=== PATIENT | female | born 1940 | race Caucasian/White ===

== ENCOUNTER 2021-05-04 12:15 | Inpatient (IN) | payer MEDICARE, SELFPAY ==
[2021-05-04] VITALS (32 sets, daily range): BP systolic 82–143; BP diastolic 42–89; PULSE 69–92; RESP 14–25; TEMP 36.3–36.8; O2SAT 90–98
--- NOTE | ~2021-05-04 | MR_ITS ---
EXAMINATION: MR MRCP wo con/w 3D wo ind pp DATE: 05/07/2021 16:32 INDICATION: Duodenal obstruction. TECHNIQUE: Magnetic resonance imaging (MRI) of the abdomen was performed without intravenous contrast . Sequences included coronal T2-weighted FS FSE, coronal T2-weighted FSE, axial T1-weighted LAVA, cor onal FS FIESTA, axial dual-echo T1-weighted SPGR, coronal lava-FLEX, sagittal T2-weighted FSE, axial T2-weighted FSE, and axial DWI. Thick-slab T2-weighted FSE images were obtained for magnetic resonanc e cholangiopancreatography (MRCP). Maximum intensity projection 3-D reconstructions of the volumetric data were created by the technologist. COMPARISON: CT abdomen and pelvis 05/04/2021, 05/07/21 FINDINGS: ABDOMEN MRI: There is moderate intrahepatic and extrahepatic biliary duct dilatation. There is a ston e in the common bile duct. The gallbladder is distended and contains stones. There is marked distenti on of the stomach and proximal duodenum. There is a diverticulum of the second portion of the duodenu m. There is a mass in the proximal third portion of the duodenum. The small bowel is decompressed dis rona to this area. At the inferior aspect of the head of the pancreas, there is a 3.2 x 2.0 cm mass th at involves the pancreas and duodenum. The spleen and adrenal glands are normal. There are cysts in t he kidneys measuring up to 10 mm on the right. There is mild right hydronephrosis. There are no patho logically enlarged lymph nodes. There is no free intraperitoneal fluid. ABDOMEN MRCP: There is a 15 mm stone in the distal common bile duct. There is moderate intrahepatic a nd extrahepatic biliary duct dilatation. IMPRESSION: 1. 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 2. Moderate intrahepatic and extrahepatic biliary duct dilatation with 15 mm stone in the distal comm on bile duct. 3. Cholelithiasis. 4. Mild right hydronephrosis with improvement status post stent placement. Reviewed, dictated and finalized at location E. PROPELLED DREDGE OPERATOR IMPRESSION: 1. 3.2 x 2.2 cm mass involving the pancreatic head and third portion of the duo denum causing duodenal obstruction, most likely pancreatic adenocarcinoma. 2. Moderate intrahepatic and extrahepatic biliary duct dilatation with [address] one in the distal common bile duct. 3. Cholelithiasis. 4. Mild right hydronephrosis with improvement status post stent placement.
--- NOTE | ~2021-05-04 | XR_ITS ---
EXAMINATION: XR retrograde pyelo w/stent RT EXAM DATE: 05/05/2021 14:49 INDICATION: Right-sided retrograde pyelogram, stent placement, obstructive nephropathy. TECHNIQUE: Fluoroscopy used during XR retrograde pyelo w/stent RT performed by Dr. Shiraz yoder MD, urologist. The radiologist Pavel Aguayo M.D. dictating this report of the image(s) availabl e was not present for the procedure. Total fluoroscopic time of 155 seconds. The DAP for this proce dure was 1.3 mGym2. A total of 6 images sent to PACS from the exam. Correlation is made to CT abdome n pelvis from yesterday. FINDINGS: Possible identification of the sizable right mid ureteral stone on title investigator image. Right urete r was cannulated and injected. There is moderate right hydronephrosis. A double-J ureteral stent was placed. Correlate with procedure note. IMPRESSION: Moderate right hydronephrosis, stent in position. Reviewed, dictated and finalized at location B. FOLLOWER
--- NOTE | ~2021-05-04 | CT_ITS ---
EXAMINATION: CT abdomen pelvis wo con EXAM DATE: 05/07/2021 08:39 INDICATION: Surgical planning, hydronephrosis . TECHNIQUE: Spiral CT of the abdomen and pelvis was performed without contrast. Axial, coronal and sag ittal images were reviewed. The dose-length product (DLP) for this examination was 301.94 mGy-cm. T he exposure was tailored according to patient size (auto mA exposure control), and iterative reconstr uction (ASIR) was used as additional dose reduction technique. Comparison is made to prior examinatio n from 05/04/2021. FINDINGS: Significantly distended stomach with orally administered water-soluble contrast for patient 's upper GI examination. There is much smaller amount of contrast within jejunum. There is some reflu x in the esophagus, probably small sliding gastroesophageal hiatal hernia. Potentially could be SMA s yndrome causing this. Interval insertion of a right-sided double-J ureteral stent. There is a Lowery catheter. There are sev eral stone fragments identified along the mid aspect of the stent. There is improvement in hydronephr osis, now only mild. There is region of right renal cortical scarring and calcification. The uterus i s not identified and has likely been surgically resected. Some pelvic surgical clips could be lymph n ode dissection. The liver, spleen, adrenal glands and pancreas are unremarkable. There are gallstones within an othe rwise unremarkable gallbladder. There is poorly calcified 13 mm gallstone in the distal aspect of the common bile duct less well-visualized due to the dense contrast adjacent to this. There is moderate common bile and intrahepatic biliary duct dilation. There is no retroperitoneal or pelvic lymphadeno abigail. There is moderate scattered arteriosclerotic disease. There are no findings to suggest appendicitis. There is expected amount of colonic stool. No free intraperitoneal gas. The heart is normal in size. There are no pericardial or pleural effusions. The lung bases are unremarkable. There are no osteoblastic or osteolytic lesions identified. IMPRESSION: 1. Some smaller stone fragments along mid aspect of the right ureteral stent. Improvement in mild ri ght hydronephrosis. 2. Distended stomach suspicious for chronic outlet obstruction which could be SMA syndrome. Gastroes ophageal reflux. 3. Choledocholithiasis, moderate biliary distention. Reviewed, dictated and finalized at location B. DISPATCHER IMPRESSION: 1. Some smaller stone fragments along mid aspect of the right ureteral stent. Improvement in mild right hydronephrosis. 2. Distended stomach suspicious for chronic outlet obstruction which could be SMA syndrome. Gastroesophageal reflux. 3. Choledocholithiasis, moderate biliary distention.
--- NOTE | ~2021-05-04 | XR_ITS ---
EXAMINATION: XR fl guid NG/feed tube insert DATE: 05/22/2021 07:58 INDICATION: Gastric outlet obstruction. TECHNIQUE: I placed a nasogastric tube under fluoroscopic guidance. The fluoroscopy exposure time was 0.2 minutes. The number of images was 1. COMPARISON: Upper gastrointestinal series 05/21/2021 FINDINGS: The nasogastric tube tip is in the stomach. IMPRESSION: 1. Fluoroscopy guided nasogastric tube placement with tip in the stomach. Reviewed, dictated and finalized at location A.
--- NOTE | ~2021-05-04 | US_ITS ---
EXAMINATION: US renal BI DATE: 05/04/2021 16:57 INDICATION: Acute kidney injury. TECHNIQUE: Multiple ultrasound grayscale images of the kidneys were obtained. COMPARISON: None. FINDINGS: The right kidney measures 10.1 x 4.4 x 4.2 cm. The left kidney measures 10.7 x 4.3 x 4.7 cm. The righ t kidney demonstrates increased parenchymal echogenicity, consistent with nephropathy. There is sever e right hydronephrosis. There is focal wall thickening of the posterior bladder wall. IMPRESSION: 1. Severe right hydronephrosis. 2. Focal thickening of the posterior bladder wall suspicious for urothelial carcinoma or hematoma. Ab domen and pelvis CT without and with contrast (CT urogram) is recommended. Reviewed, dictated and finalized at location E. K DYER IMPRESSION: 1. Severe right hydronephrosis. 2. Focal thickening of the posterior bladder wall suspicious for urothelial car cinoma or hematoma. Abdomen and pelvis CT without and with contrast (CT urogram ) is recommended.
--- NOTE | ~2021-05-04 | XR_ITS ---
EXAMINATION: XR abdomen NG/feed tube rechec INDICATION: Nasogastric tube advancement TECHNIQUE: Portable AP KUB-NG at 1635 hours COMPARISON: 0744 hours FINDINGS: The nasogastric tube is in the stomach. A right internal ureteral stent is in expected posi tion. Contrast from recent upper GI partially opacifies the large bowel. There are surgical clips in the pelvis and midline abdomen. IMPRESSION: 1. Nasogastric tube in the stomach. Reviewed, dictated and finalized at location F. T OFFICER AND FLIGHT INSTRUCTOR
--- NOTE | ~2021-05-04 | XR_ITS ---
EXAMINATION: XR abdomen/kub 1V EXAM DATE: 05/24/2021 05:28 INDICATION: Small bowel obstruction TECHNIQUE: Frontal projection(s) of the abdomen for interpretation. Comparison is made to prior exami nation from 05/22/2021, 05/23. FINDINGS: There is still moderate amount of colonic contrast from prior water soluble small bowel ex am, now some has reached the rectum. No dilated small bowel. Nasogastric tube. Laparotomy noah. Il iac lymph node dissection clips and right ureteral stent. Lung bases unremarkable. IMPRESSION: 1. Surgical changes. 2. Colonic contrast. No dilated small bowel. 3. Right ureteral stent in position. EL AGENT Reviewed, dictated and finalized at location A.
--- NOTE | ~2021-05-04 | XR_ITS ---
EXAMINATION: XR UGI water soluble wo kub DATE: 05/21/2021 13:25 INDICATION: Vomiting. TECHNIQUE: The patient drank water-soluble contrast. Fluoroscopy of the esophagus, stomach, and proxi mal small bowel was performed. Fluoroscopy exposure time was 1.1 minutes. The total number of images was 275. Total dose-area product was 4.17 Gy-cm^2. COMPARISON: None. FINDINGS: There is no mass or stricture of the esophagus. There is decreased primary and secondary es ophageal peristalsis. No abnormal tertiary waves. There is no hiatal hernia. The stomach is markedly distended and was distended before the exam began. There is contrast in the colon from previous imagi ng. A right internal ureteral stent is noted. IMPRESSION: 1. Distended stomach. Contrast did not pass into the gastrojejunostomy during the exam. Reviewed, dictated and finalized at location A. PAN FEEDER IMPRESSION: 1. Distended stomach. Contrast did not pass into the gastrojejunostomy during t he exam.
--- NOTE | ~2021-05-04 | CT_ITS ---
EXAMINATION: CT abdomen pelvis wo con DATE: 05/04/2021 23:24 INDICATION: Right-sided hydronephrosis. TECHNIQUE: Computed tomography (CT) of the abdomen and pelvis was performed without intravenous contr ast. Automated exposure control and iterative reconstruction technique were employed. The dose-length product was 193.67 mGy-cm. COMPARISON: Ultrasound 05/04/2021 FINDINGS: The visualized portions of the lung bases demonstrate peripheral septal thickening and mild bronchiectasis, consistent with chronic interstitial lung disease. No pleural effusion. The heart si ze is normal. There are coronary artery calcifications. No pericardial effusion. There is mild intrah epatic and extrahepatic biliary duct dilatation. There are gallstones in the gallbladder, which is no rmal in size. There is a 13 mm stone in the common bile duct. The spleen, pancreas, and right adrenal gland are normal. There is thickening of left adrenal gland, likely benign. There is a 5 mm parenchy mal calcification in right kidney. There is severe right hydronephrosis. There is a 6 mm stone in rig ht ureter where it crosses the iliac vessels. Left kidney is normal. There is distention of the stoma ch and proximal duodenum. The appendix is not visualized. There are changes of pelvic lymph node diss ection. There are no pathologically enlarged lymph nodes. There is no free intraperitoneal fluid. The re is severe lumbar spondylosis. IMPRESSION: 1. Severe right hydronephrosis and hydroureter to the level of a 6 mm stone in mid right ureter. 2. 13 mm stone in the common bile duct with mild intrahepatic and extrahepatic biliary duct dilatatio n. 3. 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 Reviewed, dictated and finalized at location E. NEERING LABORATORY TECHNICIAN IMPRESSION: 1. Severe right hydronephrosis and hydroureter to the level of a 6 mm stone in mid right ureter. 2. 13 mm stone in the common bile duct with mild intrahepatic and extrahepatic biliary duct dilatation. 3. Distended stomach and proximal duodenum with transition point at the midline , which may seen with SMA syndrome.
--- NOTE | ~2021-05-04 | XR_ITS ---
EXAMINATION: XR abdomen obstructive series DATE: 05/20/2021 07:43 INDICATION: Vomiting 1 week post gastroenterostomy TECHNIQUE: Frontal supine and upright views of the abdomen were obtained. COMPARISON: None. FINDINGS: No free intraperitoneal gas. Gas and residual contrast scattered throughout the nondilated colon no d ilated gas-filled loops of bowel in the abdomen to suggest significant ileus over obstruction. Right internal ureteral stent with loops formed over the expected location of the bladder and right renal p rosalie. A couple 2 mm stones at the mid right kidney. Cholelithiasis. Chronic interstitial lung diseas e with peripheral predominant coarse reticular opacities at the left lung and right mid to lower lung . Heart size is normal. Midline abdominal skin noah. Multiple surgical clips in the left and right hemipelvis consistent with a pelvic lymph node dissection. IMPRESSION: 1. No free intraperitoneal gas or dilated gas-filled loops of bowel to suggest obstruction. 2. Cholelithiasis. 3. A couple 2 mm right renal stones with right internal ureteral stent in expected position. Reviewed, dictated and finalized at location A. STANT ACTIVITIES DIRECTOR IMPRESSION: 1. No free intraperitoneal gas or dilated gas-filled loops of bowel to suggest obstruction. 2. Cholelithiasis. 3. A couple 2 mm right renal stones with right internal ureteral stent in expec bre position.
--- NOTE | ~2021-05-04 | XR_ITS ---
EXAMINATION: XR abdomen/kub 1V EXAM DATE: 05/23/2021 05:30 INDICATION: Small bowel obstruction. TECHNIQUE: Frontal projection(s) of the abdomen for interpretation. Comparison is made to prior exami nation from 05/22/2021. FINDINGS: There is still significant amount of colonic contrast from prior water soluble small bowel exam. No dilated small bowel. Nasogastric tube. Laparotomy noah. Iliac lymph node dissection clip s and right ureteral stent. Lung bases unremarkable. IMPRESSION: 1. Surgical changes. 2. Persistent moderate amount of colonic contrast. Colonic ileus? 3. Right ureteral stent in position. Reviewed, dictated and finalized at location A. CIPAL CLERK TYPIST
--- NOTE | ~2021-05-04 | XR_ITS ---
XR abdomen/kub 1V 05/25/2021 05:24 Indication: Small bowel obstruction Procedure: KUB Comparison: Comparison to multiple prior studies sequentially, with oldest reviewed study dated 05/20. Findings: NG tube in the stomach. There is a laparotomy staple line. There is a right internal ureter al stent. There is residual contrast in the colon. No significant small bowel dilation. Lung bases un remarkable. There are extensive surgical changes in the pelvis. Impression: 1: Nonobstructive bowel gas pattern. Reviewed, dictated and finalized at location A. SHER TAILOR APPRENTICE Impression: 1: Nonobstructive bowel gas pattern.
--- NOTE | ~2021-05-04 | XR_ITS ---
EXAMINATION: XR UGI water soluble wo kub DATE: 05/07/2021 09:11 INDICATION: Duodenal obstruction. Assess for possible SMA syndrome. TECHNIQUE: The patient drank water-soluble contrast. A total of 624 fluoroscopic images of the esopha soco, stomach, and proximal small bowel were obtained. 5 overhead radiographs were also obtained, the final a 1 hour delayed image. Fluoroscopy exposure time was 1.3 minutes. COMPARISON: None. FINDINGS: The esophagus is normal without mass or stricture. Esophageal motility is normal. There is no hiatal hernia. There was no gastroesophageal reflux with provocative maneuvers. The stomach and proximal duo denum or dilated and fluid-filled with some dilution of the ingested contrast. There is obstruction a t the level of the third portion of the duodenum with no contrast passing beyond the right lateral ma rgin of the lumbar spine. Overhead radiographs demonstrates multiple gallstones in the right upper qu adrant. Right internal ureteral stent with loops formed in the region of the right renal pelvis and t he bladder. Multiple surgical clips in the pelvis consistent with bilateral pelvic lymph node dissect ions. IMPRESSION: 1. Relatively high-grade obstruction at the third portion of the duodenum. Review of prior CT demonst rates focal dilation of the peripheral contours of the superior mesenteric artery where it passes ant erior to the pancreas with loss of the intervening fat plane. This raises concern for possible infilt rating pancreatic cancer as etiology for the obstruction. Alternatively dilation of the superior mese nteric artery could represent an aneurysm. Concern for malignancy was discussed with Dr. Buitrago and con trast-enhanced MRI/MRCP has been ordered for further evaluation. 2. Cholelithiasis. Reviewed, dictated and finalized at location A. LOINER IMPRESSION: 1. Relatively high-grade obstruction at the third portion of the duodenum. Revi ew of prior CT demonstrates focal dilation of the peripheral contours of the campbell perior mesenteric artery where it passes anterior to the pancreas with loss of the intervening fat plane. This raises concern for possible infiltrating pancre atic cancer as etiology for the obstruction. Alternatively dilation of the supe rior mesenteric artery could represent an aneurysm. Concern for malignancy was discussed with Dr. Buitrago and contrast-enhanced MRI/MRCP has been ordered for fur ther evaluation. 2. Cholelithiasis.
--- NOTE | ~2021-05-04 | XR_ITS ---
EXAMINATION: XR abdomen/kub 1V EXAM DATE: 05/07/2021 07:42 INDICATION: Surgical planning N/V diarrhea. TECHNIQUE: Frontal projection(s) of the abdomen for interpretation. Correlation is made to CT abdomen pelvis same date. FINDINGS: . There is a right-sided double-J ureteral stent in position. Stone or stone fragments susp ected over the mid aspect of the stent, indicated. Pelvic surgical clips from lymph node dissection. Cholelithiasis. Expected amount of colonic stool. No small bowel dilation. Lung bases unremarkable. IMPRESSION: Stone or stone fragments along mid aspect right ureteral stent. Reviewed, dictated and finalized at location B. E PRN
[2021-05-04 12:59] LABS: Basophils Absolute Auto 0.1 K/mm3 (0.0-0.1); Basophils Percent Auto 0.4 % (0.2-1.2); Eosinophils Percent Auto 0.1 % (0-4.4); Hematocrit 50.1 % (37.0-47.0); Immature Granulocyte Absolute 0.05 K/mm3 (0.00-0.031); Immature Granulocyte Percent A 0.4 % (0-0.5); Lymphocytes Percent Auto 12.8 % (18.3-44.2); Mean Corpuscular HGB Conc 33.9 g/dl (32-36); Mean Corpuscular Hemoglobin 32.4 pg (26-34); Mean Corpuscular Volume 95.4 fl (80-100); Mean Platelet Volume 9.3 fl (7.4-10.4); Monocytes Absolute Auto 0.7 K/mm3 (0.1-0.6); Monocytes Percent Auto 5.6 % (2.6-8.5); Neutrophils Absolute Auto 10.8 K/mm3 (1.3-6.7); Neutrophils Percent Auto 80.7 % (45.5-73.1); Platelet Count Result 603 k/mm3 (150-375); Red Blood Count 5.25 M/mm3 (4.2-5.4); Red Cell Distribution Width 12.6 % (11.5-14.5); White Blood Count 13.3 K/mm3 (4.5-10.0)
[2021-05-04 13:05] LABS: Alanine Aminotransferase 71 U/L (4-35); Alkaline Phosphatase 158 U/L (38-126); Aspartate Amino Transferase 46 U/L (14-36); Bilirubin,Total 0.9 mg/dL (0.2-1.3); Blood Urea Nitrogen 88 mg/dL (7-17); Carbon Dioxide > 40 mmol/L (22-30); Chloride 66 mmol/L (98-107); Estimated CRCL calculation 6 ml/min; Estimated Glomerular Filt Rate 8; Glucose 116 mg/dL (65-110); Lipase 79 U/L (23-300); Potassium 3.8 mmol/L (3.4-5.0); Sodium 130 mmol/L (137-145)
[2021-05-04 13:37] LABS: Add Urine Microscopic? YES; Appearance Urine Cloudy (Clear); Bacteria Urine Trace /hpf; Bilirubin Urine Negative (Negative); Blood Urine 1+ (Negative); Color Urine Amber (Yellow); Glucose Urine UA Negative (Negative); Hyaline Casts Urine 20-29 /lpf; Ketones Urine Negative (Negative); Leukocyte Esterase Ur 3+ LEU/UL (Negative); Mucus Urine Rare /lpf; Nitrate Urine Negative (Negative); Protein Urine 2+ mg/dL (Negative); RBC Urine 21-50 /hpf (0-2); Specific Grav Ur 1.015 (1.001-1.035); Squamous Epithelial Cell Urine Rare /hpf (Few); Urobilinogen Urine Negative mg/dL (<2.0); WBC Urine >75 /hpf
[2021-05-04] MEDS: SODIUM CHLORIDE 0.9% IV 1,000 ML 999 ML IV CONT (14:43)
[2021-05-04] MEDS: LACTATED RINGERS 1,000 ML 999 ML IV CONT (14:45)
--- NOTE | 2021-05-04 16:07 | ED.NAVMDI ---
HPI - Nausea/Vomiting/Diarrhea General Chief complaint: Nausea/Vomiting/Diarrhea Stated complaint: constipation, abd pain, vomiting Time Seen by Provider: 05/04/21 13:31 Source: patient and family Mode of arrival: ambulatory Limitations: clinical condition History of Present Illness HPI Narrative: 80-year-old female Patient presents from her doctor's office after arriving complaining of nausea vomiting and dizziness Noted to have low blood pressure there Patient says for the last for 5 days she has had nausea and vomiting and a very bad appetite and taking in very little She does not have a fever or abdominal pain She does not describe any urinary difficulties, just says she has not been voiding very much because she has not been taking very much in She takes her blood pressure medicine but does not have any history of kidney problems that she is aware of Related Data Home Medications Medication Instructions Recorded Confirmed acetaminophen 500 mg PO PRN 05/04/21 albuterol sulfate [Ventolin HFA] 2 puff INHALATION QID PRN 05/04/21 05/04/21 amlodipine 10 mg PO DAILY 05/04/21 05/04/21 budesonide-formoterol [Symbicort] 2 puff INHALATION Q12H 05/04/21 05/04/21 theophylline 400 mg PO DAILY 05/04/21 05/04/21 Allergies Allergy/AdvReac Type Severity Reaction Status Date / Time aspirin AdvReac Nausea and Verified 05/04/21 13:52 Vomiting Opioids - Morphine Analogues AdvReac Nausea Verified 05/04/21 13:52 Opioids-Meperidine and AdvReac Nausea and Verified 05/04/21 13:52 Related Vomiting Review of Systems Review of Systems: All systems reviewed & are unremarkable except as noted in HPI and below Constitutional: Constitutional: Reports no additional constitutional complaints, Denies chills, Reports fatigue, Denies fever(s), Denies headache(s) and Reports weakness Eyes: Eyes: Reports no additional eye complaints and Denies change in vision ENT: Denies headache(s) and Denies sore throat Cardiovascular: Cardiovascular: Denies chest pain and Denies dyspnea Respiratory: Respiratory: Denies cough and Denies dyspnea Gastrointestinal: Gastrointestinal: Denies abdominal pain, Reports diarrhea, Reports nausea and Reports vomiting Genitourinary: Genitourinary: Denies urinary frequency and Denies dysuria Musculoskeletal: Musculoskeletal: Reports myalgias, Denies deformity, Denies arthralgias, Denies joint swelling and Denies numbness Integumentary/Breasts: Skin/Breast: Denies rash and Denies wounds Neurologic: Reports dizziness, Denies syncope, Denies headache(s), Denies focal weakness, Denies numbness and Reports weakness Psychiatric: Psychiatric: Reports no additional psychiatric complaints Endocrine: Endocrine: Reports no additional endocrine complaints Hematologic/Lymphatic: Hematologic/Lymphatic: Reports no additional hematologic/lymphatic complaints Allergic/Immunologic: Allergic/Immunologic: Reports no additional allergic/immunologic complaints Exam Const: General: cooperative, no acute distress and alert Nutritional Appearance: thin Orientation/consciousness: patient oriented x3 (alert) Other: Frail, elderly HENMT: Head: normal to inspection, normocephalic, atraumatic, no contusions and no hematomas Ears: external ears normal General nose exam: no epistaxis Mouth: Yes dry mucous membranes Eyes: Conjunctivae: conjunctivae normal Pupils: Equal, round and reactive pupils present EOM: EOMs intact bilaterally Neck: Neck: normal visual inspection, supple and no JVD Resp: Effort & Inspection: normal respiratory effort and not labored Auscultation: clear to auscultation bilaterally, no rales, no rhonchi, no wheezes and other (BS =) Cardio: Rate: regular rate Rhythm: regular rhythm Heart sounds: no murmurs GI: GI Palp: Yes Soft to palpation, No Tenderness to palpation present (GI), No Guarding due to palpation present (GI) and No Rebound tenderness present Skin: General skin exam: normal color and
[2021-05-04] MEDS: LACTATED RINGERS 1,000 ML 150 ML IV CONT (17:21)
--- NOTE | 2021-05-04 18:40 | PM.IMHP ---
H&P: HPI History of Present Illness Date/Time: 05/04/21 18:40 Chief Complaint: Vomiting. Narrative: This is a pleasant 80-year-old female with with hypertension and COPD who presented to the emergency department for evaluation of vomiting. She complains of multiple symptoms that have been ongoing for approximately 2 weeks including abdominal bloating, esophageal dysphagia, hiccups, occasional belching, and emesis described as dark green which occurs within approximately 30 minutes of eating or drinking. She has not been eating much because of the aforementioned symptoms and she estimates having lost 10 lb in the past 2 weeks. It is my understanding that she was seen by her primary care provider today at which time her blood pressures were low and she was referred to the ER though her blood pressures have been pretty stable here. Labs today showed several abnormalities including hemoconcentration, hyponatremia, hypochloremia, acute kidney injury with a BUN and creatinine of 88 and 5.40 respectively. Renal ultrasound demonstrated severe right hydronephrosis and focal wall thickening of the posterior bladder wall suspicious for cancer or hematoma. With further questioning she has noticed a decrease in urine output though she has not noticed darkening of the urine or blood in the urine. She has not had any recent changes in medications. She denies dysuria, urgency, hesitancy, and feelings of incomplete bladder evacuation. No known history of peptic ulcers or malignancy. Review of Systems Review of Systems: Twelve systems were reviewed. No syncope or near syncope. No recent cold or flu symptoms. No fever, chills, or sweats. Denies chest pain and shortness of breath. Occasional heartburn. Except as documented, all other systems were reviewed and are negative. [facility] Past Medical History Medical History (Updated 05/04/21 @ 21:59 by Sarah Iqbal PA-C) Chronic obstructive pulmonary disease Hypertension Surgical History Surgical History (Updated 05/04/21 @ 21:59 by Sarah Iqbal PA-C) History of appendectomy History of hysterectomy Family History Family History (Updated 05/04/21 @ 21:59 by Sarah Iqbal PA-C) Other Hypertension Social History Social History (Updated 05/04/21 @ 22:00 by Sarah Iqbal PA-C) Social History: The patient lives in [place] with her daughter. She began smoking at the age of 15 and smoked around a pack of cigarettes a day though more recently she has been smoking less than half a pack a day. No alcohol or illicit substance abuse. She designates her daughter, Asim zuñiga, as her surrogate decision maker. Code status: Full code. Meds Home Medications and Allergies Home Medications Medication Instructions Recorded Confirmed Type acetaminophen 500 mg PO PRN 05/04/21 History albuterol sulfate [Ventolin HFA] 2 puff INHALATION QID PRN 05/04/21 05/04/21 History amlodipine 10 mg PO DAILY 05/04/21 05/04/21 History budesonide-formoterol [Symbicort] 2 puff INHALATION Q12H 05/04/21 05/04/21 History theophylline 400 mg PO DAILY 05/04/21 05/04/21 History Allergies Allergy/AdvReac Type Severity Reaction Status Date / Time aspirin AdvReac Nausea and Verified 05/04/21 13:52 Vomiting Opioids - Morphine Analogues AdvReac Nausea Verified 05/04/21 13:52 Opioids-Meperidine and AdvReac Nausea and Verified 05/04/21 13:52 Related Vomiting Vital Signs Vital Signs - 24 hr 05/04/21 12:20 05/04/21 12:32 05/04/21 12:33 Temperature 98.2 F Pulse Rate 91 84 83 Respiratory Rate 17 18 16 Blood Pressure 82/42 L 139/68 Pulse Oximetry 95 93 95 05/04/21 12:45 05/04/21 12:48 05/04/21 13:00 Temperature Pulse Rate 81 86 92 Respiratory Rate 19 14 17 Blood Pressure 107/74 Pulse Oximetry 94 91 94 05/04/21 13:02 05/04/21 13:03 05/04/21 13:15 Temperature Pulse Rate 88 85 84 Respiratory Rate 19 22 H 14 Blood Pressure 95/51 L Pulse Oximetry 95 92 92
--- NOTE | 2021-05-04 19:00 | PC.NURSE ---
Assuming care of pt.
[2021-05-04 19:52] LABS: SARS-CoV-2 RNA PCR Negative
[2021-05-04 20:27] LABS: Creatine Kinase 87 U/L (30-135)
[2021-05-04 22:18] LABS: Sodium Urine Random 38 meq/L
[2021-05-04 22:25] LABS: Creatinine Urine 233.8 mg/dL
[2021-05-04 22:38] LABS: Blood Urea Nitrogen 85 mg/dL (7-17); Calcium 7.9 mg/dL (8.4-10.2); Carbon Dioxide > 40 mmol/L (22-30); Chloride 78 mmol/L (98-107); Estimated CRCL calculation 8 ml/min; Estimated Glomerular Filt Rate 12; Glucose 106 mg/dL (65-110); Magnesium 2.1 mg/dL (1.6-2.3); Phosphorus 6.9 mg/dL (2.5-4.5); Potassium 3.1 mmol/L (3.4-5.0); Sodium 129 mmol/L (137-145)
[2021-05-04 22:45] LABS: Complement C3 98 mg/dL (88-165)
[2021-05-04 22:47] LABS: CRP 1.7 mg/dL (<1.0)
[2021-05-04 23:27] LABS: Hepatitis B Surface Antigen Negative (Negative)
[2021-05-04 23:32] LABS: Hepatitis B Core IgM Result Negative (Negative)
[2021-05-04 23:45] LABS: Hepatitis B Surface Anti Res Negative; Hepatitis C Virus Antibody Negative (Negative)
[2021-05-05] VITALS (10 sets, daily range): BP systolic 91–124; BP diastolic 43–76; PULSE 60–71; RESP 12–20; TEMP 36.1–36.7; O2SAT 90–100; BMI 17.7; BMI 17.9
[2021-05-05] MEDS: ONDANSETRON INJ 4 MG/2 ML VIAL IV PUSH (00:51)
[2021-05-05] MEDS: SODIUM CHLORIDE 0.9% IV 1,000 ML 75 ML IV CONT (00:51)
[2021-05-05] MEDS: FAMOTIDINE 20 MG/2 ML VIAL IV PUSH ×3 (00:58→20:57)
--- NOTE | 2021-05-05 04:39 | PC.NURSE ---
This patient, Abby Riley, was admitted to 3 Med Surg Room 329-01. Patient/family oriented to hospital policies and general routines including ID bracelet, bed and alarms, visiting hours, pain management, procedures, bathroom and other care routines, personal items, smoking policy, room service/diet, and visiting hours. Information on how to activate the Rapid Response Team has been discussed. Patient/Family are encouraged to report perceived risks to care and to ask questions if they do not understand what they are told or what they should do.
[2021-05-05 05:17] LABS: Alveolar/Arterial O2 Gradient 38.2 mmHg; Base Excess ABG 13.2 mEq/l (+/-2.0); Carboxyhemoglobin 1.7 % THb (0-2.0); Fractional Inspired Oxygen 21 %; Methemoglobin ABG 0.3 %THb (0-1.5); Oxygen Content ABG 15.4 %vol (16.0-22.0); PCO2 ABG 54.1 mmHg (35.0-45.0); PO2 FiO2 Ratio Arterial Blood 2.22 %; Reduced Hemoglobin 17.8 %THb (0-5.0); Total Hemoglobin 13.7 g/dL (12.0-18.0); pH ABG 7.476 (7.350-7.450)
[2021-05-05 05:18] LABS: PO2 ABG 46.7 mmHg (80.0-100.0)
[2021-05-05 05:19] LABS: Device ROOM AIR; Modified Allen's Test Pass; Oxygen Saturation ABG 84.5 % (95.0-100.0); Oxyhemoglobin 80.2 % THb (90.0-100.0); Site Drawn RIGHT RADIAL
[2021-05-05 05:19] LABS: Creatinine Urine 58.4 mg/dL; Total Protein Urine Random 40 mg/dL; Ur Ttl Prot Creatinine Ratio 0.68 mg/mg (0-0.20)
[2021-05-05 06:09] LABS: Sodium Urine Random 55 meq/L
[2021-05-05 06:25] LABS: Eosinophil Urine Rare % (None Seen)
[2021-05-05 08:51] LABS: Hematocrit 39.6 % (37.0-47.0); Hemoglobin 13.1 g/dL (12.0-15.0); Mean Corpuscular HGB Conc 33.1 g/dl (32-36); Mean Corpuscular Hemoglobin 31.9 pg (26-34); Mean Corpuscular Volume 96.4 fl (80-100); Mean Platelet Volume 9.6 fl (7.4-10.4); Platelet Count Result 464 k/mm3 (150-375); Red Blood Count 4.11 M/mm3 (4.2-5.4); Red Cell Distribution Width 12.4 % (11.5-14.5); White Blood Count 12.9 K/mm3 (4.5-10.0)
[2021-05-05 09:03] LABS: Alanine Aminotransferase 42 U/L (4-35); Albumin Level 3.6 g/dL (3.5-5.1); Alkaline Phosphatase 94 U/L (38-126); Anion Gap 10 mmol/L (8-16); Aspartate Amino Transferase 35 U/L (14-36); Bilirubin,Total 0.6 mg/dL (0.2-1.3); Blood Urea Nitrogen 75 mg/dL (7-17); Calcium 7.6 mg/dL (8.4-10.2); Carbon Dioxide 37 mmol/L (22-30); Chloride 84 mmol/L (98-107); Creatine Kinase 126 U/L (30-135); Estimated CRCL calculation 10 ml/min; Estimated Glomerular Filt Rate 15; Glucose 89 mg/dL (65-110); Magnesium 2.2 mg/dL (1.6-2.3); Potassium 3.2 mmol/L (3.4-5.0); Sodium 131 mmol/L (137-145)
[2021-05-05] MEDS: amLODIPine BESYLATE 5 MG TABLET 10 MG PO (09:37)
--- NOTE | 2021-05-05 10:56 | PM.CNNEP ---
Assessment and Plan Assessment and plan (1) Acute kidney failure: Code(s): N17.9 - Acute kidney failure, unspecified Status: Acute Assessment and Plan: multifactorial etiology: volume depletion/dehydration relative hypotension (precipitated by ongoing use of BP medications) obstruction (although only present on the right) evaluation to date: renal ultrasound/CT of abd/pelvis with severe hydronephrosis and mid right ureter stone urine electrolytes are prerenal rare urine eosinophils but suspect due to urinalysis with inflamation CPK normal significant improvement in renal function with IVF hydration follow trend of repeat labs and UOP (2) Hydronephrosis of right kidney: Code(s): N13.30 - Unspecified hydronephrosis Status: Acute Assessment and Plan: unclear how much this is contributing to #1 (left kidney was normal) CT of A/P with severe right hydronephrosis and hydroureter to the level of a 6 mm stone in mid right ureter unclear how acute or chronic this issues is Urology consulted (3) Nausea & vomiting: Code(s): R11.2 - Nausea with vomiting, unspecified Status: Acute Assessment and Plan: unclear if this precipitated #1 or is a result of #1 IV antiemetics PRN supportive therapy (4) Hypertension: Code(s): I10 - Essential (primary) hypertension Status: Acute Assessment and Plan: hypotensive prior to admission and noted in ER better s/p IVF resuscitation hold BP medications follow hemodynamics Will continue to follow. History of Present Illness Reason for Consult Consult date: 05/05/21 Reason for consult: acute renal failure Chief Complaint Chief complaint: Acute renal failure, UTI History of Present Illness Narrative: The patient is a 80-year-old female with a past medical history as outlined below who presented to [facility] Emergency room for further evaluation of her current nausea and vomiting. The patient states that for the last 2 weeks she has had multiple issues including nausea, vomiting, abdominal bloating, belching, and dark green emesis that approximately occurs 30 minutes after eating or drinking. Because the symptoms have been persistent she has limited her oral intake for fear that she will exacerbate these problems if she eats and drinks too much. Because of these symptoms, she has apparently lost approximately 10 lb. Because of the recurrent nature of these symptoms she presented to her primary care physician's office for further evaluation. By report, her blood pressure was apparently quite low at her PCPs office and she was referred to the ER for further evaluation. Workup and evaluation emergency room did demonstrate the patient be quite hypotensive but she did respond to aggressive IV fluid boluses. Routine blood tests were done which demonstrated multiple abnormalities including hyponatremia, hypochloremia, and acute kidney injury/ acute renal failure with a BUN of 88 and a creatinine of 5.4. She also reports a decrease in urine output but just assumed this was secondary to the fact that he was not eat and drinking very much. A renal ultrasound was done in the emergency room this demonstrated severe right hydronephrosis and fecal focal wall thickening of the posterior bladder wall displaced just for cancer or hematoma. Subsequently, CT scan of the abdomen pelvis demonstrated the severe right hydro for Ronks but with a evidence of a right ureteral stone as the etiology. Given her constellation of symptoms, laboratory abnormalities, and imaging findings, she was subsequent admitted to the hospital for further evaluation and therapy. Renal consultation was requested due to her acute kidney injury/acute renal failure. According to the patient, she does not recall ever being told that she had any kidney issues or kidney problems to speak of. However, with aggressive IV fluid resuscit
--- NOTE | 2021-05-05 11:40 | WPDANESEPPF ---
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 - Shiraz Newsome MD Date/Time: 05/05/21 11:40 Surgeon: Trupti Arnold PA-C Pre Op Diagnosis: Acute renal failure, UTI Patient Data Age: 80 Gender: F Height: 1.57 m Weight: 44.5 kg Last Vital Signs Temp 36.2 C L 05/05/21 06:00 Pulse 60 05/05/21 06:00 Resp 18 05/05/21 06:00 BP 108/58 L 05/05/21 06:00 Pulse Ox 94 05/05/21 08:00 Allergies Allergy/AdvReac Type Severity Reaction Status Date / Time aspirin AdvReac Nausea and Verified 05/04/21 13:52 Vomiting Opioids - Morphine Analogues AdvReac Nausea Verified 05/04/21 13:52 Opioids-Meperidine and AdvReac Nausea and Verified 05/04/21 13:52 Related Vomiting Home Medications Medication Instructions Recorded Confirmed Type acetaminophen 500 mg PO PRN PRN 05/04/21 05/05/21 History albuterol sulfate [Ventolin HFA] 2 puff INHALATION QID PRN 05/04/21 05/04/21 History amlodipine 10 mg PO DAILY 05/04/21 05/04/21 History budesonide-formoterol [Symbicort] 2 puff INHALATION Q12H 05/04/21 05/04/21 History theophylline 400 mg PO DAILY 05/04/21 05/04/21 History Laboratory Tests 05/04/21 05/04/21 05/04/21 12:43 12:43 13:01 WBC 13.3 K/mm3 H K/mm3 (4.5-10.0) RBC 5.25 M/mm3 M/mm3 (4.2-5.4) Hgb 17.0 g/dL H g/dL (12.0-15.0) Hct 50.1 % H % (37.0-47.0) MCV 95.4 fl fl (80-100) MCH 32.4 pg pg (26-34) MCHC 33.9 g/dl g/dl (32-36) RDW 12.6 % % (11.5-14.5) Plt Count 603 k/mm3 H k/mm3 (150-375) MPV 9.3 fl fl (7.4-10.4) Immature Gran % (Auto) 0.4 % % (0-0.5) Neut % (Auto) 80.7 % H % (45.5-73.1) Lymph % (Auto) 12.8 % L % (18.3-44.2) [place] % (Auto) 5.6 % % (2.6-8.5) Eos % (Auto) 0.1 % % (0-4.4) Baso % (Auto) 0.4 % % (0.2-1.2) Lymph # (Auto) 1.70 K/mm3 K/mm3 (0.9-3.2) [place] # (Auto) 0.7 K/mm3 H K/mm3 (0.1-0.6) Eos # (Auto) 0.0 K/mm3 K/mm3 (0-0.3) Baso # (Auto) 0.1 K/mm3 K/mm3 (0.0-0.1) Abs Immat Gran (auto) 0.05 K/mm3 H K/mm3 (0.00-0.031) Absolute Neuts (auto) 10.8 K/mm3 H K/mm3 (1.3-6.7) Absolute Nucleated RBC 0.0 K/mm3 K/mm3 (0.0-0.012) Nucleated RBC % 0.0 % % (0.0-0.2) Puncture Site ABG pH ABG pCO2 ABG pO2 ABG PO2/FiO2 Ratio ABG HCO3 ABG O2 Saturation ABG O2 Content ABG Base Excess A-a Gradient Oxyhemoglobin Carboxyhemoglobin Methemoglobin Reduced Hemoglobin Total Hemoglobin O2 Delivery Device O2 Liters/Min FiO2 Sodium 130 mmol/L L mmol/L (137-145) Potassium 3.8 mmol/L mmol/L (3.4-5.0) Chloride 66 mmol/L L mmol/L (98-107) Carbon Dioxide > 40 mmol/L H mmol/L (22-30) Anion Gap mmol/L mmol/L (8-16) BUN 88 mg/dL H mg/dL (7-17) Creatinine 5.40 mg/dL H mg/dL (0.7-1.0) Estim Creat Clear Calc 6 ml/min ml/min Estimated GFR 8 L (59 - ) Glucose 116 mg/dL H mg/dL (65-110) Calcium 9.0 mg/dL mg/dL (8.4-10.2) Phosphorus Magnesium Total Bilirubin 0.9 mg/dL mg/dL (0.2-1.3) AST 46 U/L H U/L (14-36) ALT 71 U/L H U/L (4-35) Alkaline Phosphatase 158 U/L H U/L (38-126) Total Creatine Kinase C-Reactive Protein Total Protein 9.0 g/dL H g/dL (6.3-8.2) Albumin 5.0 g/dL g/dL (3.5-5.1) Lipase 7
--- NOTE | 2021-05-05 12:00 | WPDURCON ---
Assessment and Plan Assessment and plan (1) Nausea & vomiting: Code(s): R11.2 - Nausea with vomiting, unspecified Status: Acute Assessment and Plan: Secondary to Common Bile Duct Stone versus Ureteral stone. (2) Acute UTI: Code(s): N39.0 - Urinary tract infection, site not specified Status: Acute Assessment and Plan: Culture pending. A dose of Rocephin was given in the ER, I would recommend starting IV antibiotics and tailoring antibiotics until culture sensitivity is resulted. (3) Hydronephrosis of right kidney: Code(s): N13.30 - Unspecified hydronephrosis Status: Acute Assessment and Plan: Secondary to obstructing stone, unlikely from retention of urine as retention typically causes bilateral hydronephrosis. (4) Right ureteral stone: Code(s): N20.1 - Calculus of ureter Status: Acute Assessment and Plan: Keep NPO. The patient will plan to go to the OR today with Dr. Newsome for Cystoscopy, right retrograde pyelogram, right ureteral stent placement, possible TURBT. I spoke with the patient and her daughter Asim to explain the surgery in it's entirety, and answered any questions they had. Will plan to get a KUB after surgery tomorrow to determine definitive stone treatment. (5) Abnormal ultrasound of bladder: Code(s): R93.41 - Abnormal radiologic findings on diagnostic imaging of renal pelvis, ureter, or bladder Status: Acute Assessment and Plan: Posterior bladder wall thickening noted on US concerning for carcinoma, not noted on CT. Will evaluate further during cystoscopy. Urology Consult Note HPI Date Seen: 05/05/21 Requesting Physician: Trupti Arnold PA-C Primary Care Provider: Sergey TaylorMD Consult Narrative Narrative: Abby Riley is a 80 year old female who presented to the ER yesterday with ongoing nausea, vomiting, dizziness and bloating. These symptoms have been present x2 weeks. She denies frequency, urgency, incontinence, hematuria, dysuria, straining or hesitancy. Her WBC today is 12.9 and creatinine 3.10. Creatinine upon arrival yesterday was 5.40 and WBC at that time was 13.3. UA is suspicious of a UTI, urine culture is pending. She also denies flank pain or pelvic pain. She was found to have severe right hydronephrosis and posterior bladder wall thickness concerning for possible carcinoma. A CT without contrast was then obtained on 05/04/2021 noting a 6mm mid right ureteral stone with severe right hydronephrosis and a 13mm common bile duct stone. She denies any history of previous kidney stones or chronic UTI's. She had a velasco catheter placed in the ER d/t urinary retention that was found incidentally as she had no symptoms, it is unclear as to how much the residual was, but the patient states 600ml was removed via catheter. Review of Systems Cardiovascular: Cardiovascular: Reports no additional cardiovascular complaints and Denies chest pain Respiratory: Respiratory: Reports no additional respiratory complaints Gastrointestinal: Gastrointestinal: Reports bloating, Reports nausea and Reports vomiting Genitourinary: Genitourinary: Denies hematuria, Denies dysuria, Denies pelvic pain, Denies flank pain, Denies urinary incontinence, Denies urinary hesitancy and Denies urinary urgency PMFSH Past Medical History Medical History Chronic obstructive pulmonary disease Hypertension Surgical History Surgical History History of appendectomy History of hysterectomy Family History Family History Other Hypertension Social History Social History Social History: The patient lives in [place] with her daughter. She began smoking at the age of 15 and smoked around a pack of ciga
--- NOTE | 2021-05-05 12:44 | PM.IMPN ---
Progress Note: A&P Assessment and Plan (1) Acute kidney failure: Code(s): N17.9 - Acute kidney failure, unspecified Status: Acute Assessment and Plan: -Likely multifactorial in etiology including dehydration, hypotension (per patient report), and obstruction as renal ultrasound showed severe right hydronephrosis and findings concerning for urothelial carcinoma or hematoma of the posterior bladder wall. -Velasco catheter has been inserted for strict I/O. -CT abd shows 1. Severe right hydronephrosis and hydroureter to the level of a 6 mm stone in mid right ureter. 2. 13 mm stone in the common bile duct with mild intrahepatic and extrahepatic biliary duct dilatation. 3. 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 -She appears quite dry on exam thus she will be cautiously hydrated with close monitoring of volume status. -Urology consulted, going to OR today for cystoscopy, right retrograde pyelogram, right ureteral stent placement, possible TURBT. -Nephrology consulted -urine electrolytes are pre renal, significant improvement with IVF hydration -continue monitoring (2) Right ureteral stone: Code(s): N20.1 - Calculus of ureter Status: Acute Assessment and Plan: -see above (3) Abnormal urinalysis: Code(s): R82.90 - Unspecified abnormal findings in urine Status: Acute Assessment and Plan: -abnormal UA, per urology abx were started pending urine culture (4) Electrolyte abnormality: Code(s): E87.8 - Other disorders of electrolyte and fluid balance, not elsewhere classified Status: Acute Assessment and Plan: -Including sodium 130, chloride 66, and serum carbon dioxide greater than 40. -She has been started on judicious IV fluid rehydration with normal saline. -Repeat BMP and ABG (5) Hydronephrosis of right kidney: Code(s): N13.30 - Unspecified hydronephrosis Status: Acute Assessment and Plan: -see above -urology consulted (6) Esophageal dysphagia: Code(s): R13.19 - Other dysphagia Status: Acute Assessment and Plan: Patient's vomiting could be related to her renal failure and uremia though with reports of esophageal dysphagia, I think it would be prudent to have Dr. Iverson see her in consultation as well. (7) Hypertension: Code(s): I10 - Essential (primary) hypertension Status: Acute Assessment and Plan: Blood pressures have reportedly been running low at home and her doctor's office today though they are stable here. Hold amlodipine for now and monitor closely. (8) Chronic obstructive pulmonary disease: Code(s): J44.9 - Chronic obstructive pulmonary disease, unspecified Status: Acute Assessment and Plan: No acute issues. Continue maintenance inhalers. Subjective Date/time seen: 05/05/21 12:44 Interval history: 80-year-old female with with hypertension and COPD admitted for renal failure. Pt was getting prepped to move down to surgery when I examined her today. She was feeling very anxious about the procedure. Has a full sensation in her abdomen but no pain. No nausea or vomiting. Good urine output in her velasco. Review of Systems Review of Systems: All systems reviewed & are unremarkable except as noted in HPI and below Exam Narrative: General: No acute distress, non toxic appearing, elderly Eyes: PERRL, no scleral icterus HEENT: NCAT, external ears normal, MMM Respiratory: No respiratory distress, Lungs CTA bilaterally, no wheezing Cardiovascular: RRR, no murmur Abdominal: Soft, nontender, non distended, no rebound or guarding Musculoskeletal: Moves all 4 extremities, no edema Neurological: A/Ox3, speech normal, no facial asymmetry Skin: Warm, dry, no rashes Psychiatric: Normal affect, normal mood Objective Data Vital Signs Vital S
--- NOTE | 2021-05-05 13:05 | WPDHPUPDATE1 ---
History and Physical Update Update Date/Time: 05/05/21 13:05 History and Physical has been reviewed, including an updated exam of the patient. There are NO changes in the patient's condition. Risks, benefits, and alternatives have been discussed and questions answered. Patient agrees to proceed with procedure. Proceed with cystoscopy, right retrograde pyelogram, right ureteral stent placement, possible ureteroscopy with holmium laser and stone extraction
--- NOTE | 2021-05-05 13:06 | WPDHPUPDATE1 ---
History and Physical Update Update Date/Time: 05/05/21 13:06 History and Physical has been reviewed, including an updated exam of the patient. There are NO changes in the patient's condition. Risks, benefits, and alternatives have been discussed and questions answered. Patient agrees to proceed with procedure. Will add possible TURBT
[2021-05-05] MEDS: LIDOCAINE HCL 2% GEL UROJET 10 ML PKG MUCOUS MEM (13:43)
--- NOTE | 2021-05-05 14:45 | P.OP_ITS ---
Procedure Note - Detailed Date of Procedure 05/05/21 Pre-op Diagnosis Acute renal failure, UTI Obstructing 9 x 6 mm as well as 4 mm calculus in right ureter Post-op Diagnosis same (Impacted stone) Procedure Performed Cystoscopy, right retrograde pyelogram, right ureteroscopy with holmium laser, right ureteral stent placement 6 [place] contour Surgeon Shiraz Newsome MD Anesthesia general Description of Procedure Patient is taken the operative suite correctly identified. Once anesthesia was obtained she was placed in dorsal lithotomy position and prepped and draped usual sterile fashion. Twenty-two [place] scope inserted the bladder there are no tumors noted. The right ureteral orifice was visualized. We attempted to pass both a Bentson wire as well as a angled Glidewire in. This was unsuccessful as it was running into an obstructed infected stone. We placed the rigid ureteral scope could not manipulate the tortuosity of the ureter at the iliac vessels. We thus placed a ureteral access sheath in and attempted to pass a angled Glidewire alongside the stone. Again it was so impacted that this was not even possible. Surprisingly though contrast did make it past the stone. At this point we decided to laser the the stone. It again was in a very difficult location we were able to lasered into numerous small pieces. Most of those were small enough to pass. We were able to work our way past the stone. This point a pyelogram was performed confirm placement of the stent. There was no significant large stone burden left. At this point time the access sheath was removed. A 6 [place] contour stent was then placed with the proximal end coiled in the renal pelvis and the distal in the bladder. Sixteen [place] scope was inserted into the bladder and inflated with 10 cc balloon. Plan will be to obtained a renal CT in approximately 2-3 days to see if there is any residual stones present. If there are then she will need ureteroscopy at a later point time. If not then will plan on removing the stent in 2 weeks. Patient is taken recovery room stable condition. Drains Yes Packing No Pathology none sent Complications No immediate complications Condition stable Disposition PACU
[2021-05-05] MEDS: LACTATED RINGERS 1,000 ML 30 ML IV CONT (14:49)
[2021-05-05] MEDS: ACETAMINOPHEN 325 MG TABLET 650 MG PO (16:06)
[2021-05-05] MEDS: FLUTICASONE/SALMETEROL 115-21 MCG INHALER 1 PUFF 2 PUFF INHALATION (22:15)
[2021-05-06] VITALS (9 sets, daily range): BP systolic 92–119; BP diastolic 45–67; PULSE 61–120; RESP 16–20; TEMP 36.1–36.5; O2SAT 90–99
[2021-05-06 07:20] LABS: Basophils Absolute Auto 0.1 K/mm3 (0.0-0.1); Basophils Percent Auto 0.5 % (0.2-1.2); Eosinophils Absolute Auto 0.2 K/mm3 (0-0.3); Eosinophils Percent Auto 1.9 % (0-4.4); Hematocrit 40.4 % (37.0-47.0); Hemoglobin 13.1 g/dL (12.0-15.0); Immature Granulocyte Absolute 0.04 K/mm3 (0.00-0.031); Immature Granulocyte Percent A 0.4 % (0-0.5); Lymphocytes Absolute Auto 2.59 K/mm3 (0.9-3.2); Lymphocytes Percent Auto 25.5 % (18.3-44.2); Mean Corpuscular HGB Conc 32.4 g/dl (32-36); Mean Corpuscular Hemoglobin 32.6 pg (26-34); Mean Corpuscular Volume 100.5 fl (80-100); Mean Platelet Volume 9.6 fl (7.4-10.4); Monocytes Absolute Auto 0.8 K/mm3 (0.1-0.6); Monocytes Percent Auto 7.9 % (2.6-8.5); Neutrophils Absolute Auto 6.5 K/mm3 (1.3-6.7); Neutrophils Percent Auto 63.8 % (45.5-73.1); Platelet Count Result 406 k/mm3 (150-375); Red Blood Count 4.02 M/mm3 (4.2-5.4); Red Cell Distribution Width 12.2 % (11.5-14.5); White Blood Count 10.2 K/mm3 (4.5-10.0)
[2021-05-06 07:37] LABS: Alanine Aminotransferase 32 U/L (4-35); Albumin Level 3.5 g/dL (3.5-5.1); Alkaline Phosphatase 86 U/L (38-126); Anion Gap 5 mmol/L (8-16); Aspartate Amino Transferase 41 U/L (14-36); Bilirubin,Total 0.6 mg/dL (0.2-1.3); Blood Urea Nitrogen 54 mg/dL (7-17); Calcium 7.2 mg/dL (8.4-10.2); Carbon Dioxide 35 mmol/L (22-30); Chloride 91 mmol/L (98-107); Estimated CRCL calculation 16 ml/min; Estimated Glomerular Filt Rate 27; Glucose 94 mg/dL (65-110); Potassium 3.7 mmol/L (3.4-5.0); Sodium 131 mmol/L (137-145)
[2021-05-06] MEDS: FLUTICASONE/SALMETEROL 115-21 MCG INHALER 1 PUFF 2 PUFF INHALATION ×2 (08:10→21:31)
[2021-05-06] MEDS: SODIUM CHLORIDE 0.9% IV 1,000 ML 75 ML IV CONT ×2 (09:03→22:49)
[2021-05-06] MEDS: ONDANSETRON INJ 4 MG/2 ML VIAL IV PUSH ×3 (09:03→18:20)
[2021-05-06] MEDS: FAMOTIDINE 20 MG/2 ML VIAL IV PUSH ×2 (09:17→22:49)
[2021-05-06] MEDS: amLODIPine BESYLATE 5 MG TABLET 10 MG PO (09:30)
[2021-05-06] MEDS: THEOPHYLLINE ANHYDROUS 200 MG ER 24 HR CAPSULE 400 MG PO (09:40)
--- NOTE | 2021-05-06 12:42 | PM.PNNEP ---
Progress Note: A&P Assessment and Plan (1) Acute kidney failure: Code(s): N17.9 - Acute kidney failure, unspecified Status: Acute Assessment and Plan: multifactorial etiology: volume depletion/dehydration relative hypotension (precipitated by ongoing use of BP medications) obstruction (although only present on the right) evaluation to date: renal ultrasound/CT of abd/pelvis with severe hydronephrosis and mid right ureter stone urine electrolytes are prerenal rare urine eosinophils but suspect due to urinalysis with inflamation CPK normal significant improvement in renal function with IVF hydration follow trend of repeat labs and UOP (2) Hydronephrosis of right kidney: Code(s): N13.30 - Unspecified hydronephrosis Status: Acute Assessment and Plan: unclear how much this is contributing to #1 (left kidney was normal) CT of A/P with severe right hydronephrosis and hydroureter to the level of a 6 mm stone in mid right ureter unclear how acute or chronic this issues is Urology following s/p cystoscopy, right retrograde pyelogram, right ureteroscopy with holmium laser and right ureteral stent placement (3) Nausea & vomiting: Code(s): R11.2 - Nausea with vomiting, unspecified Status: Acute Assessment and Plan: unclear if this precipitated #1 or is a result of #1 IV antiemetics PRN supportive therapy (4) Hypertension: Code(s): I10 - Essential (primary) hypertension Status: Acute Assessment and Plan: hypotensive prior to admission and noted in ER better s/p IVF resuscitation hold BP medications follow hemodynamics Will continue to follow. Subjective Date/time seen: 05/06/21 12:42 Patient is s/p cystoscopy with right stent placement per Urology yesterday; she appears to have tolerated the procedure reasonably well; renal function continues to improve with current interventions; appears to be tolerating oral intake; no other issues/events overnight or earlier this AM. Exam Narrative: General: elderly female in NAD Heart: normal S1 and S2; no rub Lungs: clear to auscultation Abdomen: soft, nontender, nondistended, positive bowel sounds Extremities: no cyanosis or clubbing; no edema Skin: warm and dry Objective Data Vital Signs Vital Signs: Vital Signs Temp Pulse Resp BP Pulse Ox 05/06/21 08:20 36.1 C L 63 20 116/65 98 05/06/21 08:00 94 05/06/21 06:00 36.5 C 61 20 100/45 L 99 05/05/21 22:00 36.1 C L 60 20 111/64 92 Intake/Output Intake/Output: Intake & Output 05/03/21 05/04/21 05/05/21 05/06/21 23:59 23:59 23:59 23:59 Intake Total 2050 830 2022 Output Total 1280 1150 Balance 2050 -450 872 Meds/Results Medications: Active Medications Generic Name Dose Route Start Last Admin Trade Name Freq PRN Reason Stop Dose Admin Acetaminophen 650 mg 05/04/21 16:02 05/05/21 16:06 Acetaminophen 325 Mg Tablet PO 650 mg Q4H PRN Administration Mild Pain (1-3) or Fever Albuterol 2 puff 05/05/21 09:16 Albuterol Sulfate (*Sp) Aerosol 1 Puff INHALATION QID PRN Pain Amlodipine Besylate 10 mg 05/05/21 09:20 05/06/21 09:30 Amlodipine Besylate 5 Mg Tablet PO 10 mg DAILY CATERINA Administration Famotidine 20 mg 05/04/21 21:00 05/06/21 09:17 Famotidine 20 Mg/2 Ml Vial IV PUSH 20 mg Q12HR CATERINA Administration Sodium Chloride 1,000 mls @ 75 mls/hr 05/04/21 22:15 05/06/21 09:03 Normal Saline Iv IV CONT 75 mls/hr .[id number] CATERINA Administration Ondansetron HCl 4 mg 05/04/21 16:02 05/06/21 13:41 Ondansetron Inj 4 Mg/2 Ml Vial IV PUSH 4 mg Q4H PRN Administration Nausea Fluticasone/Salmeterol 2 puff 05/05/21 20:00 05/06/21 08:10 Fluticasone/Salmeterol 115-21 Mcg Inhaler 1 Puff INHALATION 2 puff Q12HRT CATERINA Administration Theophylline 400 mg 05/06/21 09:00 05/06/21 09:40 Theophylline An
--- NOTE | 2021-05-06 12:42 | P.PNNP_ITS ---
Progress Note: A&P Assessment and Plan (1) Acute kidney failure: Code(s): N17.9 - Acute kidney failure, unspecified Status: Acute Assessment and Plan: * multifactorial etiology: * volume depletion/dehydration * relative hypotension (precipitated by ongoing use of BP medications) * obstruction (although only present on the right) * evaluation to date: * renal ultrasound/CT of abd/pelvis with severe hydronephrosis and mid right ureter stone * urine electrolytes are prerenal * rare urine eosinophils but suspect due to urinalysis with inflamation * CPK normal * significant improvement in renal function with IVF hydration * follow trend of repeat labs and UOP (2) Hydronephrosis of right kidney: Code(s): N13.30 - Unspecified hydronephrosis Status: Acute Assessment and Plan: * unclear how much this is contributing to #1 (left kidney was normal) * CT of A/P with severe right hydronephrosis and hydroureter to the level of a 6 mm stone in mid right ureter * unclear how acute or chronic this issues is * Urology following * s/p cystoscopy, right retrograde pyelogram, right ureteroscopy with holmium laser and right ureteral stent placement (3) Nausea & vomiting: Code(s): R11.2 - Nausea with vomiting, unspecified Status: Acute Assessment and Plan: * unclear if this precipitated #1 or is a result of #1 * IV antiemetics PRN * supportive therapy (4) Hypertension: Code(s): I10 - Essential (primary) hypertension Status: Acute Assessment and Plan: * hypotensive prior to admission and noted in ER * better s/p IVF resuscitation * hold BP medications * follow hemodynamics Will continue to follow. Subjective Date/time seen: 05/06/21 12:42 Patient is s/p cystoscopy with right stent placement per Urology yesterday; she appears to have tolerated the procedure reasonably well; renal function continues to improve with current interventions; appears to be tolerating oral intake; no other issues/events overnight or earlier this AM. Exam Narrative: General: elderly female in NAD Heart: normal S1 and S2; no rub Lungs: clear to auscultation Abdomen: soft, nontender, nondistended, positive bowel sounds Extremities: no cyanosis or clubbing; no edema Skin: warm and dry Objective Data Vital Signs Vital Signs: Vital Signs Temp Pulse Resp BP Pulse Ox 05/06/21 08:20 36.1 C L 63 20 116/65 98 05/06/21 08:00 94 05/06/21 06:00 36.5 C 61 20 100/45 L 99 05/05/21 22:00 36.1 C L 60 20 111/64 92 Intake/Output Intake/Output: Intake & Output 05/03/21 05/04/21 05/05/21 05/06/21 23:59 23:59 23:59 23:59 Intake Total 2049 830 2021 Output Total 1280 1150 Balance 0 -450 872 Meds/Results Medications: Active Medications Generic Name Dose Route Start Last Admin Trade Name Freq PRN Reason Stop Dose Admin Acetaminophen 650 mg 05/04/21 16:02 05/05/21 16:06 Acetaminophen 325 Mg Tablet PO 650 mg Q4H PRN Administration Mild Pain (1-3) or Fever Albuterol 2 puff 05/05/21 09:16 Albuterol Sulfate (*Sp) Aerosol 1 Puff INHALATION QID PRN Pain Amlodipine Besylate 10 mg 05/05/21 0
--- NOTE | 2021-05-06 13:05 | PM.IMPN ---
Progress Note: A&P Assessment and Plan (1) Acute kidney failure: Code(s): N17.9 - Acute kidney failure, unspecified <Trupti Loomis KHANH Arnold - Last Filed: 05/06/21 13:45> Status: Acute <Trupti Loomis KHANH Arnold - Last Filed: 05/06/21 13:45> Assessment and Plan: -Likely multifactorial in etiology including dehydration, hypotension (per patient report), and obstruction as renal ultrasound showed severe right hydronephrosis and findings concerning for urothelial carcinoma or hematoma of the posterior bladder wall. -Lowery catheter has been inserted for strict I/O. -CT abd shows 1. Severe right hydronephrosis and hydroureter to the level of a 6 mm stone in mid right ureter. 2. 13 mm stone in the common bile duct with mild intrahepatic and extrahepatic biliary duct dilatation. 3. 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 -She appears quite dry on exam thus she will be cautiously hydrated with close monitoring of volume status. -Urology consulted, went to [place] 05/05/21 for cystoscopy, right retrograde pyelogram, right ureteroscopy with holmium laser, right ureteral stent placement 6 [place] contour -Nephrology consulted -urine electrolytes are pre renal, significant improvement with IVF hydration -continue monitoring <Trupti Loomis KHANH Arnold - Last Filed: 05/06/21 13:45> (2) Right ureteral stone: Code(s): N20.1 - Calculus of ureter <Trupti Ebonie KHANH Arnold - Last Filed: 05/06/21 13:45> Status: Acute <Trupti Loomis KHANH Arnold - Last Filed: 05/06/21 13:45> Assessment and Plan: -see above <Trupti KarliKHANH Negrete Last Filed: 05/06/21 13:45> (3) Abnormal urinalysis: Code(s): R82.90 - Unspecified abnormal findings in urine <Trupti Ebonie KHANH Arnold - Last Filed: 05/06/21 13:45> Status: Acute <Trupti Loomis KHANH Arnold - Last Filed: 05/06/21 13:45> Assessment and Plan: -abnormal UA, per urology abx were started pending urine culture <Trupti Arnold PA-C - Last Filed: 05/06/21 13:45> (4) Electrolyte abnormality: Code(s): E87.8 - Other disorders of electrolyte and fluid balance, not elsewhere classified <Trupti Loomis KHANH Arnold - Last Filed: 05/06/21 13:45> Status: Acute <Trupti Loomis KHANH Arnold - Last Filed: 05/06/21 13:45> Assessment and Plan: -Including sodium 130, chloride 66, and serum carbon dioxide greater than 40. -She has been started on judicious IV fluid rehydration with normal saline. -Repeat BMP and ABG <Trupti Ebonie KHANH Arnold Last Filed: 05/06/21 13:45> (5) Hydronephrosis of right kidney: Code(s): N13.30 - Unspecified hydronephrosis <Trupti KarliKHANH Negrete Last Filed: 05/06/21 13:45> Status: Acute <Trupti KarliKHANH Negrete Last Filed: 05/06/21 13:45> Assessment and Plan: -see above -urology consulted <KHANH Wagner Last Filed: 05/06/21 13:45> (6) Esophageal dysphagia: Code(s): R13.19 - Other dysphagia <KHANH Wagner Last Filed: 05/06/21 13:45> Status: Acute <Trupti KarliKHANH Negrete Last Filed: 05/06/21 13:45> Assessment and Plan: Patient's vomiting could be related to her renal failure and uremia though with reports of esophageal dysphagia, I think it would be prudent to have Dr. Iverson see her in consultation as well. <KHANH Wagner Last Filed: 05/06/21 13:45> (7) Hypertension: Code(s): I10 - Essential (primary) hypertension <Trupti Arnold PA-C - Last Filed: 05/06/21 13:45> Status: Acute <Trupti Arnold PA-C - Last Filed: 05/06/21 13:45> Assessment and Plan: Blood pressures have reportedly been running low at home and her doctor's office today though they are stable here. Hold amlodipine for now a
--- NOTE | 2021-05-06 14:33 | PC.NURSE ---
On 05/06/21, the student, Alyssa Keenan, provided care and completed [employer] documentation on this patient. I have reviewed the student's documentation and agree with the findings.
[2021-05-06 14:34] LABS: Alveolar/Arterial O2 Gradient 41.4 mmHg; Base Excess ABG 7.7 mEq/l (+/-2.0); Fractional Inspired Oxygen 21 %; HCO3 ABG 31.1 mEq/l (22.0-26.0); Oxygen Content ABG 17.1 %vol (16.0-22.0); Oxygen Saturation ABG 93.8 % (95.0-100.0); Oxyhemoglobin 92.1 % THb (90.0-100.0); PO2 ABG 61.6 mmHg (80.0-100.0); PO2 FiO2 Ratio Arterial Blood 2.93 %; Total Hemoglobin 13.2 g/dL (12.0-18.0)
[2021-05-06 14:35] LABS: Device ROOM AIR; Modified Allen's Test Pass; Site Drawn LEFT RADIAL; pH ABG 7.519 (7.350-7.450)
--- NOTE | 2021-05-06 15:12 | WPDGICN ---
Assessment and Plan Assessment and plan (1) Nausea & vomiting: Code(s): R11.2 - Nausea with vomiting, unspecified Status: Acute Assessment and Plan: on presentation and improved after medical treatment and treatment of kidney stone, also her renal function is better also noted stone in bile duct that probably could explain part of symptoms but noted that she has almost normal liver enzymes (2) Choledocholithiasis: Code(s): K80.50 - Calculus of bile duct without cholangitis or cholecystitis without obstruction Status: Acute Assessment and Plan: noted large stone in bile duct ~ 13mm will need ERCP to assess bile duct, in case we can not remove stone using balloon then will need also Spyglass (cholangioscopy) with EHL she also has cholelithiasis and will need evaluation for possible cholecystectomy based on clinical course (3) Acute kidney failure: Code(s): N17.9 - Acute kidney failure, unspecified Status: Acute Assessment and Plan: improving after ureteral stent and medical treatment (4) Hydronephrosis of right kidney: Code(s): N13.30 - Unspecified hydronephrosis Status: Acute Assessment and Plan: by urology, s/p stent (5) Acute uremia: Code(s): N19 - Unspecified kidney failure Status: Acute Assessment and Plan: on admission and improving, nausea is better (6) Dehydration: Code(s): E86.0 - Dehydration Status: Acute Assessment and Plan: resolved, on fluids (7) Hypertension: Code(s): I10 - Essential (primary) hypertension Status: Acute GI Consult Note Consult date/time: 05/06/21 15:12 Reason for consult: N/V, GERD and choledocholithiasis HPI: Abby Riley is a 80 year old female with history of hypertension and COPD who came to ER 2 days ago after several episodes of nausea and vomiting for almost 2 weeks with decrease oral intake, she says that for over a month also has been having reflux symptoms. Labs showed dehydration with hemoconcentration, hyponatremia, renal failure with BUN and creatinine of 88 and 5.40 respectively. Renal ultrasound demonstrated severe right hydronephrosis and found to have stone. She was admitted and evaluated by urology who performed cystoscopy, right retrograde pyelogram, right ureteroscopy with holmium laser, right ureteral stent placement. CT scan on admission reviewed and showed severe right hydronephrosis and hydroureter to the level of a 6 mm stone in mid right ureter, 13 mm stone in the common bile duct with mild intrahepatic and extrahepatic biliary duct dilatation and distended stomach. Creatinine down to 1.8 and nausea improved, she is feeling better today. She had normal bilirubin, transaminases 40's. Review of Systems Constitutional: Constitutional: Denies chills Eyes: Eyes: Denies blurry vision ENT: Reports Normal hearing present Cardiovascular: Cardiovascular: Denies chest pain Respiratory: Respiratory: Denies dyspnea Gastrointestinal: Gastrointestinal: Reports nausea and Reports vomiting Genitourinary: Comments: kidney stone Musculoskeletal: Musculoskeletal: Denies neck pain Integumentary/Breasts: Skin/Breast: Denies dry skin Neurologic: Denies headache(s) Psychiatric: Psychiatric: Denies behavioral changes [facility] Past Medical History Medical History (Updated 05/06/21 @ 15:19 by Andrei Rasmussen MD) Choledocholithiasis Chronic obstructive pulmonary disease Hypertension Surgical History Surgical History History of appendectomy History of hysterectomy Family History Family History Other Hypertension Social History Social History Social History: The patient lives in [place] with her daughter. She began smoking at the age of 15 and smoked aroun
--- NOTE | 2021-05-06 16:18 | WPDUROPN2 ---
Progress Note: A&P Assessment and Plan (1) Right ureteral stone: Code(s): N20.1 - Calculus of ureter Status: Acute Assessment and Plan: Urine Culture is negative, will plan to get CT/KUB tomorrow to determine stone placement after stent placed. Will need definitive stone treatment pending stone placement. Will see patient tomorrow to update her with CT/KUB results and surgical plans for the future. OK to stop IV antibiotics. Subjective Subjective Date/Time Seen: 05/06/21 16:18 POD #1 Cystoscopy with right stent placement, right retrograde pyelogram. Urine culture negative Patient doing well today, tolerating her diet, urine is clear in the velasco, tolerating her stent. Review of Systems Cardiovascular: Cardiovascular: Denies chest pain Respiratory: Respiratory: Reports no additional respiratory complaints Gastrointestinal: Gastrointestinal: Denies abdominal pain, Denies nausea and Denies vomiting Genitourinary: Genitourinary: Denies hematuria, Denies dysuria and Denies flank pain Exam Resp: Effort & Inspection: normal respiratory effort Cardio: Rate: regular rate GI: GI Palp: Yes Soft to palpation and No Tenderness to palpation present (GI) : General: Yes no CVA tenderness Urinary Catheter: Urinary Catheter: patent and draining and urine clear Extrem: General: no edema Objective Data Vital Signs Vital Signs: Vital Signs - 24 hr 05/05/21 22:00 05/06/21 06:00 05/06/21 08:00 Temperature 97 F L 97.7 F Pulse Rate 60 61 Respiratory Rate 20 20 Blood Pressure 111/64 100/45 L Pulse Oximetry 92 99 94 05/06/21 08:20 05/06/21 14:26 Temperature 97.0 F L 97.4 F L Pulse Rate 63 61 Respiratory Rate 20 19 Blood Pressure 116/65 103/67 Pulse Oximetry 98 92 Intake/Output Intake/Output: Intake & Output 05/03/21 05/04/21 05/05/21 05/06/21 23:59 23:59 23:59 23:59 Intake Total 2049 830 2021 Output Total 1280 1150 Balance 0 -450 872 Meds/Results Medications: Active Medications Generic Name Dose Route Start Last Admin Trade Name Freq PRN Reason Stop Dose Admin Acetaminophen 650 mg 05/04/21 16:02 05/05/21 16:06 Acetaminophen 325 Mg Tablet PO 650 mg Q4H PRN Administration Mild Pain (1-3) or Fever Albuterol 2 puff 05/05/21 09:16 Albuterol Sulfate (*Sp) Aerosol 1 Puff INHALATION QID PRN Pain Amlodipine Besylate 10 mg 05/05/21 09:20 05/06/21 09:30 Amlodipine Besylate 5 Mg Tablet PO 10 mg DAILY CATERINA Administration Famotidine 20 mg 05/04/21 21:00 05/06/21 09:17 Famotidine 20 Mg/2 Ml Vial IV PUSH 20 mg Q12HR CATERINA Administration Sodium Chloride 1,000 mls @ 75 mls/hr 05/04/21 22:15 05/06/21 09:03 Normal Saline Iv IV CONT 75 mls/hr .[id number] CATERINA Administration Ondansetron HCl 4 mg 05/04/21 16:02 05/06/21 13:41 Ondansetron Inj 4 Mg/2 Ml Vial IV PUSH 4 mg Q4H PRN Administration Nausea Fluticasone/Salmeterol 2 puff 05/05/21 20:00 05/06/21 08:10 Fluticasone/Salmeterol 115-21 Mcg Inhaler 1 Puff INHALATION 2 puff Q12HRT CATERINA Administration Theophylline 400 mg 05/06/21 09:00 05/06/21 09:40 Theophylline Anhydrous 200 Mg Er 24 Hr Capsule PO 400 mg DAILY CATERINA Administration Radiology Results: ITS Impressions Renal Ultrasound 05/04/21 17:01 IMPRESSION: 1. Severe right hydronephrosis. 2. Focal thickening of the posterior bladder wall suspicious for urothelial carcinoma or hematoma. Abdomen and pelvis CT without and with contrast (CT urogram) is recommended. Abdomen/Pelvis CT 05/04/21 23:29 IMPRESSION: 1. Severe right hydronephrosis and hydroureter to the level of a 6 mm stone in mid right ureter. 2. 13 mm stone in the common bile duct with mild intrahepatic and extrahepatic biliary duct dilatation. 3. 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 Retrograde Pyelogram 05/05/21 15:55 IMPRESSION:
--- NOTE | 2021-05-06 18:00 | PM.CNGS ---
Assessment and Plan Assessment and plan (1) Nausea & vomiting: Qualifiers: Vomiting type: bilious vomiting Qualified Code(s): R11.14 - Bilious vomiting Code(s): R11.2 - Nausea with vomiting, unspecified Status: Acute Assessment and Plan: patient's complaints are dizziness with nausea with movement. She also reported nausea and vomiting within 30 minutes of eating. The vomiting is bilious suggesting no gastric obstruction. CT suggestion of SMA syndrome is certainly a potential reason for this. Will get upper GI to better evaluate. If this is present, can be treated with gastroenterostomy. (2) Choledocholithiasis: Code(s): K80.50 - Calculus of bile duct without cholangitis or cholecystitis without obstruction Status: Acute Assessment and Plan: Despite lack of abdominal pain or elevated liver enzymes, CT shows gallstones as well as a large stone in the common bile duct. Dr. Iverson has seen the patient and will proceed as indicated. Eventually will probably need cholecystectomy. (3) Right ureteral stone: Code(s): N20.1 - Calculus of ureter Status: Acute Assessment and Plan: Large impacted ureteral stone that was lasered into fragments and a ureteral stent has been placed yesterday. Renal function improving. Urine culture was negative. (4) Acute kidney failure: Qualifiers: Acute renal failure type: unspecified Qualified Code(s): N17.9 - Acute kidney failure, unspecified Code(s): N17.9 - Acute kidney failure, unspecified Status: Acute Assessment and Plan: Improving with hydration and right ureteral stent placement. History of Present Illness Consult details Consult date: 05/06/21 Reason for consult: gallstones Requesting physician: Andrei Rasmussen MD Narrative: patient is a 80-year-old woman who came the emergency room 2 days ago with approximately 2 weeks of dizziness nausea and vomiting. She described emesis of dark green within 30 minutes of eating or drinking. When she came to the emergency room, she was quite uremic with an elevated creatinine. She was admitted and given IV fluids. Subsequent evaluation showed several different problems. The most pressing abnormality, in specially in lieu of her uremia and acute kidney injury, was massive right hydronephrosis. Yesterday, Dr. Newsome, lasered a right ureteral stone and was able to pass a stent from the kidney into the urinary bladder. Her creatinine has been improving since admission and creatinine today is 1.8. BUN has been decreasing as well. CT scan has shown gallstones as well as a 13 mm gallstone in the common bile duct. Interestingly, liver enzymes are normal. Dr. Iverson saw the patient in consultation and plans to evaluate with ERCP. Also noted on the CT scan was a very distended stomach and proximal duodenum suggesting SMA syndrome. Patient is seen in consultation at this time regarding potential need for cholecystectomy and evaluation of SMA syndrome. Review of Systems Review of Systems: All systems reviewed & are unremarkable except as noted in HPI and below ( HPI and those items noted below) Constitutional: Constitutional: Reports as per HPI, Reports anorexia, Reports poor appetite and Reports weakness Gastrointestinal: Gastrointestinal: Reports as per HPI, Denies abdominal pain, Reports dyspepsia, Reports heartburn, Reports nausea and Reports vomiting Neurologic: Reports dizziness ( worse with movement) PMF Past Medical History Medical History Choledocholithiasis Chronic obstructive pulmonary disease Hypertension Surgical History Surgical History History of appendectomy History of hysterectomy Family History Family History Other Hypertension Social History Soc
[2021-05-07 06:00] VITALS: BP 115/52; PULSE 67; RESP 16; TEMP 36.6; O2SAT 92
[2021-05-07 06:59] LABS: Basophils Absolute Auto 0.1 K/mm3 (0.0-0.1); Basophils Percent Auto 0.5 % (0.2-1.2); Eosinophils Absolute Auto 0.3 K/mm3 (0-0.3); Eosinophils Percent Auto 2.8 % (0-4.4); Hematocrit 38.5 % (37.0-47.0); Hemoglobin 12.4 g/dL (12.0-15.0); Immature Granulocyte Absolute 0.03 K/mm3 (0.00-0.031); Immature Granulocyte Percent A 0.3 % (0-0.5); Lymphocytes Absolute Auto 2.34 K/mm3 (0.9-3.2); Mean Corpuscular HGB Conc 32.2 g/dl (32-36); Mean Corpuscular Volume 99.2 fl (80-100); Mean Platelet Volume 9.6 fl (7.4-10.4); Monocytes Absolute Auto 0.8 K/mm3 (0.1-0.6); Monocytes Percent Auto 7.8 % (2.6-8.5); Neutrophils Absolute Auto 6.7 K/mm3 (1.3-6.7); Neutrophils Percent Auto 65.6 % (45.5-73.1); Platelet Count Result 397 k/mm3 (150-375); Red Blood Count 3.88 M/mm3 (4.2-5.4); Red Cell Distribution Width 11.9 % (11.5-14.5); White Blood Count 10.2 K/mm3 (4.5-10.0)
[2021-05-07 07:04] LABS: Alanine Aminotransferase 26 U/L (4-35); Albumin Level 3.4 g/dL (3.5-5.1); Alkaline Phosphatase 83 U/L (38-126); Anion Gap 8 mmol/L (8-16); Aspartate Amino Transferase 30 U/L (14-36); Bilirubin,Total 0.3 mg/dL (0.2-1.3); Blood Urea Nitrogen 26 mg/dL (7-17); Calcium 7.5 mg/dL (8.4-10.2); Carbon Dioxide 25 mmol/L (22-30); Chloride 99 mmol/L (98-107); Estimated CRCL calculation 20 ml/min; Estimated Glomerular Filt Rate 34; Glucose 100 mg/dL (65-110); Potassium 3.2 mmol/L (3.4-5.0); Sodium 132 mmol/L (137-145)
[2021-05-07 08:00] VITALS: PULSE 67; RESP 16; O2SAT 93
[2021-05-07 09:04] LABS: Myoglobin, Urine <27 mcg/L (<28)
[2021-05-07] MEDS: FLUTICASONE/SALMETEROL 115-21 MCG INHALER 1 PUFF 2 PUFF INHALATION ×2 (09:10→21:03)
[2021-05-07 09:11] VITALS: O2SAT 93
[2021-05-07] MEDS: ONDANSETRON INJ 4 MG/2 ML VIAL IV PUSH ×2 (09:13→23:41)
[2021-05-07] MEDS: FAMOTIDINE 20 MG/2 ML VIAL IV PUSH ×2 (09:13→20:26)
--- NOTE | 2021-05-07 10:00 | PCOTNOTE ---
Attempted to evaluation pt. for occupational therapy. Pt. preparing to be taken away from room for procedure.
--- NOTE | 2021-05-07 10:02 | PM.PNGS ---
Progress Note: A&P Assessment and Plan (1) Nausea & vomiting: Qualifiers: Vomiting type: bilious vomiting Qualified Code(s): R11.14 - Bilious vomiting Code(s): R11.2 - Nausea with vomiting, unspecified Status: Acute Assessment and Plan: Gastrografin UGI this morning showed a high-grade obstruction at the third portion of the duodenum past the area of the SMA, more concerning for an infiltrating pancreatic cancer as the etiology. Dr. Buitrago reviewed the results with the Radiologist. Will order a stat MRCP to further evaluate. Keep her NPO with IV fluids. May need to consider NG tube placement if patient has more vomiting. (2) Choledocholithiasis: Code(s): K80.50 - Calculus of bile duct without cholangitis or cholecystitis without obstruction Status: Acute Assessment and Plan: CT suggested gallstones with large stone in the CBD. Radiologist feels there is an abnormal appearance of what was initially read as a gallstone on the CT. Will get MRCP today, see plan above. GI following as well. (3) Right ureteral stone: Code(s): N20.1 - Calculus of ureter Status: Acute (4) Acute kidney failure: Qualifiers: Acute renal failure type: unspecified Qualified Code(s): N17.9 - Acute kidney failure, unspecified Code(s): N17.9 - Acute kidney failure, unspecified Status: Acute Assessment and Plan: Improving with hydration and right ureteral stent placement. Additional Plan I have discussed the patient's case and plan of care with Dr. Buitrago. Subjective Subjective Date/Time Seen: 05/07/21 09:32 Patient reports: no new complaints, flatus, nausea, vomiting (x1 earlier this morning before having the gastrografin contrast) and afebrile Interval history: Patient seen and examined this morning. She is still feeling nauseous and vomited this morning before drinking the contrast for her gastrografin study. Also reports bloating. She denies any abdominal pain. Review of Systems Gastrointestinal: Gastrointestinal: Reports as per HPI and Reports no additional gastrointestinal complaints Exam Const: General: no acute distress and awake Resp: Effort & Inspection: normal respiratory effort Auscultation: clear to auscultation bilaterally Cardio: Rate: regular rate Rhythm: regular rhythm GI: Inspection: non-distended GI Palp: Yes Soft to palpation, No Tenderness to palpation present (GI), No Guarding due to palpation present (GI) and No Rebound tenderness present Auscultation: Hypoactive bowel sounds present Neuro: General: moves all extremities and no focal motor deficits Extrem: General: no edema Psych: Insight: Good insight present (Psych) Judgement: Good judgement present (Psych) Objective Data Vital Signs Vital Signs: Vital Signs - 24 hr 05/06/21 14:26 05/06/21 17:00 05/06/21 17:03 Temperature 97.4 F L Pulse Rate 61 64 120 H Respiratory Rate 19 Blood Pressure 103/67 108/60 92/58 L Pulse Oximetry 92 05/06/21 17:06 05/06/21 21:27 05/06/21 22:00 Temperature 97.6 F Pulse Rate 70 86 66 Respiratory Rate 16 Blood Pressure 108/57 L 119/54 L Pulse Oximetry 91 90 05/07/21 06:00 05/07/21 09:11 Temperature 97.9 F Pulse Rate 67 Respiratory Rate 16 Blood Pressure 115/52 L Pulse Oximetry 92 93 Intake/Output Intake/Output: Intake & Output 05/04/21 05/05/21 05/06/21 05/07/21 23:59 23:59 23:59 23:59 Intake Total 2050 830 3612 400 Output Total 1280 1750 Balance 2050 -450 1862 400 Meds/Results Medications: Active Medications Generic Name Dose Route Start Last Admin Trade Name Freq PRN Reason Stop Dose Admin Acetaminophen 650 mg 05/04/21 16:02 05/05/21 16:06 Acetaminophen 325 Mg Tablet PO 650 mg Q4H PRN Administration Mild Pain (1-3) or Fever Albuterol 2 puff 05/05/21 09:16 Albuterol Sulfate (*Sp) Aerosol 1 Puff INHALATION QID PRN Pain Amlodipine Besylate 10 mg
[2021-05-07] MEDS: SODIUM CHLORIDE 0.9% IV 500 ML IV CONT (10:40)
--- NOTE | 2021-05-07 10:42 | PM.IMPN ---
Progress Note: A&P Assessment and Plan (1) Nausea & vomiting: Qualifiers: Vomiting type: bilious vomiting Qualified Code(s): R11.14 - Bilious vomiting Code(s): R11.2 - Nausea with vomiting, unspecified Status: Acute Assessment and Plan: -likely multifactorial in origin based on findings below -Gastrografin UGI this morning showed a high-grade obstruction at the third portion of the duodenum past the area of the SMA, more concerning for an infiltrating pancreatic cancer as the etiology. These results reviewed by general surgery and radiologist. -stat MRCP ordered to further evaluate this mass -still NPO with IVF, consider NG tube if continued vomiting (2) Right ureteral stone: Code(s): N20.1 - Calculus of ureter Status: Acute Assessment and Plan: -CT with severe right hydronephrosis and hydroureter to the level of a 6 mm stone in mid right ureter. -UA abnormal but urine culture negative -Urology consulted, went to OR 05/05/21 for cystoscopy, right retrograde pyelogram, right ureteroscopy with holmium laser, right ureteral stent placement 6 [place] contour -Urology is planning KUB/CT today to determine stone placement s/p stent and to determine definitive treatment (3) Choledocholithiasis: Code(s): K80.50 - Calculus of bile duct without cholangitis or cholecystitis without obstruction Status: Acute Assessment and Plan: -CT suggested gallstones with large stone in the CBD. -Radiologist feels there is an abnormal appearance of what was initially read as a gallstone on the CT. -Will get MRCP today, see plan above. -GI following as well. Was originally planning ERCP tomorrow however this plan may change pending results of MRCP today. -liver enzymes close to normal (4) Acute kidney failure: Qualifiers: Acute renal failure type: unspecified Qualified Code(s): N17.9 - Acute kidney failure, unspecified Code(s): N17.9 - Acute kidney failure, unspecified Status: Acute Assessment and Plan: -Likely multifactorial in etiology including dehydration, hypotension (per patient report), and obstruction nephrolithiasis -Lowery catheter has been inserted for strict I/O. -Urology consulted, went to OR 05/05/21 for cystoscopy, right retrograde pyelogram, right ureteroscopy with holmium laser, right ureteral stent placement 6 [place] contour -Nephrology also consulted -urine electrolytes are pre renal, significant improvement with IVF hydration (creat 5.4 to 1.5) -continue monitoring (5) Abnormal urinalysis: Code(s): R82.90 - Unspecified abnormal findings in urine Status: Acute Assessment and Plan: -abnormal UA, rocephin started -urine culture negative, abx stopped (6) Electrolyte abnormality: Code(s): E87.8 - Other disorders of electrolyte and fluid balance, not elsewhere classified Status: Acute Assessment and Plan: -Including sodium 130, chloride 66, and serum carbon dioxide greater than 40. -She has been started on judicious IV fluid rehydration with normal saline. -Improving (7) Chronic obstructive pulmonary disease: Code(s): J44.9 - Chronic obstructive pulmonary disease, unspecified Status: Acute Assessment and Plan: -No acute issues. -Continue maintenance inhalers. Additional Plan spoke w/ daughter Asim and provided update Subjective Date/time seen: 05/07/21 10:42 Interval history: 80-year-old female with with hypertension and COPD admitted for renal failure. Pt c/o dizziness and nausea. She last vomited around 0400 this morning but otherwise she has been doing okay with the zofran. She admits to a bloated uncomfortable feeling in her abdomen but denies significant pain. No back pain. She has not had a BM since being admitted. No fevers. No cp/sob/LE edema. Review of Systems Review of Systems: All systems reviewed
--- NOTE | 2021-05-07 12:28 | PM.PNNEP ---
Progress Note: A&P Assessment and Plan (1) Acute kidney failure: Qualifiers: Acute renal failure type: unspecified Qualified Code(s): N17.9 - Acute kidney failure, unspecified Code(s): N17.9 - Acute kidney failure, unspecified Status: Acute Assessment and Plan: multifactorial etiology: volume depletion/dehydration relative hypotension (precipitated by ongoing use of BP medications) obstruction (although only present on the right) evaluation to date: renal ultrasound/CT of abd/pelvis with severe hydronephrosis and mid right ureter stone urine electrolytes are prerenal rare urine eosinophils but suspect due to urinalysis with inflamation CPK normal significant improvement in renal function with IVF hydration follow trend of repeat labs and UOP (2) Hydronephrosis of right kidney: Code(s): N13.30 - Unspecified hydronephrosis Status: Acute Assessment and Plan: unclear how much this is contributing to #1 (left kidney was normal) CT of A/P with severe right hydronephrosis and hydroureter to the level of a 6 mm stone in mid right ureter unclear how acute or chronic this issues is Urology following - s/p cystoscopy, right retrograde pyelogram, right ureteroscopy with holmium laser and right ureteral stent placement (3) Nausea & vomiting: Qualifiers: Vomiting type: bilious vomiting Qualified Code(s): R11.14 - Bilious vomiting Code(s): R11.2 - Nausea with vomiting, unspecified Status: Acute Assessment and Plan: unclear if this precipitated #1 or is a result of #1 IV antiemetics PRN GI and Surgery recommendations noted given admission CT scan results upper GI series this AM with a high-grade obstruction at the third portion of the duodenum past the area of the SMA, more concerning for an infiltrating pancreatic cancer as the etiology - MRI/MRCP ordered to further evaluation later today (4) Hypertension: Code(s): I10 - Essential (primary) hypertension Status: Acute Assessment and Plan: hypotensive prior to admission and noted in ER better s/p IVF resuscitation hold BP medications follow hemodynamics Will continue to follow. Subjective Date/time seen: 05/07/21 12:28 Issues with nausea and dizziness noted - doing better with administration of IV antiemetics; major complaint is that of a bloated sensation in her abdomen that feels uncomfortable; seen by Surgery and GI yesterday with recommendations noted; results of upper GI series reviewed Exam Narrative: General: elderly female in NAD Heart: normal S1 and S2; no rub Lungs: clear to auscultation Abdomen: soft, nontender, nondistended, positive bowel sounds Extremities: no cyanosis or clubbing; no edema Skin: warm and intact Objective Data Vital Signs Vital Signs: Vital Signs Temp Pulse Resp BP Pulse Ox 05/07/21 09:11 93 05/07/21 08:00 67 16 93 05/07/21 06:00 36.6 C 67 16 115/52 L 92 05/06/21 22:00 36.4 C 66 16 119/54 L 90 05/06/21 21:27 86 91 Intake/Output Intake/Output: Intake & Output 05/04/21 05/05/21 05/06/21 05/07/21 23:59 23:59 23:59 23:59 Intake Total 2050 830 3612 850 Output Total 1280 1750 2350 Balance 2050 -450 1862 -1500 Meds/Results Medications: Active Medications Generic Name Dose Route Start Last Admin Trade Name Freq PRN Reason Stop Dose Admin Acetaminophen 650 mg 05/04/21 16:02 05/05/21 16:06 Acetaminophen 325 Mg Tablet PO 650 mg Q4H PRN Administration Mild Pain (1-3) or Fever Albuterol 2 puff 05/05/21 09:16 Albuterol Sulfate (*Sp) Aerosol 1 Puff INHALATION QID PRN Pain Amlodipine Besylate 10 mg 05/05/21 09:20 05/07/21 17:28 Amlodipine Besylate 5 Mg Tablet PO 10 mg DAILY CATERINA Administration Famotidine 20 mg 05/04/21 21:00 05/07/21 09:13 Famotidine 20 Mg/2 Ml Vial IV PUSH 20 mg Q12HR CATERINA Admini
--- NOTE | 2021-05-07 12:28 | P.PNNP_ITS ---
Progress Note: A&P Assessment and Plan (1) Acute kidney failure: Qualifiers: Acute renal failure type: unspecified Qualified Code(s): N17.9 - Acute kidney failure, unspecified Code(s): N17.9 - Acute kidney failure, unspecified Status: Acute Assessment and Plan: * multifactorial etiology: * volume depletion/dehydration * relative hypotension (precipitated by ongoing use of BP medications) * obstruction (although only present on the right) * evaluation to date: * renal ultrasound/CT of abd/pelvis with severe hydronephrosis and mid right ureter stone * urine electrolytes are prerenal * rare urine eosinophils but suspect due to urinalysis with inflamation * CPK normal * significant improvement in renal function with IVF hydration * follow trend of repeat labs and UOP (2) Hydronephrosis of right kidney: Code(s): N13.30 - Unspecified hydronephrosis Status: Acute Assessment and Plan: * unclear how much this is contributing to #1 (left kidney was normal) * CT of A/P with severe right hydronephrosis and hydroureter to the level of a 6 mm stone in mid right ureter * unclear how acute or chronic this issues is * Urology following - s/p cystoscopy, right retrograde pyelogram, right ureteroscopy with holmium laser and right ureteral stent placement (3) Nausea & vomiting: Qualifiers: Vomiting type: bilious vomiting Qualified Code(s): R11.14 - Bilious vomiting Code(s): R11.2 - Nausea with vomiting, unspecified Status: Acute Assessment and Plan: * unclear if this precipitated #1 or is a result of #1 * IV antiemetics PRN * GI and Surgery recommendations noted given admission CT scan results * upper GI series this AM with a high-grade obstruction at the third portion of the duodenum past the area of the SMA, more concerning for an infiltrating pancreatic cancer as the etiology - MRI/MRCP ordered to further evaluation later today (4) Hypertension: Code(s): I10 - Essential (primary) hypertension Status: Acute Assessment and Plan: * hypotensive prior to admission and noted in ER * better s/p IVF resuscitation * hold BP medications * follow hemodynamics Will continue to follow. Subjective Date/time seen: 05/07/21 12:28 Issues with nausea and dizziness noted - doing better with administration of IV antiemetics; major complaint is that of a bloated sensation in her abdomen that feels uncomfortable; seen by Surgery and GI yesterday with recommendations noted; results of upper GI series reviewed Exam Narrative: General: elderly female in NAD Heart: normal S1 and S2; no rub Lungs: clear to auscultation Abdomen: soft, nontender, nondistended, positive bowel sounds Extremities: no cyanosis or clubbing; no edema Skin: warm and intact Objective Data Vital Signs Vital Signs: Vital Signs Temp Pulse Resp BP Pulse Ox 05/07/21 09:11 93 05/07/21 08:00 67 16 93 05/07/21 06:00 36.6 C 67 16 115/52 L 92 05/06/21 22:00 36.4 C 66 16 119/54 L 90 05/06/21 21:27 86 91 Intake/Output Intake/Output: Intake & Output 05/04/21 05/05/21 05/06/21 05/07/21 23:59 23:59 23:59 23:59 Intake Total 2049 830 3612 850 Output Total 1280 1750 2350 Balance 2050 -450 1862 -1500
[2021-05-07 13:34] LABS: Complement Total CH50 >60 U/mL (31-60)
[2021-05-07 14:00] VITALS: BP 114/63; PULSE 75; RESP 19; TEMP 36.6; O2SAT 96
[2021-05-07 14:27] LABS: Sodium 136 mmol/L (137-145)
[2021-05-07 14:50] LABS: Anion Gap 8 mmol/L (8-16); Blood Urea Nitrogen 22 mg/dL (7-17); Calcium 8.1 mg/dL (8.4-10.2); Carbon Dioxide 27 mmol/L (22-30); Chloride 101 mmol/L (98-107); Estimated CRCL calculation 21 ml/min; Estimated Glomerular Filt Rate 36; Glucose 93 mg/dL (65-110); Potassium 3.4 mmol/L (3.4-5.0)
--- NOTE | 2021-05-07 15:04 | WPDGIPROGNO ---
Progress Note: A&P Assessment and Plan (1) Gastric outlet obstruction: Code(s): K31.1 - Adult hypertrophic pyloric stenosis Status: Acute Assessment and Plan: UGI series reviewed and concerning for high grade obstruction in third portion duodenum ? malignancy, SMA syndrome, etc pending MRCP to get a better picture, probably I can do EGD tomorrow for biopsies and assess duodenal lumen, I do not know if I will be able to advance ERCP scope if indeed she has obstructive lesion in duodenum- may need transfer to tertiary hospital if unsuccessful scope. Surgery on board will get ca 19-9 and ca 125 liver enzymes actually almost normal range (2) Nausea & vomiting: Qualifiers: Vomiting type: bilious vomiting Qualified Code(s): R11.14 - Bilious vomiting Code(s): R11.2 - Nausea with vomiting, unspecified Status: Acute Assessment and Plan: antiemetics egd with possible ercp tomorrow (3) Choledocholithiasis: Code(s): K80.50 - Calculus of bile duct without cholangitis or cholecystitis without obstruction Status: Acute Assessment and Plan: pending mrcp, will see if can complete ercp (4) Right ureteral stone: Code(s): N20.1 - Calculus of ureter Status: Acute Assessment and Plan: s/p stent (5) Acute kidney failure: Qualifiers: Acute renal failure type: unspecified Qualified Code(s): N17.9 - Acute kidney failure, unspecified Code(s): N17.9 - Acute kidney failure, unspecified Status: Acute Subjective Date/time seen: 05/07/21 15:04 Interval history: earlier today had another episode of emesis. She completed UGI series that showed relatively high-grade obstruction at the third portion of the duodenum, can not exclude malignancy. Review of Systems Review of Systems: All systems reviewed & are unremarkable except as noted in HPI and below Exam Const: General: no acute distress and awake HENMT: General nose exam: Normal nares present Eyes: Sclera: sclerae normal Neck: Neck: supple Resp: Effort & Inspection: normal respiratory effort Auscultation: clear to auscultation bilaterally Cardio: Rate: regular rate Rhythm: regular rhythm GI: Inspection: non-distended GI Palp: Yes Soft to palpation, No Tenderness to palpation present (GI), No Guarding due to palpation present (GI) and No Rebound tenderness present Auscultation: normal bowel sounds and Hypoactive bowel sounds present Skin: General skin exam: no rashes or lesions noted Neuro: General: moves all extremities and no focal motor deficits Speech: normal speech Motor exam (neuro): Normal motor muscle tone present throughout Extrem: General: no edema Psych: Mental Status: mental status grossly normal Insight: Good insight present (Psych) Judgement: Good judgement present (Psych) Objective Data Vital Signs Vital Signs: Vital Signs - 24 hr 05/06/21 17:00 05/06/21 17:03 05/06/21 17:06 Temperature Pulse Rate 64 120 H 70 Respiratory Rate Blood Pressure 108/60 92/58 L 108/57 L Pulse Oximetry 05/06/21 21:27 05/06/21 22:00 05/07/21 06:00 Temperature 97.6 F 97.9 F Pulse Rate 86 66 67 Respiratory Rate 16 16 Blood Pressure 119/54 L 115/52 L Pulse Oximetry 91 90 92 05/07/21 08:00 05/07/21 09:11 05/07/21 14:00 Temperature 97.8 F Pulse Rate 67 75 Respiratory Rate 16 19 Blood Pressure 114/63 Pulse Oximetry 93 93 96 Intake/Output Intake/Output: Intake & Output 05/04/21 05/05/21 05/06/21 05/07/21 23:59 23:59 23:59 23:59 Intake Total 2050 830 3612 400 Output Total 1280 1750 Balance 2050 -450 1862 400 Meds/Results Medications: Active Medications Generic Name Dose Route Start Last Admin Trade Name Freq PRN Reason Stop Dose Admin Acetaminophen 650 mg 05/04/21 16:02 05/05/21 16:06 Acetaminophen 325 Mg Tablet PO 650 mg Q4H PRN Administration Mild Pain (1-3) or Fever Albuterol 2 puff
--- NOTE | 2021-05-07 15:10 | WPDUROPN2 ---
Progress Note: A&P Assessment and Plan (1) Right ureteral stone: Code(s): N20.1 - Calculus of ureter Status: Acute Assessment and Plan: CT/KUB today shows stone particles adjacent to the right stent. DR. Newsome would like to do a Cystoscopy, right ureteroscopy with stone extraction, right stent exchange, right retrograde pyelogram, possible holmium laser in 3 weeks. Her stent will stay in until then. We will call to blanca this as an outpatient. I have notified her daughter Asim of the plan. (2) Urinary retention: Code(s): R33.9 - Retention of urine, unspecified Status: Acute Assessment and Plan: 400cc PVR was noted by the patient, ok to do a voiding trial prior to discharge and remove velasco. If unable to urinate, re-place velasco and she will f/u with us in the office before her next surgery. If she fails her voiding trial, ok to start Tamsulosin. Subjective Subjective Date/Time Seen: 05/07/21 15:10 POD #2 Cystoscopy with right stent placement, right retrograde pyelogram. Urine culture negative Patient tolerating her stent, but is vomiting and feeling weak and fatigued today. Urine Clear in velasco. CT/KUB reveal stone particles surrounding the right stent. Review of Systems Cardiovascular: Cardiovascular: Denies chest pain Respiratory: Respiratory: Reports no additional respiratory complaints Gastrointestinal: Gastrointestinal: Denies abdominal pain, Reports nausea and Reports vomiting Genitourinary: Genitourinary: Denies hematuria and Denies pelvic pain Exam Resp: Effort & Inspection: normal respiratory effort Cardio: Rate: regular rate GI: GI Palp: Yes Soft to palpation and Yes Tenderness to palpation present (GI) : General: Yes no CVA tenderness Urinary Catheter: Urinary Catheter: patent and draining and urine clear Extrem: General: no edema Objective Data Vital Signs Vital Signs: Vital Signs - 24 hr 05/06/21 17:00 05/06/21 17:03 05/06/21 17:06 Temperature Pulse Rate 64 120 H 70 Respiratory Rate Blood Pressure 108/60 92/58 L 108/57 L Pulse Oximetry 05/06/21 21:27 05/06/21 22:00 05/07/21 06:00 Temperature 97.6 F 97.9 F Pulse Rate 86 66 67 Respiratory Rate 16 16 Blood Pressure 119/54 L 115/52 L Pulse Oximetry 91 90 92 05/07/21 08:00 05/07/21 09:11 05/07/21 14:00 Temperature 97.8 F Pulse Rate 67 75 Respiratory Rate 16 19 Blood Pressure 114/63 Pulse Oximetry 93 93 96 Intake/Output Intake/Output: Intake & Output 05/04/21 05/05/21 05/06/21 05/07/21 23:59 23:59 23:59 23:59 Intake Total 2050 830 3612 400 Output Total 1280 1750 Balance 2050 -450 1862 400 Meds/Results Medications: Active Medications Generic Name Dose Route Start Last Admin Trade Name Freq PRN Reason Stop Dose Admin Acetaminophen 650 mg 05/04/21 16:02 05/05/21 16:06 Acetaminophen 325 Mg Tablet PO 650 mg Q4H PRN Administration Mild Pain (1-3) or Fever Albuterol 2 puff 05/05/21 09:16 Albuterol Sulfate (*Sp) Aerosol 1 Puff INHALATION QID PRN Pain Amlodipine Besylate 10 mg 05/05/21 09:20 05/06/21 09:30 Amlodipine Besylate 5 Mg Tablet PO 10 mg DAILY CATERINA Administration Famotidine 20 mg 05/04/21 21:00 05/07/21 09:13 Famotidine 20 Mg/2 Ml Vial IV PUSH 20 mg Q12HR CATERINA Administration Sodium Chloride 1,000 mls @ 100 mls/hr 05/04/21 22:15 05/07/21 10:29 Normal Saline Iv IV CONT 100 mls/hr .Q10H CATERINA Infusion Ondansetron HCl 4 mg 05/04/21 16:02 05/07/21 09:13 Ondansetron Inj 4 Mg/2 Ml Vial IV PUSH 4 mg Q4H PRN Administration Nausea Fluticasone/Salmeterol 2 puff 05/05/21 20:00 05/07/21 09:10 Fluticasone/Salmeterol 115-21 Mcg Inhaler 1 Puff INHALATION 2 puff Q12HRT CATERINA Administration Theophylline 400 mg 05/06/21 09:00 05/06/21 09:40 Theophylline Anhydrous 200 Mg Er 24 Hr Capsule PO 400 mg DAILY CATERINA Administration Radiology Results: ITS Impress
[2021-05-07] MEDS: amLODIPine BESYLATE 5 MG TABLET 10 MG PO (17:28)
[2021-05-07] MEDS: THEOPHYLLINE ANHYDROUS 200 MG ER 24 HR CAPSULE 400 MG PO (17:28)
[2021-05-07] MEDS: POTASSIUM CHLORIDE 20 MEQ TABLET 40 MEQ PO (17:36)
[2021-05-07 21:38] LABS: Theophylline < 2.5 mg/L (10.0-20.0)
[2021-05-07 21:56] VITALS: BP 129/71; PULSE 79; RESP 18; TEMP 36.9; O2SAT 96
[2021-05-07] MEDS: SODIUM CHLORIDE 0.9% IV 1,000 ML 100 ML IV CONT (23:41)
[2021-05-08 05:49] VITALS: BP 129/59; PULSE 79; RESP 18; TEMP 36.8; O2SAT 97
[2021-05-08 08:12] LABS: Basophils Absolute Auto 0.1 K/mm3 (0.0-0.1); Basophils Percent Auto 0.4 % (0.2-1.2); Eosinophils Absolute Auto 0.2 K/mm3 (0-0.3); Eosinophils Percent Auto 2.1 % (0-4.4); Hematocrit 39.8 % (37.0-47.0); Hemoglobin 12.7 g/dL (12.0-15.0); Immature Granulocyte Absolute 0.04 K/mm3 (0.00-0.031); Immature Granulocyte Percent A 0.3 % (0-0.5); Lymphocytes Absolute Auto 2.61 K/mm3 (0.9-3.2); Lymphocytes Percent Auto 22.6 % (18.3-44.2); Mean Corpuscular HGB Conc 31.9 g/dl (32-36); Mean Corpuscular Hemoglobin 31.6 pg (26-34); Mean Platelet Volume 9.8 fl (7.4-10.4); Monocytes Absolute Auto 0.8 K/mm3 (0.1-0.6); Neutrophils Absolute Auto 7.8 K/mm3 (1.3-6.7); Neutrophils Percent Auto 67.6 % (45.5-73.1); Platelet Count Result 412 k/mm3 (150-375); Red Blood Count 4.02 M/mm3 (4.2-5.4); Red Cell Distribution Width 11.9 % (11.5-14.5); White Blood Count 11.6 K/mm3 (4.5-10.0)
[2021-05-08 08:23] LABS: Alanine Aminotransferase 25 U/L (4-35); Albumin Level 3.6 g/dL (3.5-5.1); Alkaline Phosphatase 87 U/L (38-126); Anion Gap 5 mmol/L (8-16); Aspartate Amino Transferase 27 U/L (14-36); Bilirubin,Total 0.5 mg/dL (0.2-1.3); Blood Urea Nitrogen 17 mg/dL (7-17); Carbon Dioxide 25 mmol/L (22-30); Chloride 105 mmol/L (98-107); Estimated CRCL calculation 26 ml/min; Estimated Glomerular Filt Rate 43; Glucose 80 mg/dL (65-110); Lipase 86 U/L (23-300); Magnesium 1.6 mg/dL (1.6-2.3); Potassium 3.4 mmol/L (3.4-5.0); Sodium 135 mmol/L (137-145)
[2021-05-08 08:26] VITALS: O2SAT 97
[2021-05-08] MEDS: FLUTICASONE/SALMETEROL 115-21 MCG INHALER 1 PUFF 2 PUFF INHALATION ×2 (08:26→20:14)
--- NOTE | 2021-05-08 08:52 | PM.IMPN ---
Progress Note: A&P Assessment and Plan (1) Nausea & vomiting: Qualifiers: Vomiting type: bilious vomiting Qualified Code(s): R11.14 - Bilious vomiting Code(s): R11.2 - Nausea with vomiting, unspecified Status: Acute Assessment and Plan: -likely multifactorial in origin based on findings below -Gastrografin UGI showed a high-grade obstruction at the third portion of the duodenum past the area of the SMA, more concerning for an infiltrating pancreatic cancer as the etiology. These results reviewed by general surgery and radiologist. 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 Also moderate intrahepatic and extrahepatic biliary duct dilatation with 15 mm stone in the distal common bile duct. -spoke w/ general surgery Dr. Buitrago and GI Dr. Iverson regarding MRCP results. Plan is to transfer patient to biliary specialists at [place] or [facility]. -spoke w/ transfer lines for [facility] who are at capacity and not doing waitlists. Spoke w/ [facility] transfer center who does not have beds but placed her on the waitlist. Discussed case with [facility] biliary fellow Dr. Randy Zazueta and hospitalist Dr. Sammy Glass. -pending transfer to [facility] -may consider NG tube if she continues vomiting. Will try to allow clear liquids per patient request and monitor closely. (2) Pancreatic mass: Code(s): K86.89 - Other specified diseases of pancreas Status: Chronic Assessment and Plan: -see above -pending transfer to hopefully [facility] -discussed plan of care and probable diagnosis of pancreatic cancer with both patient and daughter Asim (3) Right ureteral stone: Code(s): N20.1 - Calculus of ureter Status: Acute Assessment and Plan: -CT with severe right hydronephrosis and hydroureter to the level of a 6 mm stone in mid right ureter. -UA abnormal but urine culture negative -Urology consulted, went to OR 05/05/21 for cystoscopy, right retrograde pyelogram, right ureteroscopy with holmium laser, right ureteral stent placement 6 Greek contour -Repeat imaging shows stone particles adjacent to R stent. Plan is cystoscopy, right ureteroscopy with stone extraction, right stent exchange, right retrograde pyelogram, possible holmium laser in 3 weeks. Her stent will stay in until then. Urology will call to schedule this as an outpatient. 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 -Radiologist feels there is an abnormal appearance of what was initially read as a gallstone on the CT. -See findings of MRCP and plan above -liver enzymes close to normal (5) Acute kidney failure: Qualifiers: Acute renal failure type: unspecified Qualified Code(s): N17.9 - Acute kidney failure, unspecified Code(s): N17.9 - Acute kidney failure, unspecified Status: Acute Assessment and Plan: -Likely multifactorial in etiology including dehydration, hypotension (per patient report), and obstruction nephrolithiasis -Lowery catheter has been inserted for strict I/O. -Urology consulted, went to OR 05/05/21 for cystoscopy, right retrograde pyelogram, right ureteroscopy with holmium laser, right ureteral stent placement 6 Greek contour -Nephrology also consulted -urine electrolytes are pre renal, significant improvement with IVF hydration (creat 5.4 to 1.5) -continue monitoring (6) Abnormal urinalysis: Code(s): R82.90 - Unspecified abnormal findings in urine Status: Acute Assessment and Plan: -abnormal UA, rocephin started -urine culture negative, abx stopped (7) Electrolyte abnormality: Code(s): E87.8 - Other disorders o
--- NOTE | 2021-05-08 08:56 | PM.PNGS ---
Progress Note: A&P Assessment and Plan (1) Duodenal obstruction: Code(s): K31.5 - Obstruction of duodenum Status: Acute Assessment and Plan: most likely due to pancreatic neoplasm as noted on yesterday's MRCP. Obstruction seems to be just proximal to the SMA takeoff making SMA syndrome unlikely. Patient continues to have episodes of emesis. May need NG tube. Discussed with hospitalist, Trupti Arnold PA-C, and recommended patient be transferred to tertiary care facility for further treatment. Gastroenterostomy could be performed to treat this surgically here at [place] if transfer is not able to be obtained in any reasonable time frame. If patient continues to have emesis, would place NG tube. (2) Pancreatic mass: Code(s): K86.89 - Other specified diseases of pancreas Status: Chronic Assessment and Plan: 3.2 cm mass pancreatic head most likely adenocarcinoma noted on MRCP yesterday. Most treatment modalities for suspected pancreatic cancer including enteric stenting, biliary stenting, endoscopic ultrasound, pancreatic resection are not available at our facility. Hospitalist attempting to facilitate transfer but so far neighboring tertiary care facilities are full due to pandemic patient volumes. I discussed the MRCP findings of a pancreatic abnormality or mass that may be the cause of her vomiting and may be pancreatic cancer. Discussed with hospitalist as above. (3) Choledocholithiasis: Code(s): K80.50 - Calculus of bile duct without cholangitis or cholecystitis without obstruction Status: Chronic Assessment and Plan: Common bile duct stone is just proximal to area of pancreatic mass, may have been facilitated by partial common bile duct obstruction from pancreatic neoplasm. (4) Right ureteral stone: Code(s): N20.1 - Calculus of ureter Status: Acute Assessment and Plan: Lasered and stented by Dr. Newsome. Small fragments remain as evidenced by CT scan yesterday. (5) Acute kidney failure: Qualifiers: Acute renal failure type: unspecified Qualified Code(s): N17.9 - Acute kidney failure, unspecified Code(s): N17.9 - Acute kidney failure, unspecified Status: Acute Assessment and Plan: Continues to make rapid improvement after stenting of right ureter. Subjective Subjective Date/Time Seen: 05/08/21 08:56 Patient reports: pain is less ( denies abdominal pain), nausea ( Better when lying flat), vomiting ( Multiple episodes of emesis last night.) and afebrile Review of Systems Review of Systems: All systems reviewed & are unremarkable except as noted in HPI and below ( HPI and those items noted below) Constitutional: Constitutional: Denies chills, Denies fever(s), Reports lethargy, Reports poor appetite and Reports weight loss Gastrointestinal: Gastrointestinal: Denies abdominal pain, Reports early satiety, Reports nausea and Reports vomiting Exam Const: General: comfortable and no acute distress; No confusion Orientation/consciousness: patient oriented x3 and No confusion GI: GI Palp: Yes Soft to palpation, Yes Tenderness to palpation present (GI), No Guarding due to palpation present (GI) and No Rebound tenderness present Auscultation: normal bowel sounds Neuro: General: patient oriented x3, no focal motor deficits and No confusion Extrem: General: no calf tenderness and no edema Psych: Appearance: grossly normal Speech and movement: Clear speech present Affect: Anxious affect present Attitude: cooperative Thought process: Normal thought process present Insight: Good insight present (Psych) Judgement: Good judgement present (Psych) Objective Data Vital Signs Vital Signs: Vital Signs - 24 hr 05/07/21 09:11 05/07/21 14:00 05/07/21 21:56 Temperature 36.6 C 36.9 C Pulse Rate 75 79 Respiratory Rate 19 18 Blood Pressure 114/63 129/71 Pulse Oximetry 93 96 96 05/08/21 05:49 05/08/21 0
[2021-05-08] MEDS: FAMOTIDINE 20 MG/2 ML VIAL IV PUSH ×2 (09:32→20:52)
[2021-05-08] MEDS: amLODIPine BESYLATE 5 MG TABLET 10 MG PO (09:35)
[2021-05-08] MEDS: SODIUM CHLORIDE 0.9% IV 1,000 ML 100 ML IV CONT ×2 (09:40→20:52)
--- NOTE | 2021-05-08 12:30 | P.PNNP_ITS ---
Progress Note: A&P Assessment and Plan (1) Acute kidney failure: Qualifiers: Acute renal failure type: unspecified Qualified Code(s): N17.9 - Acute kidney failure, unspecified Code(s): N17.9 - Acute kidney failure, unspecified Status: Acute Assessment and Plan: * multifactorial etiology: * volume depletion/dehydration * relative hypotension (precipitated by ongoing use of BP medications) * obstruction (although only present on the right) * evaluation to date: * renal ultrasound/CT of abd/pelvis with severe hydronephrosis and mid right ureter stone * urine electrolytes are prerenal * rare urine eosinophils but suspect due to urinalysis with inflamation * CPK normal * significant improvement in renal function with IVF hydration * follow trend of repeat labs and UOP (2) Hydronephrosis of right kidney: Code(s): N13.30 - Unspecified hydronephrosis Status: Acute Assessment and Plan: * unclear how much this is contributing to #1 (left kidney was normal) * CT of A/P with severe right hydronephrosis and hydroureter to the level of a 6 mm stone in mid right ureter * unclear how acute or chronic this issues is * Urology following - s/p cystoscopy, right retrograde pyelogram, right ureteroscopy with holmium laser and right ureteral stent placement (3) Nausea & vomiting: Qualifiers: Vomiting type: bilious vomiting Qualified Code(s): R11.14 - Bilious vomiting Code(s): R11.2 - Nausea with vomiting, unspecified Status: Acute Assessment and Plan: * unclear if this precipitated #1 or is a result of #1 * IV antiemetics PRN * GI and Surgery recommendations noted given admission CT scan results * upper GI series this AM with a high-grade obstruction at the third portion of the duodenum past the area of the SMA, more concerning for an infiltrating pancreatic cancer as the etiology - MRI/MRCP results noted as well with 3.2 x 2.2 cm mass involving the pancreatic head and third portion of the duodenum causing duodenal obstruction, 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 * would continue IVFs for now since continues to have nausea/vomitin (4) Hypertension: Code(s): I10 - Essential (primary) hypertension Status: Acute Assessment and Plan: * hypotensive prior to admission and noted in ER * better s/p IVF resuscitation * hold BP medications * follow hemodynamics Not much else to offer at this time - kidney function improving with current therapy -- will continue to follow from a distance. Subjective Date/time seen: 05/08/21 12:30 MRI/MRCP done yesterday afternoon with findings noted - tentative plan is for possible transfer to a facility with biliary specialist; she is otherwise feeling okay but extremely thirsty; continues to have on/off emesis with several episode overnight; no acute distress noted. Exam Narrative: General: elderly female in NAD Heart: normal S1 and S2; no rub Lungs: clear to auscultation Abdomen: soft, nontender, nondistended, positive bowel sounds Extremities: no cyanosis or clubbing; no edema Skin: no rash Objective Data Vital Signs Vital Signs: Vital Signs Temp Pulse Resp BP Pulse Ox 05/08/21 08:26 97 05/08/21 05:49 36.8 C 79 18 129/59 L 97 05/07/21 21:56 36.9 C 79 18 129/71 96 Intak
--- NOTE | 2021-05-08 12:30 | PM.PNNEP ---
Progress Note: A&P Assessment and Plan (1) Acute kidney failure: Qualifiers: Acute renal failure type: unspecified Qualified Code(s): N17.9 - Acute kidney failure, unspecified Code(s): N17.9 - Acute kidney failure, unspecified Status: Acute Assessment and Plan: multifactorial etiology: volume depletion/dehydration relative hypotension (precipitated by ongoing use of BP medications) obstruction (although only present on the right) evaluation to date: renal ultrasound/CT of abd/pelvis with severe hydronephrosis and mid right ureter stone urine electrolytes are prerenal rare urine eosinophils but suspect due to urinalysis with inflamation CPK normal significant improvement in renal function with IVF hydration follow trend of repeat labs and UOP (2) Hydronephrosis of right kidney: Code(s): N13.30 - Unspecified hydronephrosis Status: Acute Assessment and Plan: unclear how much this is contributing to #1 (left kidney was normal) CT of A/P with severe right hydronephrosis and hydroureter to the level of a 6 mm stone in mid right ureter unclear how acute or chronic this issues is Urology following - s/p cystoscopy, right retrograde pyelogram, right ureteroscopy with holmium laser and right ureteral stent placement (3) Nausea & vomiting: Qualifiers: Vomiting type: bilious vomiting Qualified Code(s): R11.14 - Bilious vomiting Code(s): R11.2 - Nausea with vomiting, unspecified Status: Acute Assessment and Plan: unclear if this precipitated #1 or is a result of #1 IV antiemetics PRN GI and Surgery recommendations noted given admission CT scan results upper GI series this AM with a high-grade obstruction at the third portion of the duodenum past the area of the SMA, more concerning for an infiltrating pancreatic cancer as the etiology - MRI/MRCP results noted as well with 3.2 x 2.2 cm mass involving the pancreatic head and third portion of the duodenum causing duodenal obstruction, 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 would continue IVFs for now since continues to have nausea/vomitin (4) Hypertension: Code(s): I10 - Essential (primary) hypertension Status: Acute Assessment and Plan: hypotensive prior to admission and noted in ER better s/p IVF resuscitation hold BP medications follow hemodynamics Not much else to offer at this time - kidney function improving with current therapy -- will continue to follow from a distance. Subjective Date/time seen: 05/08/21 12:30 MRI/MRCP done yesterday afternoon with findings noted - tentative plan is for possible transfer to a facility with biliary specialist; she is otherwise feeling okay but extremely thirsty; continues to have on/off emesis with several episode overnight; no acute distress noted. Exam Narrative: General: elderly female in NAD Heart: normal S1 and S2; no rub Lungs: clear to auscultation Abdomen: soft, nontender, nondistended, positive bowel sounds Extremities: no cyanosis or clubbing; no edema Skin: no rash Objective Data Vital Signs Vital Signs: Vital Signs Temp Pulse Resp BP Pulse Ox 05/08/21 08:26 97 05/08/21 05:49 36.8 C 79 18 129/59 L 97 05/07/21 21:56 36.9 C 79 18 129/71 96 Intake/Output Intake/Output: Intake & Output 05/05/21 05/06/21 05/07/21 05/08/21 23:59 23:59 23:59 23:59 Intake Total 830 3612 1850 1560 Output Total 1280 1750 2350 Balance -450 1862 -500 1560 Meds/Results Medications: Active Medications Generic Name Dose Route Start Last Admin Trade Name Freq PRN Reason Stop Dose Admin Acetaminophen 650 mg 05/04/21 16:02 05/05/21 16:06 Acetaminophen 325 Mg Tablet PO 650 mg Q4H PRN Administration Mild Pain (1-3) or Fever Albuterol 2 puff 05/05/21 09:16 Albuterol Sulfate (*Sp)
[2021-05-08] MEDS: THEOPHYLLINE ANHYDROUS 200 MG ER 24 HR CAPSULE 400 MG PO (12:41)
[2021-05-08 14:00] VITALS: BP 116/52; PULSE 81; RESP 16; TEMP 36.8; O2SAT 96
[2021-05-08 14:06] VITALS: O2SAT 95
--- NOTE | 2021-05-08 15:09 | PCNFU ---
Nutrition Follow-Up Complete: Inadequate oral intake related to frequent emesis as evidenced by pt. reported weight loss of 10 lbs. in two week and BMI of 17.9 Goal: Patient to meet estimated nutritional needs. Pt is slowly progressing towards goal Pt current nutrition is Clear liquid diet Last recorded weight is 48.1 kg, up 3.5kg last reported weight on 05/06/21. Bowel Motility: No new BM reported Labs Reviewed: Na 135, BUN 43, Cr 1.2, Ca 8.0 Meds Noted: norvasc, pepcid, theophylline Skin: No new skin breakdown at this time, WNL Additional Notes: Current nutrition is a clear liquid diet with reported intake of 20% and 75%. Per physician notes, pt had episodes of emesis last night (05/07/21). Pt may be considered for NG tube placement if emesis continues. Pending transfer to [facility] for further treatment. Agree with diet orders at this time. Will continue to follow if pt is not transferred. Monitor patient labs, medications, weight and oral intake every 3 days.
--- NOTE | 2021-05-08 15:57 | WPDGIPROGNO ---
Progress Note: A&P Assessment and Plan (1) Duodenal obstruction: Code(s): K31.5 - Obstruction of duodenum Status: Acute Assessment and Plan: mrcp and ugi reviewed, she has large mass probably originating from pancreas with subsequent duodenal obstruction. We won't able to proceed with ERCP and reach ampulla because duodenal obstruction that is causing gastric outlet picture. Agree to transfer to tertiary hospital, she will need hepatobiliary evaluation with +/- enteral stenting, EUS, etc which we do not offer here. Prognosis is guarded based on these new findings CL diet for now, may need NGT if still vomiting tumor markers pending (2) Pancreatic mass: Code(s): K86.89 - Other specified diseases of pancreas Status: Chronic Assessment and Plan: new finding (3) Nausea & vomiting: Qualifiers: Vomiting type: bilious vomiting Qualified Code(s): R11.14 - Bilious vomiting Code(s): R11.2 - Nausea with vomiting, unspecified Status: Acute Assessment and Plan: due to obstruction in duodenum, most likely malignancy (4) Choledocholithiasis: Code(s): K80.50 - Calculus of bile duct without cholangitis or cholecystitis without obstruction Status: Chronic Assessment and Plan: it can be addressed also at another facility (5) Right ureteral stone: Code(s): N20.1 - Calculus of ureter Status: Acute Assessment and Plan: s/p stent by urology Subjective Date/time seen: 05/08/21 15:57 Interval history: results of UGI and MRCP discussed with patient, surgery and primary team. She had emesis last night. Review of Systems Review of Systems: All systems reviewed & are unremarkable except as noted in HPI and below Exam Const: General: comfortable and no acute distress; No confusion Orientation/consciousness: patient oriented x3 and No confusion HENMT: General nose exam: Normal nares present Eyes: Sclera: sclerae normal Neck: Neck: supple Resp: Effort & Inspection: normal respiratory effort Cardio: Rate: regular rate GI: GI Palp: Yes Soft to palpation, Yes Tenderness to palpation present (GI), No Guarding due to palpation present (GI) and No Rebound tenderness present Auscultation: normal bowel sounds Neuro: General: patient oriented x3, no focal motor deficits and No confusion Speech: normal speech Extrem: General: no calf tenderness and no edema Psych: Appearance: grossly normal Speech and movement: Clear speech present Affect: Anxious affect present Attitude: cooperative Thought process: Normal thought process present Insight: Good insight present (Psych) Judgement: Good judgement present (Psych) Objective Data Vital Signs Vital Signs: Vital Signs - 24 hr 05/07/21 21:56 05/08/21 05:49 05/08/21 08:26 Temperature 98.4 F 98.2 F Pulse Rate 79 79 Respiratory Rate 18 18 Blood Pressure 129/71 129/59 L Pulse Oximetry 96 97 97 05/08/21 14:06 Temperature Pulse Rate Respiratory Rate Blood Pressure Pulse Oximetry 95 Intake/Output Intake/Output: Intake & Output 05/05/21 05/06/21 05/07/21 05/08/21 23:59 23:59 23:59 23:59 Intake Total 830 3612 1850 1560 Output Total 1280 1750 2350 Balance -450 1862 -500 1560 Meds/Results Medications: Active Medications Generic Name Dose Route Start Last Admin Trade Name Freq PRN Reason Stop Dose Admin Acetaminophen 650 mg 05/04/21 16:02 05/05/21 16:06 Acetaminophen 325 Mg Tablet PO 650 mg Q4H PRN Administration Mild Pain (1-3) or Fever Albuterol 2 puff 05/05/21 09:16 Albuterol Sulfate (*Sp) Aerosol 1 Puff INHALATION QID PRN Pain Amlodipine Besylate 10 mg 05/05/21 09:20 05/08/21 09:35 Amlodipine Besylate 5 Mg Tablet PO 10 mg DAILY CATERINA Administration Famotidine 20 mg 05/04/21 21:00 05/08/21 09:32 Famotidine 20 Mg/2 Ml Vial IV PUSH 20 mg Q12HR CATERINA Administration Sodium Chloride 1,000 mls @ 100
[2021-05-08 17:55] LABS: Chloride Rand Ur <20 mmol/L (32-290); Creatinine Random Urine 148 mg/dL (20-275)
[2021-05-08 22:00] VITALS: BP 110/58; PULSE 75; RESP 16; TEMP 36.6; O2SAT 97
[2021-05-09] MEDS: ONDANSETRON INJ 4 MG/2 ML VIAL IV PUSH ×2 (05:20→21:16)
[2021-05-09] MEDS: SODIUM CHLORIDE 0.9% IV 1,000 ML 100 ML IV CONT ×2 (05:20→15:20)
[2021-05-09 06:00] VITALS: BP 163/71; PULSE 77; RESP 18; TEMP 36.4; O2SAT 98
[2021-05-09 06:40] LABS: Basophils Absolute Auto 0.1 K/mm3 (0.0-0.1); Basophils Percent Auto 0.6 % (0.2-1.2); Eosinophils Absolute Auto 0.2 K/mm3 (0-0.3); Eosinophils Percent Auto 2.2 % (0-4.4); Hematocrit 39.3 % (37.0-47.0); Hemoglobin 12.9 g/dL (12.0-15.0); Immature Granulocyte Absolute 0.04 K/mm3 (0.00-0.031); Immature Granulocyte Percent A 0.4 % (0-0.5); Lymphocytes Absolute Auto 2.11 K/mm3 (0.9-3.2); Lymphocytes Percent Auto 19.8 % (18.3-44.2); Mean Corpuscular HGB Conc 32.8 g/dl (32-36); Mean Corpuscular Hemoglobin 32.4 pg (26-34); Mean Corpuscular Volume 98.7 fl (80-100); Mean Platelet Volume 9.6 fl (7.4-10.4); Monocytes Absolute Auto 0.7 K/mm3 (0.1-0.6); Monocytes Percent Auto 6.5 % (2.6-8.5); Neutrophils Absolute Auto 7.5 K/mm3 (1.3-6.7); Neutrophils Percent Auto 70.5 % (45.5-73.1); Platelet Count Result 383 k/mm3 (150-375); Red Blood Count 3.98 M/mm3 (4.2-5.4); Red Cell Distribution Width 11.9 % (11.5-14.5); White Blood Count 10.7 K/mm3 (4.5-10.0)
[2021-05-09 06:54] LABS: Alanine Aminotransferase 23 U/L (4-35); Albumin Level 3.6 g/dL (3.5-5.1); Alkaline Phosphatase 80 U/L (38-126); Anion Gap 10 mmol/L (8-16); Aspartate Amino Transferase 24 U/L (14-36); Bilirubin,Total 0.6 mg/dL (0.2-1.3); Blood Urea Nitrogen 11 mg/dL (7-17); Carbon Dioxide 25 mmol/L (22-30); Chloride 100 mmol/L (98-107); Estimated CRCL calculation 30 ml/min; Estimated Glomerular Filt Rate 54; Glucose 96 mg/dL (65-110); Potassium 3.1 mmol/L (3.4-5.0); Sodium 135 mmol/L (137-145)
[2021-05-09] MEDS: amLODIPine BESYLATE 5 MG TABLET 10 MG PO (07:59)
[2021-05-09] MEDS: FAMOTIDINE 20 MG/2 ML VIAL IV PUSH ×2 (07:59→21:06)
[2021-05-09] MEDS: THEOPHYLLINE ANHYDROUS 200 MG ER 24 HR CAPSULE 400 MG PO (07:59)
[2021-05-09] MEDS: POTASSIUM CHLORIDE 20 MEQ TABLET 40 MEQ PO (08:41)
[2021-05-09] MEDS: FLUTICASONE/SALMETEROL 115-21 MCG INHALER 1 PUFF 2 PUFF INHALATION ×2 (09:00→20:49)
--- NOTE | 2021-05-09 11:09 | PM.PNGS ---
Progress Note: A&P Assessment and Plan (1) Pancreatic mass: Code(s): K86.89 - Other specified diseases of pancreas Status: Chronic Assessment and Plan: awaiting transfer to tertiary care facility for further workup and treatment (2) Duodenal obstruction: Code(s): K31.5 - Obstruction of duodenum Status: Acute Assessment and Plan: secondary to above, refusing NG at this time, possible gastrojejunostomy next wk if no transfer available Subjective Subjective Date/Time Seen: 05/09/21 11:09 feels ok, reports some bilious emesis overnight, still refusing NG Review of Systems Review of Systems: All systems reviewed & are unremarkable except as noted in HPI and below Exam Const: General: cooperative, alert, awake, Physically active, acute distress mild and ill appearing Nutritional Appearance: cachectic Orientation/consciousness: patient oriented x3 Limitations: no limitations Resp: Effort & Inspection: normal respiratory effort Auscultation: clear to auscultation bilaterally Cardio: Rate: regular rate Rhythm: regular rhythm GI: Inspection: normal to inspection and distended GI Palp: Yes Soft to palpation, No Tenderness to palpation present (GI), No Guarding due to palpation present (GI) and No Rigid due to palpation Objective Data Vital Signs Vital Signs: Vital Signs - 24 hr 05/08/21 14:00 05/08/21 14:06 05/08/21 22:00 Temperature 36.8 C 36.6 C Pulse Rate 81 75 Respiratory Rate 16 16 Blood Pressure 116/52 L 110/58 L Pulse Oximetry 96 95 97 05/09/21 06:00 Temperature 36.4 C Pulse Rate 77 Respiratory Rate 18 Blood Pressure 163/71 H Pulse Oximetry 98 Intake/Output Intake/Output: Intake & Output 05/06/21 05/07/21 05/08/21 05/09/21 23:59 23:59 23:59 23:59 Intake Total 3612 1850 2880 1075 Output Total 1750 2350 1650 2400 Balance 1862 -500 1230 -1325 Meds/Results Medications: Active Medications Generic Name Dose Route Start Last Admin Trade Name Freq PRN Reason Stop Dose Admin Acetaminophen 650 mg 05/04/21 16:02 05/05/21 16:06 Acetaminophen 325 Mg Tablet PO 650 mg Q4H PRN Administration Mild Pain (1-3) or Fever Albuterol 2 puff 05/05/21 09:16 Albuterol Sulfate (*Sp) Aerosol 1 Puff INHALATION QID PRN Pain Amlodipine Besylate 10 mg 05/05/21 09:20 05/09/21 07:59 Amlodipine Besylate 5 Mg Tablet PO 10 mg DAILY CATERINA Administration Famotidine 20 mg 05/04/21 21:00 05/09/21 07:59 Famotidine 20 Mg/2 Ml Vial IV PUSH 20 mg Q12HR CATERINA Administration Sodium Chloride 1,000 mls @ 100 mls/hr 05/04/21 22:15 05/09/21 05:20 Normal Saline Iv IV CONT 100 mls/hr .Q10H CATERINA Administration Ondansetron HCl 4 mg 05/04/21 16:02 05/09/21 05:20 Ondansetron Inj 4 Mg/2 Ml Vial IV PUSH 4 mg Q4H PRN Administration Nausea Potassium Chloride 20 meq 05/10/21 08:00 Potassium Chloride 20 Meq Tablet.Er PO DAILY@0800 CATERINA Fluticasone/Salmeterol 2 puff 05/05/21 20:00 05/09/21 09:00 Fluticasone/Salmeterol 115-21 Mcg Inhaler 1 Puff INHALATION 2 puff Q12HRT CATERINA Administration Theophylline 400 mg 05/06/21 09:00 05/09/21 07:59 Theophylline Anhydrous 200 Mg Er 24 Hr Capsule PO 400 mg DAILY CATERINA Administration Radiology Results: ITS Impressions Renal Ultrasound 05/04/21 17:01 IMPRESSION: 1. Severe right hydronephrosis. 2. Focal thickening of the posterior bladder wall suspicious for urothelial carcinoma or hematoma. Abdomen and pelvis CT without and with contrast (CT urogram) is recommended. Retrograde Pyelogram 05/05/21 15:55 IMPRESSION: Moderate right hydronephrosis, stent in position. Abdomen X-Ray 05/07/21 08:44 IMPRESSION: Stone or stone fragments along mid aspect right ureteral stent. Abdomen/Pelvis CT 05/07/21 08:44 IMPRESSION: 1. Some smaller stone fragments along mid aspect of the right ureteral stent. Improvement in mild right hydronep
--- NOTE | 2021-05-09 11:15 | WPDGIPROGNO ---
Progress Note: A&P Assessment and Plan (1) Duodenal obstruction: Code(s): K31.5 - Obstruction of duodenum Status: Acute Assessment and Plan: new diagnosis of large mass probably originating from pancreas with subsequent duodenal obstruction causing gastric outlet obstruction. Awaiting to transfer to tertiary hospital, she will need hepatobiliary evaluation with +/- enteral stenting, EUS, etc which we do not offer here. 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 (4) Choledocholithiasis: Code(s): K80.50 - Calculus of bile duct without cholangitis or cholecystitis without obstruction Status: Chronic Assessment and Plan: it can be addressed also at another facility (5) Right ureteral stone: Code(s): N20.1 - Calculus of ureter Status: Acute Assessment and Plan: s/p stent by urology (6) Acute kidney failure: Qualifiers: Acute renal failure type: unspecified Qualified Code(s): N17.9 - Acute kidney failure, unspecified Code(s): N17.9 - Acute kidney failure, unspecified Status: Acute Assessment and Plan: this resolved, creatinine is back to normal Subjective Date/time seen: 05/09/21 11:15 Interval history: yesterday again with nausea and vomiting, today she is more comfortable Review of Systems Review of Systems: All systems reviewed & are unremarkable except as noted in HPI and below Exam Const: General: comfortable and no acute distress; No confusion Orientation/consciousness: patient oriented x3 and No confusion Other: thin HENMT: General nose exam: Normal nares present Eyes: Sclera: sclerae normal Neck: Neck: supple Resp: Effort & Inspection: normal respiratory effort Cardio: Rate: regular rate GI: GI Palp: Yes Soft to palpation, Yes Tenderness to palpation present (GI), No Guarding due to palpation present (GI) and No Rebound tenderness present Auscultation: normal bowel sounds Neuro: General: patient oriented x3, no focal motor deficits and No confusion Speech: normal speech Extrem: General: no calf tenderness and no edema Psych: Appearance: grossly normal Speech and movement: Clear speech present Affect: Anxious affect present Attitude: cooperative Thought process: Normal thought process present Insight: Good insight present (Psych) Judgement: Good judgement present (Psych) Objective Data Vital Signs Vital Signs: Vital Signs - 24 hr 05/08/21 14:00 05/08/21 14:06 05/08/21 22:00 Temperature 98.3 F 97.8 F Pulse Rate 81 75 Respiratory Rate 16 16 Blood Pressure 116/52 L 110/58 L Pulse Oximetry 96 95 97 05/09/21 06:00 Temperature 97.6 F Pulse Rate 77 Respiratory Rate 18 Blood Pressure 163/71 H Pulse Oximetry 98 Intake/Output Intake/Output: Intake & Output 05/06/21 05/07/21 05/08/21 05/09/21 23:59 23:59 23:59 23:59 Intake Total 3612 1850 2880 1075 Output Total 1750 2350 1650 2400 Balance 1862 -500 1230 -1325 Meds/Results Medications: Active Medications Generic Name Dose Route Start Last Admin Trade Name Freq PRN Reason Stop Dose Admin Acetaminophen 650 mg 05/04/21 16:02 05/05/21 16:06 Acetaminophen 325 Mg Tablet PO 650 mg Q4H PRN Administration Mild Pain (1-3) or Fever Albuterol 2 puff 05/05/21 09:16 Albuterol Sulfate (*Sp) Aerosol 1 Puff INHALATION QID PRN Pain Amlodipine B
--- NOTE | 2021-05-09 11:40 | PCPTNOTE ---
Pt declined treatment at this time due to not feeling well. Pt states that she has been up and down all day. Will continue with PT plan of care.
--- NOTE | 2021-05-09 12:24 | PM.IMPN ---
Progress Note: A&P Assessment and Plan (1) Nausea & vomiting: Qualifiers: Vomiting type: bilious vomiting Qualified Code(s): R11.14 - Bilious vomiting Code(s): R11.2 - Nausea with vomiting, unspecified Status: Acute Assessment and Plan: -likely multifactorial in origin based on findings below -Gastrografin UGI showed a high-grade obstruction at the third portion of the duodenum past the area of the SMA, more concerning for an infiltrating pancreatic cancer as the etiology. These results reviewed by general surgery and radiologist. 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 Also moderate intrahepatic and extrahepatic biliary duct dilatation with 15 mm stone in the distal common bile duct. -spoke w/ general surgery Dr. Buitrago and GI Dr. Iverson regarding MRCP results. Plan is to transfer patient to biliary specialists at [place] or [facility]. -spoke w/ transfer lines for [facility] who are at capacity and not doing waitlists. Spoke w/ [facility] transfer center who does not have beds but placed her on the waitlist. Discussed case with [facility] biliary fellow Dr. Randy Zazueta and hospitalist Dr. Sammy Glass. -pending transfer to [facility] -Recommended NG tube but pt refusing at this time. Will try to allow clear liquids per patient request and monitor closely. (2) Pancreatic mass: Code(s): K86.89 - Other specified diseases of pancreas Status: Chronic Assessment and Plan: -see above -pending transfer to hopefully [facility] -discussed plan of care and probable diagnosis of pancreatic cancer with both patient and daughter Asim (3) Right ureteral stone: Code(s): N20.1 - Calculus of ureter Status: Acute Assessment and Plan: -CT with severe right hydronephrosis and hydroureter to the level of a 6 mm stone in mid right ureter. -UA abnormal but urine culture negative -Urology consulted, went to [place] 05/05/21 for cystoscopy, right retrograde pyelogram, right ureteroscopy with holmium laser, right ureteral stent placement 6 [place] contour -Repeat imaging shows stone particles adjacent to R stent. Plan is cystoscopy, right ureteroscopy with stone extraction, right stent exchange, right retrograde pyelogram, possible holmium laser in 3 weeks. Her stent will stay in until then. Urology will call to schedule this as an outpatient. 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 -Radiologist feels there is an abnormal appearance of what was initially read as a gallstone on the CT. -See findings of MRCP and plan above -liver enzymes close to normal (5) Acute kidney failure: Qualifiers: Acute renal failure type: unspecified Qualified Code(s): N17.9 - Acute kidney failure, unspecified Code(s): N17.9 - Acute kidney failure, unspecified Status: Acute Assessment and Plan: -Likely multifactorial in etiology including dehydration, hypotension (per patient report), and obstruction nephrolithiasis -Lowery catheter has been inserted for strict I/O. -Urology consulted, went to [place] 05/05/21 for cystoscopy, right retrograde pyelogram, right ureteroscopy with holmium laser, right ureteral stent placement 6 [place] contour -Nephrology also consulted -urine electrolytes are pre renal, significant improvement with IVF hydration (creat 5.4 to 1.0) -continue monitoring (6) Abnormal urinalysis: Code(s): R82.90 - Unspecified abnormal findings in urine Status: Acute Assessment and Plan: -abnormal UA, rocephin started -urine culture negative, abx stopped (7) Electrolyte abnormality: Code(s): E87.8 - Other disorders
[2021-05-09 13:59] VITALS: BP 114/52; PULSE 71; RESP 16; TEMP 36.6; O2SAT 98
[2021-05-09 20:49] VITALS: PULSE 72
[2021-05-09 21:46] VITALS: BP 144/65; PULSE 82; RESP 16; TEMP 36.7; O2SAT 97
[2021-05-10] MEDS: SODIUM CHLORIDE 0.9% IV 1,000 ML 100 ML IV CONT ×2 (02:42→15:25)
[2021-05-10 06:00] VITALS: BP 123/57; PULSE 68; RESP 16; TEMP 36.6; O2SAT 97
[2021-05-10 06:03] LABS: Basophils Absolute Auto 0.1 K/mm3 (0.0-0.1); Basophils Percent Auto 0.6 % (0.2-1.2); Eosinophils Absolute Auto 0.3 K/mm3 (0-0.3); Hematocrit 38.3 % (37.0-47.0); Hemoglobin 12.7 g/dL (12.0-15.0); Immature Granulocyte Absolute 0.04 K/mm3 (0.00-0.031); Immature Granulocyte Percent A 0.4 % (0-0.5); Lymphocytes Absolute Auto 2.54 K/mm3 (0.9-3.2); Lymphocytes Percent Auto 25.4 % (18.3-44.2); Mean Corpuscular HGB Conc 33.2 g/dl (32-36); Mean Corpuscular Hemoglobin 32.3 pg (26-34); Mean Corpuscular Volume 97.5 fl (80-100); Mean Platelet Volume 9.4 fl (7.4-10.4); Monocytes Absolute Auto 0.8 K/mm3 (0.1-0.6); Monocytes Percent Auto 7.5 % (2.6-8.5); Neutrophils Absolute Auto 6.3 K/mm3 (1.3-6.7); Neutrophils Percent Auto 63.1 % (45.5-73.1); Platelet Count Result 421 k/mm3 (150-375); Red Blood Count 3.93 M/mm3 (4.2-5.4)
[2021-05-10 06:21] LABS: Alanine Aminotransferase 22 U/L (4-35); Albumin Level 3.6 g/dL (3.5-5.1); Alkaline Phosphatase 78 U/L (38-126); Anion Gap 10 mmol/L (8-16); Aspartate Amino Transferase 26 U/L (14-36); Bilirubin,Total 0.7 mg/dL (0.2-1.3); Blood Urea Nitrogen 12 mg/dL (7-17); Carbon Dioxide 25 mmol/L (22-30); Chloride 102 mmol/L (98-107); Estimated CRCL calculation 33 ml/min; Estimated Glomerular Filt Rate > 60; Glucose 72 mg/dL (65-110); Potassium 3.3 mmol/L (3.4-5.0); Sodium 137 mmol/L (137-145)
[2021-05-10] MEDS: POTASSIUM CHLORIDE 20 MEQ TABLET.ER 40 MEQ PO (08:12)
[2021-05-10] MEDS: THEOPHYLLINE ANHYDROUS 200 MG ER 24 HR CAPSULE 400 MG PO (08:13)
[2021-05-10] MEDS: amLODIPine BESYLATE 5 MG TABLET 10 MG PO (08:13)
[2021-05-10] MEDS: FAMOTIDINE 20 MG/2 ML VIAL IV PUSH ×2 (08:13→21:07)
[2021-05-10] MEDS: FLUTICASONE/SALMETEROL 115-21 MCG INHALER 1 PUFF 2 PUFF INHALATION ×2 (08:41→19:31)
--- NOTE | 2021-05-10 10:50 | WPDGIPROGNO ---
Progress Note: A&P Assessment and Plan (1) Duodenal obstruction: Code(s): K31.5 - Obstruction of duodenum Status: Acute Assessment and Plan: new diagnosis of large mass probably originating from pancreas with subsequent duodenal obstruction causing gastric outlet obstruction. she is in [facility] waiting list, she will need hepatobiliary evaluation with +/- enteral stenting, EUS, etc which we do not offer here. 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 (4) Choledocholithiasis: Code(s): K80.50 - Calculus of bile duct without cholangitis or cholecystitis without obstruction Status: Chronic Assessment and Plan: it can be addressed also at another facility (5) Right ureteral stone: Code(s): N20.1 - Calculus of ureter Status: Acute Assessment and Plan: s/p stent by urology (6) Acute kidney failure: Qualifiers: Acute renal failure type: unspecified Qualified Code(s): N17.9 - Acute kidney failure, unspecified Code(s): N17.9 - Acute kidney failure, unspecified Status: Acute Assessment and Plan: this resolved after dehydration was treated and also had stent Subjective Date/time seen: 05/10/21 10:50 Interval history: yesterday had another episode of emesis but feeling better since. Review of Systems Review of Systems: All systems reviewed & are unremarkable except as noted in HPI and below Exam Const: General: comfortable and no acute distress; No confusion Orientation/consciousness: patient oriented x3 and No confusion Other: thin HENMT: General nose exam: Normal nares present Eyes: Sclera: sclerae normal Neck: Neck: supple Resp: Effort & Inspection: normal respiratory effort Cardio: Rate: regular rate GI: GI Palp: Yes Soft to palpation, No Guarding due to palpation present (GI) and No Rebound tenderness present Auscultation: normal bowel sounds Neuro: General: patient oriented x3, no focal motor deficits and No confusion Speech: normal speech Extrem: General: no calf tenderness and no edema Psych: Appearance: grossly normal Speech and movement: Clear speech present Affect: Anxious affect present Attitude: cooperative Thought process: Normal thought process present Insight: Good insight present (Psych) Judgement: Good judgement present (Psych) Objective Data Vital Signs Vital Signs: Vital Signs - 24 hr 05/09/21 13:59 05/09/21 20:49 05/09/21 21:46 Temperature 97.9 F 98.1 F Pulse Rate 71 72 82 Respiratory Rate 16 16 Blood Pressure 114/52 L 144/65 H Pulse Oximetry 98 97 05/10/21 06:00 Temperature 98 F Pulse Rate 68 Respiratory Rate 16 Blood Pressure 123/57 L Pulse Oximetry 97 Intake/Output Intake/Output: Intake & Output 05/07/21 05/08/21 05/09/21 05/10/21 23:59 23:59 23:59 23:59 Intake Total 1850 2880 2675 1100 Output Total 2350 1650 3250 400 Balance -500 1230 -575 700 Meds/Results Medications: Active Medications Generic Name Dose Route Start Last Admin Trade Name Freq PRN Reason Stop Dose Admin Acetaminophen 650 mg 05/04/21 16:02 05/05/21 16:06 Acetaminophen 325 Mg Tablet PO 650 mg Q4H PRN Administration Mild Pain (1-3) or Fever Albuterol 2 puff 05/05/21 09:16 Albuterol Sulfate (*Sp) Aerosol 1 Puff INHALATION QID PRN Pain Amlodipine Besylate 10 mg 05/05/21 09:20
--- NOTE | 2021-05-10 12:11 | PM.IMPN ---
Progress Note: A&P Assessment and Plan (1) Nausea & vomiting: Qualifiers: Vomiting type: bilious vomiting Qualified Code(s): R11.14 - Bilious vomiting Code(s): R11.2 - Nausea with vomiting, unspecified Status: Acute Assessment and Plan: -likely multifactorial in origin based on findings below -Gastrografin UGI showed a high-grade obstruction at the third portion of the duodenum past the area of the SMA, more concerning for an infiltrating pancreatic cancer as the etiology. These results reviewed by general surgery and radiologist. 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 Also moderate intrahepatic and extrahepatic biliary duct dilatation with 15 mm stone in the distal common bile duct. -spoke w/ general surgery Dr. Buitrago and GI Dr. Iverson regarding MRCP results. Plan is to transfer patient to biliary specialists at [place] or [facility]. -spoke w/ transfer lines [facility] who are at capacity and not doing waitlists. Spoke w/ [facility] transfer center who does not have beds but placed her on the waitlist. Discussed case with [facility] biliary fellow Dr. Randy Zazueta and hospitalist Dr. Sammy Glass. -pending transfer to [facility] -Recommended NG tube but pt refusing at this time. Will try to allow clear liquids per patient request and monitor closely. (2) Pancreatic mass: Code(s): K86.89 - Other specified diseases of pancreas Status: Chronic Assessment and Plan: -see above -pending transfer to hopefully [facility] -discussed plan of care and probable diagnosis of pancreatic cancer with both patient and daughter Asim (3) Right ureteral stone: Code(s): N20.1 - Calculus of ureter Status: Acute Assessment and Plan: -CT with severe right hydronephrosis and hydroureter to the level of a 6 mm stone in mid right ureter. -UA abnormal but urine culture negative -Urology consulted, went to [place] 05/05/21 for cystoscopy, right retrograde pyelogram, right ureteroscopy with holmium laser, right ureteral stent placement 6 [place] contour -Repeat imaging shows stone particles adjacent to R stent. Plan is cystoscopy, right ureteroscopy with stone extraction, right stent exchange, right retrograde pyelogram, possible holmium laser in 3 weeks. Her stent will stay in until then. Urology will call to schedule this as an outpatient. 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 -Radiologist feels there is an abnormal appearance of what was initially read as a gallstone on the CT. -See findings of MRCP and plan above -liver enzymes close to normal (5) Acute kidney failure: Qualifiers: Acute renal failure type: unspecified Qualified Code(s): N17.9 - Acute kidney failure, unspecified Code(s): N17.9 - Acute kidney failure, unspecified Status: Acute Assessment and Plan: -Likely multifactorial in etiology including dehydration, hypotension (per patient report), and obstruction nephrolithiasis -Lowery catheter has been inserted for strict I/O. -Urology consulted, went to [place] 05/05/21 for cystoscopy, right retrograde pyelogram, right ureteroscopy with holmium laser, right ureteral stent placement 6 [place] contour -Nephrology also consulted -urine electrolytes are pre renal, significant improvement with IVF hydration (creat 5.4 to 1.0) -continue monitoring (6) Abnormal urinalysis: Code(s): R82.90 - Unspecified abnormal findings in urine Status: Acute Assessment and Plan: -abnormal UA, rocephin started -urine culture negative, abx stopped (7) Electrolyte abnormality: Code(s): E87.8 - Other disorders
--- NOTE | 2021-05-10 13:41 | PM.PNGS ---
Progress Note: A&P Assessment and Plan (1) Pancreatic mass: Code(s): K86.89 - Other specified diseases of pancreas Status: Chronic Assessment and Plan: causing duodenal and biliary obstruction, awaiting transfer to [facility], may need gastrojejunostomy for palliation if transfer not available Subjective Subjective Date/Time Seen: 05/10/21 13:41 no acute issues, feels ok during daytime but has significant N/V at night Review of Systems Review of Systems: All systems reviewed & are unremarkable except as noted in HPI and below Exam Const: General: cooperative, comfortable, no acute distress and ill appearing Orientation/consciousness: patient oriented x3 Resp: Effort & Inspection: normal respiratory effort Auscultation: clear to auscultation bilaterally Cardio: Rate: regular rate Rhythm: regular rhythm GI: Inspection: normal to inspection and distended GI Palp: Yes Soft to palpation, No Tenderness to palpation present (GI), No Guarding due to palpation present (GI) and No Rigid due to palpation Objective Data Vital Signs Vital Signs: Vital Signs - 24 hr 05/09/21 13:59 05/09/21 20:49 05/09/21 21:46 Temperature 36.6 C 36.7 C Pulse Rate 71 72 82 Respiratory Rate 16 16 Blood Pressure 114/52 L 144/65 H Pulse Oximetry 98 97 05/10/21 06:00 Temperature 36.6 C Pulse Rate 68 Respiratory Rate 16 Blood Pressure 123/57 L Pulse Oximetry 97 Intake/Output Intake/Output: Intake & Output 05/07/21 05/08/21 05/09/21 05/10/21 23:59 23:59 23:59 23:59 Intake Total 1850 2880 2675 1300 Output Total 2350 1650 3250 400 Balance -500 1230 -575 900 Meds/Results Medications: Active Medications Generic Name Dose Route Start Last Admin Trade Name Freq PRN Reason Stop Dose Admin Acetaminophen 650 mg 05/04/21 16:02 05/05/21 16:06 Acetaminophen 325 Mg Tablet PO 650 mg Q4H PRN Administration Mild Pain (1-3) or Fever Albuterol 2 puff 05/05/21 09:16 Albuterol Sulfate (*Sp) Aerosol 1 Puff INHALATION QID PRN Pain Amlodipine Besylate 10 mg 05/05/21 09:20 05/10/21 08:13 Amlodipine Besylate 5 Mg Tablet PO 10 mg DAILY CATERINA Administration Famotidine 20 mg 05/04/21 21:00 05/10/21 08:13 Famotidine 20 Mg/2 Ml Vial IV PUSH 20 mg Q12HR CATERINA Administration Sodium Chloride 1,000 mls @ 100 mls/hr 05/04/21 22:15 05/10/21 02:42 Normal Saline Iv IV CONT 100 mls/hr .Q10H CATERINA Administration Ondansetron HCl 4 mg 05/04/21 16:02 05/09/21 21:16 Ondansetron Inj 4 Mg/2 Ml Vial IV PUSH 4 mg Q4H PRN Administration Nausea Potassium Chloride 40 meq 05/10/21 08:00 05/10/21 08:12 Potassium Chloride 20 Meq Tablet.Er PO 40 meq DAILY@0800 CATERINA Administration Fluticasone/Salmeterol 2 puff 05/05/21 20:00 05/10/21 08:41 Fluticasone/Salmeterol 115-21 Mcg Inhaler 1 Puff INHALATION 2 puff Q12HRT CATERINA Administration Theophylline 400 mg 05/06/21 09:00 05/10/21 08:13 Theophylline Anhydrous 200 Mg Er 24 Hr Capsule PO 400 mg DAILY CATERINA Administration Radiology Results: ITS Impressions Renal Ultrasound 05/04/21 17:01 IMPRESSION: 1. Severe right hydronephrosis. 2. Focal thickening of the posterior bladder wall suspicious for urothelial carcinoma or hematoma. Abdomen and pelvis CT without and with contrast (CT urogram) is recommended. Retrograde Pyelogram 05/05/21 15:55 IMPRESSION: Moderate right hydronephrosis, stent in position. Abdomen X-Ray 05/07/21 08:44 IMPRESSION: Stone or stone fragments along mid aspect right ureteral stent. Abdomen/Pelvis CT 05/07/21 08:44 IMPRESSION: 1. Some smaller stone fragments along mid aspect of the right ureteral stent. Improvement in mild right hydronephrosis. 2. Distended stomach suspicious for chronic outlet obstruction which could be SMA syndrome. Gastroesophageal reflux. 3. Choledocholithiasis, moderate biliary distention. Upper GI Series 05/07/21 0
[2021-05-10 14:00] VITALS: BP 125/67; PULSE 78; RESP 20; TEMP 36.9; O2SAT 97
[2021-05-10 19:30] VITALS: PULSE 77
[2021-05-10 20:00] VITALS: PULSE 86; RESP 20; O2SAT 93
[2021-05-10] MEDS: ONDANSETRON INJ 4 MG/2 ML VIAL IV PUSH (21:07)
[2021-05-10 22:00] VITALS: BP 150/73; PULSE 86; RESP 20; TEMP 36.5; O2SAT 93
[2021-05-11 01:09] LABS: CA-125 14 U/mL (<35)
[2021-05-11 06:00] VITALS: BP 132/63; PULSE 72; RESP 16; TEMP 36.4; O2SAT 96
[2021-05-11] MEDS: SODIUM CHLORIDE 0.9% IV 1,000 ML 100 ML IV CONT ×2 (06:16)
[2021-05-11 07:30] LABS: Basophils Absolute Auto 0.1 K/mm3 (0.0-0.1); Basophils Percent Auto 0.7 % (0.2-1.2); Eosinophils Absolute Auto 0.3 K/mm3 (0-0.3); Hematocrit 40.9 % (37.0-47.0); Hemoglobin 13.4 g/dL (12.0-15.0); Immature Granulocyte Absolute 0.14 K/mm3 (0.00-0.031); Immature Granulocyte Percent A 1.4 % (0-0.5); Lymphocytes Absolute Auto 2.13 K/mm3 (0.9-3.2); Lymphocytes Percent Auto 21.5 % (18.3-44.2); Mean Corpuscular HGB Conc 32.8 g/dl (32-36); Mean Corpuscular Hemoglobin 31.8 pg (26-34); Mean Corpuscular Volume 96.9 fl (80-100); Mean Platelet Volume 9.9 fl (7.4-10.4); Monocytes Absolute Auto 0.8 K/mm3 (0.1-0.6); Monocytes Percent Auto 7.6 % (2.6-8.5); Neutrophils Absolute Auto 6.5 K/mm3 (1.3-6.7); Neutrophils Percent Auto 65.8 % (45.5-73.1); Platelet Count Result 448 k/mm3 (150-375); Red Blood Count 4.22 M/mm3 (4.2-5.4); Red Cell Distribution Width 12.1 % (11.5-14.5); White Blood Count 9.9 K/mm3 (4.5-10.0)
[2021-05-11 07:42] LABS: Alanine Aminotransferase 22 U/L (4-35); Albumin Level 3.8 g/dL (3.5-5.1); Alkaline Phosphatase 86 U/L (38-126); Anion Gap 10 mmol/L (8-16); Aspartate Amino Transferase 29 U/L (14-36); Bilirubin,Total 0.8 mg/dL (0.2-1.3); Blood Urea Nitrogen 13 mg/dL (7-17); Calcium 8.1 mg/dL (8.4-10.2); Carbon Dioxide 26 mmol/L (22-30); Chloride 105 mmol/L (98-107); Estimated CRCL calculation 33 ml/min; Estimated Glomerular Filt Rate > 60; Glucose 70 mg/dL (65-110); Potassium 3.3 mmol/L (3.4-5.0); Sodium 141 mmol/L (137-145)
[2021-05-11] MEDS: FAMOTIDINE 20 MG/2 ML VIAL IV PUSH ×2 (07:44→21:17)
[2021-05-11] MEDS: amLODIPine BESYLATE 5 MG TABLET 10 MG PO (07:44)
[2021-05-11] MEDS: THEOPHYLLINE ANHYDROUS 200 MG ER 24 HR CAPSULE 400 MG PO (07:44)
[2021-05-11] MEDS: POTASSIUM CHLORIDE 20 MEQ TABLET.ER 40 MEQ PO (07:44)
[2021-05-11] MEDS: ONDANSETRON INJ 4 MG/2 ML VIAL IV PUSH ×3 (07:47→17:58)
[2021-05-11 08:00] VITALS: PULSE 72; RESP 16; O2SAT 96
[2021-05-11] MEDS: FLUTICASONE/SALMETEROL 115-21 MCG INHALER 1 PUFF 2 PUFF INHALATION ×2 (08:34→20:52)
--- NOTE | 2021-05-11 10:30 | PCPTNOTE ---
The patient treatment was not able to be completed this A.M. due to patient nauseated and vomiting. Will plan to continue treatment per plan of care.
--- NOTE | 2021-05-11 12:56 | PM.IMPN ---
Progress Note: A&P Assessment and Plan (1) Nausea & vomiting: Qualifiers: Vomiting type: bilious vomiting Qualified Code(s): R11.14 - Bilious vomiting Code(s): R11.2 - Nausea with vomiting, unspecified Status: Acute Assessment and Plan: -likely multifactorial in origin based on findings below -Gastrografin UGI showed a high-grade obstruction at the third portion of the duodenum past the area of the SMA, more concerning for an infiltrating pancreatic cancer as the etiology. These results reviewed by general surgery and radiologist. 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 Also moderate intrahepatic and extrahepatic biliary duct dilatation with 15 mm stone in the distal common bile duct. -spoke w/ general surgery Dr. Buitrago and GI Dr. Iverson regarding MRCP results. Plan is to transfer patient to biliary specialists at [place] or [facility]. -[facility] and not doing waitlists. Spoke w/ [facility] transfer center who does not have beds but placed her on the waitlist. Discussed case with [facility] biliary fellow Dr. Randy Zazueta and hospitalist Dr. Sammy Glass. -pending transfer to [facility] -Recommended NG tube but pt refusing at this time. Will try to allow clear liquids per patient request and monitor closely. (2) Pancreatic mass: Code(s): K86.89 - Other specified diseases of pancreas Status: Chronic Assessment and Plan: -see above -pending transfer to hopefully [facility] -discussed plan of care and probable diagnosis of pancreatic cancer with both patient and daughter Asim (3) Right ureteral stone: Code(s): N20.1 - Calculus of ureter Status: Acute Assessment and Plan: -CT with severe right hydronephrosis and hydroureter to the level of a 6 mm stone in mid right ureter. -UA abnormal but urine culture negative -Urology consulted, went to [place] 05/05/21 for cystoscopy, right retrograde pyelogram, right ureteroscopy with holmium laser, right ureteral stent placement 6 [place] contour -Repeat imaging shows stone particles adjacent to R stent. Plan is cystoscopy, right ureteroscopy with stone extraction, right stent exchange, right retrograde pyelogram, possible holmium laser in 3 weeks. Her stent will stay in until then. Urology will call to schedule this as an outpatient. 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 -Radiologist feels there is an abnormal appearance of what was initially read as a gallstone on the CT. -See findings of MRCP and plan above -liver enzymes close to normal (5) Acute kidney failure: Qualifiers: Acute renal failure type: unspecified Qualified Code(s): N17.9 - Acute kidney failure, unspecified Code(s): N17.9 - Acute kidney failure, unspecified Status: Acute Assessment and Plan: -Likely multifactorial in etiology including dehydration, hypotension (per patient report), and obstruction nephrolithiasis -Lowery catheter has been inserted for strict I/O. -Urology consulted, went to [place] 05/05/21 for cystoscopy, right retrograde pyelogram, right ureteroscopy with holmium laser, right ureteral stent placement 6 [place] contour -Nephrology also consulted -urine electrolytes are pre renal, significant improvement with IVF hydration (creat 5.4 to 1.0) -continue monitoring (6) Abnormal urinalysis: Code(s): R82.90 - Unspecified abnormal findings in urine Status: Acute Assessment and Plan: -abnormal UA, rocephin started -urine culture negative, abx stopped (7) Chronic obstructive pulmonary disease: Code(s): J44.9 - C
[2021-05-11 14:00] VITALS: BP 149/62; PULSE 83; RESP 20; TEMP 36.6; O2SAT 97
--- NOTE | 2021-05-11 14:30 | PCNFU ---
Nutrition Follow-Up Complete: Inadequate oral intake related to frequent emesis as evidenced by pt. reported weight loss of 10 lbs. in two week and BMI of 17.9 Goal: Patient to meet estimated nutritional needs. Pt is making little progress towards goal Pt current nutrition is clear liquid diet Last recorded weight is 46.3 kg, stable. Bowel Motility: No new BM reported Labs Reviewed: Ca 8.1, K 3.3 Meds Noted: norvasc, pepcid, zofran, theophylline Skin: No new skin breakdown at this time, WNL Additional Notes: Current nutrition is a clear liquid diet with reported intake of 5% x3 and 25% x2. Intake remains poor. Per EMR, pt had episodes of nausea and vomiting over night. RDN consulted for TPN. Per physician notes, pt does not want an NG tube placed and PPN is to be initiated. Recommend initiating PPN at a rate of 70mL/hr over 24 hours with lipids to provide 1071kcal and 71g of protein to meet 73% of estimated kcal needs and 117% of estimated protein needs. Pt is still pending transfer to [facility]. Agree with diet order at this time. Will continue to follow until pt is transferred. Monitor patient labs, medications, weight and oral intake every T/F
--- NOTE | 2021-05-11 14:40 | PC.NURSE ---
Pt still on waiting list for [facility], pending discharges from [facility], possible bed available later this evening, or tomorrow.
[2021-05-11 14:44] LABS: Basophils Absolute Auto 0.1 K/mm3 (0.0-0.1); Basophils Percent Auto 0.7 % (0.2-1.2); Eosinophils Absolute Auto 0.1 K/mm3 (0-0.3); Eosinophils Percent Auto 0.8 % (0-4.4); Hemoglobin 13.2 g/dL (12.0-15.0); Immature Granulocyte Absolute 0.04 K/mm3 (0.00-0.031); Immature Granulocyte Percent A 0.5 % (0-0.5); Lymphocytes Absolute Auto 1.73 K/mm3 (0.9-3.2); Lymphocytes Percent Auto 20.4 % (18.3-44.2); Mean Corpuscular Hemoglobin 32.4 pg (26-34); Mean Corpuscular Volume 98.3 fl (80-100); Mean Platelet Volume 9.6 fl (7.4-10.4); Monocytes Absolute Auto 0.5 K/mm3 (0.1-0.6); Monocytes Percent Auto 5.4 % (2.6-8.5); Neutrophils Absolute Auto 6.1 K/mm3 (1.3-6.7); Neutrophils Percent Auto 72.2 % (45.5-73.1); Platelet Count Result 428 k/mm3 (150-375); Red Blood Count 4.07 M/mm3 (4.2-5.4); Red Cell Distribution Width 12.5 % (11.5-14.5); White Blood Count 8.5 K/mm3 (4.5-10.0)
[2021-05-11 14:51] LABS: CA 19-9 58 U/mL (<34)
[2021-05-11 14:56] LABS: Partial Thromboplastin Time 27.7 SECONDS (22.3-36.8)
[2021-05-11 15:09] LABS: Alanine Aminotransferase 21 U/L (4-35); Albumin Level 3.5 g/dL (3.5-5.1); Alkaline Phosphatase 82 U/L (38-126); Anion Gap 10 mmol/L (8-16); Aspartate Amino Transferase 25 U/L (14-36); Bilirubin,Total 0.8 mg/dL (0.2-1.3); Blood Urea Nitrogen 14 mg/dL (7-17); Calcium 7.6 mg/dL (8.4-10.2); Carbon Dioxide 20 mmol/L (22-30); Chloride 110 mmol/L (98-107); Estimated CRCL calculation 37 ml/min; Estimated Glomerular Filt Rate > 60; Glucose 55 mg/dL (65-110); Magnesium 1.2 mg/dL (1.6-2.3); Potassium 2.7 mmol/L (3.4-5.0); Sodium 140 mmol/L (137-145)
[2021-05-11 15:10] LABS: Transferrin 180 mg/dL (206-381)
[2021-05-11] MEDS: AMINO ACIDS 4.25%/D5W/LYTES/CA 2,000 ML 80 ML IV CONT (15:23)
[2021-05-11] MEDS: FAT EMULSIONS IV 20% 250 ML 20.83 ML IVPB (15:26)
--- NOTE | 2021-05-11 15:29 | PC.NURSE ---
Reported glucose 55 and potassium 2.7 to Tammi Arnold CLIENT SERVICE PROFESSIONAL, pt started on PPN already, PPN infusing now. Will monitor
--- NOTE | 2021-05-11 15:41 | PC.NURSE ---
PPN infusing now.
--- NOTE | 2021-05-11 16:11 | WPDGIPROGNO ---
Progress Note: A&P Assessment and Plan (1) Duodenal obstruction: Code(s): K31.5 - Obstruction of duodenum Status: Acute Assessment and Plan: new diagnosis of large mass probably originating from pancreas with subsequent duodenal obstruction causing gastric outlet obstruction. she is in [facility] waiting list, she will need hepatobiliary evaluation with +/- enteral stenting, EUS, etc which we do not offer here. 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 of bile duct without cholangitis or cholecystitis without obstruction Status: Chronic Assessment and Plan: it can be addressed also at another facility (5) Right ureteral stone: Code(s): N20.1 - Calculus of ureter Status: Acute Assessment and Plan: s/p stent by urology Subjective Date/time seen: 05/11/21 16:11 Interval history: no changes, still emesis after eating, this afternoon feeling better Review of Systems Review of Systems: All systems reviewed & are unremarkable except as noted in HPI and below Exam Const: General: comfortable and no acute distress; No confusion Orientation/consciousness: patient oriented x3 and No confusion Other: thin HENMT: General nose exam: Normal nares present Eyes: Sclera: sclerae normal Neck: Neck: supple Resp: Effort & Inspection: normal respiratory effort Cardio: Rate: regular rate GI: GI Palp: Yes Soft to palpation, No Guarding due to palpation present (GI) and No Rebound tenderness present Auscultation: normal bowel sounds Urinary Catheter: Urinary Catheter: patent and draining Skin: General skin exam: no rashes or lesions noted Neuro: General: patient oriented x3, no focal motor deficits and No confusion Speech: normal speech Extrem: General: no calf tenderness and no edema Psych: Appearance: grossly normal Speech and movement: Clear speech present Affect: Anxious affect present Attitude: cooperative Thought process: Normal thought process present Insight: Good insight present (Psych) Judgement: Good judgement present (Psych) Objective Data Vital Signs Vital Signs: Vital Signs - 24 hr 05/10/21 19:30 05/10/21 20:00 05/10/21 22:00 Temperature 97.7 F Pulse Rate 77 86 86 Respiratory Rate 20 20 Blood Pressure 150/73 H Pulse Oximetry 93 93 05/11/21 06:00 05/11/21 08:00 05/11/21 14:00 Temperature 97.5 F L 97.9 F Pulse Rate 72 72 83 Respiratory Rate 16 16 20 Blood Pressure 132/63 149/62 H Pulse Oximetry 96 96 97 Intake/Output Intake/Output: Intake & Output 05/08/21 05/09/21 05/10/21 05/11/21 23:59 23:59 23:59 23:59 Intake Total 2880 2675 2900 3220 Output Total 1650 3250 1200 700 Balance 1230 -575 1700 2520 Meds/Results Medications: Active Medications Generic Name Dose Route Start Last Admin Trade Name Freq PRN Reason Stop Dose Admin Acetaminophen 650 mg 05/04/21 16:02 05/05/21 16:06 Acetaminophen 325 Mg Tablet PO 650 mg Q4H PRN Administration Mild Pain (1-3) or Fever Albuterol 2 puff 05/05/21 09:16 Albuterol Sulfate (*Sp) Aerosol 1 Puff INHALATION QID PRN Pain Amlodipine Besylate 10 mg 05/05/21 09:20 05/11/21 07:44 Amlodipine Besylate 5 Mg Tablet PO 10 mg DAILY CATERINA Administration Famotidine 20 mg 05/04/21 21:00 05/11/21 07:44
[2021-05-11] MEDS: CALCIUM CARBONATE (TUMS) 500 MG (200 MG ELEMENTAL) PO (16:21)
--- NOTE | 2021-05-11 16:49 | PM.PNGS ---
Progress Note: A&P Assessment and Plan (1) Pancreatic mass: Code(s): K86.89 - Other specified diseases of pancreas Status: Chronic Assessment and Plan: I called the physician line to [facility] and spoke with hepatobiliary surgeon Dr. Kel Coburn. I discussed the patient's care with him. [facility] continues to be at capacity and unable to take any transfers. Open gastro jejunostomy would probably set the patient's treatment of her pancreatic tumor back [address] Coburn, if stenting can be done to a relieve the duodenal obstruction, preoperative chemotherapy can proceed soon after the procedure. If open surgery was performed, i.e. gastro jejunostomy, chemotherapy would have to wait at least 6 weeks. Since we can not transfer the patient this may have to take place despite the disadvantages. He agrees that while not optimal, in our current circumstances gastrojejunostomy may be necessary. (2) Duodenal obstruction: Code(s): K31.5 - Obstruction of duodenum Status: Acute Assessment and Plan: As above, will give a couple more days and discuss with others caring for the patient but may need to proceed with gastro jejunostomy tube I passed the duodenal obstruction. Explained to the patient that she should be carefully eating liquids as vomiting could result in aspiration pneumonia. Also cautioned her not to take any food in within a couple of hours of going to sleep at night. 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 (4) Right ureteral stone: Code(s): N20.1 - Calculus of ureter Status: Acute Assessment and Plan: Doing well after laser therapy and ureteral stenting. (5) Acute kidney failure: Qualifiers: Acute renal failure type: unspecified Qualified Code(s): N17.9 - Acute kidney failure, unspecified Code(s): N17.9 - Acute kidney failure, unspecified Status: Acute Assessment and Plan: Much improved. Subjective Subjective Date/Time Seen: 05/11/21 16:49 Patient reports: no new complaints, nausea, vomiting and afebrile Review of Systems Review of Systems: All systems reviewed & are unremarkable except as noted in HPI and below ( HPI and those items noted below) Constitutional: Constitutional: Denies body ache(s), Denies chills, Reports fatigue, Denies fever(s) and Denies poor appetite Respiratory: Respiratory: Denies cough, Denies dyspnea and Denies wheezing Gastrointestinal: Gastrointestinal: Denies abdominal pain, Denies heartburn, Reports nausea and Reports vomiting Comments: refuses NG tube Exam Const: General: comfortable, no acute distress, alert and awake Nutritional Appearance: thin Orientation/consciousness: patient oriented x3 GI: Inspection: non-distended and scaphoid GI Palp: Yes Soft to palpation, No Tenderness to palpation present (GI), No Guarding due to palpation present (GI) and No Palpable mass present Objective Data Vital Signs Vital Signs: Vital Signs - 24 hr 05/10/21 19:30 05/10/21 20:00 05/10/21 22:00 Temperature 36.5 C Pulse Rate 77 86 86 Respiratory Rate 20 20 Blood Pressure 150/73 H Pulse Oximetry 93 93 05/11/21 06:00 05/11/21 08:00 05/11/21 14:00 Temperature 36.4 C L 36.6 C Pulse Rate 72 72 83 Respiratory Rate 16 16 20 Blood Pressure 132/63 149/62 H Pulse Oximetry 96 96 97 Intake/Output Intake/Output: Intake & Output 05/08/21 05/09/21 05/10/21 05/11/21 23:59 23:59 23:59 23:59 Intake Total 2880 2675 2900 3220 Output Total 1650 3250 1200 700 Balance 1230 -575 1700 2520 Meds/Results Medications: Active Medications Generic Name Dose Route Start Last Admin Trade Name Freq PRN Reason Stop D
[2021-05-11 18:00] LABS: Glucose Point of Care 86 mg/dl (65-105)
[2021-05-11] MEDS: PROMETHAZINE HCL 25 MG/ML AMPUL IM (19:00)
[2021-05-11 21:56] VITALS: BP 133/52; PULSE 80; RESP 16; TEMP 36.7; O2SAT 97
[2021-05-12 00:30] LABS: Glucose Point of Care 64 mg/dl (65-105)
[2021-05-12 05:46] VITALS: BP 134/65; PULSE 84; RESP 16; TEMP 37.2; O2SAT 97
[2021-05-12 05:54] LABS: Glucose Point of Care 69 mg/dl (65-105)
[2021-05-12 07:16] LABS: Anion Gap 16 mmol/L (8-16); Blood Urea Nitrogen 22 mg/dL (7-17); Calcium 9.1 mg/dL (8.4-10.2); Carbon Dioxide 27 mmol/L (22-30); Chloride 100 mmol/L (98-107); Estimated CRCL calculation 27 ml/min; Estimated Glomerular Filt Rate 48; Glucose 72 mg/dL (65-110); Phosphorus 4.1 mg/dL (2.5-4.5); Potassium 3.3 mmol/L (3.4-5.0); Sodium 143 mmol/L (137-145)
[2021-05-12] MEDS: FAMOTIDINE 20 MG/2 ML VIAL IV PUSH ×2 (08:14→20:36)
[2021-05-12] MEDS: amLODIPine BESYLATE 5 MG TABLET 10 MG PO (08:14)
[2021-05-12] MEDS: THEOPHYLLINE ANHYDROUS 200 MG ER 24 HR CAPSULE 400 MG PO (08:14)
--- NOTE | 2021-05-12 09:19 | PM.IMPN ---
Progress Note: A&P Assessment and Plan (1) Nausea & vomiting: Qualifiers: Vomiting type: bilious vomiting Qualified Code(s): R11.14 - Bilious vomiting Code(s): R11.2 - Nausea with vomiting, unspecified Status: Acute Assessment and Plan: -likely multifactorial in origin based on findings below -Gastrografin UGI showed a high-grade obstruction at the third portion of the duodenum past the area of the SMA, more concerning for an infiltrating pancreatic cancer as the etiology. These results reviewed by general surgery and radiologist. 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 Also moderate intrahepatic and extrahepatic biliary duct dilatation with 15 mm stone in the distal common bile duct. -spoke w/ general surgery Dr. Buitrago, tried for multiple days to transfer patient to biliary specialists at [place] or [facility] and unable to, need to proceed with gastro jejunostomy tube for tomorrow planned. -spoke w/ transfer lines for [facility] who are at capacity and not doing waitlists. Spoke w/ [facility] transfer center who does not have beds but placed her on the waitlist. Discussed case with [facility] biliary fellow Dr. Randy Zazueta and hospitalist Dr. Sammy Glass. -unable to secure transfer to higher level of care/hospital -Recommended NG tube but pt refusing at this time. Allowed clear liquids per patient request and Gen. Surg orders - but not able to get enough in. 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 Moderate intrahepatic and extrahepatic biliary duct dilatation with 15 mm stone in the distal common bile duct. Mild right hydronephrosis with improvement status post stent placement. -Open gastro jejunostomy would probably set the patient's treatment of her pancreatic tumor back 6 weeks or more. Per [facility] Dr. Coburn, if stenting can be done to relieve the duodenal obstruction, preoperative chemotherapy can proceed soon after the procedure. If open surgery was performed, i.e. gastro jejunostomy, chemotherapy would have to wait at least 6 weeks. Since we can not transfer the patient this may have to take place despite the disadvantages. He agrees that while not optimal, in our current circumstances gastrojejunostomy may be necessary. 05/[address] Buitrago said he spoke to [facility] and [facility] attempting to get patient transferred , but was unable to . [facility] continues to be at capacity and unable to take any transfers.Gen. Surgeon Dr. Buitrago planning for gastrojejunostomy on 05/13, patient has consented. (3) Right ureteral stone: Code(s): N20.1 - Calculus of ureter Status: Acute Assessment and Plan: -CT with severe right hydronephrosis and hydroureter to the level of a 6 mm stone in mid right ureter. -UA abnormal but urine culture negative -Urology consulted, went to OR 05/05/21 for cystoscopy, right retrograde pyelogram, right ureteroscopy with holmium laser, right ureteral stent placement 6 [place] contour -Repeat imaging shows stone particles adjacent to R stent. Plan is cystoscopy, right ureteroscopy with stone extraction, right stent exchange, right retrograde pyelogram, possible holmium laser in 3 weeks. -Her stent will stay in until then. -Urology will call to schedule this as an outpatient. -Doing well after laser therapy and ureteral stenting. Output 1750 ml today. Denies any urinary pain or blood. (4) Choledocholithiasis: Code(s): K80.50 - Calculus of bile duct without cholangitis or cholecystitis without
[2021-05-12] MEDS: FLUTICASONE/SALMETEROL 115-21 MCG INHALER 1 PUFF 2 PUFF INHALATION ×2 (09:22→20:59)
[2021-05-12 09:57] LABS: Magnesium 1.7 mg/dL (1.6-2.3)
--- NOTE | 2021-05-12 11:03 | PCNFU ---
Nutrition Follow-Up Complete: Inadequate oral intake related to frequent emesis as evidenced by pt. reported weight loss of 10 lbs. in two week and BMI of 17.9 goal: Patient to meet estimated nutritional needs. Patient is progressing towards goal. We will continue current goal. Pt current nutrition is Clear liquids. Last recorded weight is 45.5 kg-stable. Bowel Motility:No BM reported. Labs Reviewed:Cr 1.10,K 3.3,GFR 48, BUN 22 Meds Noted:Clinimix 4.25/5 at 80 ml/hr, 250 ml of 20% lipid emulsion, Advair, Norvasc, Pepcid. Skin: WNL Additional Notes: Spoke with nursing today, patient is tolerating clear liquid diet. Reported intake 25%. Ensure Clear on trays providing an additional 240 kcals and 8 gms protein, patient is consuming supplements. PPN is providing an additional 1153 kcals/82 gms protein. Meeting 81% of caloric needs and greater than 100% of protein needs. Per MD notes, NGT placement is recommended , patient is refusing. Agree with diet orders at this time. Monitor patient labs, medications, weight and oral intake every Tuesday and Tuesday.
[2021-05-12] MEDS: ONDANSETRON INJ 4 MG/2 ML VIAL IV PUSH ×2 (11:45→20:36)
[2021-05-12 12:15] LABS: Glucose Point of Care 78 mg/dl (65-105)
[2021-05-12 12:41] LABS: Triglycerides 149 mg/dL (<150)
[2021-05-12] MEDS: MAGNESIUM SULF 2 GM/WATER 50ML 2 GM/50 ML BAG IVPB (13:58)
[2021-05-12] MEDS: AMINO ACIDS 4.25%/D5W/LYTES/CA 2,000 ML 80 ML IV CONT (13:58)
[2021-05-12] MEDS: FAT EMULSIONS IV 20% 250 ML 20.83 ML IVPB (13:59)
[2021-05-12] MEDS: POTASSIUM CHLORIDE 20 MEQ PACKET (FOR LIQUID) PO (14:16)
--- NOTE | 2021-05-12 14:38 | PM.PNGS ---
Progress Note: A&P Assessment and Plan (1) Duodenal obstruction: Code(s): K31.5 - Obstruction of duodenum Status: Acute Assessment and Plan: Nausea and vomiting persist. I called [facility] and [facility] again today. There is no availability of transfer. No one has any idea when transfer will become available. I discussed the patient's condition with and Cody, hospitalist, Dr. Iverson, the patient, and her daughter, Dick. I have recommended going ahead with gastro jejunostomy to alleviate the obstruction. This may have the affect of slightly delaying the patient's ability to get preoperative chemotherapy in the event pancreatic resection is possible. However, even if patient is able to be transferred, there is no guarantee that GI would be able to stent and alleviate the duodenal obstruction. Patient and daughter agree that her we should go ahead with procedure since there was no foreseeable option of transfer. I discussed the procedure the risks the benefits with the patient and her daughter. We will plan to go ahead with the surgery tomorrow around noon. Other providers are aware and agree. (2) Pancreatic mass: Code(s): K86.89 - Other specified diseases of pancreas Status: Chronic Assessment and Plan: Definitive treatment will most likely be assessed as an outpatient. I will try to biopsy the pancreatic mass at surgery tomorrow if feasible with low risk. 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 Since there is no biliary obstruction from this, patient should be able to be discharged and have this addressed as an outpatient probably with the pancreatic mass. I discussed this with Dr. Iverson who agrees. (4) Right ureteral stone: Code(s): N20.1 - Calculus of ureter Status: Acute Assessment and Plan: Obstruction alleviated with laser and stenting. Renal function improved, essentially normal. Subjective Subjective Date/Time Seen: 05/12/21 14:38 Patient reports: no new complaints, pain is less, nausea, vomiting and afebrile Review of Systems Review of Systems: All systems reviewed & are unremarkable except as noted in HPI and below Constitutional: Constitutional: Denies headache(s) Cardiovascular: Cardiovascular: Denies chest pain and Denies dyspnea Respiratory: Respiratory: Denies cough and Denies dyspnea Gastrointestinal: Gastrointestinal: Reports as per HPI Exam Const: General: comfortable and no acute distress; No confusion Orientation/consciousness: patient oriented x3 and No confusion GI: GI Palp: Yes Soft to palpation, Yes Tenderness to palpation present (GI), No Guarding due to palpation present (GI) and No Rebound tenderness present Auscultation: normal bowel sounds Neuro: General: patient oriented x3, no focal motor deficits and No confusion Extrem: General: no calf tenderness and no edema Psych: Appearance: well kempt Speech and movement: Clear speech present Affect: normal affect Attitude: cooperative Thought process: Normal thought process present Thought content: Yes Normal thought content present Insight: Good insight present (Psych) Judgement: Good judgement present (Psych) Objective Data Vital Signs Vital Signs: Vital Signs - 24 hr 05/11/21 21:56 05/12/21 05:46 Temperature 36.7 C 37.2 C Pulse Rate 80 84 Respiratory Rate 16 16 Blood Pressure 133/52 L 134/65 Pulse Oximetry 97 97 Intake/Output Intake/Output: Intake & Output 05/09/21 05/10/21 05/11/21 05/12/21 23:59 23:59 23:59 23:59 Intake Total 2675 2900 3940 2890 Output Total 3250 1200 2250 1550 Balance -575 1700 1690 1340 Meds/Results Medications: Active Medications Generic Name Dose Route Start Last Admin Trade
[2021-05-12 14:57] VITALS: BP 143/74; PULSE 92; RESP 20; TEMP 36.5; O2SAT 92
--- NOTE | 2021-05-12 16:06 | WPDANESEPPF ---
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 - Shiraz Newsome MD Operation Date: 05/08/21 13:30 Proposed Procedures p Endoscopic Retro Cholangiopancreatogram - Andrei Rasmussen MD Operation Date: 05/13/21 11:45 Proposed Procedures p Open Gastrojejunostomy - Tremaine Buitrago MD Date/Time: 05/12/21 16:06 Surgeon: Claire Ross NP Pre Op Diagnosis: Acute renal failure, UTI Patient Data Age: 80 Gender: F Height: 1.57 m Weight: 45.5 kg Last Vital Signs Temp 36.5 C 05/12/21 14:57 Pulse 92 05/12/21 14:57 Resp 20 05/12/21 14:57 BP 143/74 H 05/12/21 14:57 Pulse Ox 92 05/12/21 14:57 Allergies Allergy/AdvReac Type Severity Reaction Status Date / Time aspirin AdvReac Nausea and Verified 05/04/21 13:52 Vomiting Opioids - Morphine Analogues AdvReac Nausea Verified 05/04/21 13:52 Opioids-Meperidine and AdvReac Nausea and Verified 05/04/21 13:52 Related Vomiting Home Medications Medication Instructions Recorded Confirmed Type acetaminophen 500 mg PO PRN PRN 05/04/21 05/05/21 History albuterol sulfate [Ventolin HFA] 2 puff INHALATION QID PRN 05/04/21 05/04/21 History amlodipine 10 mg PO DAILY 05/04/21 05/04/21 History budesonide-formoterol [Symbicort] 2 puff INHALATION Q12H 05/04/21 05/04/21 History theophylline 400 mg PO DAILY 05/04/21 05/04/21 History Laboratory Tests 05/11/21 05/12/21 05/12/21 17:58 00:20 05:50 Sodium Potassium Chloride Carbon Dioxide Anion Gap BUN Creatinine Estim Creat Clear Calc Estimated GFR Glucose POC Capillary Glucose 86 mg/dl mg/dl 64 mg/dl L mg/dl 69 mg/dl mg/dl (65-105) (65-105) (65-105) Calcium Phosphorus Magnesium Triglycerides 05/12/21 05/12/21 05/12/21 06:18 06:20 06:20 Sodium 143 mmol/L mmol/L (137-145) Potassium 3.3 mmol/L L mmol/L (3.4-5.0) Chloride 100 mmol/L mmol/L (98-107) Carbon Dioxide 27 mmol/L mmol/L (22-30) Anion Gap 16 mmol/L mmol/L (8-16) BUN 22 mg/dL H mg/dL (7-17) Creatinine 1.10 mg/dL H mg/dL (0.7-1.0) Estim Creat Clear Calc 27 ml/min ml/min Estimated GFR 48 L (59 - ) Glucose 72 mg/dL mg/dL (65-110) POC Capillary Glucose Calcium 9.1 mg/dL mg/dL (8.4-10.2) Phosphorus 4.1 mg/dL mg/dL (2.5-4.5) Magnesium 1.7 mg/dL mg/dL (1.6-2.3) Triglycerides 149 mg/dL mg/dL (<150) 05/12/21 11:49 Sodium Potassium Chloride Carbon Dioxide Anion Gap BUN Creatinine Estim Creat Clear Calc Estimated GFR Glucose POC Capillary Glucose 78 mg/dl mg/dl (65-105) Calcium Phosphorus Magnesium Triglycerides Patient hx anesthesia problems: none Family hx anesthesia problems: none Results Review: All pre-operative results and documents have been reviewed as part of the pre-operative evaluation. [facility] Past Medical History Medical History (Updated 05/13/21 @ 11:37 by Mac Roman MD) Choledocholithiasis Chronic obstructive pulmonary disease Duodenal obstruction Hypertension Pancreatic mass Surgical History Surgical History History of appendectomy History of hysterectomy Family History Family History Other Hypertension Social History Social History Social History: The patient lives in [place] with her celina
--- NOTE | 2021-05-12 16:21 | WPDGIPROGNO ---
Progress Note: A&P Assessment and Plan (1) Duodenal obstruction: Code(s): K31.5 - Obstruction of duodenum Status: Acute Assessment and Plan: unfortunately still do not know if will get a bed in tertiary hospital surgery is planning to do tomorrow a gastrojejunostomy to alleviate the obstruction and hopefully will be able to get tissue biopsy of mass (if unable to get biopsies then I can do EGD the following day) started on TPN Prognosis is guarded (2) Pancreatic mass: Code(s): K86.89 - Other specified diseases of pancreas Status: Chronic Assessment and Plan: new finding liver enzymes almost normal (3) Nausea & vomiting: Qualifiers: Vomiting type: bilious vomiting Qualified Code(s): R11.14 - Bilious vomiting Code(s): R11.2 - Nausea with vomiting, unspecified Status: Acute Assessment and Plan: due to obstruction in duodenum, 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 Started on TPN. Review of Systems Review of Systems: All systems reviewed & are unremarkable except as noted in HPI and below Exam Const: General: comfortable and no acute distress; No confusion Orientation/consciousness: patient oriented x3 and No confusion Other: thin HENMT: General nose exam: Normal nares present Eyes: Sclera: sclerae normal Neck: Neck: supple Resp: Effort & Inspection: normal respiratory effort Cardio: Rate: regular rate GI: GI Palp: Yes Soft to palpation, No Guarding due to palpation present (GI) and No Rebound tenderness present Auscultation: normal bowel sounds Urinary Catheter: Urinary Catheter: patent and draining Skin: General skin exam: no rashes or lesions noted Neuro: General: patient oriented x3, no focal motor deficits and No confusion Speech: normal speech Extrem: General: no calf tenderness and no edema Psych: Appearance: grossly normal Speech and movement: Clear speech present Attitude: cooperative Objective Data Vital Signs Vital Signs: Vital Signs - 24 hr 05/11/21 21:56 05/12/21 05:46 05/12/21 14:57 Temperature 98.0 F 98.9 F 97.7 F Pulse Rate 80 84 92 Respiratory Rate 16 16 20 Blood Pressure 133/52 L 134/65 143/74 H Pulse Oximetry 97 97 92 Intake/Output Intake/Output: Intake & Output 05/09/21 05/10/21 05/11/21 05/12/21 23:59 23:59 23:59 23:59 Intake Total 2675 2900 3940 2890 Output Total 3250 1200 2250 1550 Balance -575 1700 1690 1340 Meds/Results Medications: Active Medications Generic Name Dose Route Start Last Admin Trade Name Freq PRN Reason Stop Dose Admin Acetaminophen 650 mg 05/04/21 16:02 05/05/21 16:06 Acetaminophen 325 Mg Tablet PO 650 mg Q4H PRN Administration Mild Pain (1-3) or Fever Albuterol 2 puff 05/05/21 09:16 Albuterol Sulfate (*Sp) Aerosol 1 Puff INHALATION QID PRN Pain Amlodipine Besylate 10 mg 05/05/21 09:20 05/12/21 08:14 Amlodipine Besylate 5 Mg Tablet PO 10 mg DAILY CATERINA Administration Calcium Carbonate 200 mg 05/11/21 16:12 05/11/21 16:21 Calcium Carbonate (Tums) 500 Mg (200 Mg Elemental) PO 200 mg Q6H PRN Administration Indigestion Chlorhexidine Gluconate 1 applic 05/13/21 09:00 Chlorhexidine Gluconate 4% Silvana 120 Ml Btl TOPICAL 05/13/21 09:01 ONCE ONE Famotidine 20 mg 05/04/21 21:00 05/12/21 08:14 Famotidine 20 Mg/2 Ml Vial IV PUSH 20 mg Q12HR CATERINA Administration Fentanyl Citrate 25 mcg
[2021-05-12 19:57] LABS: Glucose Point of Care 135 mg/dl (65-105)
[2021-05-12 20:00] VITALS: PULSE 92; RESP 20; O2SAT 92
[2021-05-12 21:05] VITALS: O2SAT 95
[2021-05-13] VITALS (16 sets, daily range): BP systolic 106–190; BP diastolic 62–99; PULSE 63–106; RESP 14–24; TEMP 36.1–37.1; O2SAT 96–100
[2021-05-13 06:15] LABS: Glucose Point of Care 153 mg/dl (65-105)
[2021-05-13 07:01] LABS: Anion Gap 13 mmol/L (8-16); Blood Urea Nitrogen 63 mg/dL (7-17); Calcium 9.5 mg/dL (8.4-10.2); Carbon Dioxide 33 mmol/L (22-30); Chloride 86 mmol/L (98-107); Estimated CRCL calculation 16 ml/min; Estimated Glomerular Filt Rate 27; Glucose 144 mg/dL (65-110); Phosphorus 6.2 mg/dL (2.5-4.5); Potassium 3.7 mmol/L (3.4-5.0); Sodium 132 mmol/L (137-145)
--- NOTE | 2021-05-13 07:53 | WPDHPUPDATE1 ---
History and Physical Update Update Date/Time: 05/13/21 07:53 History and Physical has been reviewed, including an updated exam of the patient. There are NO changes in the patient's condition. Risks, benefits, and alternatives have been discussed and questions answered. Patient agrees to proceed with procedure.
[2021-05-13 08:08] LABS: Glucose Point of Care 153 mg/dl (65-105)
[2021-05-13] MEDS: FLUTICASONE/SALMETEROL 115-21 MCG INHALER 1 PUFF 2 PUFF INHALATION ×2 (08:32→20:52)
--- NOTE | 2021-05-13 11:08 | PM.IMPN ---
Progress Note: A&P Assessment and Plan (1) Duodenal obstruction: Code(s): K31.5 - Obstruction of duodenum Status: Acute Assessment and Plan: This is a pleasant 80-year-old female with with hypertension and COPD who presented to the emergency department for evaluation of vomiting. She reports gastric reflux symptoms starting about 8 weeks ago, then for approximately 2 weeks began having worsening symptoms of abdominal bloating, esophageal dysphagia, hiccups, occasional belching, and emesis described as dark green which occurs within approximately 30 minutes of eating or drinking. She has not been eating much because of the aforementioned symptoms and she estimates having lost 10 lb in the past 2 weeks. It is my understanding that she was seen by her primary care provider today at which time her blood pressures were low and she was referred to the ER though her blood pressures have been pretty stable here. Labs today showed several abnormalities including hemoconcentration, hyponatremia, hypochloremia, acute kidney injury with a BUN and creatinine of 88 and 5.40 respectively. Renal ultrasound demonstrated severe right hydronephrosis and focal wall thickening of the posterior bladder wall suspicious for cancer or hematoma. CT Abd/ Pelvis showed Severe right hydronephrosis and hydroureter to the level of a 6 mm stone in mid right ureter. 13 mm stone in the common bile duct with mild intrahepatic and extrahepatic biliary duct dilatation. 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 She was admitted into the hospital for further evaluation and work up. While the patient was having a urology workup she continued to have nausea, vomiting and further workup was completed with a GI consultation to Dr. Iverson. 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 Gastroesophageal reflux. Upper GI series was completed showing a high-grade obstruction at the third portion of the duodenum past the area of the SMA, more concerning for an infiltrating pancreatic cancer as the etiology. These results reviewed by general surgery and radiologist. 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 Also moderate intrahepatic and extrahepatic biliary duct dilatation with 15 mm stone in the distal common bile duct. Spoke w/ general surgery Dr. Buitrago, who has tried for multiple days to transfer patient to biliary specialists at [facility] or [facility] and unable to. Discussed case with [facility] biliary fellow Dr. Randy Zazueta and hospitalist Dr. Sammy Glass. Surgery has plans to proceed with gastro jejunostomy tube which is planned for today Continue monitoring. Appreciate GI and Surgery input. (2) Pancreatic mass: Code(s): K86.89 - Other specified diseases of pancreas Status: Chronic Assessment and Plan: Previous provider discussed plan of care and probable diagnosis of pancreatic cancer with both patient and daughter Asim 05/07 MRCP showed: 3.2 x 2.2 cm mass involving the pancreatic head and third portion of the duodenum causing duodenal obstruction, most likely pancreatic adenocarcinoma. Moderate intrahepatic and extrahepatic biliary duct dilatation with 15 mm stone in the distal common bile duct. Mild right hydronephrosis with improvement status post stent placement. Open gastro jejunostomy would probably set the patient's treatment of her pancreatic tumor back 6 weeks or more. Per [facility] Dr. Coburn, if stenting can be done to relieve the duodenal obstruction, preoperative chemotherapy can proceed soon after the procedure. If open surgery was performed, i.e. gastro jejunostomy, chemotherapy
[2021-05-13] MEDS: LACTATED RINGERS 1,000 ML 30 ML IV CONT ×2 (11:54→14:31)
[2021-05-13] MEDS: ceFAZolin 2 GM/D5W 50 ML 2 GM/50 ML BAG IVPB (11:58)
--- NOTE | 2021-05-13 15:48 | W.PM.PROC2 ---
Procedure Note - Detailed Date of Procedure 05/13/21 Pre-op Diagnosis Duodenal obstruction, pancreatic mass Post-op Diagnosis same Procedure Performed Gastrojejunostomy, Shyam-Cut biopsy pancreatic mass Surgeon Tremaine Buitrago MD Dev Ops Engineer Natasha Hernandez [facility] Anesthesia general Indications Patient is a 80-year-old woman who presented with nausea and vomiting and was found to have an obstructing right ureteral stone as well as dilated stomach and duodenum. The right ureteral stone was lasered and fragmented. A ureteral stent was placed. Her acute kidney injury improved and the obstruction was relieved. 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 However MRCP found a 3 cm mass in the head of the pancreas that was likely the source. We have been waiting several days to transfer the patient to a facility with the ability to provide enteric stenting of the duodenal lesion. Despite numerous calls, transfer is not available. She is taken to surgery now for gastro enterostomy as well as possibly biopsying the pancreatic mass. Findings The pancreatic mass was palpable and after Shelia maneuver as well as exposure through the lesser omentum Shyam-Cut biopsy was able to be performed. Gastrojejunostomy was also performed. The duodenum and head of the pancreas did seem to be mobile with no intraoperative contraindications to resection being apparent. Common bile duct was dilated but I was unable to feel a common bile duct stone. Thin walled duodenal diverticulum was noted and was oversewn. Description of Procedure The patient was taken to surgery and induced into general anesthesia. An upper midline incision was made and dissection was carried down through the midline fascia. There were numerous anterior abdominal wall adhesions of omentum. These were taken down to roughly the pelvic brim but no further. The gallbladder was distended and the bile duct was dilated. The stomach did not appear to be appreciably dilated. Nasogastric tube was positioned appropriately in the stomach. I dissected lateral to the duodenum performing a Shelia maneuver. During this dissection there was a very thin walled duodenal diverticulum just beyond the common bile duct. I was concerned there may be rupture of this and I over sewed it in 2 layers with 4-0 silk Lembert suture. I continued the Shelia maneuver and was able to put my hand under the pancreatic head. I then dissected in the area of the lesser omentum and expose the area of the tumor. Tumor was palpable but seemed to be mobile. I used the Shyam-Cut device and with a single pass took Shyam-Cut biopsy of the mass. There was considerable oozing of blood after the biopsy. I held pressure on the area with a laparotomy sponge and after a few minutes this stopped. I then rehab examined the area where we had mobilized the duodenum. There was small points of oozing. These were treated with cautery. The surface area was somewhat raw and oozing and I sprayed Hemoderm over the area. I observed it for a while longer and hemostasis seemed to be good. I then found the cecum and the distal ileum. I followed the small bowel retrograde from the ileocecal valve up to the ligament of Treitz. About 20 cm distal to the ligament of Treitz, I was able to easily bring up a loop of jejunum and place it in [id number] fashion with the antrum of the stomach near the greater curvature. I sutured in seromuscular fashion 4-0 silk interrupted suture to attach the jejunum to the stomach. I then made a gastrotomy as well as an enterotomy and placed the 2 limbs of the TLC 75 stapler in each side of the bowel. The stapler was fired creating a gastroenterostomy. The resulting entero gastrotomy just proximal to the anastomosis was then closed with a TLC 60 stapler. This worked well. Some cautery was used on the TLC 60 staple line for hemostasis. I placed a couple of additional 4-0 silk Lembert suture to imbricate the gastroj
[2021-05-13] MEDS: AMINO ACIDS 4.25%/D5W/LYTES/CA 2,000 ML 80 ML IV CONT (17:02)
[2021-05-13] MEDS: FAMOTIDINE 20 MG/2 ML VIAL IV PUSH ×2 (17:02→20:25)
[2021-05-13] MEDS: FAT EMULSIONS IV 20% 250 ML 20.83 ML IVPB (17:05)
[2021-05-13] MEDS: IBUPROFEN IV 800 MG/200 ML 800 MG/200 ML BAG 400 MG IVPB (18:08)
[2021-05-13] MEDS: KCL 40 MEQ/0.45% NS 1,000 ML 80 ML IV CONT (18:13)
[2021-05-13 20:32] LABS: Glucose Point of Care 90 mg/dl (65-105)
[2021-05-14] VITALS (7 sets, daily range): BP systolic 136–159; BP diastolic 61–82; PULSE 67–88; RESP 18–20; TEMP 36.1–37.1; O2SAT 93–100
[2021-05-14 04:32] LABS: Glucose Point of Care 122 mg/dl (65-105)
[2021-05-14] MEDS: KCL 40 MEQ/0.45% NS 1,000 ML 80 ML IV CONT (05:52)
[2021-05-14 06:32] LABS: Basophils Percent Auto 0.3 % (0.2-1.2); Eosinophils Absolute Auto 0.1 K/mm3 (0-0.3); Eosinophils Percent Auto 0.7 % (0-4.4); Hematocrit 40.3 % (37.0-47.0); Hemoglobin 13.4 g/dL (12.0-15.0); Immature Granulocyte Absolute 0.02 K/mm3 (0.00-0.031); Immature Granulocyte Percent A 0.2 % (0-0.5); Lymphocytes Absolute Auto 1.61 K/mm3 (0.9-3.2); Lymphocytes Percent Auto 16.2 % (18.3-44.2); Mean Corpuscular HGB Conc 33.3 g/dl (32-36); Mean Corpuscular Hemoglobin 31.7 pg (26-34); Mean Corpuscular Volume 95.3 fl (80-100); Mean Platelet Volume 9.7 fl (7.4-10.4); Monocytes Absolute Auto 0.9 K/mm3 (0.1-0.6); Monocytes Percent Auto 8.5 % (2.6-8.5); Neutrophils Absolute Auto 7.4 K/mm3 (1.3-6.7); Neutrophils Percent Auto 74.1 % (45.5-73.1); Platelet Count Result 424 k/mm3 (150-375); Red Blood Count 4.23 M/mm3 (4.2-5.4); Red Cell Distribution Width 12.2 % (11.5-14.5)
[2021-05-14 08:15] LABS: Alanine Aminotransferase 19 U/L (4-35); Alkaline Phosphatase 73 U/L (38-126); Anion Gap 8 mmol/L (8-16); Aspartate Amino Transferase 30 U/L (14-36); Bilirubin,Total 0.4 mg/dL (0.2-1.3); Blood Urea Nitrogen 68 mg/dL (7-17); Calcium 8.2 mg/dL (8.4-10.2); Carbon Dioxide 24 mmol/L (22-30); Chloride 96 mmol/L (98-107); Estimated CRCL calculation 19 ml/min; Estimated Glomerular Filt Rate 34; Glucose 129 mg/dL (65-110); Magnesium 2.2 mg/dL (1.6-2.3); Phosphorus 4.9 mg/dL (2.5-4.5); Potassium 4.9 mmol/L (3.4-5.0); Sodium 128 mmol/L (137-145); Triglycerides 115 mg/dL (<150)
[2021-05-14] MEDS: fentaNYL CITRATE INJ (*CRX) 100 MCG/2 ML VIAL 25 MCG IV PUSH (08:26)
[2021-05-14] MEDS: ENOXAPARIN 30 MG/0.3 ML SYRINGE SUB-Q (08:27)
[2021-05-14] MEDS: ONDANSETRON INJ 4 MG/2 ML VIAL IV PUSH (08:27)
--- NOTE | 2021-05-14 08:30 | PC.NURSE ---
Pt c/o pain at both IV sites in LFA. Edema noted. notified with orders for vascular access. Janelle notified stating she will place access when available.
[2021-05-14 08:39] LABS: Glucose Point of Care 130 mg/dl (65-105)
--- NOTE | 2021-05-14 08:40 | PM.PNGS ---
Progress Note: A&P Assessment and Plan (1) Duodenal obstruction: Code(s): K31.5 - Obstruction of duodenum Status: Acute Assessment and Plan: incisional pain postop day 1 after gastrojejunostomy. Patient requests IV Tylenol. I will start this q.6 hours scheduled. She will also have p.r.n. fentanyl as well as ibuprofen. I have recommended she try taking these while she is having incisional pain. No sign of return of bowel function as yet. Bowel function not expected this early postoperatively. Continue NG tube IV fluids. She is hyponatremic and will change to normal saline and IV fluids. Continue Clindamax TPN. (2) Pancreatic mass: Code(s): K86.89 - Other specified diseases of pancreas Status: Chronic Assessment and Plan: Biopsied at surgery. Pend pathology. (3) Right ureteral stone: Code(s): N20.1 - Calculus of ureter Status: Chronic Subjective Subjective Date/Time Seen: 05/14/21 08:40 Post Op day: 1 Patient reports: still having pain ( not taking pain medication, incisional pain), no flatus, no bowel movement and afebrile Review of Systems Review of Systems: All systems reviewed & are unremarkable except as noted in HPI and below Constitutional: Constitutional: Denies headache(s) Cardiovascular: Cardiovascular: Denies chest pain and Denies dyspnea Respiratory: Respiratory: Denies cough and Denies dyspnea Gastrointestinal: Gastrointestinal: Reports as per HPI Neurologic: Denies confusion and Denies headache(s) Exam Const: General: comfortable and no acute distress; No confusion Orientation/consciousness: patient oriented x3 and No confusion GI: Inspection: non-distended, incision ( dressing dry and intact) and scaphoid GI Palp: Yes Soft to palpation, Yes Tenderness to palpation present (GI) ( incisional tenderness), No Guarding due to palpation present (GI) and No Rebound tenderness present Auscultation: absent bowel sounds Neuro: General: patient oriented x3, no focal motor deficits and No confusion Extrem: General: no calf tenderness and no edema Psych: Affect: normal affect Insight: Good insight present (Psych) Judgement: Good judgement present (Psych) Objective Data Vital Signs Vital Signs: Vital Signs - 24 hr 05/13/21 11:26 05/13/21 14:31 05/13/21 14:45 Temperature 37.1 C 36.6 C Pulse Rate 80 106 H 72 Respiratory Rate 16 24 H 22 H Blood Pressure 106/68 190/81 H 166/99 H Pulse Oximetry 96 100 100 05/13/21 15:00 05/13/21 15:15 05/13/21 15:30 Temperature Pulse Rate 68 69 65 Respiratory Rate 22 H 20 18 Blood Pressure 175/81 H 166/86 H 154/80 H Pulse Oximetry 100 100 100 05/13/21 15:45 05/13/21 16:00 05/13/21 16:15 Temperature Pulse Rate 66 63 65 Respiratory Rate 17 19 18 Blood Pressure 157/92 H 148/84 H 156/73 H Pulse Oximetry 100 100 100 05/13/21 17:40 05/13/21 18:04 05/13/21 20:00 Temperature 36.7 C 36.1 C L Pulse Rate 67 73 67 Respiratory Rate 14 20 14 Blood Pressure 148/74 H 120/90 Pulse Oximetry 99 100 99 05/13/21 22:04 05/14/21 02:04 05/14/21 06:04 Temperature 36.4 C 36.1 C L 36.4 C Pulse Rate 75 71 67 Respiratory Rate 20 20 18 Blood Pressure 122/84 141/82 H 141/61 H Pulse Oximetry 100 100 98 Intake/Output Intake/Output: Intake & Output 05/11/21 05/12/21 05/13/21 05/14/21 23:59 23:59 23:59 23:59 Intake Total 3940 3410 3190 1250 Output Total 2250 2290 350 750 Balance 1690 1120 2840 500 Meds/Results Medications: Active Medications Generic Name Dose Route Start Last Admin Trade Name Freq PRN Reason Stop Dose Admin Albuterol 2 puff 05/05/21 09:16 Albuterol Sulfate (*Sp) Aerosol 1 Puff INHALATION QID PRN Pain Enoxaparin Sodium 30 mg 05/14/21 09:00 05/14/21 08:27 Enoxaparin 30 Mg/0.3 Ml Syringe SUB-Q 30 mg DAILY CATERINA Administration Famotidine 20 mg 05/04/21 21:00 05/13/21 20:25 Famotidine 20 Mg/2 Ml Vial IV PUSH 20 mg Q12HR CATERINA Adminis
[2021-05-14] MEDS: FLUTICASONE/SALMETEROL 115-21 MCG INHALER 1 PUFF 2 PUFF INHALATION ×2 (08:52→20:09)
[2021-05-14] MEDS: KCL 20MEQ/0.9% SOD CHL 1,000 ML 80 ML IV CONT (11:38)
[2021-05-14 11:53] LABS: Sodium 127 mmol/L (137-145)
[2021-05-14 11:59] LABS: Glucose Point of Care 101 mg/dl (65-105)
--- NOTE | 2021-05-14 12:48 | PCPTNOTE ---
Attempted PT re-eval, Per RN, patient on hold due to increase pain from surgery from the day prior. Will attempt patient tomorrow.
--- NOTE | 2021-05-14 13:18 | WPDGIPROGNO ---
Progress Note: A&P Assessment and Plan (1) Duodenal obstruction: Code(s): K31.5 - Obstruction of duodenum Status: Acute Assessment and Plan: s/p gastrojejunostomy, Shyam-Cut biopsy pancreatic mass- pending report but most likely malignancy abdominal pain from recent surgery, hopefully once return of bowel function then start feeding, she is on TPN for now if cancer then will need oncology consult to discuss prognosis ? 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 She has NGT, complaining of abdominal discomfort after surgery. Still no BM Review of Systems Review of Systems: All systems reviewed & are unremarkable except as noted in HPI and below Exam Const: General: comfortable and no acute distress; No confusion Orientation/consciousness: patient oriented x3 and No confusion HENMT: Other: NGT in place Eyes: Sclera: sclerae normal Neck: Neck: supple Resp: Auscultation: clear to auscultation bilaterally Cardio: Rate: regular rate GI: Inspection: non-distended, incision ( dressing dry and intact) and scaphoid GI Palp: Yes Soft to palpation, Yes Tenderness to palpation present (GI) ( incisional tenderness), No Guarding due to palpation present (GI) and No Rebound tenderness present Auscultation: absent bowel sounds Skin: General skin exam: no rashes or lesions noted Neuro: General: patient oriented x3, no focal motor deficits and No confusion Speech: normal speech Extrem: General: no calf tenderness and no edema Psych: Affect: normal affect Insight: Good insight present (Psych) Judgement: Good judgement present (Psych) Objective Data Vital Signs Vital Signs: Vital Signs - 24 hr 05/13/21 14:31 05/13/21 14:45 05/13/21 15:00 Temperature 97.9 F Pulse Rate 106 H 72 68 Respiratory Rate 24 H 22 H 22 H Blood Pressure 190/81 H 166/99 H 175/81 H Pulse Oximetry 100 100 100 05/13/21 15:15 05/13/21 15:30 05/13/21 15:45 Temperature Pulse Rate 69 65 66 Respiratory Rate 20 18 17 Blood Pressure 166/86 H 154/80 H 157/92 H Pulse Oximetry 100 100 100 05/13/21 16:00 05/13/21 16:15 05/13/21 17:40 Temperature 98.0 F Pulse Rate 63 65 67 Respiratory Rate 19 18 14 Blood Pressure 148/84 H 156/73 H 148/74 H Pulse Oximetry 100 100 99 05/13/21 18:04 05/13/21 20:00 05/13/21 22:04 Temperature 97 F L 97.6 F Pulse Rate 73 67 75 Respiratory Rate 20 14 20 Blood Pressure 120/90 122/84 Pulse Oximetry 100 99 100 05/14/21 02:04 05/14/21 06:04 05/14/21 08:56 Temperature 97 F L 97.6 F Pulse Rate 71 67 Respiratory Rate 20 18 Blood Pressure 141/82 H 141/61 H Pulse Oximetry 100 98 98 Intake/Output Intake/Output: Intake & Output 05/11/21 05/12/21 05/13/21 05/14/21 23:59 23:59 23:59 23:59 Intake Total 3940 3410 3190 1250 Output Total 2250 2290 350 750 Balance 1690 1120 2840 500 Meds/Results Medications: Active Medications Generic Name Dose Route Star
--- NOTE | 2021-05-14 13:57 | PM.IMPN ---
Progress Note: A&P Assessment and Plan (1) Duodenal obstruction: Code(s): K31.5 - Obstruction of duodenum Status: Acute Assessment and Plan: This is a pleasant 80-year-old female with with hypertension and COPD who presented to the emergency department for evaluation of vomiting. She reports gastric reflux symptoms starting about 8 weeks ago, then for approximately 2 weeks began having worsening symptoms of abdominal bloating, esophageal dysphagia, hiccups, occasional belching, and emesis described as dark green which occurs within approximately 30 minutes of eating or drinking. She has not been eating much because of the aforementioned symptoms and she estimates having lost 10 lb in the past 2 weeks. It is my understanding that she was seen by her primary care provider today at which time her blood pressures were low and she was referred to the ER though her blood pressures have been pretty stable here. Labs today showed several abnormalities including hemoconcentration, hyponatremia, hypochloremia, acute kidney injury with a BUN and creatinine of 88 and 5.40 respectively. Renal ultrasound demonstrated severe right hydronephrosis and focal wall thickening of the posterior bladder wall suspicious for cancer or hematoma. CT Abd/ Pelvis showed Severe right hydronephrosis and hydroureter to the level of a 6 mm stone in mid right ureter. 13 mm stone in the common bile duct with mild intrahepatic and extrahepatic biliary duct dilatation. 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 She was admitted into the hospital for further evaluation and work up. While the patient was having a urology workup she continued to have nausea, vomiting and further workup was completed with a GI consultation to Dr. Iverson. 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 Gastroesophageal reflux. Upper GI series was completed showing a high-grade obstruction at the third portion of the duodenum past the area of the SMA, more concerning for an infiltrating pancreatic cancer as the etiology. These results reviewed by general surgery and radiologist. 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 Also moderate intrahepatic and extrahepatic biliary duct dilatation with 15 mm stone in the distal common bile duct. General surgery Dr. Buitrago, who has tried for multiple days to transfer patient to biliary specialists at [facility] or [facility] and unable to. Discussed case with [facility] biliary fellow Dr. Randy Zazueta and hospitalist Dr. Sammy Glass. Dr. Buitrago performed to surgery 05/13/2021 (POD #1) with Gastrojejunostomy, Shyam-Cut biopsy pancreatic mass. Surgery went well and pending pancreatic biopsy results. Patient having lots of pain postop. She has NG tube in place. IV fluids and TPN running. Continue monitoring. Appreciate GI and Surgery input. (2) Pancreatic mass: Code(s): K86.89 - Other specified diseases of pancreas Status: Chronic Assessment and Plan: Previous provider discussed plan of care and probable diagnosis of pancreatic cancer with both patient and daughter Asim 05/07 MRCP showed: 3.2 x 2.2 cm mass involving the pancreatic head and third portion of the duodenum causing duodenal obstruction, most likely pancreatic adenocarcinoma. Moderate intrahepatic and extrahepatic biliary duct dilatation with 15 mm stone in the distal common bile duct. Mild right hydronephrosis with improvement status post stent placement. Open gastro jejunostomy would probably set the patient's treatment of her pancreatic tumor back 6 weeks or more. Per [facility] Dr. Coburn, if stenting can be done to relieve
[2021-05-14] MEDS: FAMOTIDINE 20 MG/2 ML VIAL IV PUSH ×2 (14:34→21:14)
[2021-05-14] MEDS: FAT EMULSIONS IV 20% 250 ML 20.8 ML IVPB (14:35)
[2021-05-14] MEDS: AMINO ACIDS 4.25%/D5W/LYTES/CA 2,000 ML 80 ML IV CONT (14:36)
[2021-05-14 16:20] LABS: Glucose Point of Care 119 mg/dl (65-105)
[2021-05-15] MEDS: KCL 20MEQ/0.9% SOD CHL 1,000 ML 80 ML IV CONT (02:50)
[2021-05-15 06:00] VITALS: BP 160/66; PULSE 73; RESP 18; TEMP 36.3; O2SAT 98
[2021-05-15 06:59] LABS: Glucose Point of Care 97 mg/dl (65-105)
[2021-05-15 07:19] LABS: Hematocrit 38.9 % (37.0-47.0); Hemoglobin 12.6 g/dL (12.0-15.0); Mean Corpuscular HGB Conc 32.4 g/dl (32-36); Mean Corpuscular Volume 98.7 fl (80-100); Mean Platelet Volume 9.9 fl (7.4-10.4); Platelet Count Result 386 k/mm3 (150-375); Red Blood Count 3.94 M/mm3 (4.2-5.4); Red Cell Distribution Width 12.3 % (11.5-14.5); White Blood Count 10.1 K/mm3 (4.5-10.0)
[2021-05-15 07:36] LABS: Anion Gap 3 mmol/L (8-16); Blood Urea Nitrogen 40 mg/dL (7-17); Calcium 8.1 mg/dL (8.4-10.2); Carbon Dioxide 27 mmol/L (22-30); Chloride 100 mmol/L (98-107); Estimated CRCL calculation 29 ml/min; Estimated Glomerular Filt Rate 54; Glucose 104 mg/dL (65-110); Phosphorus 3.5 mg/dL (2.5-4.5); Potassium 4.5 mmol/L (3.4-5.0); Sodium 130 mmol/L (137-145)
[2021-05-15 08:00] VITALS: PULSE 73; RESP 18; O2SAT 98
[2021-05-15] MEDS: FLUTICASONE/SALMETEROL 115-21 MCG INHALER 1 PUFF 2 PUFF INHALATION ×2 (08:20→19:41)
[2021-05-15 08:31] LABS: Glucose Point of Care 117 mg/dl (65-105)
[2021-05-15] MEDS: FAMOTIDINE 20 MG/2 ML VIAL IV PUSH ×2 (09:17→20:47)
[2021-05-15] MEDS: ENOXAPARIN 30 MG/0.3 ML SYRINGE SUB-Q (09:17)
--- NOTE | 2021-05-15 10:14 | PM.PNGS ---
Progress Note: A&P Assessment and Plan (1) Duodenal obstruction: Code(s): K31.5 - Obstruction of duodenum Status: Acute Assessment and Plan: encouraged patient to take ordered prn analgesics. Emphasized to nursing that patient needs to be out of bed in a chair and walking in the room. She still has postoperative ileus and we will continue NG tube and NPO with IV fluids and TPN for now. (2) Pancreatic mass: Code(s): K86.89 - Other specified diseases of pancreas Status: Chronic (3) Right ureteral stone: Code(s): N20.1 - Calculus of ureter Status: Chronic Subjective Subjective Date/Time Seen: 05/15/21 10:14 Post Op day: 2 Patient reports: still having pain ( Incisional, not taking pain medication regularly), no flatus, no bowel movement and other ( did not get out of bed yesterday) Review of Systems Review of Systems: All systems reviewed & are unremarkable except as noted in HPI and below Constitutional: Constitutional: Denies chills, Denies fever(s) and Denies headache(s) ENT: Reports sore throat ( NG tube causing sore throat) Cardiovascular: Cardiovascular: Denies chest pain and Denies dyspnea Respiratory: Respiratory: Denies cough and Denies dyspnea Gastrointestinal: Gastrointestinal: Reports as per HPI, Reports abdominal pain ( incisional), Denies nausea and Denies vomiting Neurologic: Denies confusion and Denies headache(s) Exam Const: General: comfortable and no acute distress; No confusion Orientation/consciousness: patient oriented x3 and No confusion GI: Inspection: incision ( incision healing well, no drainage bruising or signs of infection) and scaphoid GI Palp: Yes Soft to palpation, Yes Tenderness to palpation present (GI) ( very tender incision area), No Guarding due to palpation present (GI) and No Rebound tenderness present Auscultation: absent bowel sounds Neuro: General: patient oriented x3, no focal motor deficits and No confusion Extrem: General: no calf tenderness and no edema Psych: Affect: normal affect Insight: Good insight present (Psych) Judgement: Good judgement present (Psych) Objective Data Vital Signs Vital Signs: Vital Signs - 24 hr 05/14/21 14:00 05/14/21 20:12 05/14/21 22:00 Temperature 37.1 C 36.4 C L Pulse Rate 88 80 Respiratory Rate 19 18 Blood Pressure 136/68 159/68 H Pulse Oximetry 98 96 93 05/15/21 06:00 Temperature 36.3 C L Pulse Rate 73 Respiratory Rate 18 Blood Pressure 160/66 H Pulse Oximetry 98 Intake/Output Intake/Output: Intake & Output 05/12/21 05/13/21 05/14/21 05/15/21 23:59 23:59 23:59 23:59 Intake Total 3410 3190 3450 1000 Output Total 2290 139 028 3412 Balance 1120 2840 2700 -1400 Meds/Results Medications: Active Medications Generic Name Dose Route Start Last Admin Trade Name Freq PRN Reason Stop Dose Admin Albuterol 2 puff 05/05/21 09:16 Albuterol Sulfate (*Sp) Aerosol 1 Puff INHALATION QID PRN Pain Enoxaparin Sodium 30 mg 05/14/21 09:00 05/15/21 09:17 Enoxaparin 30 Mg/0.3 Ml Syringe SUB-Q 30 mg DAILY CATERINA Administration Famotidine 20 mg 05/04/21 21:00 05/15/21 09:17 Famotidine 20 Mg/2 Ml Vial IV PUSH 20 mg Q12HR CATERINA Administration Fentanyl Citrate 25 mcg 05/13/21 16:19 05/14/21 08:26 Fentanyl Citrate Inj (*Crx) 100 Mcg/2 Ml Vial IV PUSH 25 mcg Q2H PRN Administration Pain Rated 7-10 Fentanyl Citrate 12.5 mcg 05/13/21 16:19 Fentanyl Citrate Inj (*Crx) 100 Mcg/2 Ml Vial IV PUSH Q2H PRN Pain Rated 4-6 Dextrose 1,000 mls @ 50 mls/hr 05/11/21 12:18 Dextrose 10% IV CONT .Q20H PRN if PN is interrupted Amino Acids/Electrolytes/Dextrose 2,000 mls @ 80 mls/hr 05/11/21 14:00 05/14/21 14:36 Clinimix E 4.25%/5% Solution IV CONT 80 mls/hr .Q24H CATERINA Administration Protocol Fat Emulsion Intravenous 250 mls @ 20.833 mls/hr 05/11/21 14:00 05/14/21 14:35 Lipids 20% IVPB 20.8
[2021-05-15 11:42] LABS: Glucose Point of Care 114 mg/dl (65-105)
--- NOTE | 2021-05-15 13:33 | PM.IMPN ---
Progress Note: A&P Assessment and Plan (1) Duodenal obstruction: Code(s): K31.5 - Obstruction of duodenum Status: Acute Assessment and Plan: This is a pleasant 80-year-old female with with hypertension and COPD who presented to the emergency department for evaluation of vomiting. She reports gastric reflux symptoms starting about 8 weeks ago, then for approximately 2 weeks began having worsening symptoms of abdominal bloating, esophageal dysphagia, hiccups, occasional belching, and emesis described as dark green which occurs within approximately 30 minutes of eating or drinking. She has not been eating much because of the aforementioned symptoms and she estimates having lost 10 lb in the past 2 weeks. It is my understanding that she was seen by her primary care provider today at which time her blood pressures were low and she was referred to the ER though her blood pressures have been pretty stable here. Labs today showed several abnormalities including hemoconcentration, hyponatremia, hypochloremia, acute kidney injury with a BUN and creatinine of 88 and 5.40 respectively. Renal ultrasound demonstrated severe right hydronephrosis and focal wall thickening of the posterior bladder wall suspicious for cancer or hematoma. CT Abd/ Pelvis showed Severe right hydronephrosis and hydroureter to the level of a 6 mm stone in mid right ureter. 13 mm stone in the common bile duct with mild intrahepatic and extrahepatic biliary duct dilatation. 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 She was admitted into the hospital for further evaluation and work up. While the patient was having a urology workup she continued to have nausea, vomiting and further workup was completed with a GI consultation to Dr. Iverson. 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 Gastroesophageal reflux. Upper GI series was completed showing a high-grade obstruction at the third portion of the duodenum past the area of the SMA, more concerning for an infiltrating pancreatic cancer as the etiology. These results reviewed by general surgery and radiologist. 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 Also moderate intrahepatic and extrahepatic biliary duct dilatation with 15 mm stone in the distal common bile duct. General surgery Dr. Buitrago, who has tried for multiple days to transfer patient to biliary specialists at [facility] or [facility] and unable to. Discussed case with [facility] biliary fellow Dr. Randy Zazueta and hospitalist Dr. Sammy Glass. Dr. Buitrago performed to surgery 05/13/2021 (POD #2) with Gastrojejunostomy, Shyam-Cut biopsy pancreatic mass. Surgery went well and pending pancreatic biopsy results. Patients pain is improved today from surgery. NG tube still in place. She denies passing any gas. Did have some bowel sounds that were auscultated to the right abdomen. Still on TPN and some IV fluids. Will discontinue IV fluids once the bag is empty. Continue monitoring. Appreciate GI and Surgery input. (2) Pancreatic mass: Code(s): K86.89 - Other specified diseases of pancreas Status: Chronic Assessment and Plan: Previous provider discussed plan of care and probable diagnosis of pancreatic cancer with both patient and daughter Asim 05/07 MRCP showed: 3.2 x 2.2 cm mass involving the pancreatic head and third portion of the duodenum causing duodenal obstruction, most likely pancreatic adenocarcinoma. Moderate intrahepatic and extrahepatic biliary duct dilatation with 15 mm stone in the distal common bile duct. Mild right hydronephrosis with improvement status post stent placement. O
[2021-05-15] MEDS: AMINO ACIDS 4.25%/D5W/LYTES/CA 2,000 ML 80 ML IV CONT (14:39)
[2021-05-15] MEDS: FAT EMULSIONS IV 20% 250 ML 20.8 ML IVPB (14:39)
[2021-05-15 14:52] VITALS: O2SAT 95
--- NOTE | 2021-05-15 15:56 | PCNFU ---
Nutrition Follow-Up Complete: Inadequate oral intake related to frequent emesis as evidenced by pt. reported weight loss of 10 lbs. in two week and BMI of 17.9 Goal: Patient to meet estimated nutritional needs. Pt is progressing towards goal Pt current nutrition is PPN Last recorded weight is 44.2 kg, stable. Bowel Motility: No new BM reported Labs Reviewed:alb 3.0, Na 130, Ca 8.1, GFR 54, BUN 40, Glu 117 Meds Noted: acetaminophen, Clinimix E 4.25%/5% solution, lovenox, Fat Emulsion 20% lipids, pepcid, kcl Skin: abdomen wound Additional Notes: Per physician notes, pt had gastrojejunostomy on 05/13. Pt remains NPO. PPN running at a rate of 80mL/hr over 24 hours with lipids is providing 1153kcal and 82g of protein, meeting 81% of estimated kcal needs and greater than 100% of estimated protein needs. NGT in place. Agree with diet orders at this time. Will continue to follow. Monitor patient labs, medications, weight and oral intake every T/F
[2021-05-15 16:26] LABS: Glucose Point of Care 110 mg/dl (65-105)
--- NOTE | 2021-05-15 18:34 | PC.NURSE ---
Pt up in chair most of the day visiting with daughter. States she feels much better today. PT worked with pt early this AM. Resting per bed at present with call light in reach.
[2021-05-15 19:41] VITALS: PULSE 72; O2SAT 95
[2021-05-15 22:00] VITALS: BP 164/71; PULSE 76; RESP 20; TEMP 36.4; O2SAT 95
[2021-05-16] VITALS (7 sets, daily range): BP systolic 141–164; BP diastolic 60–79; PULSE 69–79; RESP 16–18; TEMP 36.3–36.6; O2SAT 95–97
[2021-05-16] MEDS: fentaNYL CITRATE INJ (*CRX) 100 MCG/2 ML VIAL 12.5 MCG IV PUSH (00:51)
[2021-05-16] MEDS: ONDANSETRON INJ 4 MG/2 ML VIAL IV PUSH (00:56)
[2021-05-16 07:02] LABS: Glucose Point of Care 108 mg/dl (65-105)
[2021-05-16 07:09] LABS: Anion Gap 2 mmol/L (8-16); Blood Urea Nitrogen 33 mg/dL (7-17); Calcium 8.6 mg/dL (8.4-10.2); Carbon Dioxide 27 mmol/L (22-30); Chloride 97 mmol/L (98-107); Estimated CRCL calculation 32 ml/min; Estimated Glomerular Filt Rate > 60; Glucose 92 mg/dL (65-110); Phosphorus 3.4 mg/dL (2.5-4.5); Potassium 4.7 mmol/L (3.4-5.0); Sodium 126 mmol/L (137-145)
[2021-05-16 08:11] LABS: Glucose Point of Care 126 mg/dl (65-105)
[2021-05-16] MEDS: FLUTICASONE/SALMETEROL 115-21 MCG INHALER 1 PUFF 2 PUFF INHALATION ×2 (09:27→19:27)
[2021-05-16] MEDS: PHENOL/SOD PHENO SPRAY CHERRY (*BKC) 1 SPRAY MUCOUS MEM (10:19)
[2021-05-16] MEDS: FAMOTIDINE 20 MG/2 ML VIAL IV PUSH ×2 (10:20→19:48)
[2021-05-16] MEDS: ENOXAPARIN 30 MG/0.3 ML SYRINGE SUB-Q (10:20)
[2021-05-16 12:00] LABS: Glucose Point of Care 119 mg/dl (65-105)
--- NOTE | 2021-05-16 12:16 | PM.IMPN ---
Progress Note: A&P Assessment and Plan (1) Duodenal obstruction: Code(s): K31.5 - Obstruction of duodenum Status: Acute Assessment and Plan: This is a pleasant 80-year-old female with with hypertension and COPD who presented to the emergency department for evaluation of vomiting. She reports gastric reflux symptoms starting about 8 weeks ago, then for approximately 2 weeks began having worsening symptoms of abdominal bloating, esophageal dysphagia, hiccups, occasional belching, and emesis described as dark green which occurs within approximately 30 minutes of eating or drinking. She has not been eating much because of the aforementioned symptoms and she estimates having lost 10 lb in the past 2 weeks. It is my understanding that she was seen by her primary care provider today at which time her blood pressures were low and she was referred to the ER though her blood pressures have been pretty stable here. Labs today showed several abnormalities including hemoconcentration, hyponatremia, hypochloremia, acute kidney injury with a BUN and creatinine of 88 and 5.40 respectively. Renal ultrasound demonstrated severe right hydronephrosis and focal wall thickening of the posterior bladder wall suspicious for cancer or hematoma. CT Abd/ Pelvis showed Severe right hydronephrosis and hydroureter to the level of a 6 mm stone in mid right ureter. 13 mm stone in the common bile duct with mild intrahepatic and extrahepatic biliary duct dilatation. 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 She was admitted into the hospital for further evaluation and work up. While the patient was having a urology workup she continued to have nausea, vomiting and further workup was completed with a GI consultation to Dr. Iverson. 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 Gastroesophageal reflux. Upper GI series was completed showing a high-grade obstruction at the third portion of the duodenum past the area of the SMA, more concerning for an infiltrating pancreatic cancer as the etiology. These results reviewed by general surgery and radiologist. 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 Also moderate intrahepatic and extrahepatic biliary duct dilatation with 15 mm stone in the distal common bile duct. General surgery Dr. Buitrago, who has tried for multiple days to transfer patient to biliary specialists at [facility] or [facility] and unable to. Discussed case with [facility] biliary fellow Dr. Randy Zazueta and hospitalist Dr. Sammy Glass. Dr. Buitrago performed to surgery 05/13/2021 (POD #3) with Gastrojejunostomy, Shyam-Cut biopsy pancreatic mass. Surgery went well and pending pancreatic biopsy results. Patients pain is improved from surgery. NG tube still in place. She denies passing any gas. Did have some bowel sounds that were auscultated to the right abdomen. Still on TPN and IV fluids were discontinued. She reports some lightheadedness with moving around, will check orthostatics Continue monitoring. Appreciate GI and Surgery input. (2) Pancreatic mass: Code(s): K86.89 - Other specified diseases of pancreas Status: Chronic Assessment and Plan: Previous provider discussed plan of care and probable diagnosis of pancreatic cancer with both patient and daughter Asim 05/07 MRCP showed: 3.2 x 2.2 cm mass involving the pancreatic head and third portion of the duodenum causing duodenal obstruction, most likely pancreatic adenocarcinoma. Moderate intrahepatic and extrahepatic biliary duct dilatation with 15 mm stone in the distal common bile duct. Mild right hydronephrosis with improvem
--- NOTE | 2021-05-16 12:21 | PM.PNGS ---
Progress Note: A&P Assessment and Plan (1) Duodenal obstruction: Code(s): K31.5 - Obstruction of duodenum Status: Acute Assessment and Plan: Await return of bowel function Will give Dulcolax suppository today Increase activity Continue TPN (2) Pancreatic adenocarcinoma: Code(s): C25.9 - Malignant neoplasm of pancreas, unspecified Status: Acute (3) Protein calorie malnutrition: Code(s): E46 - Unspecified protein-calorie malnutrition Status: Acute Assessment and Plan: Continue TPN and monitor electrolytes Subjective Subjective Date/Time Seen: 05/16/21 12:21 Interval history: Still no BM or Flatus yet. Pain controlled. Exam GI: Inspection: non-distended and incision (dry, intact with noah) GI Palp: Yes Soft to palpation and Yes Tenderness to palpation present (GI) (incisional) Auscultation: Hypoactive bowel sounds present Objective Data Vital Signs Vital Signs: Vital Signs - 24 hr 05/15/21 14:52 05/15/21 19:41 05/15/21 22:00 Temperature 36.4 C Pulse Rate 72 76 Respiratory Rate 20 Blood Pressure 164/71 H Pulse Oximetry 95 95 95 05/16/21 06:00 05/16/21 08:00 Temperature 36.3 C L Pulse Rate 79 79 Respiratory Rate 16 16 Blood Pressure 164/68 H Pulse Oximetry 97 97 Intake/Output Intake/Output: Intake & Output 05/13/21 05/14/21 05/15/21 05/16/21 23:59 23:59 23:59 23:59 Intake Total 3190 3450 4070 200 Output Total 510 244 0205 1500 Balance 2840 2700 -1420 -1300 Meds/Results Medications: Active Medications Generic Name Dose Route Start Last Admin Trade Name Freq PRN Reason Stop Dose Admin Albuterol 2 puff 05/05/21 09:16 Albuterol Sulfate (*Sp) Aerosol 1 Puff INHALATION QID PRN Pain Enoxaparin Sodium 30 mg 05/14/21 09:00 05/16/21 10:20 Enoxaparin 30 Mg/0.3 Ml Syringe SUB-Q 30 mg DAILY CATERINA Administration Famotidine 20 mg 05/04/21 21:00 05/16/21 10:20 Famotidine 20 Mg/2 Ml Vial IV PUSH 20 mg Q12HR CATERINA Administration Fentanyl Citrate 25 mcg 05/13/21 16:19 05/14/21 08:26 Fentanyl Citrate Inj (*Crx) 100 Mcg/2 Ml Vial IV PUSH 25 mcg Q2H PRN Administration Pain Rated 7-10 Fentanyl Citrate 12.5 mcg 05/13/21 16:19 05/16/21 00:51 Fentanyl Citrate Inj (*Crx) 100 Mcg/2 Ml Vial IV PUSH 12.5 mcg Q2H PRN Administration Pain Rated 4-6 Dextrose 1,000 mls @ 50 mls/hr 05/11/21 12:18 Dextrose 10% IV CONT .Q20H PRN if PN is interrupted Amino Acids/Electrolytes/Dextrose 2,000 mls @ 80 mls/hr 05/11/21 14:00 05/15/21 14:39 Clinimix E 4.25%/5% Solution IV CONT 80 mls/hr .Q24H CATERINA Administration Protocol Fat Emulsion Intravenous 250 mls @ 20.833 mls/hr 05/11/21 14:00 05/15/21 14:39 Lipids 20% IVPB 20.8 mls/hr Q24H CATERINA Administration Ibuprofen 800 mg in 200 mls @ 400 mls/hr 05/13/21 16:19 05/13/21 18:35 Caldolor 800 Mg/200 Ml IVPB Infused Q6H PRN Infusion Pain Rated 1-3 Miscellaneous Information 1 each 05/16/21 00:01 Clinimix Needs To Be Renewed Or It Will Automatically Discontinue. XX 06/15/21 00:00 CLARIFY CATERINA Naloxone HCl 0.1 mg 05/13/21 16:19 Naloxone Hcl 0.4 Mg/Ml Vial IV PUSH Q2M PRN Opiate Reversal Ondansetron HCl 4 mg 05/13/21 16:19 05/16/21 00:56 Ondansetron Inj 4 Mg/2 Ml Vial IV PUSH 4 mg Q4H PRN Administration Nausea And Vomiting Phenol 1 spray 05/16/21 06:59 05/16/21 10:19 Phenol/Sod Pheno [place] Calixto (*Bkc) MUCOUS MEM 1 spray PRN PRN Administration Sore Throat Fluticasone/Salmeterol 2 puff 05/05/21 20:00 05/16/21 09:27 Fluticasone/Salmeterol 115-21 Mcg Inhaler 1 Puff INHALATION 2 puff Q12HRT CATERINA Administration Radiology Results: ITS Impressions Renal Ultrasound 05/04/21 17:01 IMPRESSION: 1. Severe right hydronephrosis. 2. Focal thickening of the posterior bladder wall suspicious for urothelial carcinoma or hematoma. Abdom
[2021-05-16] MEDS: BISACODYL 10 MG SUPPOSITORY RECTAL (12:39)
[2021-05-16 13:45] LABS: Triglycerides 157 mg/dL (<150)
[2021-05-16] MEDS: FAT EMULSIONS IV 20% 250 ML 20.8 ML IVPB (15:52)
[2021-05-16] MEDS: AMINO ACIDS 4.25%/D5W/LYTES/CA 2,000 ML 80 ML IV CONT (15:52)
[2021-05-16 17:00] LABS: Glucose Point of Care 104 mg/dl (65-105)
[2021-05-16] MEDS: fentaNYL CITRATE INJ (*CRX) 100 MCG/2 ML VIAL 25 MCG IV PUSH (23:36)
[2021-05-17 06:00] VITALS: BP 149/62; PULSE 75; RESP 16; TEMP 36.3; O2SAT 97
[2021-05-17 06:49] LABS: Hematocrit 36.2 % (37.0-47.0); Hemoglobin 11.4 g/dL (12.0-15.0); Mean Corpuscular HGB Conc 31.5 g/dl (32-36); Mean Corpuscular Hemoglobin 31.4 pg (26-34); Mean Corpuscular Volume 99.7 fl (80-100); Platelet Count Result 399 k/mm3 (150-375); Red Blood Count 3.63 M/mm3 (4.2-5.4); Red Cell Distribution Width 12.3 % (11.5-14.5)
[2021-05-17 07:01] LABS: Anion Gap 6 mmol/L (8-16); Blood Urea Nitrogen 29 mg/dL (7-17); Calcium 8.6 mg/dL (8.4-10.2); Carbon Dioxide 25 mmol/L (22-30); Chloride 99 mmol/L (98-107); Estimated CRCL calculation 31 ml/min; Estimated Glomerular Filt Rate 54; Glucose 91 mg/dL (65-110); Phosphorus 3.9 mg/dL (2.5-4.5); Potassium 4.7 mmol/L (3.4-5.0); Sodium 130 mmol/L (137-145)
[2021-05-17 07:32] LABS: Glucose Point of Care 84 mg/dl (65-105)
[2021-05-17 08:00] VITALS: PULSE 75; RESP 16; O2SAT 97
[2021-05-17] MEDS: ENOXAPARIN 30 MG/0.3 ML SYRINGE SUB-Q (08:38)
[2021-05-17] MEDS: FAMOTIDINE 20 MG/2 ML VIAL IV PUSH ×2 (08:38→20:30)
--- NOTE | 2021-05-17 08:53 | PM.PNGS ---
Progress Note: A&P Assessment and Plan (1) Duodenal obstruction: Code(s): K31.5 - Obstruction of duodenum Status: Acute Assessment and Plan: Await return of bowel function Milk of magnesia per NG and clamp for 2 hours today Increase activity Continue TPN (2) Pancreatic adenocarcinoma: Code(s): C25.9 - Malignant neoplasm of pancreas, unspecified Status: Acute (3) Protein calorie malnutrition: Code(s): E46 - Unspecified protein-calorie malnutrition Status: Acute Assessment and Plan: Continue TPN and monitor electrolytes Subjective Subjective Date/Time Seen: 05/17/21 08:53 Interval history: Had a very small BM yesterday with suppository. No BM or Flatus since. Minimal pain. Exam GI: Inspection: non-distended and incision (dry, intact with noah) GI Palp: Yes Soft to palpation and Yes Tenderness to palpation present (GI) (incisional) Auscultation: Hypoactive bowel sounds present Objective Data Vital Signs Vital Signs: Vital Signs - 24 hr 05/16/21 11:30 05/16/21 13:20 05/16/21 19:26 Temperature 36.6 C Pulse Rate 72 Respiratory Rate 16 Blood Pressure 149/75 H 141/60 H Pulse Oximetry 97 95 05/16/21 19:27 05/16/21 22:00 05/17/21 06:00 Temperature 36.3 C L 36.3 C L Pulse Rate 76 69 75 Respiratory Rate 18 16 Blood Pressure 146/79 H 149/62 H Pulse Oximetry 97 97 Intake/Output Intake/Output: Intake & Output 05/14/21 05/15/21 05/16/21 05/17/21 23:59 23:59 23:59 23:59 Intake Total 3450 4070 2650 100 Output Total 750 5490 2200 1650 Balance 2700 -1420 450 -1550 Meds/Results Medications: Active Medications Generic Name Dose Route Start Last Admin Trade Name Freq PRN Reason Stop Dose Admin Albuterol 2 puff 05/05/21 09:16 Albuterol Sulfate (*Sp) Aerosol 1 Puff INHALATION QID PRN Pain Enoxaparin Sodium 30 mg 05/14/21 09:00 05/17/21 08:38 Enoxaparin 30 Mg/0.3 Ml Syringe SUB-Q 30 mg DAILY CATERINA Administration Famotidine 20 mg 05/04/21 21:00 05/17/21 08:38 Famotidine 20 Mg/2 Ml Vial IV PUSH 20 mg Q12HR CATERINA Administration Fentanyl Citrate 25 mcg 05/13/21 16:19 05/16/21 23:36 Fentanyl Citrate Inj (*Crx) 100 Mcg/2 Ml Vial IV PUSH 25 mcg Q2H PRN Administration Pain Rated 7-10 Fentanyl Citrate 12.5 mcg 05/13/21 16:19 05/16/21 00:51 Fentanyl Citrate Inj (*Crx) 100 Mcg/2 Ml Vial IV PUSH 12.5 mcg Q2H PRN Administration Pain Rated 4-6 Dextrose 1,000 mls @ 50 mls/hr 05/11/21 12:18 Dextrose 10% IV CONT .Q20H PRN if PN is interrupted Amino Acids/Electrolytes/Dextrose 2,000 mls @ 80 mls/hr 05/11/21 14:00 05/16/21 15:52 Clinimix E 4.25%/5% Solution IV CONT 80 mls/hr .Q24H CATERINA Administration Protocol Fat Emulsion Intravenous 250 mls @ 20.833 mls/hr 05/11/21 14:00 05/16/21 15:52 Lipids 20% IVPB 20.8 mls/hr Q24H CATERINA Administration Ibuprofen 800 mg in 200 mls @ 400 mls/hr 05/13/21 16:19 05/13/21 18:35 Caldolor 800 Mg/200 Ml IVPB Infused Q6H PRN Infusion Pain Rated 1-3 Acetaminophen 1,000 mg in 100 mls @ 400 mls/hr 05/17/21 09:00 Ofirmev 1,000 Mg Ivpb IVPB 05/18/21 08:59 Q6H CATERINA Magnesium Hydroxide 30 ml 05/17/21 08:52 Magnesium Hydroxide Susp 30 Ml Udc FEED TUBE 05/17/21 08:53 ONCE ONE Miscellaneous Information 1 each 05/16/21 00:01 05/17/21 07:22 Clinimix Needs To Be Renewed Or It Will Automatically Discontinue. XX 06/15/21 00:00 Not Given CLARIFY CATERINA Naloxone HCl 0.1 mg 05/13/21 16:19 Naloxone Hcl 0.4 Mg/Ml Vial IV PUSH Q2M PRN Opiate Reversal Ondansetron HCl 4 mg 05/13/21 16:19 05/16/21 00:56 Ondansetron Inj 4 Mg/2 Ml Vial IV PUSH 4 mg Q4H PRN Administration Nausea And Vomiting Phenol 1 spray 05/16/21 06:59 05/16/21 10:19 Phenol/Sod Pheno [place] Calixto (*Bkc) MUCOUS MEM 1 spray PRN PRN Administration Sore Throat Fluticasone/Salmeter
[2021-05-17] MEDS: FLUTICASONE/SALMETEROL 115-21 MCG INHALER 1 PUFF 2 PUFF INHALATION ×2 (09:10→19:09)
[2021-05-17] MEDS: MAGNESIUM HYDROXIDE SUSP 30 ML UDC FEED TUBE (10:59)
[2021-05-17 12:05] LABS: Glucose Point of Care 130 mg/dl (65-105)
--- NOTE | 2021-05-17 12:59 | PM.IMPN ---
Progress Note: A&P Assessment and Plan (1) Duodenal obstruction: Code(s): K31.5 - Obstruction of duodenum Status: Acute Assessment and Plan: This is a pleasant 80-year-old female with with hypertension and COPD who presented to the emergency department for evaluation of vomiting. She reports gastric reflux symptoms starting about 8 weeks ago, then for approximately 2 weeks began having worsening symptoms of abdominal bloating, esophageal dysphagia, hiccups, occasional belching, and emesis described as dark green which occurs within approximately 30 minutes of eating or drinking. She has not been eating much because of the aforementioned symptoms and she estimates having lost 10 lb in the past 2 weeks. It is my understanding that she was seen by her primary care provider today at which time her blood pressures were low and she was referred to the ER though her blood pressures have been pretty stable here. Labs today showed several abnormalities including hemoconcentration, hyponatremia, hypochloremia, acute kidney injury with a BUN and creatinine of 88 and 5.40 respectively. Renal ultrasound demonstrated severe right hydronephrosis and focal wall thickening of the posterior bladder wall suspicious for cancer or hematoma. CT Abd/ Pelvis showed Severe right hydronephrosis and hydroureter to the level of a 6 mm stone in mid right ureter. 13 mm stone in the common bile duct with mild intrahepatic and extrahepatic biliary duct dilatation. 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 She was admitted into the hospital for further evaluation and work up. While the patient was having a urology workup she continued to have nausea, vomiting and further workup was completed with a GI consultation to Dr. Iverson. 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 Gastroesophageal reflux. Upper GI series was completed showing a high-grade obstruction at the third portion of the duodenum past the area of the SMA, more concerning for an infiltrating pancreatic cancer as the etiology. These results reviewed by general surgery and radiologist. 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 Also moderate intrahepatic and extrahepatic biliary duct dilatation with 15 mm stone in the distal common bile duct. General surgery Dr. Buitrago, who has tried for multiple days to transfer patient to biliary specialists at [facility] or [facility] and unable to. Discussed case with [facility] biliary fellow Dr. Randy Zazueta and hospitalist Dr. Sammy Glass. Dr. Buitrago performed to surgery 05/13/2021 (POD #4) with Gastrojejunostomy, Shyam-Cut biopsy pancreatic mass. Surgery went well and pending pancreatic biopsy results. Patients pain is improved from surgery. NG tube still in place. She did have a small bowel movement after suppository yesterday. Surgery has plans to give milk of magnesia to help with stimulation. Did have some bowel sounds. Still on TPN. Patient had orthostatics completed which were negative and she was asymptomatic at that time. Continue monitoring. Appreciate GI and Surgery input. (2) Pancreatic mass: Code(s): K86.89 - Other specified diseases of pancreas Status: Chronic Assessment and Plan: Previous provider discussed plan of care and probable diagnosis of pancreatic cancer with both patient and daughter Asim 05/07 MRCP showed: 3.2 x 2.2 cm mass involving the pancreatic head and third portion of the duodenum causing duodenal obstruction, most likely pancreatic adenocarcinoma. Moderate intrahepatic and extrahepatic biliary duct dilatation with 15 mm stone in the distal common gemini
[2021-05-17 14:00] VITALS: BP 110/66; PULSE 82; RESP 14; TEMP 36.8; O2SAT 96
[2021-05-17] MEDS: AMINO ACIDS 4.25%/D5W/LYTES/CA 2,000 ML 80 ML IV CONT (15:16)
[2021-05-17] MEDS: FAT EMULSIONS IV 20% 250 ML 20.8 ML IVPB (15:16)
[2021-05-17 17:59] LABS: Glucose Point of Care 101 mg/dl (65-105)
[2021-05-17 19:08] VITALS: PULSE 72
[2021-05-17 22:00] VITALS: BP 165/47; PULSE 70; RESP 18; TEMP 36.4; O2SAT 95
[2021-05-17 23:22] LABS: Glucose Point of Care 113 mg/dl (65-105)
[2021-05-18] VITALS (8 sets, daily range): BP systolic 134–184; BP diastolic 65–86; PULSE 76–85; RESP 16–18; TEMP 36.2–37.3; O2SAT 94–97
[2021-05-18 05:23] LABS: Glucose Point of Care 124 mg/dl (65-105)
[2021-05-18 06:27] LABS: Basophils Absolute Auto 0.1 K/mm3 (0.0-0.1); Basophils Percent Auto 0.5 % (0.2-1.2); Eosinophils Absolute Auto 0.5 K/mm3 (0-0.3); Eosinophils Percent Auto 4.9 % (0-4.4); Hematocrit 38.8 % (37.0-47.0); Hemoglobin 12.1 g/dL (12.0-15.0); Immature Granulocyte Absolute 0.03 K/mm3 (0.00-0.031); Immature Granulocyte Percent A 0.3 % (0-0.5); Immature Platelet Fraction Pct 11.1 % (0.9-11.2); Lymphocytes Absolute Auto 1.68 K/mm3 (0.9-3.2); Lymphocytes Percent Auto 18.1 % (18.3-44.2); Mean Corpuscular HGB Conc 31.2 g/dl (32-36); Mean Corpuscular Hemoglobin 31.9 pg (26-34); Mean Corpuscular Volume 102.4 fl (80-100); Mean Platelet Volume 11.9 fl (7.4-10.4); Monocytes Absolute Auto 0.6 K/mm3 (0.1-0.6); Monocytes Percent Auto 6.8 % (2.6-8.5); Neutrophils Absolute Auto 6.5 K/mm3 (1.3-6.7); Neutrophils Percent Auto 69.4 % (45.5-73.1); Platelet Count Result 285 k/mm3 (150-375); Red Blood Count 3.79 M/mm3 (4.2-5.4); Red Cell Distribution Width 12.3 % (11.5-14.5); White Blood Count 9.3 K/mm3 (4.5-10.0)
[2021-05-18 06:41] LABS: INR 0.9; Prothrombin Time 11.8 Seconds (11.1-14.7)
[2021-05-18 06:45] LABS: Alanine Aminotransferase 44 U/L (4-35); Albumin Level 3.3 g/dL (3.5-5.1); Alkaline Phosphatase 153 U/L (38-126); Anion Gap 6 mmol/L (8-16); Aspartate Amino Transferase 73 U/L (14-36); Bilirubin,Total 0.7 mg/dL (0.2-1.3); Blood Urea Nitrogen 33 mg/dL (7-17); Calcium 8.4 mg/dL (8.4-10.2); Carbon Dioxide 23 mmol/L (22-30); Chloride 98 mmol/L (98-107); Estimated CRCL calculation 38 ml/min; Estimated Glomerular Filt Rate > 60; Glucose 115 mg/dL (65-110); Magnesium 2.2 mg/dL (1.6-2.3); Phosphorus 4.1 mg/dL (2.5-4.5); Potassium 5.1 mmol/L (3.4-5.0); Sodium 127 mmol/L (137-145)
[2021-05-18 06:46] LABS: Transferrin 183 mg/dL (206-381)
--- NOTE | 2021-05-18 06:48 | PC.NURSE ---
05/18/21 0642 dot contacted regarding pt's elev bp. no answer.
[2021-05-18 08:12] LABS: Glucose Point of Care 127 mg/dl (65-105)
[2021-05-18] MEDS: FLUTICASONE/SALMETEROL 115-21 MCG INHALER 1 PUFF 2 PUFF INHALATION ×2 (08:43→21:08)
[2021-05-18] MEDS: FAMOTIDINE 20 MG/2 ML VIAL IV PUSH (09:58)
[2021-05-18] MEDS: ENOXAPARIN 30 MG/0.3 ML SYRINGE SUB-Q (09:58)
--- NOTE | 2021-05-18 10:30 | PM.IMPN ---
Progress Note: A&P Assessment and Plan (1) Duodenal obstruction: Code(s): K31.5 - Obstruction of duodenum Status: Acute Assessment and Plan: This is a pleasant 80-year-old female with with hypertension and COPD who presented to the emergency department for evaluation of vomiting. She reports gastric reflux symptoms starting about 8 weeks ago, then for approximately 2 weeks began having worsening symptoms of abdominal bloating, esophageal dysphagia, hiccups, occasional belching, and emesis described as dark green which occurs within approximately 30 minutes of eating or drinking. She has not been eating much because of the aforementioned symptoms and she estimates having lost 10 lb in the past 2 weeks. It is my understanding that she was seen by her primary care provider today at which time her blood pressures were low and she was referred to the ER though her blood pressures have been pretty stable here. Labs today showed several abnormalities including hemoconcentration, hyponatremia, hypochloremia, acute kidney injury with a BUN and creatinine of 88 and 5.40 respectively. Renal ultrasound demonstrated severe right hydronephrosis and focal wall thickening of the posterior bladder wall suspicious for cancer or hematoma. CT Abd/ Pelvis showed Severe right hydronephrosis and hydroureter to the level of a 6 mm stone in mid right ureter. 13 mm stone in the common bile duct with mild intrahepatic and extrahepatic biliary duct dilatation. 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 She was admitted into the hospital for further evaluation and work up. While the patient was having a urology workup she continued to have nausea, vomiting and further workup was completed with a GI consultation to Dr. Iverson. 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 Gastroesophageal reflux. Upper GI series was completed showing a high-grade obstruction at the third portion of the duodenum past the area of the SMA, more concerning for an infiltrating pancreatic cancer as the etiology. These results reviewed by general surgery and radiologist. 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 Also moderate intrahepatic and extrahepatic biliary duct dilatation with 15 mm stone in the distal common bile duct. General surgery Dr. Buitrago, who has tried for multiple days to transfer patient to biliary specialists at [facility] or [facility] and unable to. Discussed case with [facility] biliary fellow Dr. Randy Zazueta and hospitalist Dr. Sammy Glass. Dr. Buitrago performed to surgery 05/13/2021 (POD #5) with Gastrojejunostomy, Shyam-Cut biopsy pancreatic mass. Surgery went well and pending pancreatic biopsy results. Patients pain is improved from surgery. NG tube still in place. She is passing some gas after receiving milk of magnesia yesterday. Did have some bowel sounds. Still on TPN. Continue monitoring. Appreciate GI and Surgery input. (2) Pancreatic mass: Code(s): K86.89 - Other specified diseases of pancreas Status: Chronic Assessment and Plan: Previous provider discussed plan of care and probable diagnosis of pancreatic cancer with both patient and daughter Asim 05/07 MRCP showed: 3.2 x 2.2 cm mass involving the pancreatic head and third portion of the duodenum causing duodenal obstruction, most likely pancreatic adenocarcinoma. Moderate intrahepatic and extrahepatic biliary duct dilatation with 15 mm stone in the distal common bile duct. Mild right hydronephrosis with improvement status post stent placement. Open gastro jejunostomy would probably set the patient's treatment of her pancrea
[2021-05-18 11:56] LABS: Glucose Point of Care 121 mg/dl (65-105)
--- NOTE | 2021-05-18 13:16 | PM.PNGS ---
Progress Note: A&P Assessment and Plan (1) Duodenal obstruction: Code(s): K31.5 - Obstruction of duodenum Status: Acute Assessment and Plan: Slowly improving, passing flatus today. Will remove NG tube and start full liquid diet. Stop Clinimix/lipids. Remove Lowery catheter. Increase activity. (2) Pancreatic adenocarcinoma: Code(s): C25.9 - Malignant neoplasm of pancreas, unspecified Status: Acute (3) Protein calorie malnutrition: Code(s): E46 - Unspecified protein-calorie malnutrition Status: Acute Assessment and Plan: Stop Clinimix today. Remove NG and start full liquid diet. Additional Plan I have discussed the patient's case and plan of care with Dr. Buitrago. Subjective Subjective Date/Time Seen: 05/18/21 13:16 Post Op day: 5 (Gastrojejunostomy) Patient reports: feels better, flatus, no bowel movement and afebrile Interval history: Patient seen and examined. She reports feeling well today. She reports slight discomfort at the incision with movement, but otherwise no abdominal pain. Denies any nausea or bloating. Reports flatus. No other complaints at this time. Review of Systems Review of Systems: All systems reviewed & are unremarkable except as noted in HPI and below Exam Const: General: comfortable, no acute distress and alert Orientation/consciousness: patient oriented x3 Resp: Effort & Inspection: normal respiratory effort Auscultation: clear to auscultation bilaterally Cardio: Rate: regular rate Rhythm: regular rhythm GI: Inspection: non-distended and incision (midline incision dry with noah intact, no erythema) GI Palp: Yes Soft to palpation, No Tenderness to palpation present (GI) and No Guarding due to palpation present (GI) Auscultation: Hypoactive bowel sounds present Neuro: General: moves all extremities and no focal motor deficits Extrem: General: no calf tenderness and no edema Psych: Insight: Good insight present (Psych) Judgement: Good judgement present (Psych) Objective Data Vital Signs Vital Signs: Vital Signs - 24 hr 05/17/21 14:00 05/17/21 19:08 05/17/21 22:00 Temperature 98.2 F 97.5 F L Pulse Rate 82 72 70 Respiratory Rate 14 18 Blood Pressure 110/66 165/47 H Pulse Oximetry 96 95 05/18/21 06:00 05/18/21 08:00 05/18/21 08:20 Temperature 99.1 F Pulse Rate 76 76 Respiratory Rate 18 18 Blood Pressure 184/78 H 134/86 Pulse Oximetry 96 96 05/18/21 08:44 Temperature Pulse Rate Respiratory Rate Blood Pressure Pulse Oximetry 96 Intake/Output Intake/Output: Intake & Output 05/15/21 05/16/21 05/17/21 05/18/21 23:59 23:59 23:59 23:59 Intake Total 4070 2650 2790 980 Output Total 5490 2200 2350 400 Balance -1420 450 440 580 Meds/Results Medications: Active Medications Generic Name Dose Route Start Last Admin Trade Name Freq PRN Reason Stop Dose Admin Acetaminophen 650 mg 05/18/21 12:27 Acetaminophen 325 Mg Tablet PO Q6H PRN Mild Pain (1-3) or Fever Albuterol 2 puff 05/05/21 09:16 Albuterol Sulfate (*Sp) Aerosol 1 Puff INHALATION QID PRN Pain Benzonatate 100 mg 05/18/21 09:02 Benzonatate 100 Mg Capsule PO TID PRN cough Enoxaparin Sodium 30 mg 05/14/21 09:00 05/18/21 09:58 Enoxaparin 30 Mg/0.3 Ml Syringe SUB-Q 30 mg DAILY CATERINA Administration Famotidine 20 mg 05/18/21 21:00 Famotidine 20 Mg Tablet PO Q12HR CATERINA Fentanyl Citrate 25 mcg 05/13/21 16:19 05/16/21 23:36 Fentanyl Citrate Inj (*Crx) 100 Mcg/2 Ml Vial IV PUSH 25 mcg Q2H PRN Administration Pain Rated 7-10 Fentanyl Citrate 12.5 mcg 05/13/21 16:19 05/16/21 00:51 Fentanyl Citrate Inj (*Crx) 100 Mcg/2 Ml Vial IV PUSH 12.5 mcg Q2H PRN Administration Pain Rated 4-6 Guaifenesin/Dextromethorphan 5 ml 05/18/21 08:59 Guaifenesin/Dextromethorphan 10 Ml Udc PO Q4H PRN Cough Hydralazine HCl 10 mg 05/18/21 0
[2021-05-18 13:25] LABS: Potassium 5.2 mmol/L (3.4-5.0); Sodium 126 mmol/L (137-145)
[2021-05-18] MEDS: BENZONATATE 100 MG CAPSULE PO ×2 (14:59→21:47)
[2021-05-18 16:38] LABS: Glucose Point of Care 106 mg/dl (65-105)
[2021-05-18] MEDS: FAMOTIDINE 20 MG TABLET PO (20:13)
[2021-05-18] MEDS: ACETAMINOPHEN 325 MG TABLET 650 MG PO (20:13)
[2021-05-19 06:00] VITALS: BP 174/78; PULSE 95; RESP 18; TEMP 36.5; O2SAT 94
[2021-05-19] MEDS: hydrALAZINE HCL 20 MG/ML VIAL 10 MG IV PUSH (06:28)
[2021-05-19 06:47] LABS: Hematocrit 38.1 % (37.0-47.0); Hemoglobin 12.3 g/dL (12.0-15.0); Mean Corpuscular HGB Conc 32.3 g/dl (32-36); Mean Corpuscular Hemoglobin 31.6 pg (26-34); Mean Corpuscular Volume 97.9 fl (80-100); Mean Platelet Volume 9.7 fl (7.4-10.4); Platelet Count Result 417 k/mm3 (150-375); Red Blood Count 3.89 M/mm3 (4.2-5.4); Red Cell Distribution Width 12.4 % (11.5-14.5); White Blood Count 8.6 K/mm3 (4.5-10.0)
[2021-05-19 07:03] LABS: Alanine Aminotransferase 61 U/L (4-35); Albumin Level 3.4 g/dL (3.5-5.1); Alkaline Phosphatase 186 U/L (38-126); Anion Gap 8 mmol/L (8-16); Aspartate Amino Transferase 79 U/L (14-36); Bilirubin,Total 0.6 mg/dL (0.2-1.3); Blood Urea Nitrogen 29 mg/dL (7-17); Calcium 8.8 mg/dL (8.4-10.2); Carbon Dioxide 23 mmol/L (22-30); Chloride 100 mmol/L (98-107); Estimated CRCL calculation 32 ml/min; Estimated Glomerular Filt Rate > 60; Glucose 90 mg/dL (65-110); Potassium 5.1 mmol/L (3.4-5.0); Sodium 131 mmol/L (137-145)
[2021-05-19 08:05] LABS: Glucose Point of Care 104 mg/dl (65-105)
--- NOTE | 2021-05-19 08:38 | PM.PNGS ---
Progress Note: A&P Assessment and Plan (1) Duodenal obstruction: Code(s): K31.5 - Obstruction of duodenum Status: Acute Assessment and Plan: gastric in GI function appear to have returned following surgery 6 days ago. No bowel movement as yet but tolerated full liquids very well. The voiding with Lowery catheter out without difficulty. Wound is healing well also. Will advance to soft diet today. Possibly patient can be discharged tomorrow if others agree. (2) Pancreatic adenocarcinoma: Code(s): C25.9 - Malignant neoplasm of pancreas, unspecified Status: Chronic Assessment and Plan: Will need to have follow-up visit with hepatobiliary surgeon at [facility] arranged prior to discharge so that patient can have this addressed. (3) Right ureteral stone: Code(s): N20.1 - Calculus of ureter Status: Chronic Assessment and Plan: need discharge plans from Urology. Subjective Subjective Date/Time Seen: 05/19/21 08:38 Post Op day: #6 Patient reports: feels better, tolerating liquids well, flatus, no bowel movement and afebrile Exam Const: General: comfortable and no acute distress; No confusion Orientation/consciousness: patient oriented x3 and No confusion GI: Inspection: non-distended, incision (Dry, intact, healing well) and scaphoid GI Palp: Yes Soft to palpation, Yes Tenderness to palpation present (GI) ( minimal incisional tenderness), No Guarding due to palpation present (GI) and No Rebound tenderness present Auscultation: normal bowel sounds Neuro: General: patient oriented x3, no focal motor deficits and No confusion Extrem: General: no calf tenderness and no edema Psych: Affect: normal affect Insight: Good insight present (Psych) Judgement: Good judgement present (Psych) Objective Data Vital Signs Vital Signs: Vital Signs - 24 hr 05/18/21 08:44 05/18/21 14:00 05/18/21 21:10 Temperature 36.2 C L Pulse Rate 83 Respiratory Rate 18 Blood Pressure 163/65 H Pulse Oximetry 96 97 95 05/18/21 21:48 05/18/21 22:25 05/19/21 06:00 Temperature 36.8 C 36.5 C Pulse Rate 85 95 Respiratory Rate 16 18 Blood Pressure 162/75 H 174/78 H Pulse Oximetry 95 94 94 Intake/Output Intake/Output: Intake & Output 05/16/21 05/17/21 05/18/21 05/19/21 23:59 23:59 23:59 23:59 Intake Total 2650 2790 1160 750 Output Total 2200 2350 1250 Balance 450 440 -90 750 Meds/Results Medications: Active Medications Generic Name Dose Route Start Last Admin Trade Name Freq PRN Reason Stop Dose Admin Acetaminophen 650 mg 05/18/21 12:27 05/18/21 20:13 Acetaminophen 325 Mg Tablet PO 650 mg Q6H PRN Administration Mild Pain (1-3) or Fever Albuterol 2 puff 05/05/21 09:16 Albuterol Sulfate (*Sp) Aerosol 1 Puff INHALATION QID PRN Pain Benzonatate 100 mg 05/18/21 09:02 05/18/21 21:47 Benzonatate 100 Mg Capsule PO 100 mg TID PRN Administration cough Enoxaparin Sodium 30 mg 05/14/21 09:00 05/18/21 09:58 Enoxaparin 30 Mg/0.3 Ml Syringe SUB-Q 30 mg DAILY CATERINA Administration Famotidine 20 mg 05/18/21 21:00 05/18/21 20:13 Famotidine 20 Mg Tablet PO 20 mg Q12HR CATERINA Administration Fentanyl Citrate 25 mcg 05/13/21 16:19 05/16/21 23:36 Fentanyl Citrate Inj (*Crx) 100 Mcg/2 Ml Vial IV PUSH 25 mcg Q2H PRN Administration Pain Rated 7-10 Fentanyl Citrate 12.5 mcg 05/13/21 16:19 05/16/21 00:51 Fentanyl Citrate Inj (*Crx) 100 Mcg/2 Ml Vial IV PUSH 12.5 mcg Q2H PRN Administration Pain Rated 4-6 Guaifenesin/Dextromethorphan 5 ml 05/18/21 08:59 Guaifenesin/Dextromethorphan 10 Ml Udc PO Q4H PRN Cough Hydralazine HCl 10 mg 05/18/21 07:42 05/19/21 06:28 Hydralazine Hcl 20 Mg/Ml Vial IV PUSH 10 mg Q8H PRN Administration Blood Pressure - High Sodium Chloride 500 mls @ 80 mls/hr 05/19/21 07:51 Normal Saline Iv IV CONT 05/19/21 1
[2021-05-19] MEDS: FLUTICASONE/SALMETEROL 115-21 MCG INHALER 1 PUFF 2 PUFF INHALATION ×2 (08:50→20:56)
[2021-05-19 08:51] VITALS: PULSE 97; O2SAT 95
[2021-05-19] MEDS: FAMOTIDINE 20 MG TABLET PO ×2 (09:41→20:48)
[2021-05-19] MEDS: SODIUM CHLORIDE 0.9% IV 500 ML 80 ML IV CONT (09:41)
[2021-05-19] MEDS: ENOXAPARIN 30 MG/0.3 ML SYRINGE SUB-Q (09:41)
--- NOTE | 2021-05-19 10:54 | PM.IMPN ---
Progress Note: A&P Assessment and Plan (1) Duodenal obstruction: Code(s): K31.5 - Obstruction of duodenum Status: Acute Assessment and Plan: This is a pleasant 80-year-old female with with hypertension and COPD who presented to the emergency department for evaluation of vomiting. She reports gastric reflux symptoms starting about 8 weeks ago, then for approximately 2 weeks began having worsening symptoms of abdominal bloating, esophageal dysphagia, hiccups, occasional belching, and emesis described as dark green which occurs within approximately 30 minutes of eating or drinking. She has not been eating much because of the aforementioned symptoms and she estimates having lost 10 lb in the past 2 weeks. It is my understanding that she was seen by her primary care provider today at which time her blood pressures were low and she was referred to the ER though her blood pressures have been pretty stable here. Labs today showed several abnormalities including hemoconcentration, hyponatremia, hypochloremia, acute kidney injury with a BUN and creatinine of 88 and 5.40 respectively. Renal ultrasound demonstrated severe right hydronephrosis and focal wall thickening of the posterior bladder wall suspicious for cancer or hematoma. CT Abd/ Pelvis showed Severe right hydronephrosis and hydroureter to the level of a 6 mm stone in mid right ureter. 13 mm stone in the common bile duct with mild intrahepatic and extrahepatic biliary duct dilatation. 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 She was admitted into the hospital for further evaluation and work up. While the patient was having a urology workup she continued to have nausea, vomiting and further workup was completed with a GI consultation to Dr. Iverson. 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 Gastroesophageal reflux. Upper GI series was completed showing a high-grade obstruction at the third portion of the duodenum past the area of the SMA, more concerning for an infiltrating pancreatic cancer as the etiology. These results reviewed by general surgery and radiologist. 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 Also moderate intrahepatic and extrahepatic biliary duct dilatation with 15 mm stone in the distal common bile duct. General surgery Dr. Buitrago, who has tried for multiple days to transfer patient to biliary specialists at [facility] or [facility] and unable to. Discussed case with [facility] biliary fellow Dr. Randy Zazueta and hospitalist Dr. Sammy Glass. Dr. Butirago performed to surgery 05/13/2021 (POD #5) with Gastrojejunostomy, Shyam-Cut biopsy pancreatic mass. Surgery went well and pending pancreatic biopsy results. Patients pain is improved from surgery. NG tube was removed yesterday, she is tolerating a diet without any issues. Continues to pass gas. No bowel movement yet. Surgeries advancing to soft diet. They say she may be able to be discharged tomorrow. Continue monitoring. Appreciate GI and Surgery input. (2) Pancreatic mass: Code(s): K86.89 - Other specified diseases of pancreas Status: Chronic Assessment and Plan: Previous provider discussed plan of care and probable diagnosis of pancreatic cancer with both patient and daughter Asim 05/07 MRCP showed: 3.2 x 2.2 cm mass involving the pancreatic head and third portion of the duodenum causing duodenal obstruction, most likely pancreatic adenocarcinoma. Moderate intrahepatic and extrahepatic biliary duct dilatation with 15 mm stone in the distal common bile duct. Mild right hydronephrosis with improvement status post stent placement. Open
[2021-05-19] MEDS: ACETAMINOPHEN 325 MG TABLET 650 MG PO ×2 (11:18→20:47)
--- NOTE | 2021-05-19 11:27 | PCNFU ---
Nutrition Follow-Up Complete: Inadequate oral intake related to frequent emesis as evidenced by pt. reported weight loss of 10 lbs. in two week and BMI of 17.9 Goal: Patient to meet estimated nutritional needs. Patient is progressing towards goal. We will continue current goal. Pt current nutrition is Low Fiber. Last recorded weight is 44.7 kg-stable Bowel Motility:+BM reported 05/16 Labs Reviewed:BUN 29, Na 131, Alb 3.4, K 5.1 Meds Noted:Pepcid, Advair, NS, Lovenox. Skin: WNL Additional Notes: Spoke with patient today, breakfast full liquids. Patient did tolerated diet. Diet order has advanced to Low Fiber diet for lunch. MD orders for Ensure compact BID providing an additional 220 kcals and 9 gms protein. PPN has been discontinued. Agree with diet orders. Monitor patient labs, medications, weight and oral intake every 5 days.
--- NOTE | 2021-05-19 13:33 | PCPTNOTE ---
Patient refused to take part in therapy at this time. Patient was educated on the benefits however continued to refuse stating I was up all morning walking around and would like to rest .
[2021-05-19] MEDS: BENZONATATE 100 MG CAPSULE PO (13:41)
[2021-05-19 14:00] VITALS: BP 159/68; PULSE 86; RESP 18; TEMP 36.3; O2SAT 92
[2021-05-19 16:44] LABS: Glucose Point of Care 118 mg/dl (65-105)
[2021-05-19 19:40] LABS: Potassium 4.6 mmol/L (3.4-5.0)
[2021-05-19] MEDS: ONDANSETRON INJ 4 MG/2 ML VIAL IV PUSH (20:48)
[2021-05-19 20:58] VITALS: O2SAT 94
[2021-05-19 21:57] VITALS: BP 154/72; PULSE 84; RESP 18; TEMP 36.1; O2SAT 92
[2021-05-19 23:42] LABS: Glucose Point of Care 95 mg/dl (65-105)
[2021-05-20] MEDS: ACETAMINOPHEN 325 MG TABLET 650 MG PO ×2 (04:09→21:05)
[2021-05-20] MEDS: BENZONATATE 100 MG CAPSULE PO ×2 (05:19→11:44)
[2021-05-20 05:28] LABS: Glucose Point of Care 86 mg/dl (65-105)
[2021-05-20 06:00] VITALS: BP 147/86; PULSE 86; RESP 18; TEMP 36.6; O2SAT 96
[2021-05-20 06:55] LABS: Alanine Aminotransferase 49 U/L (4-35); Albumin Level 3.1 g/dL (3.5-5.1); Alkaline Phosphatase 168 U/L (38-126); Anion Gap 3 mmol/L (8-16); Aspartate Amino Transferase 57 U/L (14-36); Bilirubin,Total 0.6 mg/dL (0.2-1.3); Blood Urea Nitrogen 26 mg/dL (7-17); Calcium 8.2 mg/dL (8.4-10.2); Carbon Dioxide 27 mmol/L (22-30); Chloride 98 mmol/L (98-107); Estimated CRCL calculation 26 ml/min; Estimated Glomerular Filt Rate 48; Glucose 87 mg/dL (65-110); Potassium 4.7 mmol/L (3.4-5.0); Sodium 128 mmol/L (137-145)
--- NOTE | 2021-05-20 07:50 | PM.PNGS ---
Progress Note: A&P Assessment and Plan (1) Vomiting (bilious) following gastrointestinal surgery: Code(s): K91.0 - Vomiting following gastrointestinal surgery Status: Acute Assessment and Plan: 1 episode of emesis last night. Abdomen not distended this morning but will get obstructive series to better evaluate. Creatinine slightly higher today. Will recheck tomorrow. (2) Duodenal obstruction: Code(s): K31.5 - Obstruction of duodenum Status: Acute Assessment and Plan: Status post gastrojejunostomy 1 week ago today. (3) Pancreatic adenocarcinoma: Code(s): C25.9 - Malignant neoplasm of pancreas, unspecified Status: Chronic Assessment and Plan: Patient to see hepatobiliary surgeon at [facility] as outpatient after discharge to consider further treatment. (4) Right ureteral stone: Code(s): N20.1 - Calculus of ureter Status: Chronic Assessment and Plan: Ureteral stent in place. Lowery catheter removed and voiding without difficulty. Subjective Subjective Date/Time Seen: 05/20/21 07:50 Post Op day: #7 Patient reports: flatus, nausea, vomiting and afebrile Interval history: had an episode of vomiting last night. Not really nauseated this morning but no appetite. Review of Systems Review of Systems: All systems reviewed & are unremarkable except as noted in HPI and below Constitutional: Constitutional: Denies body ache(s), Denies chills, Denies fever(s) and Denies headache(s) Cardiovascular: Cardiovascular: Denies chest pain and Denies dyspnea Respiratory: Respiratory: Denies cough and Denies dyspnea Gastrointestinal: Gastrointestinal: Reports as per HPI, Reports nausea and Reports vomiting ( Patient thinks she possibly 8 too fast last night) Neurologic: Denies confusion and Denies headache(s) Exam Const: General: comfortable and no acute distress; No confusion Orientation/consciousness: patient oriented x3 and No confusion GI: Inspection: incision ( clean, dry, healing well.) and scaphoid GI Palp: Yes Soft to palpation, Yes Tenderness to palpation present (GI) ( Mild incisional tenderness.), No Guarding due to palpation present (GI) and No Rebound tenderness present Neuro: General: patient oriented x3, no focal motor deficits and No confusion Psych: Affect: normal affect Insight: Good insight present (Psych) Judgement: Good judgement present (Psych) Objective Data Vital Signs Vital Signs: Vital Signs - 24 hr 05/19/21 08:51 05/19/21 14:00 05/19/21 20:58 Temperature 36.3 C L Pulse Rate 97 86 Respiratory Rate 18 Blood Pressure 159/68 H Pulse Oximetry 95 92 94 05/19/21 21:57 05/20/21 06:00 Temperature 36.1 C L 36.6 C Pulse Rate 84 86 Respiratory Rate 18 18 Blood Pressure 154/72 H 147/86 H Pulse Oximetry 92 96 Intake/Output Intake/Output: Intake & Output 05/17/21 05/18/21 05/19/21 05/20/21 23:59 23:59 23:59 23:59 Intake Total 2790 1160 1790 Output Total 2350 1250 400 Balance 440 -90 1790 -400 Meds/Results Medications: Active Medications Generic Name Dose Route Start Last Admin Trade Name Freq PRN Reason Stop Dose Admin Acetaminophen 650 mg 05/18/21 12:27 05/20/21 04:09 Acetaminophen 325 Mg Tablet PO 650 mg Q6H PRN Administration Mild Pain (1-3) or Fever Albuterol 2 puff 05/05/21 09:16 Albuterol Sulfate (*Sp) Aerosol 1 Puff INHALATION QID PRN Pain Benzonatate 100 mg 05/18/21 09:02 05/20/21 05:19 Benzonatate 100 Mg Capsule PO 100 mg TID PRN Administration cough Enoxaparin Sodium 30 mg 05/14/21 09:00 05/19/21 09:41 Enoxaparin 30 Mg/0.3 Ml Syringe SUB-Q 30 mg DAILY CATERINA Administration Famotidine 20 mg 05/18/21 21:00 05/19/21 20:48 Famotidine 20 Mg Tablet PO 20 mg Q12HR CATERINA Administration Fentanyl Citrate 25 mcg 05/13/21 16:19 05/16/21 23:36 Fentanyl Citrate Inj (*Crx) 100 Mcg/2 Ml Vial IV PUSH 25
[2021-05-20] MEDS: FLUTICASONE/SALMETEROL 115-21 MCG INHALER 1 PUFF 2 PUFF INHALATION ×2 (08:40→20:03)
[2021-05-20 08:43] LABS: Glucose Point of Care 106 mg/dl (65-105)
[2021-05-20] MEDS: FAMOTIDINE 20 MG TABLET PO ×2 (08:59→21:02)
[2021-05-20] MEDS: ENOXAPARIN 30 MG/0.3 ML SYRINGE SUB-Q (08:59)
[2021-05-20 14:00] VITALS: BP 127/60; PULSE 75; RESP 20; TEMP 36.4; O2SAT 94
[2021-05-20] MEDS: CALCIUM CARBONATE (TUMS) 500 MG (200 MG ELEMENTAL) 400 MG PO ×2 (14:06→21:15)
--- NOTE | 2021-05-20 14:56 | PM.IMPN ---
Progress Note: A&P Additional Plan Assessment and Plan (1) Duodenal obstruction: Code(s): K31.5 - Obstruction of duodenum Status: Acute Assessment and Plan: - General surgery Dr. Buitrago, who has tried for multiple days to transfer patient to biliary specialists at [facility], [place] or [facility] and unable to. Discussed case with [facility] biliary fellow Dr. Randy Zazueta and hospitalist Dr. Sammy Glass. [facility] biliary will follow at discharge. - Dr. Buitrago performed to surgery 05/13/2021 (POD #7) with Gastrojejunostomy, Shyam-Cut biopsy pancreatic mass. - Biopsy showed Pancreatic Ductal Adenocarcinoma. - Patients pain is improved from surgery. - Pt. with vomiting overnight. Obstructive series ordered this AM and was negative. Diet of soft diet restarted. - Encouraged po intake. - Monitoring. (2) Pancreatic mass: Code(s): K86.89 - Other specified diseases of pancreas Status: Chronic Assessment and Plan: - Previous provider discussed plan of care and probable diagnosis of pancreatic cancer with both patient and daughter Asim 05/07 MRCP showed: 3.2 x 2.2 cm mass involving the pancreatic head and third portion of the duodenum causing duodenal obstruction, biopsy confirmed pancreatic adenocarcinoma. - Moderate intrahepatic and extrahepatic biliary duct dilatation with 15 mm stone in the distal common bile duct. - Open gastro jejunostomy would probably set the patient's treatment of her pancreatic tumor back 6 weeks or more. - Per [facility] Dr. Coburn, if stenting can be done to relieve the duodenal obstruction, preoperative chemotherapy can proceed soon after the procedure. If open surgery was performed, i.e. gastro jejunostomy, chemotherapy would have to wait at least 6 weeks. Since we can not transfer the patient this may have to take place despite the disadvantages. He agrees that while not optimal, in our current circumstances gastrojejunostomy may be necessary. - 05/[address] Buitrago said he spoke to [facility] and [facility] attempting to get patient transferred , but was unable to [place] continues to be at capacity and unable to take any transfers. - Biopsy was taken to 2/16/22 during her surgery and results show PANCREATIC DUCTAL ADENOCARCINOMA - Outpatient follow up with [facility] is a possibility as pt. is stable. (3) Right ureteral stone: Code(s): N20.1 - Calculus of ureter Status: Chronic Assessment and Plan: - During admission she was found to have a right ureteral stone and underwent a Cystoscopy, right retrograde pyelogram, right ureteroscopy with holmium laser, right ureteral stent placement [address] Fleming 05/05/21. She was also found to have Urinary Retention and a Lowery Catheter was placed. - Further imaging completed 05/07/21 to see if there were any stones in place which showed Some smaller stone fragments along mid aspect of the right ureteral stent. Improvement in mild right hydronephrosis. - Dr. Newsome would like to do a Cystoscopy, right ureteroscopy with stone extraction, right stent exchange, right retrograde pyelogram, possible holmium laser in 3 weeks. Urology will call patient to schedule as an outpatient. 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 -Radiologist feels there is an abnormal appearance of what was initially read as a gallstone on the CT. -See findings of MRCP and plan above - needs addressed -liver enzymes slightly elevated, could be postop verses malnutrition. She is eating and drinking now. She denies any right upper quadrant pain at this time. (5) Acute kidney failure: Qualifiers: A
--- NOTE | 2021-05-20 15:20 | PM.IMPN ---
Progress Note: A&P Additional Plan Assessment and Plan (1) Duodenal obstruction: Code(s): K31.5 - Obstruction of duodenum Status: Acute Assessment and Plan: - General surgery Dr. Buitargo, who has tried for multiple days to transfer patient to biliary specialists at [facility] or [facility] and unable to. Discussed case with [facility] biliary fellow Dr. Randy Zazueta and hospitalist Dr. Sammy Glass. [facility] biliary will follow at discharge. - Dr. Buitrago performed to surgery 05/13/2021 (POD #7) with Gastrojejunostomy, Shyam-Cut biopsy pancreatic mass. - Biopsy showed Pancreatic Ductal Adenocarcinoma. - Patients pain is improved from surgery. - Pt. with vomiting overnight. Obstructive series ordered this AM and was negative. Diet of soft diet restarted. - Encouraged po intake. - Monitoring. - Upper GI tomorrow with Gastrograffin per Surgery. (2) Pancreatic mass: Code(s): K86.89 - Other specified diseases of pancreas Status: Chronic Assessment and Plan: - Previous provider discussed plan of care and probable diagnosis of pancreatic cancer with both patient and daughter Asim 05/07 MRCP showed: 3.2 x 2.2 cm mass involving the pancreatic head and third portion of the duodenum causing duodenal obstruction, biopsy confirmed pancreatic adenocarcinoma. - Moderate intrahepatic and extrahepatic biliary duct dilatation with 15 mm stone in the distal common bile duct. - Open gastro jejunostomy would probably set the patient's treatment of her pancreatic tumor back 6 weeks or more. - Per [facility] Dr. Coburn, if stenting can be done to relieve the duodenal obstruction, preoperative chemotherapy can proceed soon after the procedure. If open surgery was performed, i.e. gastro jejunostomy, chemotherapy would have to wait at least 6 weeks. Since we can not transfer the patient this may have to take place despite the disadvantages. He agrees that while not optimal, in our current circumstances gastrojejunostomy may be necessary. - 05/[address] Buitrago said he spoke to [facility] and [facility] attempting to get patient transferred , but was unable to [place] continues to be at capacity and unable to take any transfers. - Biopsy was taken to 2/16/22 during her surgery and results show PANCREATIC DUCTAL ADENOCARCINOMA - Outpatient follow up with [facility] Biliary is a possibility as pt. is stable. (3) Right ureteral stone: Code(s): N20.1 - Calculus of ureter Status: Chronic Assessment and Plan: - During admission she was found to have a right ureteral stone and underwent a Cystoscopy, right retrograde pyelogram, right ureteroscopy with holmium laser, right ureteral stent placement [address] Fleming 05/05/21. She was also found to have Urinary Retention and a Lowery Catheter was placed. - Further imaging completed 05/07/21 to see if there were any stones in place which showed Some smaller stone fragments along mid aspect of the right ureteral stent. Improvement in mild right hydronephrosis. - Dr. Newsome would like to do a Cystoscopy, right ureteroscopy with stone extraction, right stent exchange, right retrograde pyelogram, possible holmium laser in 3 weeks. Urology will call patient to schedule as an outpatient. 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 -Radiologist feels there is an abnormal appearance of what was initially read as a gallstone on the CT. -See findings of MRCP and plan above - needs addressed -liver enzymes slightly elevated, could be postop verses malnutrition. She is eating and drinking now. She denies any right upper quadrant pain at this time. (5) Acu
[2021-05-20] MEDS: ONDANSETRON INJ 4 MG/2 ML VIAL IV PUSH ×2 (15:43→21:10)
[2021-05-20 20:00] VITALS: PULSE 74; RESP 18; O2SAT 98
[2021-05-20 20:04] VITALS: PULSE 88; RESP 20; O2SAT 97
[2021-05-20 21:36] VITALS: BP 137/75; PULSE 74; RESP 18; TEMP 36.4; O2SAT 98
[2021-05-21] MEDS: BENZONATATE 100 MG CAPSULE PO (05:59)
[2021-05-21 06:00] VITALS: BP 146/72; PULSE 74; RESP 18; TEMP 36.3; O2SAT 99
[2021-05-21 06:52] LABS: Hematocrit 33.1 % (37.0-47.0); Hemoglobin 10.9 g/dL (12.0-15.0); Mean Corpuscular HGB Conc 32.9 g/dl (32-36); Mean Corpuscular Hemoglobin 31.4 pg (26-34); Mean Corpuscular Volume 95.4 fl (80-100); Mean Platelet Volume 9.5 fl (7.4-10.4); Platelet Count Result 412 k/mm3 (150-375); Red Blood Count 3.47 M/mm3 (4.2-5.4); Red Cell Distribution Width 12.2 % (11.5-14.5); White Blood Count 8.2 K/mm3 (4.5-10.0)
[2021-05-21 07:03] LABS: Anion Gap 4 mmol/L (8-16); Blood Urea Nitrogen 22 mg/dL (7-17); Calcium 8.3 mg/dL (8.4-10.2); Carbon Dioxide 27 mmol/L (22-30); Chloride 98 mmol/L (98-107); Estimated CRCL calculation 29 ml/min; Estimated Glomerular Filt Rate 54; Glucose 64 mg/dL (65-110); Potassium 4.7 mmol/L (3.4-5.0); Sodium 129 mmol/L (137-145)
[2021-05-21] MEDS: ACETAMINOPHEN 325 MG TABLET 650 MG PO (08:36)
[2021-05-21] MEDS: FAMOTIDINE 20 MG TABLET PO (08:37)
[2021-05-21] MEDS: ENOXAPARIN 30 MG/0.3 ML SYRINGE SUB-Q (08:37)
[2021-05-21] MEDS: FLUTICASONE/SALMETEROL 115-21 MCG INHALER 1 PUFF 2 PUFF INHALATION ×2 (08:50→20:02)
[2021-05-21 09:11] VITALS: RESP 20; O2SAT 97
--- NOTE | 2021-05-21 12:32 | PM.PNGS ---
Progress Note: A&P Assessment and Plan (1) Vomiting (bilious) following gastrointestinal surgery: Code(s): K91.0 - Vomiting following gastrointestinal surgery Status: Acute Assessment and Plan: Obstructive series unremarkable with no free intraperitoneal gas or dilated loops of bowel. Still complaining of reflux. Will get Gastrografin upper GI today. If this looks good, then she could potentially discharge home tomorrow. The gastrografin should also help stimulate her bowels. Encouraged increasing activity. (2) Duodenal obstruction: Code(s): K31.5 - Obstruction of duodenum Status: Acute Assessment and Plan: Status post gastrojejunostomy, POD#8 (3) Pancreatic adenocarcinoma: Code(s): C25.9 - Malignant neoplasm of pancreas, unspecified Status: Chronic Assessment and Plan: Patient to see hepatobiliary surgeon at [facility] as outpatient after discharge to consider further treatment. (4) Right ureteral stone: Code(s): N20.1 - Calculus of ureter Status: Chronic Assessment and Plan: Ureteral stent in place. Lowery catheter removed and voiding without difficulty. Additional Plan I have discussed the plan of care with Dr. Buitrago. Subjective Subjective Date/Time Seen: 05/21/21 12:32 Post Op day: 8 (Gastro jejunostomy) Patient reports: no new complaints, voiding w/o difficulty and afebrile Interval history: patient seen and examined. Pt reports still dealing with symptoms of reflux and heartburn. Otherwise, tolerating her diet without any nausea or vomiting. Denies any bloating or abdominal pain. Reports some incisional pain with movement, but tolerable. Reports lots of flatus today, but no BM for 3 days. Review of Systems Review of Systems: All systems reviewed & are unremarkable except as noted in HPI and below Constitutional: Constitutional: Reports as per HPI, Reports no additional constitutional complaints, Denies chills and Denies fever(s) Cardiovascular: Cardiovascular: Reports no additional cardiovascular complaints, Denies chest pain and Denies leg edema Respiratory: Respiratory: Reports no additional respiratory complaints, Denies cough and Denies dyspnea Gastrointestinal: Gastrointestinal: Reports as per HPI and Reports no additional gastrointestinal complaints Neurologic: Reports system reviewed and no additional complaints, except as documented, Denies Abnormal speech present and Denies focal weakness Exam Const: General: comfortable, no acute distress and alert Orientation/consciousness: patient oriented x3 Resp: Auscultation: clear to auscultation bilaterally Cardio: Rate: regular rate Rhythm: regular rhythm GI: Inspection: non-distended and incision ( clean, dry, healing well.) GI Palp: Yes Soft to palpation, Yes Tenderness to palpation present (GI) ( Incisional) and No Guarding due to palpation present (GI) Auscultation: normal bowel sounds Neuro: General: moves all extremities and no focal motor deficits Extrem: General: no calf tenderness and no edema Psych: Insight: Good insight present (Psych) Judgement: Good judgement present (Psych) Objective Data Vital Signs Vital Signs: Vital Signs - 24 hr 05/20/21 14:00 05/20/21 20:00 05/20/21 20:04 Temperature 97.6 F Pulse Rate 75 74 88 Respiratory Rate 20 18 20 Blood Pressure 127/60 Pulse Oximetry 94 98 97 05/20/21 21:36 05/21/21 06:00 05/21/21 09:11 Temperature 97.6 F 97.4 F L Pulse Rate 74 74 Respiratory Rate 18 18 20 Blood Pressure 137/75 146/72 H Pulse Oximetry 98 99 97 Intake/Output Intake/Output: Intake & Output 05/18/21 05/19/21 05/20/21 05/21/21 23:59 23:59 23:59 23:59 Intake Total 1160 1790 5195 320 Output Total 1250 400 Balance -90 1790 4795 320 Meds/Results Medications: Active Medications Generic Name Dose Route Start Last Admin Trade Name Freq PRN Reason Stop Dose Admin Acetaminophen 650 mg
[2021-05-21 14:00] VITALS: BP 146/64; PULSE 78; RESP 18; TEMP 36.3; O2SAT 97
[2021-05-21] MEDS: ONDANSETRON INJ 4 MG/2 ML VIAL IV PUSH (16:35)
[2021-05-21] MEDS: KCL 20 MEQ/D5/0.9% SOD CHL 1,000 ML 100 ML IV CONT (17:39)
[2021-05-21 20:02] VITALS: O2SAT 95
[2021-05-21] MEDS: FAMOTIDINE 20 MG/2 ML VIAL IV PUSH (20:23)
[2021-05-21 22:00] VITALS: BP 144/56; PULSE 69; RESP 18; TEMP 36.6; O2SAT 95
[2021-05-22] MEDS: KCL 20 MEQ/D5/0.9% SOD CHL 1,000 ML 100 ML IV CONT (05:12)
[2021-05-22] MEDS: ONDANSETRON INJ 4 MG/2 ML VIAL IV PUSH ×2 (07:31→16:27)
[2021-05-22] MEDS: fentaNYL CITRATE INJ (*CRX) 100 MCG/2 ML VIAL 12.5 MCG IV PUSH (07:32)
[2021-05-22] MEDS: FAMOTIDINE 20 MG/2 ML VIAL IV PUSH ×2 (08:49→20:01)
[2021-05-22] MEDS: ENOXAPARIN 30 MG/0.3 ML SYRINGE SUB-Q (08:49)
[2021-05-22 10:56] LABS: Basophils Absolute Auto 0.1 K/mm3 (0.0-0.1); Basophils Percent Auto 0.6 % (0.2-1.2); Eosinophils Absolute Auto 0.1 K/mm3 (0-0.3); Eosinophils Percent Auto 1.3 % (0-4.4); Hematocrit 36.3 % (37.0-47.0); Hemoglobin 11.7 g/dL (12.0-15.0); Immature Granulocyte Absolute 0.04 K/mm3 (0.00-0.031); Immature Granulocyte Percent A 0.5 % (0-0.5); Lymphocytes Absolute Auto 1.67 K/mm3 (0.9-3.2); Lymphocytes Percent Auto 19.7 % (18.3-44.2); Mean Corpuscular HGB Conc 32.2 g/dl (32-36); Mean Corpuscular Hemoglobin 32.1 pg (26-34); Mean Corpuscular Volume 99.7 fl (80-100); Mean Platelet Volume 9.6 fl (7.4-10.4); Monocytes Absolute Auto 0.6 K/mm3 (0.1-0.6); Monocytes Percent Auto 7.2 % (2.6-8.5); Neutrophils Percent Auto 70.7 % (45.5-73.1); Platelet Count Result 458 k/mm3 (150-375); Red Blood Count 3.64 M/mm3 (4.2-5.4); Red Cell Distribution Width 12.5 % (11.5-14.5); White Blood Count 8.5 K/mm3 (4.5-10.0)
[2021-05-22 11:11] LABS: Partial Thromboplastin Time 34.2 SECONDS (22.3-36.8)
[2021-05-22] MEDS: LIDOCAINE HCL 1% PF INJ 5 ML VIAL INFILTRATE (11:15)
[2021-05-22 11:29] LABS: Alanine Aminotransferase 43 U/L (4-35); Albumin Level 3.2 g/dL (3.5-5.1); Alkaline Phosphatase 152 U/L (38-126); Anion Gap 6 mmol/L (8-16); Aspartate Amino Transferase 37 U/L (14-36); Bilirubin,Total 0.5 mg/dL (0.2-1.3); Blood Urea Nitrogen 16 mg/dL (7-17); Calcium 8.3 mg/dL (8.4-10.2); Carbon Dioxide 26 mmol/L (22-30); Chloride 103 mmol/L (98-107); Estimated CRCL calculation 34 ml/min; Estimated Glomerular Filt Rate > 60; Glucose 126 mg/dL (65-110); Potassium 4.7 mmol/L (3.4-5.0); Sodium 135 mmol/L (137-145)
[2021-05-22 11:36] LABS: Transferrin 202 mg/dL (206-381)
[2021-05-22] MEDS: AMINO ACIDS 5%/D15W/E-LYTES/CA 2,000 ML with MULTIVITAMINS-12 INJ VIAL 1 2.5 ML, MULTIV... 40 ML IV CONT (12:19)
[2021-05-22] MEDS: FAT EMULSIONS IV 20% 250 ML 20.83 ML IVPB (12:19)
[2021-05-22] MEDS: CENTRAL LINE FLUSH 10 ML IV PUSH ×2 (12:30→20:01)
--- NOTE | 2021-05-22 12:32 | PM.IMPN ---
Progress Note: A&P Additional Plan Assessment and Plan (1) Duodenal obstruction: Code(s): K31.5 - Obstruction of duodenum Status: Acute Assessment and Plan: - General surgery Dr. Buitrago, who has tried for multiple days to transfer patient to biliary specialists at [facility] or [facility] and unable to. Discussed case with [facility] biliary fellow Dr. Randy Zazueta and hospitalist Dr. Sammy Glass. [facility] biliary will follow at discharge. - Dr. Buitrago performed to surgery 05/13/2021 (POD #7) with Gastrojejunostomy, Shyam-Cut biopsy pancreatic mass. - Biopsy showed Pancreatic Ductal Adenocarcinoma. - Patients pain is improved from surgery. - Pt. with vomiting overnight. Obstructive series ordered this AM and was negative. Diet of soft diet restarted. - Encouraged po intake. - Monitoring. - Upper GI performed on 05/21/2021 showed no passage of contrast into the Jejunum. Pt with subsequent emesis of 1100 ml, and requirement of NG tube placement. (2) Pancreatic mass: Code(s): K86.89 - Other specified diseases of pancreas Status: Chronic Assessment and Plan: - Previous provider discussed plan of care and probable diagnosis of pancreatic cancer with both patient and daughter Asim 05/07 MRCP showed: 3.2 x 2.2 cm mass involving the pancreatic head and third portion of the duodenum causing duodenal obstruction, biopsy confirmed pancreatic adenocarcinoma. - Moderate intrahepatic and extrahepatic biliary duct dilatation with 15 mm stone in the distal common bile duct. - Open gastro jejunostomy would probably set the patient's treatment of her pancreatic tumor back 6 weeks or more. - Per [facility] Dr. Coburn, if stenting can be done to relieve the duodenal obstruction, preoperative chemotherapy can proceed soon after the procedure. If open surgery was performed, i.e. gastro jejunostomy, chemotherapy would have to wait at least 6 weeks. Since we can not transfer the patient this may have to take place despite the disadvantages. He agrees that while not optimal, in our current circumstances gastrojejunostomy may be necessary. - 05/[address] Buitrago said he spoke to [facility]/[place] and [facility] attempting to get patient transferred , but was unable to [place] continues to be at capacity and unable to take any transfers. - Biopsy was taken to 05/13/21 during her surgery and results show PANCREATIC DUCTAL ADENOCARCINOMA - Outpatient follow up with [facility] if pt. is discharged with stable and if not, pt. will follow up as inpatient transfer. - Given pt's new findings overnight, we are awaiting the recommendations of General Surgery. (3) Right ureteral stone: Code(s): N20.1 - Calculus of ureter Status: Chronic Assessment and Plan: - During admission she was found to have a right ureteral stone and underwent a Cystoscopy, right retrograde pyelogram, right ureteroscopy with holmium laser, right ureteral stent placement [address] Fleming 05/05/21. She was also found to have Urinary Retention and a Lowery Catheter was placed. - Further imaging completed 05/07/21 to see if there were any stones in place which showed Some smaller stone fragments along mid aspect of the right ureteral stent. Improvement in mild right hydronephrosis. - Dr. Newsome would like to do a Cystoscopy, right ureteroscopy with stone extraction, right stent exchange, right retrograde pyelogram, possible holmium laser in 3 weeks. Urology will call patient to schedule as an outpatient. 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 -Radiologist feels there is an abnormal appearance of what was initially read as a gallstone on the CT. -See findings of MRCP a
[2021-05-22 14:00] VITALS: BP 157/61; PULSE 69; RESP 20; TEMP 36.4; O2SAT 100
--- NOTE | 2021-05-22 14:21 | PCNFU ---
Nutrition Follow-Up Complete: Inadequate oral intake related to frequent emesis as evidenced by pt. reported weight loss of 10 lbs. in two week and BMI of 17.9 Goal: Patient to meet estimated nutritional needs. Pt is not progressing towards goal Pt current nutrition is NPO Last recorded weight is 47.1kg, up 2.7kg from last reported weight on 05/20/21. Bowel Motility: +BM 05/19 reported Labs Reviewed: hgb 11.7, hct 36.3, alb 3.2, Na 135, Ca 8.3, AST 37, ALT 43, ALP 152, Glu 126, Transferrin 202 Meds Noted: Clinimix E 5%/15%, lovenox, pepcid, 20% lipids, sublimaze, zofran, Kcl Skin: abdomen wound Additional Notes: RDN consulted for TPN. Per MD notes, pt has an Upper GI with Gastrografin yesterday (05/21/21) and it did not pass through and had an episode of emesis shortly after. NG tube in place. Pt has been made NPO and TPN has been initiated at 40mL/hr. TPN running at a rate of 40mL/hr with 20% lipids will provide 1182kcal and 48g of protein, meeting 81% of estimated kcal needs and 96% of estimated protein needs. Recommend increasing TPN rate by 10mL daily until a goal rate of 50mL/hr is met. TPN running at a rate of 50mL/hr over 24 hours with 20% lipids will provide 1352kcal and 60g of protein to meet 92% of estimated kcal needs and 100% of estimated protein needs. Recommend checking triglycerides. Agree with diet order at this time. Will continue to follow. Monitor patient every T/F.
--- NOTE | 2021-05-22 15:48 | PM.PNGS ---
Progress Note: A&P Assessment and Plan (1) Vomiting (bilious) following gastrointestinal surgery: Code(s): K91.0 - Vomiting following gastrointestinal surgery Status: Acute Assessment and Plan: NG tube has been placed. Patient will be NPO over the weekend. I called Dr. Iverson. Possibly she will need EGD on Tuesday or Tuesday. Hopefully with suction and time the gastrojejunostomy will open up and allow passage of gastric content. (2) Protein calorie malnutrition: Code(s): E46 - Unspecified protein-calorie malnutrition Status: Acute Assessment and Plan: Patient started on TPN due to persistent lack of oral nutrition (3) Pancreatic adenocarcinoma: Code(s): C25.9 - Malignant neoplasm of pancreas, unspecified Status: Chronic Assessment and Plan: Biopsy at surgery 9 days ago. (4) Duodenal obstruction: Code(s): K31.5 - Obstruction of duodenum Status: Acute Assessment and Plan: Bypassed with gastrojejunostomy 05/13/2021 (5) Right ureteral stone: Code(s): N20.1 - Calculus of ureter Status: Chronic Assessment and Plan: Lasered and stented. Ureteral stent remains in place. Subjective Subjective Date/Time Seen: 05/22/21 15:48 Post Op day: #9 Patient reports: no new complaints, feels better (After NG tube placed), pain is less and afebrile Interval history: NG placed in x-ray under fluoroscopy. Tip is barely in the stomach. I have ordered it to be advanced 6 in and repeat KUB to be done. Review of Systems Review of Systems: All systems reviewed & are unremarkable except as noted in HPI and below Constitutional: Constitutional: Denies headache(s) Cardiovascular: Cardiovascular: Denies chest pain and Denies dyspnea Respiratory: Respiratory: Denies cough and Denies dyspnea Gastrointestinal: Gastrointestinal: Reports as per HPI Neurologic: Denies confusion and Denies headache(s) Exam Const: General: comfortable and no acute distress; No confusion Orientation/consciousness: patient oriented x3 and No confusion GI: Inspection: non-distended and incision (Dry and healing well) GI Palp: Yes Soft to palpation, Yes Tenderness to palpation present (GI) (Minimal tenderness at incision), No Guarding due to palpation present (GI) and No Rebound tenderness present Neuro: General: patient oriented x3, no focal motor deficits and No confusion Extrem: General: no calf tenderness and no edema Psych: Affect: normal affect Insight: Good insight present (Psych) Judgement: Good judgement present (Psych) Objective Data Vital Signs Vital Signs: Vital Signs - 24 hr 05/21/21 20:02 05/21/21 22:00 05/22/21 14:00 Temperature 36.6 C 36.4 C Pulse Rate 69 69 Respiratory Rate 18 20 Blood Pressure 144/56 H 157/61 H Pulse Oximetry 95 95 100 Intake/Output Intake/Output: Intake & Output 05/19/21 05/20/21 05/21/21 05/22/21 23:59 23:59 23:59 23:59 Intake Total 1790 5195 370 1000 Output Total 400 1100 Balance 1790 4795 -730 1000 Meds/Results Medications: Active Medications Generic Name Dose Route Start Last Admin Trade Name Freq PRN Reason Stop Dose Admin Al Hydrox/Mg Hydrox/Simethicone 30 ml 05/21/21 11:28 Mag Hydrox/Al Hydrox/Simeth 30 Ml Udc PO Q6H PRN Indigestion Albuterol 2 puff 05/05/21 09:16 Albuterol Sulfate (*Sp) Aerosol 1 Puff INHALATION QID PRN Pain Benzonatate 100 mg 05/18/21 09:02 05/21/21 05:59 Benzonatate 100 Mg Capsule PO 100 mg TID PRN Administration cough Enoxaparin Sodium 30 mg 05/14/21 09:00 05/22/21 08:49 Enoxaparin 30 Mg/0.3 Ml Syringe SUB-Q 30 mg DAILY CATERINA Administration Famotidine 20 mg 05/21/21 21:00 05/22/21 08:49 Famotidine 20 Mg/2 Ml Vial IV PUSH 20 mg Q12HR CATERINA Administration Fentanyl Citrate 25 mcg 05/13/21 16:19 05/16/21 23:36 Fentanyl Citrate Inj (*Crx) 100 Mcg/2 Ml Vial IV PUSH 25 mcg Q2H PRN Admi
[2021-05-22] MEDS: KCL 20 MEQ/D5/0.9% SOD CHL 1,000 ML 80 ML IV CONT (16:14)
[2021-05-22] MEDS: fentaNYL CITRATE INJ (*CRX) 100 MCG/2 ML VIAL 25 MCG IV PUSH (16:27)
[2021-05-22] MEDS: CENTRAL LINE FLUSH 20 ML IV PUSH (17:30)
[2021-05-22 17:47] LABS: Basophils Absolute Auto 0.1 K/mm3 (0.0-0.1); Basophils Percent Auto 0.6 % (0.2-1.2); Eosinophils Absolute Auto 0.2 K/mm3 (0-0.3); Eosinophils Percent Auto 1.9 % (0-4.4); Hematocrit 31.5 % (37.0-47.0); Hemoglobin 10.2 g/dL (12.0-15.0); Immature Granulocyte Absolute 0.06 K/mm3 (0.00-0.031); Immature Granulocyte Percent A 0.6 % (0-0.5); Lymphocytes Absolute Auto 1.98 K/mm3 (0.9-3.2); Lymphocytes Percent Auto 19.9 % (18.3-44.2); Mean Corpuscular HGB Conc 32.4 g/dl (32-36); Mean Corpuscular Hemoglobin 32.6 pg (26-34); Mean Corpuscular Volume 100.6 fl (80-100); Mean Platelet Volume 9.2 fl (7.4-10.4); Monocytes Absolute Auto 0.8 K/mm3 (0.1-0.6); Monocytes Percent Auto 7.6 % (2.6-8.5); Neutrophils Absolute Auto 6.9 K/mm3 (1.3-6.7); Neutrophils Percent Auto 69.4 % (45.5-73.1); Platelet Count Result 427 k/mm3 (150-375); Red Blood Count 3.13 M/mm3 (4.2-5.4); Red Cell Distribution Width 12.6 % (11.5-14.5)
[2021-05-22 18:01] LABS: Alanine Aminotransferase 37 U/L (4-35); Albumin Level 2.9 g/dL (3.5-5.1); Alkaline Phosphatase 121 U/L (38-126); Anion Gap 1 mmol/L (8-16); Aspartate Amino Transferase 30 U/L (14-36); Bilirubin,Total 0.3 mg/dL (0.2-1.3); Blood Urea Nitrogen 14 mg/dL (7-17); Calcium 7.8 mg/dL (8.4-10.2); Carbon Dioxide 26 mmol/L (22-30); Chloride 106 mmol/L (98-107); Estimated Glomerular Filt Rate > 60; Glucose 150 mg/dL (65-110); Magnesium 1.9 mg/dL (1.6-2.3); Potassium 4.8 mmol/L (3.4-5.0); Sodium 133 mmol/L (137-145)
[2021-05-22] MEDS: FLUTICASONE/SALMETEROL 115-21 MCG INHALER 1 PUFF 2 PUFF INHALATION (20:19)
[2021-05-22 22:00] VITALS: BP 149/56; PULSE 68; RESP 18; TEMP 37.1; O2SAT 98
[2021-05-22 23:40] LABS: Glucose Point of Care 139 mg/dl (65-105)
[2021-05-23] MEDS: ONDANSETRON INJ 4 MG/2 ML VIAL IV PUSH (01:51)
[2021-05-23] MEDS: fentaNYL CITRATE INJ (*CRX) 100 MCG/2 ML VIAL 25 MCG IV PUSH (01:52)
[2021-05-23] MEDS: KCL 20 MEQ/D5/0.9% SOD CHL 1,000 ML 80 ML IV CONT ×2 (05:00→17:47)
[2021-05-23 05:44] VITALS: BP 155/68; PULSE 78; RESP 16; TEMP 37.3; O2SAT 96
[2021-05-23 06:00] LABS: Glucose Point of Care 136 mg/dl (65-105)
[2021-05-23 06:05] LABS: Hematocrit 31.5 % (37.0-47.0); Hemoglobin 9.9 g/dL (12.0-15.0); Mean Corpuscular HGB Conc 31.4 g/dl (32-36); Mean Corpuscular Hemoglobin 31.3 pg (26-34); Mean Corpuscular Volume 99.7 fl (80-100); Mean Platelet Volume 9.2 fl (7.4-10.4); Platelet Count Result 413 k/mm3 (150-375); Red Blood Count 3.16 M/mm3 (4.2-5.4); Red Cell Distribution Width 12.3 % (11.5-14.5); White Blood Count 9.3 K/mm3 (4.5-10.0)
[2021-05-23 06:21] LABS: Anion Gap 2 mmol/L (8-16); Blood Urea Nitrogen 15 mg/dL (7-17); Calcium 7.9 mg/dL (8.4-10.2); Carbon Dioxide 26 mmol/L (22-30); Chloride 107 mmol/L (98-107); Estimated Glomerular Filt Rate > 60; Glucose 125 mg/dL (65-110); Phosphorus 3.4 mg/dL (2.5-4.5); Potassium 4.9 mmol/L (3.4-5.0); Sodium 135 mmol/L (137-145)
[2021-05-23] MEDS: CENTRAL LINE FLUSH 10 ML IV PUSH ×4 (06:23→20:00)
[2021-05-23] MEDS: FLUTICASONE/SALMETEROL 115-21 MCG INHALER 1 PUFF 2 PUFF INHALATION ×2 (08:09→19:59)
[2021-05-23 08:14] VITALS: O2SAT 95
[2021-05-23] MEDS: FAMOTIDINE 20 MG/2 ML VIAL IV PUSH ×2 (08:23→20:00)
[2021-05-23] MEDS: ENOXAPARIN 30 MG/0.3 ML SYRINGE SUB-Q (08:23)
[2021-05-23 09:03] LABS: Triglycerides 97 mg/dL (<150)
[2021-05-23] MEDS: AMINO ACIDS 5%/D15W/E-LYTES/CA 2,000 ML with MULTIVITAMINS-12 INJ VIAL 1 2.5 ML, MULTIV... 40 ML IV CONT (12:09)
[2021-05-23] MEDS: FAT EMULSIONS IV 20% 250 ML 20.83 ML IVPB (12:15)
[2021-05-23] MEDS: BISACODYL 10 MG SUPPOSITORY RECTAL (12:21)
[2021-05-23 12:28] LABS: Glucose Point of Care 92 mg/dl (65-105)
[2021-05-23] MEDS: BENZOCAINE/MENTHOL (*BKC) 18 EA LOZENGE 1 LOZENGE PO (12:30)
--- NOTE | 2021-05-23 13:17 | PM.IMPN ---
Progress Note: A&P Additional Plan Additional Plan Assessment and Plan (1) Duodenal obstruction: Code(s): K31.5 - Obstruction of duodenum Status: Acute Assessment and Plan: - General surgery Dr. Buitrago, who has tried for multiple days to transfer patient to biliary specialists at [facility] or [facility] and unable to. Discussed case with [facility] biliary fellow Dr. Randy Zazueta and hospitalist Dr. Sammy Glass. [facility] biliary will follow at discharge. - Dr. Buitrago performed to surgery 05/13/2021 (POD #7) with Gastrojejunostomy, Shyam-Cut biopsy pancreatic mass. - Biopsy showed Pancreatic Ductal Adenocarcinoma. - Patients pain is improved from surgery. - Pt. with no flow of gastrograffin from stomach into jejunum on Upper GI. - Encouraged po intake. - Monitoring. - Upper GI performed on 05/21/2021 showed no passage of contrast into the Jejunum. Pt with subsequent emesis of 1100 ml, and requirement of NG tube placement. - Surgery has advised that she may require an EGD early this coming week to further evaluate why there is no movement of contrast into the Jejunum. - PPN has been restarted on patient. (2) Pancreatic mass: Code(s): K86.89 - Other specified diseases of pancreas Status: Chronic Assessment and Plan: - Previous provider discussed plan of care and probable diagnosis of pancreatic cancer with both patient and daughter Asim 05/07 MRCP showed: 3.2 x 2.2 cm mass involving the pancreatic head and third portion of the duodenum causing duodenal obstruction, biopsy confirmed pancreatic adenocarcinoma. - Moderate intrahepatic and extrahepatic biliary duct dilatation with 15 mm stone in the distal common bile duct. - Open gastro jejunostomy would probably set the patient's treatment of her pancreatic tumor back 6 weeks or more. - Per [facility] Dr. Coburn, if stenting can be done to relieve the duodenal obstruction, preoperative chemotherapy can proceed soon after the procedure. If open surgery was performed, i.e. gastro jejunostomy, chemotherapy would have to wait at least 6 weeks. Since we can not transfer the patient this may have to take place despite the disadvantages. He agrees that while not optimal, in our current circumstances gastrojejunostomy may be necessary. - 05/[address] Buitrago said he spoke to [facility] and [facility] attempting to get patient transferred , but was unable to [facility] continues to be at capacity and unable to take any transfers. - Biopsy was taken to 05/13/21 during her surgery and results show PANCREATIC DUCTAL ADENOCARCINOMA - Outpatient follow up with [facility] if pt. is discharged with stable and if not, pt. will follow up as inpatient transfer. - Given pt's new findings overnight, we are awaiting the recommendations of General Surgery. (3) Right ureteral stone: Code(s): N20.1 - Calculus of ureter Status: Chronic Assessment and Plan: - During admission she was found to have a right ureteral stone and underwent a Cystoscopy, right retrograde pyelogram, right ureteroscopy with holmium laser, right ureteral stent placement [address] Fleming 05/05/21. She was also found to have Urinary Retention and a Lowery Catheter was placed. - Further imaging completed 05/07/21 to see if there were any stones in place which showed Some smaller stone fragments along mid aspect of the right ureteral stent. Improvement in mild right hydronephrosis. - Dr. Newsome would like to do a Cystoscopy, right ureteroscopy with stone extraction, right stent exchange, right retrograde pyelogram, possible holmium laser in 3 weeks. Urology will call patient to schedule as an outpatient. (4) Choledocholithiasis: Code(s): K80.50 - Calculus of bile duct without cholangitis or cholecystitis without obstruction Status: Chronic Assessment and Plan: -CT suggested gal
[2021-05-23 14:00] VITALS: BP 146/66; PULSE 76; RESP 16; TEMP 36.8; O2SAT 99
--- NOTE | 2021-05-23 14:32 | PM.PNGS ---
Progress Note: A&P Assessment and Plan (1) Vomiting (bilious) following gastrointestinal surgery: Code(s): K91.0 - Vomiting following gastrointestinal surgery Status: Acute Assessment and Plan: NG tube has been placed. Patient will be NPO over the weekend. Dr. Iverson will possibly see her and possibly will need EGD on Tuesday or Tuesday. Hopefully with suction and time the gastrojejunostomy will open up and allow passage of gastric contents. (2) Protein calorie malnutrition: Code(s): E46 - Unspecified protein-calorie malnutrition Status: Acute Assessment and Plan: Patient started on TPN due to persistent lack of oral nutrition (3) Pancreatic adenocarcinoma: Code(s): C25.9 - Malignant neoplasm of pancreas, unspecified Status: Chronic Assessment and Plan: Biopsy at surgery 9 days ago. (4) Duodenal obstruction: Code(s): K31.5 - Obstruction of duodenum Status: Acute Assessment and Plan: Bypassed with gastrojejunostomy 05/13/2021 (5) Right ureteral stone: Code(s): N20.1 - Calculus of ureter Status: Chronic Assessment and Plan: Lasered and stented. Ureteral stent remains in place. Additional Plan I have discussed the plan of care with Dr. Buitrago. Subjective Subjective Date/Time Seen: 05/23/21 11:32 Patient states she feels okay today. Some throat irritation from the NG otherwise doing well. No recent bowel movement. ( will try Dulcolax suppository today). Post Op day: POD#10 Patient reports: no bowel movement Review of Systems Review of Systems: All systems reviewed & are unremarkable except as noted in HPI and below Constitutional: Constitutional: Reports as per HPI, Reports no additional constitutional complaints, Reports anorexia, Denies body ache(s), Denies chills, Reports fatigue, Denies fever(s), Denies headache(s), Reports lethargy, Denies poor appetite, Reports weakness and Reports weight loss Cardiovascular: Cardiovascular: Reports no additional cardiovascular complaints, Denies chest pain, Denies leg edema and Denies dyspnea Respiratory: Respiratory: Reports no additional respiratory complaints, Denies cough, Denies dyspnea and Denies wheezing Gastrointestinal: Gastrointestinal: Reports as per HPI, Reports abdominal pain ( incisional), Denies heartburn and Denies nausea Comments: NG in place with slight throat irritation Integumentary/Breasts: Skin/Breast: Denies wounds Neurologic: Reports system reviewed and no additional complaints, except as documented, Denies Abnormal speech present, Denies confusion, Reports dizziness ( worse with movement), Denies headache(s), Denies focal weakness, Denies Sensory deficit (Neuro) and Reports weakness Psychiatric: Psychiatric: Reports as per HPI and Denies confusion Endocrine: Endocrine: Reports fatigue Allergic/Immunologic: Allergic/Immunologic: Denies wheezing Exam Const: General: comfortable, no acute distress, alert, awake, Physically active, acute distress mild and ill appearing; No confusion Nutritional Appearance: cachectic Orientation/consciousness: oriented to place, oriented to time, patient oriented x3 and No confusion Limitations: no limitations HENMT: Head: normocephalic and atraumatic Ears: hearing grossly normal bilaterally and external ears normal General nose exam: Normal external nose present, no nasal discharge noted and no epistaxis Face and sinus: normal facial exam, face symmetric, no tenderness and dry mucous membranes Mouth: Yes Normal oral and palatal mucosa present, Yes dry mucous membranes and No tongue abnormal Eyes: Conjunctivae: conjunctivae normal Sclera: sclerae normal Pupils: Equal, round and reactive pupils present EOM: EOMs intact bilaterally Neck: Neck: no lymphadenopathy, nontender and No submandibular swelling Thyroid: thyroid normal and nontender Lymphatic: lymphadenopathy not noted Chest: Chest palpation & inspection: m
--- NOTE | 2021-05-23 15:15 | WPDGIPROGNO ---
Progress Note: A&P Assessment and Plan (1) Duodenal obstruction: Code(s): K31.5 - Obstruction of duodenum Status: Acute Assessment and Plan: few days ago she had emesis again, UGI showed that contrast did not pass gastrojejunostomy then NGT placed and started on TPN will assess with EGD to check site (anastomosis in antrum near greater curvature), based on findings may need to attempt again transfer to tertiary center ? consider stenting of lesion, etc unfortunately prognosis is poor given new diagnosis of pancreatic cancer (confirmed by bx)- will need oncology recommendation but probably just palliative treatment (2) Pancreatic adenocarcinoma: Code(s): C25.9 - Malignant neoplasm of pancreas, unspecified Status: Chronic Assessment and Plan: prognosis if poor will need follow-up with biliary/oncology team (3) Protein calorie malnutrition: Code(s): E46 - Unspecified protein-calorie malnutrition Status: Acute Assessment and Plan: on TPN for now (4) Vomiting (bilious) following gastrointestinal surgery: Code(s): K91.0 - Vomiting following gastrointestinal surgery Status: Acute Assessment and Plan: NGT in place, she is comfortable now (5) Choledocholithiasis: Code(s): 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 NGT placed since and started on TPN. She is not having BM or passing gas. Review of Systems Review of Systems: All systems reviewed & are unremarkable except as noted in HPI and below Exam Const: General: comfortable and no acute distress Other: thin HENMT: General nose exam: Normal nares present Eyes: General: appearance normal, both eyes and all related structures Neck: Neck: no JVD Resp: Auscultation: clear to auscultation bilaterally Cardio: Rate: regular rate Rhythm: regular rhythm GI: Inspection: non-distended GI Palp: Yes Soft to palpation Other: hypoactive BS, midline surgical wound looks ok, no pain Skin: General skin exam: normal color Neuro: Speech: normal speech Extrem: General: normal to inspection Psych: Mental Status: mental status grossly normal Objective Data Vital Signs Vital Signs: Vital Signs - 24 hr 05/22/21 22:00 05/23/21 05:44 05/23/21 08:14 Temperature 98.7 F 99.2 F Pulse Rate 68 78 Respiratory Rate 18 16 Blood Pressure 149/56 H 155/68 H Pulse Oximetry 98 96 95 Intake/Output Intake/Output: Intake & Output 05/20/21 05/21/21 05/22/21 05/23/21 23:59 23:59 23:59 23:59 Intake Total 5195 370 2030 2281 Output Total 400 9627 717 4526 Balance 4526 -542 1730 1081 Meds/Results Medications: Active Medications Generic Name Dose Route Start Last Admin Trade Name Freq PRN Reason Stop Dose Admin Al Hydrox/Mg Hydrox/Simethicone 30 ml 05/21/21 11:28 Mag Hydrox/Al Hydrox/Simeth 30 Ml Udc PO Q6H PRN Indigestion Albuterol 2 puff 05/05/21 09:16 Albuterol Sulfate (*Sp) Aerosol 1 Puff INHALATION QID PRN Pain Benzocaine 1 lozenge 05/23/21 10:32 05/23/21 12:30 Benzocaine/Menthol (*Bkc) 18 Ea Lozenge PO 1 lozenge PRN PRN Administration Sore Throat Benzonatate 100 mg 05/18/21 09:02 05/21/21 05:59 Benzonatate 100 Mg Capsule PO 100 mg TID PRN Administration cough Bisacodyl 10 mg 05/23/21 10:32 05/23/21 12:21 Bisacodyl 10 Mg Suppository RECTAL 10 mg QAM PRN Administration Constipation Enoxaparin Sodium 30 mg 05/14/21 09:00 05/23/21 08:23 Enoxaparin 30 Mg/0.3 Ml Syringe SUB-Q 30 mg DAILY CATERINA Administration Famotidine 20 mg 04/29
[2021-05-23] MEDS: CENTRAL LINE FLUSH 20 ML IV PUSH (17:14)
[2021-05-23 17:21] LABS: Basophils Absolute Auto 0.1 K/mm3 (0.0-0.1); Basophils Percent Auto 0.6 % (0.2-1.2); Eosinophils Absolute Auto 0.3 K/mm3 (0-0.3); Eosinophils Percent Auto 2.7 % (0-4.4); Hematocrit 32.4 % (37.0-47.0); Hemoglobin 10.1 g/dL (12.0-15.0); Immature Granulocyte Absolute 0.05 K/mm3 (0.00-0.031); Immature Granulocyte Percent A 0.5 % (0-0.5); Lymphocytes Absolute Auto 2.01 K/mm3 (0.9-3.2); Lymphocytes Percent Auto 21.2 % (18.3-44.2); Mean Corpuscular HGB Conc 31.2 g/dl (32-36); Mean Corpuscular Hemoglobin 31.7 pg (26-34); Mean Corpuscular Volume 101.6 fl (80-100); Monocytes Absolute Auto 0.7 K/mm3 (0.1-0.6); Monocytes Percent Auto 7.3 % (2.6-8.5); Neutrophils Absolute Auto 6.4 K/mm3 (1.3-6.7); Neutrophils Percent Auto 67.7 % (45.5-73.1); Platelet Count Result 406 k/mm3 (150-375); Red Blood Count 3.19 M/mm3 (4.2-5.4); Red Cell Distribution Width 12.5 % (11.5-14.5); White Blood Count 9.5 K/mm3 (4.5-10.0)
[2021-05-23 17:37] LABS: Alanine Aminotransferase 30 U/L (4-35); Albumin Level 2.8 g/dL (3.5-5.1); Alkaline Phosphatase 103 U/L (38-126); Anion Gap 5 mmol/L (8-16); Aspartate Amino Transferase 27 U/L (14-36); Bilirubin,Total 0.2 mg/dL (0.2-1.3); Blood Urea Nitrogen 16 mg/dL (7-17); Calcium 7.8 mg/dL (8.4-10.2); Carbon Dioxide 23 mmol/L (22-30); Chloride 106 mmol/L (98-107); Estimated Glomerular Filt Rate > 60; Glucose 118 mg/dL (65-110); Magnesium 1.6 mg/dL (1.6-2.3); Potassium 4.8 mmol/L (3.4-5.0); Sodium 134 mmol/L (137-145)
[2021-05-23 18:16] LABS: Glucose Point of Care 121 mg/dl (65-105)
[2021-05-23 20:10] VITALS: PULSE 80; RESP 20; O2SAT 97
[2021-05-23 21:56] VITALS: BP 164/60; PULSE 69; RESP 16; TEMP 36.5; O2SAT 99
[2021-05-24 03:17] LABS: Glucose Point of Care 111 mg/dl (65-105)
[2021-05-24] MEDS: KCL 20 MEQ/D5/0.9% SOD CHL 1,000 ML 80 ML IV CONT (05:41)
[2021-05-24 05:57] VITALS: BP 148/56; PULSE 77; RESP 16; TEMP 37.2; O2SAT 99
[2021-05-24 06:07] LABS: Hematocrit 35.1 % (37.0-47.0); Hemoglobin 11.1 g/dL (12.0-15.0); Mean Corpuscular HGB Conc 31.6 g/dl (32-36); Mean Corpuscular Volume 101.2 fl (80-100); Mean Platelet Volume 9.3 fl (7.4-10.4); Platelet Count Result 397 k/mm3 (150-375); Red Blood Count 3.47 M/mm3 (4.2-5.4); Red Cell Distribution Width 12.6 % (11.5-14.5); White Blood Count 9.6 K/mm3 (4.5-10.0)
[2021-05-24] MEDS: CENTRAL LINE FLUSH 10 ML IV PUSH ×4 (06:08→20:48)
[2021-05-24 06:17] LABS: Anion Gap 5 mmol/L (8-16); Blood Urea Nitrogen 16 mg/dL (7-17); Carbon Dioxide 23 mmol/L (22-30); Chloride 104 mmol/L (98-107); Estimated Glomerular Filt Rate > 60; Glucose 100 mg/dL (65-110); Phosphorus 3.5 mg/dL (2.5-4.5); Potassium 5.3 mmol/L (3.4-5.0); Sodium 132 mmol/L (137-145)
[2021-05-24 07:02] LABS: Glucose Point of Care 114 mg/dl (65-105)
[2021-05-24 07:58] VITALS: PULSE 77; RESP 20; O2SAT 97
[2021-05-24] MEDS: FLUTICASONE/SALMETEROL 115-21 MCG INHALER 1 PUFF 2 PUFF INHALATION ×2 (07:58→21:50)
[2021-05-24] MEDS: ENOXAPARIN 30 MG/0.3 ML SYRINGE SUB-Q (08:13)
[2021-05-24] MEDS: FAMOTIDINE 20 MG/2 ML VIAL IV PUSH ×2 (08:14→20:48)
[2021-05-24] MEDS: DEXTROSE 5%/0.9% SOD CHL 1,000 ML 80 ML IV CONT ×2 (08:38→20:48)
--- NOTE | 2021-05-24 09:14 | PM.IMPN ---
Progress Note: A&P Additional Plan Additional Plan Additional Plan Assessment and Plan (1) Duodenal obstruction: Code(s): K31.5 - Obstruction of duodenum Status: Acute Assessment and Plan: - General surgery Dr. Buitrago, who has tried for multiple days to transfer patient to biliary specialists at [facility] or [facility] and unable to. Discussed case with [facility] biliary fellow Dr. Randy Zazueta and hospitalist Dr. Sammy Glass. [facility] biliary will follow at discharge. - Dr. Buitrago performed to surgery 05/13/2021 (POD #7) with Gastrojejunostomy, Shyam-Cut biopsy pancreatic mass. - Biopsy showed Pancreatic Ductal Adenocarcinoma. - Patients pain is improved from surgery. - Pt. with no flow of gastrograffin from stomach into jejunum on Upper GI. - Encouraged po intake. - Monitoring. - Upper GI performed on 05/21/2021 showed no passage of contrast into the Jejunum. Pt with subsequent emesis of 1100 ml, and requirement of NG tube placement. Pt. with first BM since this occurrence on 05/25/2021 - Surgery has advised that she may require an EGD early this coming week to further evaluate why there is no movement of contrast into the Jejunum. - PPN has been restarted on patient. - IVF of D5NS with 20 mEq KCL changed to D5NS without potassium as her K+ this AM was 5.3. Will recheck BMP at 1300. (2) Pancreatic mass: Code(s): K86.89 - Other specified diseases of pancreas Status: Chronic Assessment and Plan: - Previous provider discussed plan of care and probable diagnosis of pancreatic cancer with both patient and daughter Asim 05/07 MRCP showed: 3.2 x 2.2 cm mass involving the pancreatic head and third portion of the duodenum causing duodenal obstruction, biopsy confirmed pancreatic adenocarcinoma. - Moderate intrahepatic and extrahepatic biliary duct dilatation with 15 mm stone in the distal common bile duct. - Open gastro jejunostomy would probably set the patient's treatment of her pancreatic tumor back 6 weeks or more. - Per [facility] Dr. Coburn, if stenting can be done to relieve the duodenal obstruction, preoperative chemotherapy can proceed soon after the procedure. If open surgery was performed, i.e. gastro jejunostomy, chemotherapy would have to wait at least 6 weeks. Since we can not transfer the patient this may have to take place despite the disadvantages. He agrees that while not optimal, in our current circumstances gastrojejunostomy may be necessary. - 05/[address] Buitrago said he spoke to [facility] and [facility] attempting to get patient transferred , but was unable to [facility] continues to be at capacity and unable to take any transfers. - Biopsy was taken to 05/13/21 during her surgery and results show PANCREATIC DUCTAL ADENOCARCINOMA - Outpatient follow up with [facility] Biliary if pt. is discharged with stable and if not, pt. will follow up as inpatient transfer. - (3) Right ureteral stone: Code(s): N20.1 - Calculus of ureter Status: Chronic Assessment and Plan: - During admission she was found to have a right ureteral stone and underwent a Cystoscopy, right retrograde pyelogram, right ureteroscopy with holmium laser, right ureteral stent placement [address] Fleming 05/05/21. She was also found to have Urinary Retention and a Lowery Catheter was placed. - Further imaging completed 05/07/21 to see if there were any stones in place which showed Some smaller stone fragments along mid aspect of the right ureteral stent. Improvement in mild right hydronephrosis. - Dr. Newsome would like to do a Cystoscopy, right ureteroscopy with stone extraction, right stent exchange, right retrograde pyelogram, possible holmium laser in 3 weeks. Urology will call patient to schedule as an outpatient. (4) Choledocholithiasis: Code(s): K80.50 - Calculus of bile duct without cholangitis or cholecy
--- NOTE | 2021-05-24 10:16 | WPDGIPROGNO ---
Progress Note: A&P Assessment and Plan (1) Duodenal obstruction: Code(s): K31.5 - Obstruction of duodenum Status: Acute Assessment and Plan: recent UGI showed that contrast did not pass gastrojejunostomy then NGT placed and started on TPN surgery asked me to proceed with EGD tomorrow to check site (anastomosis in antrum near greater curvature) with more recommendations after egd unfortunately prognosis is poor given new diagnosis of pancreatic cancer (confirmed by bx) (2) Pancreatic adenocarcinoma: Code(s): C25.9 - Malignant neoplasm of pancreas, unspecified Status: Chronic Assessment and Plan: prognosis is poor will need follow-up with biliary/oncology team (3) Protein calorie malnutrition: Code(s): E46 - Unspecified protein-calorie malnutrition Status: Acute Assessment and Plan: on TPN for now (4) Vomiting (bilious) following gastrointestinal surgery: Code(s): K91.0 - Vomiting following gastrointestinal surgery Status: Acute Assessment and Plan: NGT in place, she is comfortable now (5) Choledocholithiasis: Code(s): K80.50 - Calculus of bile duct without cholangitis or cholecystitis without obstruction Status: Chronic (6) History of bypass gastrojejunostomy: Code(s): Z98.0 - Intestinal bypass and anastomosis status Status: Acute Subjective Date/time seen: 05/24/21 10:16 Interval history: she is doing much better today, had a BM and denies abd discomfort. Review of Systems Review of Systems: All systems reviewed & are unremarkable except as noted in HPI and below Exam Const: General: comfortable and no acute distress Other: thin HENMT: Other: NGT in place Eyes: General: appearance normal, both eyes and all related structures Neck: Neck: no JVD Resp: Auscultation: clear to auscultation bilaterally Cardio: Rate: regular rate Rhythm: regular rhythm GI: Inspection: non-distended GI Palp: Yes Soft to palpation Other: midline surgical wound looks ok, no pain Skin: General skin exam: normal color Neuro: Speech: normal speech Extrem: General: normal to inspection Psych: Mental Status: mental status grossly normal Objective Data Vital Signs Vital Signs: Vital Signs - 24 hr 05/23/21 14:00 05/23/21 20:10 05/23/21 21:56 Temperature 98.3 F 97.7 F Pulse Rate 76 80 69 Respiratory Rate 16 20 16 Blood Pressure 146/66 H 164/60 H Pulse Oximetry 99 97 99 05/24/21 05:57 05/24/21 07:58 Temperature 98.9 F Pulse Rate 77 77 Respiratory Rate 16 20 Blood Pressure 148/56 H Pulse Oximetry 99 97 Intake/Output Intake/Output: Intake & Output 05/21/21 05/22/21 05/23/21 05/24/21 23:59 23:59 23:59 23:59 Intake Total 370 2030 3531 1311 Output Total 8629 665 3042 800 Balance -730 1730 581 511 Meds/Results Medications: Active Medications Generic Name Dose Route Start Last Admin Trade Name Freq PRN Reason Stop Dose Admin Al Hydrox/Mg Hydrox/Simethicone 30 ml 05/21/21 11:28 Mag Hydrox/Al Hydrox/Simeth 30 Ml Udc PO Q6H PRN Indigestion Albuterol 2 puff 05/05/21 09:16 Albuterol Sulfate (*Sp) Aerosol 1 Puff INHALATION QID PRN Pain Benzocaine 1 lozenge 05/23/21 10:32 05/23/21 12:30 Benzocaine/Menthol (*Bkc) 18 Ea Lozenge PO 1 lozenge PRN PRN Administration Sore Throat Benzonatate 100 mg 05/18/21 09:02 05/21/21 05:59 Benzonatate 100 Mg Capsule PO 100 mg TID PRN Administration cough Bisacodyl 10 mg 05/23/21 10:32 05/23/21 12:21 Bisacodyl 10 Mg Suppository RECTAL 10 mg QAM PRN Administration Constipation Enoxaparin Sodium 30 mg 05/14/21 09:00 05/24/21 08:13 Enoxaparin 30 Mg/0.3 Ml Syringe SUB-Q 30 mg DAILY CATERINA Administration Famotidine 20 mg 05/21/21 21:00 05/24/21 08:14 Famotidine 20 Mg/2 Ml Vial IV PUSH 20 mg Q12HR CATERINA Administration Fentanyl Citrate 25 mcg 05/13/21 16:19 05/23/21 01:5
[2021-05-24] MEDS: AMINO ACIDS 5%/D15W/E-LYTES/CA 2,000 ML with MULTIVITAMINS-12 INJ VIAL 1 2.5 ML, MULTIV... 40 ML IV CONT (11:57)
[2021-05-24] MEDS: FAT EMULSIONS IV 20% 250 ML 20.83 ML IVPB (11:57)
[2021-05-24 12:00] LABS: Glucose Point of Care 125 mg/dl (65-105)
[2021-05-24] MEDS: CENTRAL LINE FLUSH 20 ML IV PUSH (13:15)
[2021-05-24 13:34] LABS: Anion Gap 4 mmol/L (8-16); Blood Urea Nitrogen 17 mg/dL (7-17); Carbon Dioxide 24 mmol/L (22-30); Chloride 103 mmol/L (98-107); Estimated Glomerular Filt Rate > 60; Glucose 91 mg/dL (65-110); Potassium 5.1 mmol/L (3.4-5.0); Sodium 131 mmol/L (137-145)
[2021-05-24 14:00] VITALS: BP 122/64; PULSE 82; RESP 20; TEMP 37.1; O2SAT 96
--- NOTE | 2021-05-24 16:20 | PM.PNGS ---
Progress Note: A&P Assessment and Plan (1) Vomiting (bilious) following gastrointestinal surgery: Code(s): K91.0 - Vomiting following gastrointestinal surgery Status: Acute Assessment and Plan: NG tube has been placed. Patient will be NPO over the weekend. Dr. vIerson has seen her and possibly will do EGD on Tuesday. Hopefully with suction and time the gastrojejunostomy will open up and allow passage of gastric contents. (2) Protein calorie malnutrition: Code(s): E46 - Unspecified protein-calorie malnutrition Status: Acute Assessment and Plan: Patient started on TPN due to persistent lack of oral nutrition. TPN renewed today, electrolytes okay. (3) Pancreatic adenocarcinoma: Code(s): C25.9 - Malignant neoplasm of pancreas, unspecified Status: Chronic Assessment and Plan: Biopsy at surgery 10 days ago. Apparently will wait about 6 weeks then start possible chemotherapy if she decides to undergo that. (4) Duodenal obstruction: Code(s): K31.5 - Obstruction of duodenum Status: Acute Assessment and Plan: Bypassed with gastrojejunostomy 05/13/2021 (5) Right ureteral stone: Code(s): N20.1 - Calculus of ureter Status: Chronic Assessment and Plan: Lasered and stented. Ureteral stent remains in place. Subjective Subjective Date/Time Seen: 05/24/21 11:20 patient is sitting up in bed. Questions answered about EGD. ( Dr. Iverson had just been in also answered some questions). Patient signing consent for same for tomorrow. Denies abdominal pain. Complains of some soreness from the NG tube. Using Cepacol lozenges. Review of Systems Review of Systems: All systems reviewed & are unremarkable except as noted in HPI and below Constitutional: Constitutional: Reports as per HPI, Reports no additional constitutional complaints, Reports anorexia, Denies body ache(s), Denies chills, Reports fatigue, Denies fever(s), Denies headache(s), Reports lethargy, Denies poor appetite, Reports weakness and Reports weight loss ENT: Reports dizziness ( worse with movement), Denies headache(s) and Reports sore throat ( NG tube causing sore throat) Cardiovascular: Cardiovascular: Reports no additional cardiovascular complaints, Denies chest pain, Denies leg edema and Denies dyspnea Respiratory: Respiratory: Reports no additional respiratory complaints, Denies cough, Denies dyspnea and Denies wheezing Gastrointestinal: Gastrointestinal: Reports as per HPI, Reports abdominal pain ( incisional), Denies heartburn and Denies nausea Integumentary/Breasts: Skin/Breast: Denies wounds Neurologic: Reports system reviewed and no additional complaints, except as documented, Denies Abnormal speech present, Denies confusion, Reports dizziness ( worse with movement), Denies headache(s), Denies focal weakness, Denies Sensory deficit (Neuro) and Reports weakness Psychiatric: Psychiatric: Reports as per HPI and Denies confusion Endocrine: Endocrine: Reports fatigue Allergic/Immunologic: Allergic/Immunologic: Denies wheezing Exam Const: General: comfortable, no acute distress, alert, awake, Physically active, acute distress mild and ill appearing; No confusion Nutritional Appearance: cachectic Orientation/consciousness: oriented to place, oriented to time, patient oriented x3 and No confusion Limitations: no limitations HENMT: Head: normocephalic and atraumatic Ears: hearing grossly normal bilaterally and external ears normal General nose exam: Normal external nose present, no nasal discharge noted and no epistaxis Face and sinus: normal facial exam, face symmetric, no tenderness and dry mucous membranes Mouth: Yes Normal oral and palatal mucosa present, Yes dry mucous membranes and No tongue abnormal Eyes: Conjunctivae: conjunctivae normal Sclera: sclerae normal Pupils: Equal, round and reactive pupils present EOM: EOMs intact bilaterally Neck: Neck: no
[2021-05-24 17:04] LABS: Glucose Point of Care 110 mg/dl (65-105)
[2021-05-24 17:48] LABS: Basophils Absolute Auto 0.1 K/mm3 (0.0-0.1); Basophils Percent Auto 0.7 % (0.2-1.2); Eosinophils Absolute Auto 0.3 K/mm3 (0-0.3); Eosinophils Percent Auto 3.4 % (0-4.4); Hematocrit 31.5 % (37.0-47.0); Hemoglobin 10.4 g/dL (12.0-15.0); Immature Granulocyte Absolute 0.04 K/mm3 (0.00-0.031); Immature Granulocyte Percent A 0.4 % (0-0.5); Lymphocytes Percent Auto 21.4 % (18.3-44.2); Mean Corpuscular Hemoglobin 32.1 pg (26-34); Mean Corpuscular Volume 97.2 fl (80-100); Monocytes Absolute Auto 0.7 K/mm3 (0.1-0.6); Monocytes Percent Auto 6.9 % (2.6-8.5); Neutrophils Absolute Auto 6.6 K/mm3 (1.3-6.7); Neutrophils Percent Auto 67.2 % (45.5-73.1); Platelet Count Result 404 k/mm3 (150-375); Red Blood Count 3.24 M/mm3 (4.2-5.4); Red Cell Distribution Width 12.2 % (11.5-14.5); White Blood Count 9.8 K/mm3 (4.5-10.0)
[2021-05-24 17:58] LABS: Alanine Aminotransferase 29 U/L (4-35); Alkaline Phosphatase 106 U/L (38-126); Anion Gap 4 mmol/L (8-16); Aspartate Amino Transferase 27 U/L (14-36); Bilirubin,Total 0.4 mg/dL (0.2-1.3); Blood Urea Nitrogen 17 mg/dL (7-17); Calcium 7.8 mg/dL (8.4-10.2); Carbon Dioxide 24 mmol/L (22-30); Chloride 102 mmol/L (98-107); Estimated Glomerular Filt Rate > 60; Glucose 102 mg/dL (65-110); Magnesium 1.5 mg/dL (1.6-2.3); Potassium 4.2 mmol/L (3.4-5.0); Sodium 130 mmol/L (137-145)
[2021-05-24 21:58] VITALS: BP 164/73; PULSE 74; RESP 18; TEMP 36.6; O2SAT 96
[2021-05-24 22:18] VITALS: PULSE 78; RESP 19; O2SAT 96
[2021-05-25] VITALS (10 sets, daily range): BP systolic 122–168; BP diastolic 55–79; PULSE 68–79; RESP 16–21; TEMP 36.6–37.1; O2SAT 97–100
[2021-05-25 00:15] LABS: Glucose Point of Care 105 mg/dl (65-105)
[2021-05-25 06:01] LABS: Glucose Point of Care 100 mg/dl (65-105)
[2021-05-25 06:35] LABS: Alanine Aminotransferase 27 U/L (4-35); Albumin Level 2.9 g/dL (3.5-5.1); Alkaline Phosphatase 105 U/L (38-126); Anion Gap 2 mmol/L (8-16); Aspartate Amino Transferase 23 U/L (14-36); Bilirubin,Total 0.4 mg/dL (0.2-1.3); Blood Urea Nitrogen 17 mg/dL (7-17); Calcium 7.9 mg/dL (8.4-10.2); Carbon Dioxide 24 mmol/L (22-30); Chloride 104 mmol/L (98-107); Estimated Glomerular Filt Rate > 60; Glucose 92 mg/dL (65-110); Magnesium 1.6 mg/dL (1.6-2.3); Phosphorus 3.6 mg/dL (2.5-4.5); Potassium 4.4 mmol/L (3.4-5.0); Sodium 130 mmol/L (137-145); Triglycerides 87 mg/dL (<150)
[2021-05-25 06:42] LABS: Transferrin 175 mg/dL (206-381)
[2021-05-25 06:44] LABS: Basophils Absolute Auto 0.1 K/mm3 (0.0-0.1); Basophils Percent Auto 0.5 % (0.2-1.2); Eosinophils Absolute Auto 0.3 K/mm3 (0-0.3); Eosinophils Percent Auto 3.2 % (0-4.4); Hematocrit 32.4 % (37.0-47.0); Hemoglobin 10.4 g/dL (12.0-15.0); Immature Granulocyte Absolute 0.03 K/mm3 (0.00-0.031); Immature Granulocyte Percent A 0.3 % (0-0.5); Lymphocytes Absolute Auto 1.65 K/mm3 (0.9-3.2); Lymphocytes Percent Auto 18.1 % (18.3-44.2); Mean Corpuscular HGB Conc 32.1 g/dl (32-36); Mean Corpuscular Volume 99.7 fl (80-100); Mean Platelet Volume 9.4 fl (7.4-10.4); Monocytes Absolute Auto 0.6 K/mm3 (0.1-0.6); Monocytes Percent Auto 6.6 % (2.6-8.5); Neutrophils Absolute Auto 6.5 K/mm3 (1.3-6.7); Neutrophils Percent Auto 71.3 % (45.5-73.1); Platelet Count Result 388 k/mm3 (150-375); Red Blood Count 3.25 M/mm3 (4.2-5.4); Red Cell Distribution Width 12.6 % (11.5-14.5); White Blood Count 9.1 K/mm3 (4.5-10.0)
[2021-05-25 06:54] LABS: Prothrombin Time 12.5 Seconds (11.1-14.7)
[2021-05-25 06:55] LABS: Partial Thromboplastin Time 31.1 SECONDS (22.3-36.8)
[2021-05-25] MEDS: FLUTICASONE/SALMETEROL 115-21 MCG INHALER 1 PUFF 2 PUFF INHALATION ×2 (08:41→20:15)
[2021-05-25] MEDS: ENOXAPARIN 30 MG/0.3 ML SYRINGE SUB-Q (08:51)
[2021-05-25] MEDS: CENTRAL LINE FLUSH 10 ML IV PUSH ×3 (08:56→22:38)
[2021-05-25] MEDS: LACTATED RINGERS 1,000 ML 150 ML IV CONT (09:22)
[2021-05-25 09:33] LABS: Glucose Point of Care 69 mg/dl (65-105)
--- NOTE | 2021-05-25 09:58 | WPDANESEPPF ---
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 - Shiraz Newsome MD Operation Date: 05/08/21 13:30 Proposed Procedures p Endoscopic Retro Cholangiopancreatogram - Andrei Rasmussen MD Operation Date: 05/13/21 11:45 Proposed Procedures p Open Gastrojejunostomy - Tremaine Buitrago MD Operation Date: 05/25/21 14:30 Proposed Procedures p Esophagogastroduodenoscopy - Andrei Rasmussen MD Date/Time: 05/25/21 09:58 Surgeon: AMERICA Orosco Pre Op Diagnosis: Acute renal failure, UTI Patient Data Age: 80 Gender: F Height: 1.5 m Weight: 46.3 kg Last Vital Signs Temp 98.0 F 05/25/21 09:18 Pulse 74 05/25/21 09:18 Resp 18 05/25/21 09:18 BP 168/68 H 05/25/21 09:18 Pulse Ox 99 05/25/21 09:18 Allergies Allergy/AdvReac Type Severity Reaction Status Date / Time aspirin AdvReac Nausea and Verified 05/04/21 13:52 Vomiting Opioids - Morphine Analogues AdvReac Nausea Verified 05/04/21 13:52 Opioids-Meperidine and AdvReac Nausea and Verified 05/04/21 13:52 Related Vomiting Home Medications Medication Instructions Recorded Confirmed Type acetaminophen 500 mg PO PRN PRN 05/04/21 05/05/21 History albuterol sulfate [Ventolin HFA] 2 puff INHALATION QID PRN 05/04/21 05/04/21 History amlodipine 10 mg PO DAILY 05/04/21 05/04/21 History budesonide-formoterol [Symbicort] 2 puff INHALATION Q12H 05/04/21 05/04/21 History theophylline 400 mg PO DAILY 05/04/21 05/04/21 History Laboratory Tests 05/24/21 05/24/21 05/24/21 11:42 13:12 17:00 WBC RBC Hgb Hct MCV MCH MCHC RDW Plt Count MPV Immature Gran % (Auto) Neut % (Auto) Lymph % (Auto) [place] % (Auto) Eos % (Auto) Baso % (Auto) Lymph # (Auto) [place] # (Auto) Eos # (Auto) Baso # (Auto) Abs Immat Gran (auto) Absolute Neuts (auto) Absolute Nucleated RBC Nucleated RBC % PT INR APTT Sodium 131 mmol/L L mmol/L (137-145) Potassium 5.1 mmol/L H mmol/L (3.4-5.0) Chloride 103 mmol/L mmol/L (98-107) Carbon Dioxide 24 mmol/L mmol/L (22-30) Anion Gap 4 mmol/L L mmol/L (8-16) BUN 17 mg/dL mg/dL (7-17) Creatinine 0.60 mg/dL L mg/dL (0.7-1.0) Estim Creat Clear Calc Not Reportable Estimated GFR > 60 (59 - ) Glucose 91 mg/dL mg/dL (65-110) POC Capillary Glucose 125 mg/dl H mg/dl 110 mg/dl H mg/dl (65-105) (65-105) Calcium 8.0 mg/dL L mg/dL (8.4-10.2) Phosphorus Magnesium Transferrin Total Bilirubin AST ALT Alkaline Phosphatase Total Protein Albumin Triglycerides 05/24/21 05/24/21 05/25/21 17:30 17:30 00:10 WBC 9.8 K/mm3 K/mm3 (4.5-10.0) RBC 3.24 M/mm3 L M/mm3 (4.2-5.4) Hgb 10.4 g/dL L g/dL (12.0-15.0) Hct 31.5 % L % (37.0-47.0) MCV 97.2 fl fl (80-100) MCH 32.1 pg pg (26-34) MCHC 33.0 g/dl g/dl (32-36) RDW 12.2 % % (11.5-14.5) Plt Count 404 k/mm3 H k/mm3 (150-375) MPV 9.0 fl fl (7.4-10.4) Immature Gran % (Auto) 0.4 % % (0-0.5) Neut % (Auto) 67.2 % % (45.5-73.1) Lymph % (Auto) 21.4 % % (18.3-44.2) [place] % (Auto) 6.9 % % (2.6-8.5) Eos % (Auto) 3.4 % % (0-4.4) Baso % (Auto) 0.7 %
[2021-05-25 10:41] LABS: Glucose Point of Care 67 mg/dl (65-105)
[2021-05-25] MEDS: FAMOTIDINE 20 MG/2 ML VIAL IV PUSH ×2 (11:25→20:20)
[2021-05-25] MEDS: FAT EMULSIONS IV 20% 250 ML 20.83 ML IVPB (11:30)
--- NOTE | 2021-05-25 12:04 | PM.IMPN ---
Progress Note: A&P Additional Plan Additional Plan Additional Plan Additional Plan Assessment and Plan (1) Duodenal obstruction: Code(s): K31.5 - Obstruction of duodenum Status: Acute Assessment and Plan: - General surgery Dr. Buitrago, who has tried for multiple days to transfer patient to biliary specialists at [facility] or [facility] and unable to. Discussed case with [facility] biliary fellow Dr. Randy Zazueta and hospitalist Dr. Sammy Glass. [facility] biliary will follow at discharge. - Dr. Buitrago performed to surgery 05/13/2021 (POD #7) with Gastrojejunostomy, Shyam-Cut biopsy pancreatic mass. - Biopsy showed Pancreatic Ductal Adenocarcinoma. - Patients pain is improved from surgery. - Pt. with no flow of gastrograffin from stomach into jejunum on Upper GI. - Encouraged po intake. - Monitoring. - Upper GI performed on 05/21/2021 showed no passage of contrast into the Jejunum. Pt with subsequent emesis of 1100 ml, and requirement of NG tube placement. Pt. with first BM since this occurrence on 05/25/2021. Pt. was restarted on TPN and had NG tube replaced. She had a repeat EGD on 05/25/21 that showed a medium hiatal hernia at the GE junction, a gastrojejunostomy present in the antrum was patent without any narrowing and healing well, and there is also a MALIGNANT APPEARING INTRINSIC STENOSIS IN THE SECOND PART OF THE DUODENUM. The stenosis was not traversed. - The patient and her daughter were made aware of the findings and the pt. was returned to the floor. In addition the pt.'s NG tube was removed and she continues on TPN. She was started on a full liquid diet as tolerated. It is noted to expect some N/V given the stricture. (2) Pancreatic mass: Code(s): K86.89 - Other specified diseases of pancreas Status: Chronic Assessment and Plan: - Previous provider discussed plan of care and probable diagnosis of pancreatic cancer with both patient and daughter Asim 05/07 MRCP showed: 3.2 x 2.2 cm mass involving the pancreatic head and third portion of the duodenum causing duodenal obstruction, biopsy confirmed pancreatic adenocarcinoma. - Moderate intrahepatic and extrahepatic biliary duct dilatation with 15 mm stone in the distal common bile duct. - Open gastro jejunostomy would probably set the patient's treatment of her pancreatic tumor back 6 weeks or more. - Per [facility] Dr. Coburn, if stenting can be done to relieve the duodenal obstruction, preoperative chemotherapy can proceed soon after the procedure. If open surgery was performed, i.e. gastro jejunostomy, chemotherapy would have to wait at least 6 weeks. Since we can not transfer the patient this may have to take place despite the disadvantages. He agrees that while not optimal, in our current circumstances gastrojejunostomy may be necessary. - 05/[address] Buitrago said he spoke to [facility] and [facility] attempting to get patient transferred , but was unable to [place] continues to be at capacity and unable to take any transfers. - Biopsy was taken to 05/13/21 during her surgery and results show PANCREATIC DUCTAL ADENOCARCINOMA - Outpatient follow up with [facility] if pt. is discharged with stable and if not, pt. will follow up as inpatient transfer. - Pt. and daughter want evaluation with Oncology while here. They are consulted to see patient for recommendations. (3) Right ureteral stone: Code(s): N20.1 - Calculus of ureter Status: Chronic Assessment and Plan: - During admission she was found to have a right ureteral stone and underwent a Cystoscopy, right retrograde pyelogram, right ureteroscopy with holmium laser, right ureteral stent placement [address] Fleming 05/05/21. She was also found to have Urinary Retention and a Lowery Catheter was placed. - Further imaging completed 05/07/21 to see if there were any stones in place which showed Some smaller stone fragments along
--- NOTE | 2021-05-25 12:22 | PM.PNGS ---
Progress Note: A&P Assessment and Plan (1) Duodenal obstruction: Code(s): K31.5 - Obstruction of duodenum Status: Acute Assessment and Plan: Likely due to pancreatic cancer (2) Pancreatic mass: Code(s): K86.89 - Other specified diseases of pancreas Status: Chronic Assessment and Plan: Biopsy show adenocarcinoma of the head of the pancreas (3) History of bypass gastrojejunostomy: Code(s): Z98.0 - Intestinal bypass and anastomosis status Status: Acute Assessment and Plan: Gastrojejunostomy patent and healing with some inflammation noted on EGD today but no obstruction to passage of gastric content. (4) Vomiting (bilious) following gastrointestinal surgery: Code(s): K91.0 - Vomiting following gastrointestinal surgery Status: Acute Assessment and Plan: Hopefully will resolve after NG suction over the weekend. (5) Protein calorie malnutrition: Qualifiers: Protein-calorie malnutrition severity: moderate Qualified Code(s): E44.0 - Moderate protein-calorie malnutrition Code(s): E46 - Unspecified protein-calorie malnutrition Status: Acute Assessment and Plan: Continue TPN for now. Subjective Subjective Date/Time Seen: 05/25/21 12:22 Post Op day: #12 Patient reports: feels better, bowel movement and afebrile Interval history: Had EGD this morning. This showed that the gastrojejunostomy was patent with some healing inflammation. Obstruction at 2nd duodenum noted. NG tube has been removed and patient started on full liquids following her EGD. Review of Systems Review of Systems: All systems reviewed & are unremarkable except as noted in HPI and below (HPI) Exam Const: General: cooperative, awake and Physically active; No acute distress Nutritional Appearance: thin Orientation/consciousness: patient oriented x3 GI: Inspection: non-distended and incision (Healing well, dry and intact) GI Palp: Yes Soft to palpation and No Tenderness to palpation present (GI) Auscultation: normal bowel sounds Objective Data Vital Signs Vital Signs: Vital Signs - 24 hr 05/24/21 14:00 05/24/21 21:58 05/24/21 22:18 Temperature 37.1 C 36.6 C Pulse Rate 82 74 78 Respiratory Rate 20 18 19 Blood Pressure 122/64 164/73 H Pulse Oximetry 96 96 96 05/25/21 05:42 05/25/21 09:18 05/25/21 10:14 Temperature 36.6 C 36.7 C Pulse Rate 78 74 79 Respiratory Rate 16 18 21 H Blood Pressure 159/79 H 168/68 H 138/57 L Pulse Oximetry 97 99 100 05/25/21 10:24 05/25/21 10:34 Temperature Pulse Rate 76 71 Respiratory Rate 20 20 Blood Pressure 122/55 L 139/55 L Pulse Oximetry 97 98 Intake/Output Intake/Output: Intake & Output 05/22/21 05/23/21 05/24/21 05/25/21 23:59 23:59 23:59 23:59 Intake Total 2030 3531 4275 240 Output Total 300 2950 1900 1750 Balance 4764 777 7280 -1510 Meds/Results Medications: Active Medications Generic Name Dose Route Start Last Admin Trade Name Freq PRN Reason Stop Dose Admin Al Hydrox/Mg Hydrox/Simethicone 30 ml 05/21/21 11:28 Mag Hydrox/Al Hydrox/Simeth 30 Ml Udc PO Q6H PRN Indigestion Albuterol 2 puff 05/05/21 09:16 Albuterol Sulfate (*Sp) Aerosol 1 Puff INHALATION QID PRN Pain Benzocaine 1 lozenge 05/23/21 10:32 05/23/21 12:30 Benzocaine/Menthol (*Bkc) 18 Ea Lozenge PO 1 lozenge PRN PRN Administration Sore Throat Benzonatate 100 mg 05/18/21 09:02 05/21/21 05:59 Benzonatate 100 Mg Capsule PO 100 mg TID PRN Administration cough Bisacodyl 10 mg 05/23/21 10:32 05/23/21 12:21 Bisacodyl 10 Mg Suppository RECTAL 10 mg QAM PRN Administration Constipation Enoxaparin Sodium 30 mg 05/14/21 09:00 05/25/21 08:51 Enoxaparin 30 Mg/0.3 Ml Syringe SUB-Q 30 mg DAILY CATERINA Administration Famotidine 20 mg 05/21/21 21:00 05/25/21 11:25 Famotidine 20 Mg/2 Ml Vial IV PUSH 20 mg Q12HR CATERINA Administratio
[2021-05-25 12:56] LABS: Glucose Point of Care 101 mg/dl (65-105)
[2021-05-25] MEDS: DEXTROSE 5%/0.9% SOD CHL 1,000 ML 80 ML IV CONT (15:25)
[2021-05-25 18:28] LABS: Glucose Point of Care 87 mg/dl (65-105)
--- NOTE | 2021-05-25 18:59 | PDONCCN ---
HPI - Date of Consult Date/Time: 05/25/21 18:59 Requesting Physician: AMERICA Orosco Primary Care Provider: Sergey Taylor, - Consult Narrative Reason for consult: Adenocarcinoma of pancreas Narrative: Abby Riley is a 80 year old female with history of COPD and hypertension came into the ER with nausea vomiting for 2-3 weeks duration along with bloating and almost 17 lb weight loss. She denies any abdominal pain and back pain. She has been complaining of tiredness and fatigue. CT scan showed severe right hydronephrosis with 6 mm stone along with distended stomach and proximal duodenum. There was 13 mm stone in the common bile duct with mild intrahepatic and extrahepatic dilatation. Patient had gastrojejunostomy with Shyam-Cut biopsy of the pancreatic mass performed by Dr. Buitrago on May 13, 2021 due to obstruction of duodenum.. Pathology came back positive for adenocarcinoma pancreas. CA 19.9 came back elevated at 58. Hemoglobin remains low at 10.4. She is recovering from the surgery. Review of Systems - Review of Systems All systems reviewed & are unremarkable except as noted in HPI and bel - Neurologic Reports system reviewed and no additional complaints, except as documented, Reports hearing normal, Reports weakness, Denies abnormal speech, Denies behavioral changes, Denies confusion, Denies syncope, Denies headache(s), Denies focal weakness, Denies numbness, Denies sensory deficit [facility] Medical History: Medical History (Last Updated 05/13/21 @ 11:37 by Mac Roman MD) Choledocholithiasis Chronic obstructive pulmonary disease Duodenal obstruction Hypertension Pancreatic mass Surgical History: Surgical History (Last Updated 05/23/21 @ 15:17 by Andrei Rasmussen MD) History of appendectomy History of bypass gastrojejunostomy History of hysterectomy Family History: Family History (Last Reviewed 05/06/21 @ 18:10 by Tremaine Buitrago MD) Other Hypertension - Social History Social History: Social History (Last Reviewed 05/06/21 @ 18:10 by Tremaine Buitrago MD) Alcohol Use: Alcohol intake: never Substance Use: Substance use: never Substance use type: does not use Others: Spiritual care concerns: No Smoking Status: Smoking status: Current every day smoker Tobacco type: cigarettes Second hand tobacco smoke exposure: Yes Smoking Pack-years: Smoking packs per day: 0.5 Smoking cigarettes per day: 10.0 Years smoked: 60 Smoking pack-years: 30.00 Meds Home Medications Medication Instructions Recorded Confirmed Type acetaminophen 500 mg PO PRN PRN 05/04/21 05/05/21 History albuterol sulfate [Ventolin HFA] 2 puff INHALATION QID PRN 05/04/21 05/04/21 History amlodipine 10 mg PO DAILY 05/04/21 05/04/21 History budesonide-formoterol [Symbicort] 2 puff INHALATION Q12H 05/04/21 05/04/21 History theophylline 400 mg PO DAILY 05/04/21 05/04/21 History Allergies Allergy/AdvReac Type Severity Reaction Status Date / Time aspirin AdvReac Nausea and Verified 05/04/21 13:52 Vomiting Opioids - Morphine Analogues AdvReac Nausea Verified 05/04/21 13:52 Opioids-Meperidine and AdvReac Nausea and Verified 05/04/21 13:52 Related Vomiting Results - Labs CBC & Chem 7: 05/25/21 06:18 05/25/21 06:18 Labs: Short CBC 05/25/21 Range/Units 06:18 WBC 9.1 (4.5-10.0) K/mm3 Hgb 10.4 L (12.0-15.0) g/dL Hct 32.4 L (37.0-47.0) % Plt Count 388 H (150-375) k/mm3 BMP 05/25/21 06:18 Sodium 130 L Potassium 4.4 Chloride 104 Carbon Dioxide 24 BUN 17 Creatinine 0.60 L Glucose 92 Calcium 7.9 L Liver Function 05/25/21 Range/Units 06:18 Total Bilirubin 0.4 (0.2-1.3) mg/dL AST 23 (14-36) U/L ALT 27 (4-35) U/L Alkaline Phosphatase 105 (38-126) U/L Albumin 2.9 L (3.5-5.1) g/dL Assessment and Plan - Additional Plan Ad[place]oc
[2021-05-25 20:29] LABS: Glucose Point of Care 89 mg/dl (65-105)
[2021-05-26] MEDS: DEXTROSE 5%/0.9% SOD CHL 1,000 ML 80 ML IV CONT ×2 (03:53→17:15)
[2021-05-26 04:48] LABS: Glucose Point of Care 108 mg/dl (65-105)
[2021-05-26] MEDS: CENTRAL LINE FLUSH 10 ML IV PUSH ×4 (05:10→22:08)
[2021-05-26 06:00] VITALS: BP 159/64; PULSE 80; RESP 16; TEMP 36.4; O2SAT 95
[2021-05-26 06:21] LABS: Anion Gap 4 mmol/L (8-16); Blood Urea Nitrogen 12 mg/dL (7-17); Calcium 7.5 mg/dL (8.4-10.2); Carbon Dioxide 24 mmol/L (22-30); Chloride 107 mmol/L (98-107); Estimated Glomerular Filt Rate > 60; Glucose 112 mg/dL (65-110); Phosphorus 3.3 mg/dL (2.5-4.5); Potassium 3.7 mmol/L (3.4-5.0); Sodium 135 mmol/L (137-145)
[2021-05-26] MEDS: FLUTICASONE/SALMETEROL 115-21 MCG INHALER 1 PUFF 2 PUFF INHALATION ×2 (08:12→19:48)
[2021-05-26 08:15] VITALS: O2SAT 97
--- NOTE | 2021-05-26 09:20 | WPDANESPN ---
Anes - Prog Note Post-Op Date/Time: 05/26/21 09:20 Cardiovascular status: other Respiratory status: normal Airway patency: baseline Mental status: baseline Post-Op hydration status: normal Vital Signs: Last Vital Signs Temp 97.6 F 05/26/21 06:00 Pulse 80 05/26/21 06:00 Resp 16 05/26/21 06:00 BP 159/64 H 05/26/21 06:00 Pulse Ox 97 05/26/21 08:15 Pain Score (VAS): 04/06 I/O: Intake & Output 05/25/21 05/26/21 05/26/21 23:59 07:59 15:59 Intake Total 250 1200 Output Total 1000 Balance 250 200 Laboratory Tests 05/25/21 06:18 05/26/21 05:59 05/25/21 05/25/21 05/25/21 09:30 10:38 12:54 Sodium Potassium Chloride Carbon Dioxide Anion Gap BUN Creatinine Estim Creat Clear Calc Estimated GFR Glucose POC Capillary Glucose 69 67 101 Calcium Phosphorus 05/25/21 05/25/21 05/26/21 18:24 20:17 04:42 Sodium Potassium Chloride Carbon Dioxide Anion Gap BUN Creatinine Estim Creat Clear Calc Estimated GFR Glucose POC Capillary Glucose 87 89 108 H Calcium Phosphorus 05/26/21 05:59 Sodium 135 L Potassium 3.7 Chloride 107 Carbon Dioxide 24 Anion Gap 4 L BUN 12 D Creatinine 0.60 L Estim Creat Clear Calc Not Reportable Estimated GFR > 60 Glucose 112 H POC Capillary Glucose Calcium 7.5 L Phosphorus 3.3 Post-procedural complaints: none Patient Feedback: Patient satisfied with anesthetic care.
[2021-05-26] MEDS: ENOXAPARIN 30 MG/0.3 ML SYRINGE SUB-Q (09:38)
[2021-05-26] MEDS: FAMOTIDINE 20 MG/2 ML VIAL IV PUSH ×2 (09:39→20:59)
[2021-05-26] MEDS: AMINO ACIDS 5%/D15W/E-LYTES/CA 2,000 ML with MULTIVITAMINS-12 INJ VIAL 1 2.5 ML, MULTIV... 40 ML IV CONT (10:43)
[2021-05-26 12:44] LABS: Glucose Point of Care 128 mg/dl (65-105)
--- NOTE | 2021-05-26 12:46 | PM.IMPN ---
Progress Note: A&P Additional Plan Additional Plan Assessment and Plan (1) Duodenal obstruction: Code(s): K31.5 - Obstruction of duodenum Status: Acute Assessment and Plan: - General surgery Dr. Buitrago, who has tried for multiple days to transfer patient to biliary specialists at [facility] or [facility] and unable to. Discussed case with [facility] biliary fellow Dr. Randy Zazueta and hospitalist Dr. Sammy Glass. [facility] biliary will follow at discharge. - Dr. Buitrago performed to surgery 05/13/2021 (POD #7) with Gastrojejunostomy, Shyam-Cut biopsy pancreatic mass. - Biopsy showed Pancreatic Ductal Adenocarcinoma. - Patients pain is improved from surgery. - Pt. with no flow of gastrograffin from stomach into jejunum on Upper GI. - Encouraged po intake. - Monitoring. - Upper GI performed on 05/21/2021 showed no passage of contrast into the Jejunum. Pt with subsequent emesis of 1100 ml, and requirement of NG tube placement. Pt. with first BM since this occurrence on 05/25/2021. Pt. was restarted on TPN and had NG tube replaced. She had a repeat EGD on 05/25/21 that showed a medium hiatal hernia at the GE junction, a gastrojejunostomy present in the antrum was patent without any narrowing and healing well, and there is also a MALIGNANT APPEARING INTRINSIC STENOSIS IN THE SECOND PART OF THE DUODENUM. The stenosis was not traversed. - The patient and her daughter were made aware of the findings and the pt. was returned to the floor. In addition the pt.'s NG tube was removed and she continues on TPN. She was started on a full liquid diet as tolerated. It is noted to expect some N/V given the stricture. - Pt. has done well overnight. No increase in N/V. PO intake in past 24 hours is 510. She remains on TPN currently. (2) Pancreatic mass: Code(s): K86.89 - Other specified diseases of pancreas Status: Chronic Assessment and Plan: - Previous provider discussed plan of care and probable diagnosis of pancreatic cancer with both patient and daughter Asim 05/07 MRCP showed: 3.2 x 2.2 cm mass involving the pancreatic head and third portion of the duodenum causing duodenal obstruction, biopsy confirmed pancreatic adenocarcinoma. - Moderate intrahepatic and extrahepatic biliary duct dilatation with 15 mm stone in the distal common bile duct. - Open gastro jejunostomy would probably set the patient's treatment of her pancreatic tumor back 6 weeks or more. - Per [facility] Dr. Coburn, if stenting can be done to relieve the duodenal obstruction, preoperative chemotherapy can proceed soon after the procedure. If open surgery was performed, i.e. gastro jejunostomy, chemotherapy would have to wait at least 6 weeks. Since we can not transfer the patient this may have to take place despite the disadvantages. He agrees that while not optimal, in our current circumstances gastrojejunostomy may be necessary. - 05/[address] Buitrago said he spoke to [facility] and [facility] attempting to get patient transferred , but was unable to [place] continues to be at capacity and unable to take any transfers. - Biopsy was taken to 05/13/21 during her surgery and results show PANCREATIC DUCTAL ADENOCARCINOMA - Outpatient follow up with [facility] Biliary if pt. is discharged with stable and if not, pt. will follow up as inpatient transfer. - Pt. was evaluated by Dr. Mark and pt. is more adamant that she wants to continue with surgical options for treatment if any are available to her, and she wants to be referred to [facility] Hepatobiliary for that continued care. (3) Right ureteral stone: Code(s): N20.1 - Calculus of ureter Status: Chronic Assessment and Plan: - During admission she was found to have a right ureteral stone and underwent a Cystoscopy, right retrograde pyelogram, right ureteroscopy with holmium laser, right ureteral stent placement [address] Fleming 05/05/21. She was als
--- NOTE | 2021-05-26 12:51 | PM.PNGS ---
Progress Note: A&P Assessment and Plan (1) Duodenal obstruction: Code(s): K31.5 - Obstruction of duodenum Status: Acute Assessment and Plan: Due to pancreatic cancer. (2) History of bypass gastrojejunostomy: Code(s): Z98.0 - Intestinal bypass and anastomosis status Status: Acute Assessment and Plan: Gastrojejunostomy open and healing per EGD yesterday. Hopefully will be able to tolerate oral intake better after a couple of days of gastric decompression last weekend. Advanced to low-fiber diet today. (3) Protein calorie malnutrition: Qualifiers: Protein-calorie malnutrition severity: moderate Qualified Code(s): E44.0 - Moderate protein-calorie malnutrition Code(s): E46 - Unspecified protein-calorie malnutrition Status: Acute Assessment and Plan: Continue TPN as patient is still eating very small amounts. (4) Pancreatic adenocarcinoma: Code(s): C25.9 - Malignant neoplasm of pancreas, unspecified Status: Chronic Assessment and Plan: Per operative Shyam-Cut biopsy. Subjective Subjective Date/Time Seen: 05/26/21 12:51 Patient reports: no new complaints, tolerating liquids well ( eating very slowly and trying to avoid feeling full.) and afebrile Exam Const: General: cooperative, healthy appearing, comfortable, no acute distress, alert and awake Nutritional Appearance: thin Orientation/consciousness: patient oriented x3 GI: Inspection: non-distended, incision ( Higinio out and Steri-Strips are in place. Wound looks great.) and scaphoid GI Palp: Yes Soft to palpation, No Tenderness to palpation present (GI), No Hernia present and No Palpable mass present Auscultation: normal bowel sounds Objective Data Vital Signs Vital Signs: Vital Signs - 24 hr 05/25/21 14:00 05/25/21 20:00 05/25/21 20:18 Temperature 36.7 C Pulse Rate 68 71 Respiratory Rate 18 16 Blood Pressure 147/55 H Pulse Oximetry 99 99 98 05/25/21 21:45 05/26/21 06:00 05/26/21 08:15 Temperature 37.1 C 36.4 C Pulse Rate 71 80 Respiratory Rate 16 16 Blood Pressure 163/62 H 159/64 H Pulse Oximetry 99 95 97 Intake/Output Intake/Output: Intake & Output 05/23/21 05/24/21 05/25/21 05/26/21 23:59 23:59 23:59 23:59 Intake Total 3531 4275 1630 2570 Output Total 2950 1900 2050 1350 Balance 581 8795 -420 1220 Meds/Results Medications: Active Medications Generic Name Dose Route Start Last Admin Trade Name Freq PRN Reason Stop Dose Admin Al Hydrox/Mg Hydrox/Simethicone 30 ml 05/21/21 11:28 Mag Hydrox/Al Hydrox/Simeth 30 Ml Udc PO Q6H PRN Indigestion Albuterol 2 puff 05/05/21 09:16 Albuterol Sulfate (*Sp) Aerosol 1 Puff INHALATION QID PRN Pain Benzocaine 1 lozenge 05/23/21 10:32 05/23/21 12:30 Benzocaine/Menthol (*Bkc) 18 Ea Lozenge PO 1 lozenge PRN PRN Administration Sore Throat Benzonatate 100 mg 05/18/21 09:02 05/21/21 05:59 Benzonatate 100 Mg Capsule PO 100 mg TID PRN Administration cough Bisacodyl 10 mg 05/23/21 10:32 05/23/21 12:21 Bisacodyl 10 Mg Suppository RECTAL 10 mg QAM PRN Administration Constipation Enoxaparin Sodium 30 mg 05/14/21 09:00 05/26/21 09:38 Enoxaparin 30 Mg/0.3 Ml Syringe SUB-Q 30 mg DAILY CATERINA Administration Famotidine 20 mg 05/21/21 21:00 05/26/21 09:39 Famotidine 20 Mg/2 Ml Vial IV PUSH 20 mg Q12HR CATERINA Administration Fentanyl Citrate 25 mcg 05/13/21 16:19 05/23/21 01:52 Fentanyl Citrate Inj (*Crx) 100 Mcg/2 Ml Vial IV PUSH 25 mcg Q2H PRN Administration Pain Rated 7-10 Fentanyl Citrate 12.5 mcg 05/13/21 16:19 05/22/21 07:32 Fentanyl Citrate Inj (*Crx) 100 Mcg/2 Ml Vial IV PUSH 12.5 mcg Q2H PRN Administration Pain Rated 4-6 Guaifenesin/Dextromethorphan 5 ml 05/18/21 08:59 Guaifenesin/Dextromethorphan 10 Ml Udc PO Q4H PRN Cough Hydralazine HCl 10 mg
[2021-05-26] MEDS: FAT EMULSIONS IV 20% 250 ML 20.83 ML IVPB (12:59)
--- NOTE | 2021-05-26 13:52 | PCNFU ---
Nutrition Follow-Up Complete: Inadequate oral intake related to frequent emesis as evidenced by pt. reported weight loss of 10 lbs. in two week and BMI of 17.9 Goal: Patient to meet estimated nutritional needs. Patient is progressing towards goal. We will continue current goal. Pt current nutrition is Low Fiber. Last recorded weight is 46.1 kg, up from 44.5 kg on admit. Bowel Motility:+BM reported 05/26 Labs Reviewed:Cr 0.6,Na 135 Meds Noted:Clinimix E 5%/15%, Lovenox, Pepcid, 20% lipids, Sublimaze, Zofran, Kcl Skin: WNL Additional Notes: Nutrition follow up. Patient remains on TPN at 40 ml/hr with 250 ml of 20% Lipid Emulsion providing 1182 kcals and 48 gms protein. Diet order has advanced for full liquids to low fiber diet. Patient states she is tolerating full liquids, intake 15-45% of meals today. Patient is wanting to eat noodles. Discussed Low fiber diet today. all questions answered. As oral intake improves recommend discontinuing TPN. Monitor patient labs, medications, weight and oral intake every Tuesday and Tuesday.
[2021-05-26 14:00] VITALS: BP 139/72; PULSE 73; RESP 17; TEMP 36.6; O2SAT 98
[2021-05-26 17:13] LABS: Glucose Point of Care 102 mg/dl (65-105)
--- NOTE | 2021-05-26 17:41 | WPDGIPROGNO ---
Progress Note: A&P Assessment and Plan (1) Duodenal obstruction: Code(s): K31.5 - Obstruction of duodenum Status: Acute Assessment and Plan: egd yesterday revealed patent gastrojejunostomy, she is eating again but small amount at times expect some nausea as she still has high degree duodenal obstruction (2) Pancreatic adenocarcinoma: Code(s): C25.9 - Malignant neoplasm of pancreas, unspecified Status: Chronic Assessment and Plan: she was seen by oncology and will follow-up with biliary team as outpatient prognosis is guarded (3) History of bypass gastrojejunostomy: Code(s): Z98.0 - Intestinal bypass and anastomosis status Status: Acute (4) Nausea & vomiting: Qualifiers: Vomiting type: bilious vomiting Qualified Code(s): R11.14 - Bilious vomiting Code(s): R11.2 - Nausea with vomiting, unspecified Status: Acute Subjective Date/time seen: 05/26/21 17:41 Interval history: she is feeling better today, trying to eat but small amounts Review of Systems Review of Systems: All systems reviewed & are unremarkable except as noted in HPI and below Exam Const: General: comfortable and no acute distress Other: thin HENMT: General nose exam: Normal nares present Eyes: General: appearance normal, both eyes and all related structures Neck: Neck: no JVD Resp: Auscultation: clear to auscultation bilaterally Cardio: Rate: regular rate Rhythm: regular rhythm GI: Inspection: non-distended GI Palp: Yes Soft to palpation Auscultation: normal bowel sounds Other: midline surgical wound looks ok, no pain Skin: General skin exam: normal color Neuro: Speech: normal speech Extrem: General: normal to inspection Psych: Mental Status: mental status grossly normal Objective Data Vital Signs Vital Signs: Vital Signs - 24 hr 05/25/21 20:00 05/25/21 20:18 05/25/21 21:45 Temperature 98.7 F Pulse Rate 71 71 Respiratory Rate 16 16 Blood Pressure 163/62 H Pulse Oximetry 99 98 99 05/26/21 06:00 05/26/21 08:15 05/26/21 14:00 Temperature 97.6 F 98 F Pulse Rate 80 73 Respiratory Rate 16 17 Blood Pressure 159/64 H 139/72 Pulse Oximetry 95 97 98 Intake/Output Intake/Output: Intake & Output 0205/24/21 05/25/21 05/26/21 23:59 23:59 23:59 23:59 Intake Total 3531 4275 1630 4090 Output Total 2950 1900 2050 2200 Balance 581 2375 -420 1890 Meds/Results Medications: Active Medications Generic Name Dose Route Start Last Admin Trade Name Freq PRN Reason Stop Dose Admin Al Hydrox/Mg Hydrox/Simethicone 30 ml 05/21/21 11:28 Mag Hydrox/Al Hydrox/Simeth 30 Ml Udc PO Q6H PRN Indigestion Albuterol 2 puff 05/05/21 09:16 Albuterol Sulfate (*Sp) Aerosol 1 Puff INHALATION QID PRN Pain Benzocaine 1 lozenge 05/23/21 10:32 05/23/21 12:30 Benzocaine/Menthol (*Bkc) 18 Ea Lozenge PO 1 lozenge PRN PRN Administration Sore Throat Benzonatate 100 mg 05/18/21 09:02 05/21/21 05:59 Benzonatate 100 Mg Capsule PO 100 mg TID PRN Administration cough Bisacodyl 10 mg 05/23/21 10:32 05/23/21 12:21 Bisacodyl 10 Mg Suppository RECTAL 10 mg QAM PRN Administration Constipation Enoxaparin Sodium 30 mg 05/14/21 09:00 05/26/21 09:38 Enoxaparin 30 Mg/0.3 Ml Syringe SUB-Q 30 mg DAILY CATERINA Administration Famotidine 20 mg 05/21/21 21:00 05/26/21 09:39 Famotidine 20 Mg/2 Ml Vial IV PUSH 20 mg Q12HR CATERINA Administration Fentanyl Citrate 25 mcg 05/13/21 16:19 05/23/21 01:52 Fentanyl Citrate Inj (*Crx) 100 Mcg/2 Ml Vial IV PUSH 25 mcg Q2H PRN Administration Pain Rated 7-10 Fentanyl Citrate 12.5 mcg 05/13/21 16:19 05/22/21 07:32 Fentanyl Citrate Inj (*Crx) 100 Mcg/2 Ml Vial IV PUSH 12.5 mcg Q2H PRN Administration Pain Rated 4-6 Guaifenesin/Dextromethorphan 5 ml 05/18/21 08:59 Guaifenesin/Dextromethorphan 10 Ml Udc PO
[2021-05-26 19:29] LABS: Glucose Point of Care 117 mg/dl (65-105)
[2021-05-26 19:48] VITALS: PULSE 74; O2SAT 95
[2021-05-26 20:00] VITALS: PULSE 70; RESP 16; O2SAT 97
[2021-05-26 22:00] VITALS: BP 142/80; PULSE 70; RESP 16; TEMP 36.6; O2SAT 97
[2021-05-27 05:29] VITALS: BP 142/59; PULSE 83; RESP 16; TEMP 36.6; O2SAT 97
[2021-05-27] MEDS: CENTRAL LINE FLUSH 10 ML IV PUSH ×3 (05:50→19:57)
[2021-05-27] MEDS: DEXTROSE 5%/0.9% SOD CHL 1,000 ML 80 ML IV CONT (05:50)
[2021-05-27 05:58] LABS: Glucose Point of Care 121 mg/dl (65-105)
[2021-05-27 06:36] LABS: Anion Gap 5 mmol/L (8-16); Blood Urea Nitrogen 11 mg/dL (7-17); Calcium 7.4 mg/dL (8.4-10.2); Carbon Dioxide 23 mmol/L (22-30); Chloride 108 mmol/L (98-107); Estimated Glomerular Filt Rate > 60; Glucose 114 mg/dL (65-110); Phosphorus 3.1 mg/dL (2.5-4.5); Potassium 3.7 mmol/L (3.4-5.0); Sodium 136 mmol/L (137-145); Triglycerides 105 mg/dL (<150)
[2021-05-27] MEDS: FLUTICASONE/SALMETEROL 115-21 MCG INHALER 1 PUFF 2 PUFF INHALATION ×2 (07:49→20:49)
[2021-05-27 07:51] VITALS: O2SAT 96
[2021-05-27] MEDS: ENOXAPARIN 30 MG/0.3 ML SYRINGE SUB-Q (08:01)
[2021-05-27] MEDS: FAMOTIDINE 20 MG/2 ML VIAL IV PUSH ×2 (08:02→19:57)
[2021-05-27 12:21] LABS: Glucose Point of Care 135 mg/dl (65-105)
--- NOTE | 2021-05-27 12:48 | PM.PNGS ---
Progress Note: A&P Assessment and Plan (1) History of bypass gastrojejunostomy: Code(s): Z98.0 - Intestinal bypass and anastomosis status Status: Acute Assessment and Plan: Gastrojejunostomy open per EGD. Patient has been advanced to a low fiber diet and is tolerating oral intake much better today. Will stop TPN and IV fluids. Continue ambulating in the halls and getting up to chair during the day, PT/OT following (2) Duodenal obstruction: Code(s): K31.5 - Obstruction of duodenum Status: Acute Assessment and Plan: Due to pancreatic cancer. S/p gastrojejunostomy. (3) Pancreatic adenocarcinoma: Code(s): C25.9 - Malignant neoplasm of pancreas, unspecified Status: Chronic Assessment and Plan: Patient to see hepatobiliary surgeon at [facility] as outpatient after discharge to consider further treatment. (4) Protein calorie malnutrition: Qualifiers: Protein-calorie malnutrition severity: moderate Qualified Code(s): E44.0 - Moderate protein-calorie malnutrition Code(s): E46 - Unspecified protein-calorie malnutrition Status: Acute Assessment and Plan: Oral intake improving and patient tolerating a low fiber diet. Will stop Clinimix and IV fluids. Additional Plan I have discussed the plan of care with Dr. Buitrago. Subjective Subjective Date/Time Seen: 05/27/21 10:48 Post Op day: 14 Patient reports: no new complaints, feels better, tolerating a regular diet (low fiber), voiding w/o difficulty and bowel movement Interval history: Patient seen and examined, chart reviewed since last seen. She reports feeling well today. No vomiting. She reports still having mild nausea after eating a meal that resolves fairly quickly. She is moving her bowels but feels her stool is becoming more formed. Review of Systems Review of Systems: All systems reviewed & are unremarkable except as noted in HPI and below Exam Const: General: comfortable; No acute distress Orientation/consciousness: patient oriented x3 GI: Inspection: non-distended and incision (incision healing well, steri strips in place, dry without erythema) GI Palp: Yes Soft to palpation, No Tenderness to palpation present (GI) and No Guarding due to palpation present (GI) Auscultation: normal bowel sounds Neuro: General: no focal motor deficits Psych: Insight: Good insight present (Psych) Objective Data Vital Signs Vital Signs: Vital Signs - 24 hr 05/26/21 14:00 05/26/21 19:48 05/26/21 20:00 Temperature 98 F Pulse Rate 73 74 70 Respiratory Rate 17 16 Blood Pressure 139/72 Pulse Oximetry 98 95 97 05/26/21 22:00 05/27/21 05:29 05/27/21 07:51 Temperature 97.8 F 97.9 F Pulse Rate 70 83 Respiratory Rate 16 16 Blood Pressure 142/80 H 142/59 H Pulse Oximetry 97 97 96 Intake/Output Intake/Output: Intake & Output 05/24/21 05/25/21 05/26/21 05/27/21 23:59 23:59 23:59 23:59 Intake Total 4275 1630 4140 1450 Output Total 1900 2050 2200 1900 Balance 2375 -420 1940 -450 Meds/Results Medications: Active Medications Generic Name Dose Route Start Last Admin Trade Name Freq PRN Reason Stop Dose Admin Albuterol 2 puff 05/05/21 09:16 Albuterol Sulfate (*Sp) Aerosol 1 Puff INHALATION QID PRN Pain Benzocaine 1 lozenge 05/23/21 10:32 05/23/21 12:30 Benzocaine/Menthol (*Bkc) 18 Ea Lozenge PO 1 lozenge PRN PRN Administration Sore Throat Benzonatate 100 mg 05/18/21 09:02 05/21/21 05:59 Benzonatate 100 Mg Capsule PO 100 mg TID PRN Administration cough Bisacodyl 10 mg 05/23/21 10:32 05/23/21 12:21 Bisacodyl 10 Mg Suppository RECTAL 10 mg QAM PRN Administration Constipation Enoxaparin Sodium 30 mg 05/14/21 09:00 05/27/21 08:01 Enoxaparin 30 Mg/0.3 Ml Syringe SUB-Q 30 mg DAILY CATERINA Administration Famotidine 20 mg 05/21/21 21:00 05/27/21 08:02 Famotidine 20 Mg/2 Ml Vial IV PUSH
[2021-05-27 14:00] VITALS: BP 122/74; PULSE 88; RESP 20; TEMP 36.2; O2SAT 95
--- NOTE | 2021-05-27 15:44 | P.PNIM_ITS ---
Progress Note: A&P Assessment and Plan (1) Duodenal obstruction: Code(s): K31.5 - Obstruction of duodenum Status: Acute Assessment and Plan: Presented with vomiting, abdominal bloating, esophageal dysphagia, belching, dark green emesis * She has been seen in consultation by Gastroenterology and General surgery * Upper GI series completed which showed high-grade obstruction of the 3rd portion of the duodenum past the area of the SMA concerning for infiltrating pancreatic cancer * MRCP performed on 05/07 showed 3.2 x 2.2 cm mass involving the pancreatic head and 3rd portion of the duodenum causing duodenal obstruction 12 most likely pancreatic adenocarcinoma with moderate intrahepatic and extrahepatic biliary duct dilatation and 50 mm stone in the distal common bile * Attempts to transfer to tertiary care facility unfortunately unsuccessful. * On 05/13/2021 patient underwent gastrojejunostomy with Shyam-Cut biopsy pancreatic mass by Dr. Buitrago. Patient tolerated surgery well * Pathology showed pancreatic ductal adenocarcinoma * Nausea/vomiting persisted, therefore patient underwent EGD on 05/25 which showed medium hiatal hernia with patent gastrojejunostomy and healing inflammation, malignant-appearing intrinsic stenosis at the 2nd part of the duodenum * NG tube was removed on 05/25 and diet was advanced * TPN and IV fluids discontinued today. Patient now on low-fiber diet and is tolerating well (2) Pancreatic mass: Code(s): K86.89 - Other specified diseases of pancreas Status: Chronic Assessment and Plan: Please see above for further details * Following discussion with [facility] physician, informed that open surgical repair including gastrojejunostomy would delay chemotherapy up to 6 weeks. However, unfortunately as noted above the patient was not able to be transferred for stenting to relieve the duodenal obstruction, therefore patient underwent gastrojejunostomy on 05/13/2021 as noted above * Pathology results showed pancreatic ductal adenocarcinoma * CA 19-9 elevated at 58 * She has been seen in consultation by Dr. Mark, oncologist * Recommendations for outpatient PET scan * Planning for referral to [facility] hepatobiliary surgery Department for possible surgical resection. 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 Newsome. * She will need to have outpatient follow-up in 3 weeks for stone extraction and right stent exchange * Patient is now at the 3 week alice from this initial procedure, however this will need to be scheduled as an outpatient procedure * Noted to have urinary retention following the procedure, patient has since had a successful voiding trial and has been urinating independently without any issues (5) Acute kidney failure: Qualifiers: Acute renal failure type: unspecified Qualified Code(s): N17.9 - Acute kidney failure, unspecified Code(s): N17.9 - Acute kidney failure, unspecified Status: Acute Assessment and Plan: Cre
--- NOTE | 2021-05-27 15:44 | PM.IMPN ---
Progress Note: A&P Assessment and Plan (1) Duodenal obstruction: Code(s): K31.5 - Obstruction of duodenum Status: Acute Assessment and Plan: Presented with vomiting, abdominal bloating, esophageal dysphagia, belching, dark green emesis She has been seen in consultation by Gastroenterology and General surgery Upper GI series completed which showed high-grade obstruction of the 3rd portion of the duodenum past the area of the SMA concerning for infiltrating pancreatic cancer MRCP performed on 05/07 showed 3.2 x 2.2 cm mass involving the pancreatic head and 3rd portion of the duodenum causing duodenal obstruction 12 most likely pancreatic adenocarcinoma with moderate intrahepatic and extrahepatic biliary duct dilatation and 50 mm stone in the distal common bile Attempts to transfer to tertiary care facility unfortunately unsuccessful. On 05/13/2021 patient underwent gastrojejunostomy with Shyam-Cut biopsy pancreatic mass by Dr. Buitrago. Patient tolerated surgery well Pathology showed pancreatic ductal adenocarcinoma Nausea/vomiting persisted, therefore patient underwent EGD on 05/25 which showed medium hiatal hernia with patent gastrojejunostomy and healing inflammation, malignant-appearing intrinsic stenosis at the 2nd part of the duodenum NG tube was removed on 05/25 and diet was advanced TPN and IV fluids discontinued today. Patient now on low-fiber diet and is tolerating well (2) Pancreatic mass: Code(s): K86.89 - Other specified diseases of pancreas Status: Chronic Assessment and Plan: Please see above for further details Following discussion with [facility] physician, informed that open surgical repair including gastrojejunostomy would delay chemotherapy up to 6 weeks. However, unfortunately as noted above the patient was not able to be transferred for stenting to relieve the duodenal obstruction, therefore patient underwent gastrojejunostomy on 05/13/2021 as noted above Pathology results showed pancreatic ductal adenocarcinoma CA 19-9 elevated at 58 She has been seen in consultation by Dr. Mark, oncologist Recommendations for outpatient PET scan Planning for referral to [facility] hepatobiliary surgery Department for possible surgical resection. 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 Newsome. She will need to have outpatient follow-up in 3 weeks for stone extraction and right stent exchange Patient is now at the 3 week alice from this initial procedure, however this will need to be scheduled as an outpatient procedure Noted to have urinary retention following the procedure, patient has since had a successful voiding trial and has been urinating independently without any issues (5) Acute kidney failure: Qualifiers: Acute renal failure type: unspecified Qualified Code(s): N17.9 - Acute kidney failure, unspecified Code(s): N17.9 - Acute kidney failure, unspecified Status: Acute Assessment and Plan: Creatinine on presentation was elevated to 5.4 Likely due to obstructive nephropathy Resolved. Creatinine has normalized and is 0.6 today (6) Hypokalemia: Code(s): E87.6 - Hypokalemia Status: Acute Assessment and Plan: Resolved. Potassium 3.7 today Continue to monitor potassium closely now that TPN has been discontinued Subjective Date/time seen:
--- NOTE | 2021-05-27 15:56 | WPDGIPROGNO ---
Progress Note: A&P Assessment and Plan (1) Duodenal obstruction: Code(s): K31.5 - Obstruction of duodenum Status: Acute Assessment and Plan: egd revealed patent gastrojejunostomy tolerating diet without more vomiting expect some nausea as she still has high degree duodenal obstruction TPN discontinued [place], call if questions (2) Pancreatic adenocarcinoma: Code(s): C25.9 - Malignant neoplasm of pancreas, unspecified Status: Chronic Assessment and Plan: she was seen by oncology and will need to follow-up with biliary team as outpatient prognosis is guarded (3) History of bypass gastrojejunostomy: Code(s): Z98.0 - Intestinal bypass and anastomosis status Status: Acute (4) Nausea & vomiting: Qualifiers: Vomiting type: bilious vomiting Qualified Code(s): R11.14 - Bilious vomiting Code(s): R11.2 - Nausea with vomiting, unspecified Status: Acute Subjective Date/time seen: 05/27/21 15:56 Interval history: she is tolerating diet and moving bowels, no pain. She is comfortable. Review of Systems Review of Systems: All systems reviewed & are unremarkable except as noted in HPI and below Exam Const: General: comfortable; No acute distress Orientation/consciousness: patient oriented x3 HENMT: General nose exam: Normal nares present Eyes: Sclera: sclerae normal Neck: Neck: supple Resp: Auscultation: clear to auscultation bilaterally Cardio: Rate: regular rate GI: Inspection: non-distended and incision (incision healing well, steri strips in place, dry without erythema) GI Palp: Yes Soft to palpation, No Tenderness to palpation present (GI) and No Guarding due to palpation present (GI) Auscultation: normal bowel sounds Skin: General skin exam: no rashes or lesions noted Neuro: General: no focal motor deficits Speech: normal speech Extrem: General: normal to inspection Psych: Insight: Good insight present (Psych) Objective Data Vital Signs Vital Signs: Vital Signs - 24 hr 05/26/21 19:48 05/26/21 20:00 05/26/21 22:00 Temperature 97.8 F Pulse Rate 74 70 70 Respiratory Rate 16 16 Blood Pressure 142/80 H Pulse Oximetry 95 97 97 05/27/21 05:29 05/27/21 07:51 05/27/21 14:00 Temperature 97.9 F 97.1 F L Pulse Rate 83 88 Respiratory Rate 16 20 Blood Pressure 142/59 H 122/74 Pulse Oximetry 97 96 95 Intake/Output Intake/Output: Intake & Output 05/24/21 05/25/21 05/26/21 05/27/21 23:59 23:59 23:59 23:59 Intake Total 4275 1630 4140 2920 Output Total 1900 2050 2200 1900 Balance 2375 -420 1940 1020 Meds/Results Medications: Active Medications Generic Name Dose Route Start Last Admin Trade Name Freq PRN Reason Stop Dose Admin Albuterol 2 puff 05/05/21 09:16 Albuterol Sulfate (*Sp) Aerosol 1 Puff INHALATION QID PRN Pain Benzocaine 1 lozenge 05/23/21 10:32 05/23/21 12:30 Benzocaine/Menthol (*Bkc) 18 Ea Lozenge PO 1 lozenge PRN PRN Administration Sore Throat Benzonatate 100 mg 05/18/21 09:02 05/21/21 05:59 Benzonatate 100 Mg Capsule PO 100 mg TID PRN Administration cough Bisacodyl 10 mg 05/23/21 10:32 05/23/21 12:21 Bisacodyl 10 Mg Suppository RECTAL 10 mg QAM PRN Administration Constipation Enoxaparin Sodium 30 mg 05/14/21 09:00 05/27/21 08:01 Enoxaparin 30 Mg/0.3 Ml Syringe SUB-Q 30 mg DAILY CATERINA Administration Famotidine 20 mg 05/21/21 21:00 05/27/21 08:02 Famotidine 20 Mg/2 Ml Vial IV PUSH 20 mg Q12HR CATERINA Administration Fentanyl Citrate 25 mcg 05/13/21 16:19 05/23/21 01:52 Fentanyl Citrate Inj (*Crx) 100 Mcg/2 Ml Vial IV PUSH 25 mcg Q2H PRN Administration Pain Rated 7-10 Fentanyl Citrate 12.5 mcg 05/13/21 16:19 05/22/21 07:32 Fentanyl Citrate Inj (*Crx) 100 Mcg/2 Ml Vial IV PUSH 12.5 mcg Q2H PRN Administration Pain Rated 4-6 Guaifenesin/Dextromethorphan 5 ml
[2021-05-27 20:51] VITALS: PULSE 72; O2SAT 98
[2021-05-27 21:11] VITALS: BP 164/78; PULSE 74; RESP 16; TEMP 36.4; O2SAT 96
[2021-05-28] MEDS: CENTRAL LINE FLUSH 10 ML IV PUSH (05:01)
[2021-05-28 05:13] LABS: Basophils Absolute Auto 0.1 K/mm3 (0.0-0.1); Basophils Percent Auto 0.8 % (0.2-1.2); Eosinophils Absolute Auto 0.3 K/mm3 (0-0.3); Eosinophils Percent Auto 3.3 % (0-4.4); Hematocrit 29.4 % (37.0-47.0); Hemoglobin 9.6 g/dL (12.0-15.0); Immature Granulocyte Absolute 0.03 K/mm3 (0.00-0.031); Immature Granulocyte Percent A 0.3 % (0-0.5); Lymphocytes Absolute Auto 1.71 K/mm3 (0.9-3.2); Lymphocytes Percent Auto 18.6 % (18.3-44.2); Mean Corpuscular HGB Conc 32.7 g/dl (32-36); Mean Corpuscular Hemoglobin 32.3 pg (26-34); Mean Platelet Volume 9.6 fl (7.4-10.4); Monocytes Absolute Auto 0.8 K/mm3 (0.1-0.6); Monocytes Percent Auto 8.6 % (2.6-8.5); Neutrophils Absolute Auto 6.3 K/mm3 (1.3-6.7); Neutrophils Percent Auto 68.4 % (45.5-73.1); Platelet Count Result 356 k/mm3 (150-375); Red Blood Count 2.97 M/mm3 (4.2-5.4); Red Cell Distribution Width 12.9 % (11.5-14.5); White Blood Count 9.2 K/mm3 (4.5-10.0)
[2021-05-28 05:24] LABS: Alanine Aminotransferase 109 U/L (4-35); Albumin Level 2.8 g/dL (3.5-5.1); Alkaline Phosphatase 252 U/L (38-126); Anion Gap 2 mmol/L (8-16); Aspartate Amino Transferase 133 U/L (14-36); Bilirubin,Total 0.6 mg/dL (0.2-1.3); Blood Urea Nitrogen 10 mg/dL (7-17); Calcium 7.7 mg/dL (8.4-10.2); Carbon Dioxide 25 mmol/L (22-30); Chloride 106 mmol/L (98-107); Estimated Glomerular Filt Rate > 60; Glucose 80 mg/dL (65-110); Magnesium 1.6 mg/dL (1.6-2.3); Phosphorus 3.2 mg/dL (2.5-4.5); Sodium 133 mmol/L (137-145)
[2021-05-28 05:57] VITALS: BP 158/55; PULSE 77; RESP 18; TEMP 36.6; O2SAT 95
[2021-05-28 06:34] LABS: Hemoglobin A1C 5.1 % (<5.7)
[2021-05-28] MEDS: ENOXAPARIN 30 MG/0.3 ML SYRINGE SUB-Q (08:21)
[2021-05-28] MEDS: FAMOTIDINE 20 MG/2 ML VIAL IV PUSH (08:21)
[2021-05-28] MEDS: FLUTICASONE/SALMETEROL 115-21 MCG INHALER 1 PUFF 2 PUFF INHALATION (08:31)
--- NOTE | 2021-05-28 10:25 | PM.PNGS ---
Progress Note: A&P Assessment and Plan (1) History of bypass gastrojejunostomy: Code(s): Z98.0 - Intestinal bypass and anastomosis status Status: Acute Assessment and Plan: Patient continues to improve and is stable for discharge from a surgical standpoint. Follow up with Dr. Buitrago in 3 weeks. Discussed discharge instructions with the patient. LFTs noted to be elevated on labs this morning. Recommend repeating LFTs in 1 week (2) Duodenal obstruction: Code(s): K31.5 - Obstruction of duodenum Status: Acute Assessment and Plan: Due to pancreatic cancer. S/p gastrojejunostomy. (3) Pancreatic adenocarcinoma: Code(s): C25.9 - Malignant neoplasm of pancreas, unspecified Status: Chronic Assessment and Plan: Patient to see hepatobiliary surgeon at [facility] as an outpatient to consider further treatment. Dr. Buitrago plans to call the patient's daughter to decipher next steps for referral, which can be done as an outpatient. (4) Protein calorie malnutrition: Qualifiers: Protein-calorie malnutrition severity: moderate Qualified Code(s): E44.0 - Moderate protein-calorie malnutrition Code(s): E46 - Unspecified protein-calorie malnutrition Status: Acute Assessment and Plan: Continue a low-fiber diet. Additional Plan I have discussed the plan of care with Dr. Buitrago. Subjective Subjective Date/Time Seen: 05/28/21 10:25 Post Op day: 15 Patient reports: no new complaints and tolerating a regular diet Interval history: Patient seen and examined. She reports feeling well today without any complaints. She is tolerating her diet. Tolerating activity. Denies any abdominal pain or nausea. Review of Systems Review of Systems: All systems reviewed & are unremarkable except as noted in HPI and below Exam Const: General: alert; No acute distress Orientation/consciousness: patient oriented x3 GI: Inspection: non-distended and incision (incision healing well, steri strips in place, dry without erythema) GI Palp: Yes Soft to palpation, No Tenderness to palpation present (GI) and No Guarding due to palpation present (GI) Auscultation: normal bowel sounds Neuro: General: moves all extremities and no focal motor deficits Extrem: General: no calf tenderness and no edema Psych: Insight: Good insight present (Psych) Judgement: Good judgement present (Psych) Objective Data Vital Signs Vital Signs: Vital Signs - 24 hr 05/27/21 14:00 05/27/21 20:51 05/27/21 21:11 Temperature 97.1 F L 97.5 F L Pulse Rate 88 72 74 Respiratory Rate 20 16 Blood Pressure 122/74 164/78 H Pulse Oximetry 95 98 96 05/28/21 05:57 Temperature 97.9 F Pulse Rate 77 Respiratory Rate 18 Blood Pressure 158/55 H Pulse Oximetry 95 Intake/Output Intake/Output: Intake & Output 05/25/21 05/26/21 05/27/21 05/28/21 23:59 23:59 23:59 23:59 Intake Total 1630 4140 3815 150 Output Total 2050 2200 2550 700 Balance -420 1940 1265 -550 Meds/Results Medications: Active Medications Generic Name Dose Route Start Last Admin Trade Name Freq PRN Reason Stop Dose Admin Albuterol 2 puff 05/05/21 09:16 Albuterol Sulfate (*Sp) Aerosol 1 Puff INHALATION QID PRN Pain Benzocaine 1 lozenge 05/23/21 10:32 05/23/21 12:30 Benzocaine/Menthol (*Bkc) 18 Ea Lozenge PO 1 lozenge PRN PRN Administration Sore Throat Benzonatate 100 mg 05/18/21 09:02 05/21/21 05:59 Benzonatate 100 Mg Capsule PO 100 mg TID PRN Administration cough Bisacodyl 10 mg 05/23/21 10:32 05/23/21 12:21 Bisacodyl 10 Mg Suppository RECTAL 10 mg QAM PRN Administration Constipation Enoxaparin Sodium 30 mg 05/14/21 09:00 05/28/21 08:21 Enoxaparin 30 Mg/0.3 Ml Syringe SUB-Q 30 mg DAILY CATERINA Administration Famotidine 20 mg 05/21/21 21:00 05/28/21 08:21 Famotidine 20 Mg/2 Ml Vial IV PUSH 20 mg Q12HR CATERINA Administration
--- NOTE | 2021-05-28 13:05 | WPDUROPN2 ---
Progress Note: A&P Assessment and Plan (1) Urinary retention: Code(s): R33.9 - Retention of urine, unspecified Status: Acute Assessment and Plan: Lowery has been removed and patient is urinating without difficulty. (2) Right ureteral stone: Code(s): N20.1 - Calculus of ureter Status: Chronic Assessment and Plan: Patient will give a urine sample for culture d/t pending procedure in the next 1-2 weeks. She will be scheduled for outpatient Cystoscopy, right ureteroscopy with stone extraction, right stent exchange, right retrograde pyelogram, possible holmium laser with Dr. Newsome. Ok to discharge from urologic standpoint. Subjective Subjective Date/Time Seen: 05/28/21 13:05 Patient is doing well and being discharged home today. She denies stent discomfort but does state her urine looks cloudy since stent placement. She denies hematuria, flank pain, abdominal pain or dysuria. Review of Systems Cardiovascular: Cardiovascular: Denies chest pain Respiratory: Respiratory: Reports no additional respiratory complaints Gastrointestinal: Gastrointestinal: Denies abdominal pain, Denies nausea and Denies vomiting Genitourinary: Genitourinary: Denies hematuria, Denies dysuria, Denies pelvic pain, Denies flank pain and Denies urinary urgency Exam Resp: Effort & Inspection: normal respiratory effort Cardio: Rate: regular rate GI: GI Palp: Yes Soft to palpation and No Tenderness to palpation present (GI) : General: Yes no CVA tenderness Extrem: General: no edema Objective Data Vital Signs Vital Signs: Vital Signs - 24 hr 05/27/21 14:00 05/27/21 20:51 05/27/21 21:11 Temperature 97.1 F L 97.5 F L Pulse Rate 88 72 74 Respiratory Rate 20 16 Blood Pressure 122/74 164/78 H Pulse Oximetry 95 98 96 05/28/21 05:57 Temperature 97.9 F Pulse Rate 77 Respiratory Rate 18 Blood Pressure 158/55 H Pulse Oximetry 95 Intake/Output Intake/Output: Intake & Output 05/25/21 05/26/21 05/27/21 05/28/21 23:59 23:59 23:59 23:59 Intake Total 1630 4140 3815 150 Output Total 2050 2200 2550 700 Balance -420 1940 1265 -550 Meds/Results Medications: Active Medications Generic Name Dose Route Start Last Admin Trade Name Freq PRN Reason Stop Dose Admin Albuterol 2 puff 05/05/21 09:16 Albuterol Sulfate (*Sp) Aerosol 1 Puff INHALATION QID PRN Pain Benzocaine 1 lozenge 05/23/21 10:32 05/23/21 12:30 Benzocaine/Menthol (*Bkc) 18 Ea Lozenge PO 1 lozenge PRN PRN Administration Sore Throat Benzonatate 100 mg 05/18/21 09:02 05/21/21 05:59 Benzonatate 100 Mg Capsule PO 100 mg TID PRN Administration cough Bisacodyl 10 mg 05/23/21 10:32 05/23/21 12:21 Bisacodyl 10 Mg Suppository RECTAL 10 mg QAM PRN Administration Constipation Enoxaparin Sodium 30 mg 05/14/21 09:00 05/28/21 08:21 Enoxaparin 30 Mg/0.3 Ml Syringe SUB-Q 30 mg DAILY CATERINA Administration Famotidine 20 mg 05/21/21 21:00 05/28/21 08:21 Famotidine 20 Mg/2 Ml Vial IV PUSH 20 mg Q12HR CATERINA Administration Guaifenesin/Dextromethorphan 5 ml 05/18/21 08:59 Guaifenesin/Dextromethorphan 10 Ml Udc PO Q4H PRN Cough Hydralazine HCl 10 mg 05/18/21 07:42 05/19/21 06:28 Hydralazine Hcl 20 Mg/Ml Vial IV PUSH 10 mg Q8H PRN Administration Blood Pressure - High Naloxone HCl 0.1 mg 05/13/21 16:19 Naloxone Hcl 0.4 Mg/Ml Vial IV PUSH Q2M PRN Opiate Reversal Ondansetron HCl 4 mg 05/13/21 16:19 05/23/21 01:51 Ondansetron Inj 4 Mg/2 Ml Vial IV PUSH 4 mg Q4H PRN Administration Nausea And Vomiting Fluticasone/Salmeterol 2 puff 05/05/21 20:00 05/28/21 08:31 Fluticasone/Salmeterol 115-21 Mcg Inhaler 1 Puff INHALATION 2 puff Q12HRT CATERINA Administration Sodium Chloride 10 ml 05/22/21 14:00 05/28/21 05:01 Central Line Flush IV PUSH 10 ml Q8HR CATERINA Administration Sodium Chloride 20 ml 02
--- NOTE | 2021-05-28 13:06 | P.DS_ITS ---
DS: Admitting Diagnosis Discharge Date 05/28/2021 Admitting Diagnosis Acute kidney injury DS: Discharge Diagnosis Discharge Diagnosis (1) Duodenal obstruction: Code(s): K31.5 - Obstruction of duodenum Status: Acute Assessment and Plan: Presented with vomiting, abdominal bloating, esophageal dysphagia, belching, dark green emesis * She was seen in consultation by Gastroenterology and General surgery * Upper GI series completed 05/07 which showed high-grade obstruction of the 3rd portion of the duodenum past the area of the SMA concerning for infiltrating pancreatic cancer * MRCP performed on 05/07 showed 3.2 x 2.2 cm mass involving the pancreatic head and 3rd portion of the duodenum causing duodenal obstruction 12 most likely pancreatic adenocarcinoma with moderate intrahepatic and extrahepatic biliary duct dilatation and 50 mm stone in the distal common bile * Attempts to transfer to tertiary care facility unfortunately unsuccessful. * On 05/13/2021 patient underwent gastrojejunostomy with Shyam-Cut biopsy pancreatic mass by Dr. Buitrago. Patient tolerated surgery well * Pathology showed pancreatic ductal adenocarcinoma * Nausea/vomiting persisted, therefore patient underwent EGD on 05/25 which showed medium hiatal hernia with patent gastrojejunostomy and healing inflammation, malignant-appearing intrinsic stenosis at the 2nd part of the duodenum * NG tube was removed on 05/25 and diet was advanced * TPN and IV fluids discontinued 05/27 * Tolerated low-fiber diet which she will continue * Follow-up with General surgery in 3 weeks. General surgery will manage outpatient referral to hepatobiliary surgery (2) Pancreatic mass: Code(s): K86.89 - Other specified diseases of pancreas Status: Chronic Assessment and Plan: Please see above for further details * Following discussion with [facility] physician, informed that open surgical repair including gastrojejunostomy would delay chemotherapy up to 6 weeks. However, unfortunately as noted above the patient was not able to be transferred for stenting to relieve the duodenal obstruction, therefore patient underwent gastrojejunostomy on 05/13/2021 as noted above * Pathology results showed pancreatic ductal adenocarcinoma * CA 19-9 elevated at 58 * She was seen in consultation by Dr. Mark, oncologist * Recommendations for outpatient PET scan * Planning for referral to [facility] hepatobiliary Surgery Department for further management (3) Choledocholithiasis: Code(s): K80.50 - Calculus of bile duct without cholangitis or cholecystitis without obstruction Status: Chronic Assessment and Plan: Noted to have 15 mm stone in the distal common bile duct * Discussed with GI, no further intervention at this time in light of malignancy * Follow up with hepatobiliary surgery (4) Right ureteral stone: Code(s): N20.1 - Calculus of ureter Status: Chronic Assessment and Plan: CT on presentation showed severe right hydronephrosis and hydroureter with a 6 mm right ureteral stone * She underwent cystoscopy with right retrograde pyelogram, right ureteroscopy with holmium laser, and right ureteral stent placement on 05/05/[address] Newsome. * She will need to have outpatient follow-up in 3 weeks for stone extraction and right stent exchange. She is now at the 3 week alice from the initial procedure and will follow-up with urology as an outpatient promptly for further evaluation * Repeat urine culture collected per Urology recommendations on day of discharge * Urology will call patient to schedule outpatient ureter
--- NOTE | 2021-05-28 13:06 | PM.DS ---
DS: Admitting Diagnosis Discharge Date 05/28/2021 Admitting Diagnosis Acute kidney injury DS: Discharge Diagnosis Discharge Diagnosis (1) Duodenal obstruction: Code(s): K31.5 - Obstruction of duodenum Status: Acute Assessment and Plan: Presented with vomiting, abdominal bloating, esophageal dysphagia, belching, dark green emesis She was seen in consultation by Gastroenterology and General surgery Upper GI series completed 05/07 which showed high-grade obstruction of the 3rd portion of the duodenum past the area of the SMA concerning for infiltrating pancreatic cancer MRCP performed on 05/07 showed 3.2 x 2.2 cm mass involving the pancreatic head and 3rd portion of the duodenum causing duodenal obstruction 12 most likely pancreatic adenocarcinoma with moderate intrahepatic and extrahepatic biliary duct dilatation and 50 mm stone in the distal common bile Attempts to transfer to tertiary care facility unfortunately unsuccessful. On 05/13/2021 patient underwent gastrojejunostomy with Shyam-Cut biopsy pancreatic mass by Dr. Buitrago. Patient tolerated surgery well Pathology showed pancreatic ductal adenocarcinoma Nausea/vomiting persisted, therefore patient underwent EGD on 05/25 which showed medium hiatal hernia with patent gastrojejunostomy and healing inflammation, malignant-appearing intrinsic stenosis at the 2nd part of the duodenum NG tube was removed on 05/25 and diet was advanced TPN and IV fluids discontinued 05/27 Tolerated low-fiber diet which she will continue Follow-up with General surgery in 3 weeks. General surgery will manage outpatient referral to hepatobiliary surgery (2) Pancreatic mass: Code(s): K86.89 - Other specified diseases of pancreas Status: Chronic Assessment and Plan: Please see above for further details Following discussion with [facility] physician, informed that open surgical repair including gastrojejunostomy would delay chemotherapy up to 6 weeks. However, unfortunately as noted above the patient was not able to be transferred for stenting to relieve the duodenal obstruction, therefore patient underwent gastrojejunostomy on 05/13/2021 as noted above Pathology results showed pancreatic ductal adenocarcinoma CA 19-9 elevated at 58 She was seen in consultation by Dr. Mark, oncologist Recommendations for outpatient PET scan Planning for referral to [facility] hepatobiliary Surgery Department for further management (3) Choledocholithiasis: Code(s): K80.50 - Calculus of bile duct without cholangitis or cholecystitis without obstruction Status: Chronic Assessment and Plan: Noted to have 15 mm stone in the distal common bile duct Discussed with GI, no further intervention at this time in light of malignancy Follow up with hepatobiliary surgery (4) Right ureteral stone: Code(s): N20.1 - Calculus of ureter Status: Chronic Assessment and Plan: CT on presentation showed severe right hydronephrosis and hydroureter with a 6 mm right ureteral stone She underwent cystoscopy with right retrograde pyelogram, right ureteroscopy with holmium laser, and right ureteral stent placement on 05/05/[address] Newsome. She will need to have outpatient follow-up in 3 weeks for stone extraction and right stent exchange. She is now at the 3 week alice from the initial procedure and will follow-up with urology as an outpatient promptly for further evaluation Repeat urine culture collected per Urology recommendations on day of discharge Urology will call patient to schedule outpatient ureteroscopy Noted to have urinary retention following the procedure. She had a successful voiding trial and has been urinating independently without any issues (5) Acute kidney failure: Qualifiers: Acute renal failure type: unspecified Qualified Code(s): N17.9 - Acute kidney failure, unspecified Code(s): N17.9 - Acute kidney failure, unspecified Statu
[2021-05-28 14:00] VITALS: BP 140/53; PULSE 75; RESP 18; TEMP 36.9; O2SAT 99
[2021-05-28] MEDS: NEOMYCIN/POLYMYXIN/BACITRACIN OINTMENT PACKET 1 PACKET (15:44)
== END 2021-05-28 16:50 | disposition home or self-care (01) | DRG 327 ==
LOC: ANHED 16:24 → ANH3MEDSUR 19:24
PROVIDERS: Internal Medicine Gastroenterology; Internal Medicine Nephrology; Nurse Practitioner; Nurse Practitioner Adult Health; Physician Assistant; Surgery; Urology; Admitting Provider Internal Medicine; Emergency Provider Emergency Medicine; PCP Internal Medicine; Visit Provider Physician Assistant
PROC: 0T768DZ Dilation of Right Ureter with Intraluminal Device, Via Natural or Artificial Opening Endoscopic (ICD-10-PCS; CPT 52352; principal; 2021-05-05 14:30)
PROC: 0D160ZA Bypass Stomach to Jejunum, Open Approach (ICD-10-PCS; principal; 2021-05-13 11:45)
PROC: 0DJ08ZZ Inspection of Upper Intestinal Tract, Via Natural or Artificial Opening Endoscopic (ICD-10-PCS; CPT 43235; principal; 2021-05-25 14:30)
DX: K31.5 Obstruction of duodenum (principal); C25.3 Malignant neoplasm of pancreatic duct; N17.9 Acute kidney failure, unspecified; N13.8 Other obstructive and reflux uropathy; E87.1 Hypo-osmolality and hyponatremia; N13.2 Hydronephrosis with renal and ureteral calculous obstruction; E46 Unspecified protein-calorie malnutrition; K21.9 Gastro-esophageal reflux disease without esophagitis; K91.0 Vomiting following gastrointestinal surgery; Z20.822 Contact with and (suspected) exposure to COVID-19; K44.9 Diaphragmatic hernia without obstruction or gangrene; K80.50 Calculus of bile duct without cholangitis or cholecystitis without obstruction; E87.6 Hypokalemia; E86.0 Dehydration; R93.41 Abnormal radiologic findings on diagnostic imaging of renal pelvis, ureter, or bladder; R13.19 Other dysphagia; J44.9 Chronic obstructive pulmonary disease, unspecified; I10 Essential (primary) hypertension; F17.210 Nicotine dependence, cigarettes, uncomplicated; Z90.49 Acquired absence of other specified parts of digestive tract; Z90.710 Acquired absence of both cervix and uterus; Z68.21 Body mass index [BMI] 21.0-21.9, adult
CPT/HCPCS: 36415; 36569; 36600; 51701; 74018; 74019; 74176; 74181; 74240; 74420; 76376; 76775; 80048; 80053; 80069; 80198; 81001; 81050; 82375; 82436; 82550; 82570; 82805; 82948; 83036; 83050; 83690; 83735; 83874; 84100; 84132; 84156; 84295; 84300; 84443; 84466; 84478; 85025; 85027; 85055; 85610; 85730; 85999; 86038; 86140; 86160; 86162; 86301; 86304; 86705; 86706; 86803; 86850; 86900; 86901; 87086; 87340; 88307; 88313; 88342; 94640; 96361; 96365; 96375; 96376; 97110; 97116; 97162; 97165; 97530; 99285; A9270; C1751; C1758; C1769; C2617; C9803; G0378; J0131; J0330; J0360; J0690; J0696; J1170; J1650; J1741; J2001; J2405; J2550; J2704; J2710; J3010; J3475; J3480; J7030; J7040; J7042; J7120; Q9966; U0003; U0005

== ENCOUNTER 2021-06-11 03:12 | Day surgery (SDC) | payer MEDICARE, SELFPAY ==
[2021-06-05 14:20] VITALS: BMI 19.3
--- NOTE | 2021-06-05 14:43 | PC.NURSE ---
Report to the Outpatient Waiting Room, entrance under the green pavilion located off [facility], at time __0900 on date __06/11/21 . OR Time: __1100 . - You and your visitor will be asked a series of questions to screen for COVID 19 for your protection. - A mask is required within the hospital. Preoperative COVID Testing Requirements: NONE No COVID Test needed if: (proof is required; if not received patient will have Rapid Test prior to entry) - Patient has received COVID Vaccine at least 14 days prior to procedure date or - Patient has positive COVID test result within last 90 days of surgery date. COVID Test needed if above criteria is not met If not COVID vaccinated a COVID test must be conducted within 72 hours of surgery and patient is asked to isolate self from time of testing until procedure. You will go to the [facility] for your COVID testing. The [facility] site is located at the corner of [address] from [facility]. You will only be called if COVID results are positive and your surgeon may reschedule your elective surgery date. Patients may have clear liquids (water, carbonated beverages, clear teas, apple juice) until 3 hours prior to surgery (0800 AM) with a maximum of 20 ounces. - No food from midnight until time of surgery - Infants may have breast milk until 4 hours before surgery, formula 6 hours prior to surgery. - Children will be allowed to drink immediately following surgery. If applicable, please bring a bottle or sippy cup to assist with drinking. Juice, water, soda, and popsicles are readily available. For infants on formula, please bring formula the day of surgery. Pacifiers are allowed. Take the following medications with a SIP of water the morning of surgery: _AMLODIPINE, INHALER, TYLENOL IF NEEDED__ Medications to discontinue per physician N/A Date to take last dose Please no make-up, nail chilean, hairspray, perfume, deodorant, or body powder the day of surgery. No jewelry (including any body piercings) or valuables the day of surgery, leave them at home. Please take a shower or bath the night before, or the morning of, surgery with an antibacterial soap. Wear comfortable, loose fitting clothing. Children are encouraged to wear pajamas. - Jewelry must be removed prior to entering the operating room. Rings and piercings that are not removed may be cut off. - The hospital will not accept responsibility for valuables. - Please leave all valuables, including medications, at home the day of surgery. If you are going home after surgery, a licensed wheelchair driver must drive you home. - NO public transportation without another adult. - We recommend that an adult stay with you for 24 hours following discharge. - We also recommend that you do not drive, make important decision, drink alcoholic beverages, or take any drugs that were not prescribed by your health care provider for at least 24 hours after your discharge time. For Pediatric surgeries, we recommend two adults accompany the child home (only one inside the building at this time). One visitor will be allowed to accompany the patient into the hospital. Patients visitor will be instructed to remain with patient at all times or leave the building. We will allow the visitor to come back to the postoperative area when patient is ready. Follow any additional instructions given to you from your surgeon. Telephone instructions given to ___PT and asked if any additional questions and then verbalized understanding. Patient advised to call surgeon office or pre surgery nurse liaison [phone] if any additional questions.
--- NOTE | 2021-06-08 07:57 | PM.HPGS ---
History of Present Illness History of Present Illness Consent: Risks, benefits, and alternatives have been discussed and questions answered. Patient agrees to proceed with procedure. Chief complaint: right ureteral stone Narrative: Abby Riley is a 80 year old female who was originally seen by Dr. Newsome during an admission in early April 2021. that time she was found to have marked right hydronephrosis secondary to a 6 mm right mid ureteral calculus. She also had a large common bile duct stone. She underwent cystoscopy with laser lithotripsy of a portion of the right mid ureteral stone and stent placement. Stone fragments persist and she is now scheduled for repeat cystoscopy with right ureteroscopy and stone extraction. She is aware of the risk including, but limited to, adverse cardiopulmonary events, injury to ureter, need to replace the stent. Review of Systems Cardiovascular: Cardiovascular: Denies chest pain, Denies lightheadedness, Denies palpitations and Denies dyspnea Respiratory: Respiratory: Denies dyspnea Gastrointestinal: Gastrointestinal: Denies diarrhea, Denies nausea and Denies vomiting Genitourinary: Genitourinary: Denies hematuria and Denies dysuria Endocrine: Endocrine: Denies palpitations [facility] Past Medical History Medical History (Updated 05/25/21 @ 19:05 by Silvano Mark MD) Choledocholithiasis Chronic obstructive pulmonary disease Duodenal obstruction Hypertension Pancreatic mass Surgical History Surgical History History of appendectomy History of bypass gastrojejunostomy History of hysterectomy Family History Family History Other Hypertension Social History Social History Social History: The patient lives in [place] with her daughter. She began smoking at the age of 15 and smoked around a pack of cigarettes a day though more recently she has been smoking less than half a pack a day. No alcohol or illicit substance abuse. She designates her daughter, Asim zuñiga, as her surrogate decision maker. Code status: Full code. Smoking packs per day: 0.5 Smoking cigarettes per day: 10.0 Years smoked: 30 Smoking pack-years: 15.00 Smoking status: Current every day smoker Tobacco type: cigarettes Second hand tobacco smoke exposure: Yes Additional smoking assessment comments: PT STATES RARELY SMOKES SINCE HOSPITALIZATION Alcohol intake: never Substance use: never Substance use type: does not use Additional living arrangements comments: PT LIVES ALONG, CURRENTLY LIVING WTIH DAUGHTER WHILE RECOVERING FROM SURGERY Spiritual care concerns: No Meds Home Medications and Allergies Home Medications Medication Instructions Recorded Confirmed Type acetaminophen 500 mg PO PRN PRN 05/04/21 06/05/21 History albuterol sulfate [Ventolin HFA] 2 puff INHALATION QID PRN 05/04/21 06/05/21 History amlodipine 10 mg PO DAILY 05/04/21 06/05/21 History budesonide-formoterol [Symbicort] 2 puff INHALATION Q12H 05/04/21 06/05/21 History Allergies Allergy/AdvReac Type Severity Reaction Status Date / Time aspirin AdvReac Nausea and Verified 06/05/21 14:18 Vomiting Opioids - Morphine Analogues AdvReac Nausea Verified 06/05/21 14:18 Opioids-Meperidine and AdvReac Nausea and Verified 06/05/21 14:18 Related Vomiting Exam Const: General: no acute distress Resp: Effort & Inspection: normal respiratory effort GI: Inspection: non-distended GI Palp: No abdominal tenderness and No Guarding due to palpation present (GI) Auscultation: normal bowel sounds Assessment and Plan Assessment and plan (1) Right ureteral stone: Code(s): N20.1 - Calculus of ureter Status: Chronic Assessment and Plan: Cystoscopy, right ureteroscopy with stone extraction, possible laser lith
--- NOTE | 2021-06-10 10:25 | WPDANESEPPF ---
Anes - Initial Pre Proc Eval Procedure: Operation Date: 06/11/21 09:30 Proposed Procedures p Cystoscopy, Right Ureteroscopy, Right Stone Extraction, Right Stent Exchange, - Mario De La Fuente MD s Possible Holmium Laser - Mario De La Fuente MD Date/Time: 06/10/21 10:25 Surgeon: Mario De La Fuente MD Pre Op Diagnosis: right ureteral stone Patient Data Age: 80 Gender: F Height: 1.51 m Weight: 44 kg Allergies Allergy/AdvReac Type Severity Reaction Status Date / Time aspirin AdvReac Nausea and Verified 06/05/21 14:18 Vomiting Opioids - Morphine Analogues AdvReac Nausea Verified 06/05/21 14:18 Opioids-Meperidine and AdvReac Nausea and Verified 06/05/21 14:18 Related Vomiting Home Medications Medication Instructions Recorded Confirmed Type acetaminophen 500 mg PO PRN PRN 05/04/21 06/05/21 History albuterol sulfate [Ventolin HFA] 2 puff INHALATION QID PRN 05/04/21 06/05/21 History amlodipine 10 mg PO DAILY 05/04/21 06/05/21 History budesonide-formoterol [Symbicort] 2 puff INHALATION Q12H 05/04/21 06/05/21 History Patient hx anesthesia problems: none Family hx anesthesia problems: none Results Review: All pre-operative results and documents have been reviewed as part of the pre-operative evaluation. [facility] Past Medical History Medical History (Updated 06/10/21 @ 10:26 by Adal Zaragoza DO) Asthma Choledocholithiasis Chronic obstructive pulmonary disease Duodenal obstruction Hypertension Pancreatic adenocarcinoma Pancreatic mass Surgical History Surgical History History of appendectomy History of bypass gastrojejunostomy History of hysterectomy Family History Family History Other Hypertension Social History Social History Social History: The patient lives in [place] with her daughter. She began smoking at the age of 15 and smoked around a pack of cigarettes a day though more recently she has been smoking less than half a pack a day. No alcohol or illicit substance abuse. She designates her daughter, Asim zuñiga, as her surrogate decision maker. Code status: Full code. Smoking packs per day: 0.5 Smoking cigarettes per day: 10.0 Years smoked: 30 Smoking pack-years: 15.00 Smoking status: Current every day smoker Tobacco type: cigarettes Second hand tobacco smoke exposure: Yes Additional smoking assessment comments: PT STATES RARELY SMOKES SINCE HOSPITALIZATION Alcohol intake: never Substance use: never Substance use type: does not use Additional living arrangements comments: PT LIVES ALONG, CURRENTLY LIVING WTIH DAUGHTER WHILE RECOVERING FROM SURGERY Spiritual care concerns: No Anes - Eval Final PreProcedure Day of Procedure 06/10/21 10:25 Patient weight: cachectic Heart: regular rate and rhythm Lungs: clear to auscultation and normal air movement Airway: Mallampati scale class III Neurological: alert and oriented Last oral intake: >/= 8 hours ASA classification: IV Emergent: no Anesthetic plan: proceed Anesthesia type and monitoring: general LMA and standard monitoring Results Review: All pre-operative results and documents have been reviewed as part of the pre-operative evaluation. Informed Consent: The patient's anesthetic plan and its attendant risks and benefits were discussed with the patient/family/POA. Questions were solicited and answers provided to the satisfaction of the patient/family/POA.
[2021-06-11] VITALS (7 sets, daily range): BP systolic 98–144; BP diastolic 35–67; PULSE 64–85; RESP 16–18; TEMP 36.2–36.4; O2SAT 94–100
--- NOTE | ~2021-06-11 | XR_ITS ---
EXAMINATION: XR retrograde pyelo w/stent RT DATE: 06/11/2021 09:38 INDICATION: Right internal ureteral stent exchange TECHNIQUE: 2 fluoroscopic images of the abdomen and pelvis were obtained during procedure performed leidy De La Fuente. Radiologist was not present for the imaging or procedure. The amount of fluoroscopy dequan e used during this procedure was 1.0 minutes. COMPARISON: 05/25/2021 FINDINGS: Small amount of contrast seen within the dilated right renal pelvis with moderate to severe hydroneph rosis. Right internal ureteral stent with loops formed in the bladder and in an upper pole calyx of t he right kidney. Multiple surgical clips along the bilateral iliac chains consistent with prior pelvi c lymph node dissection. IMPRESSION: 1. Right internal ureteral stent in expected position with moderate to severe right hydronephrosis. Reviewed, dictated and finalized at location A. IMPRESSION: 1. Right internal ureteral stent in expected position with moderate to severe r ight hydronephrosis.
--- NOTE | 2021-06-11 06:16 | ECG_ITS ---
Measurements Intervals [place] Rate: 71 P: 77 GA: 142 QRS: 61 QRSD: 79 T: 61 QT: 373 QTc: 406 Interpretive Statements SINUS RHYTHM WITH OCCASIONAL SUPRAVENTRICULAR PREMATURE COMPLEXES MINIMAL ST SEGMENT CHANGES NO PREVIOUS ECG AVAILABLE FOR COMPARISON Electronically Signed On 06-11-2021 13:59:09 CDT by Luisana aDvis M.D.
--- NOTE | 2021-06-11 06:33 | WPDHPUPDATE1 ---
History and Physical Update Update Date/Time: 06/11/21 06:33 History and Physical has been reviewed, including an updated exam of the patient. There are NO changes in the patient's condition. Risks, benefits, and alternatives have been discussed and questions answered. Patient agrees to proceed with procedure.
[2021-06-11] MEDS: LACTATED RINGERS 1,000 ML 30 ML IV CONT (08:53)
[2021-06-11] MEDS: ceFAZolin 2 GM/D5W 50 ML 2 GM/50 ML BAG IVPB (08:59)
[2021-06-11] MEDS: LIDOCAINE HCL 2% GEL UROJET 10 ML PKG MUCOUS MEM (09:14)
--- NOTE | 2021-06-11 09:36 | P.OP_ITS ---
Procedure Note - Detailed Date of Procedure 06/11/21 Pre-op Diagnosis Right ureteral stones Post-op Diagnosis Same Procedure Performed cystoscopy, right ureteral stent removal, right retrograde pyelogram, right ureteroscopy with stone extraction and right ureteral stent replacement Surgeon Mario De La Fuente MD Anesthesia General Description of Procedure patient is brought to the operative suite where she was prepped and draped in routine sterile fashion while in dorsal lithotomy position after the uneventful induction of a general LMA anesthetic. Cystoscopy is undertaken with a 19 F rigid cystoscope. The tip of the indwelling stent is grasped 0.035 in glidewire was advanced through it. The stent is removed. Ureteroscopy was 1st undertaken with a semi-rigid ureteral scope to the iliac vessels. There were no stones in the distal ureter. I then did ureteroscopy with a 7.5 F flexible ureteral sco pe. There was 3 residual fragments in the right mid ureter. Each of these was removed separately using a 1.9 F disposable escape basket. Did a retrograde pyelogram and inspected the entire collecting system more proximal ureter and there were no additional stones or stone fragments. I did opt to replace a 4.8 F variable length ureteral stent positioning the proximal coil in the renal pelvis and distal coil in the bladder. Scopes were was removed she was taken recovery room in good condition Estimated Blood Loss 0 Drains No Packing No Pathology Yes Complications No immediate complications Condition Stable Disposition PACU
--- NOTE | 2021-06-11 11:09 | SUR.PHASEII ---
pt said she felt a little extra light headed. pt denies any cp or SOB. pt given crackers and juice. vss.
--- NOTE | 2021-06-11 11:11 | SUR.PHASEII ---
pt said she felt better after eating the crackers and drinking the juice. pt also ambulated well to the bathroom assisted.
== END 2021-06-11 11:29 | disposition home or self-care (01) ==
PROVIDERS: PCP Internal Medicine; Visit Provider Urology
PROC: (CPT 52352; principal; 2021-06-11 09:30)
DX: N13.2 Hydronephrosis with renal and ureteral calculous obstruction (principal); J44.9 Chronic obstructive pulmonary disease, unspecified; I10 Essential (primary) hypertension; Z79.51 Long term (current) use of inhaled steroids; Z85.07 Personal history of malignant neoplasm of pancreas; F17.210 Nicotine dependence, cigarettes, uncomplicated; R64 Cachexia; Z68.1 Body mass index [BMI] 19.9 or less, adult
CPT/HCPCS: 52332; 52352; 74420; 82365; 88300; 93005; A9270; C1769; C2617; J0690; J2405; J2704; J3010; J7120